=== PATIENT | female | born 1995 | race Caucasian/White ===

== ENCOUNTER 2016-08-05 13:20 | Inpatient (IN) | payer OTHER ==
[2016-08-05] MEDS ORDERED: SODIUM CHLORIDE 0.9% 1,000 ML IV STA ×2 (13:51)
[2016-08-05] MEDS ORDERED: METOCLOPRAMIDE 5 MG/ML 2 ML VIAL IVP STA (13:51)
--- NOTE | 2016-08-05 14:07 | ED ---
General Adult HPI - General Chief complaint: Nausea/Vomiting/Diarrhea Stated complaint: vomiting Time Seen by Provider: 08/05/16 13:31 Source: patient, family, RN notes reviewed, old records reviewed Mode of arrival: wheelchair Limitations: no limitations - History of Present Illness Initial comments: Chief complaint and history of present illness a 21-year-old female here with her significant other. The patient's 29 weeks . She had initially gone to a local clinic and was sent here to be evaluated by the WEB DESIGN SPECIALIST staff prior to being seen emergency room. WEB DESIGN SPECIALIST staff have cleared the patient to be seen in emergency room. The patient's recent history includes 4 days of nausea vomiting and diarrhea. Her OB instructed to use Imodium which stopped diarrhea. But she continues to have nausea and vomiting. Lab tests done at the clinic was negative for strep and ketone positive in her urine. Patient last vomited at 8:30 AM. Patient also presents with a very large abscess in the left buttock area. She reports she had an abscess there years ago which was MRSA positive. - Related Data Home Medications Medication Instructions Recorded Confirmed Acetaminophen Tab [Tylenol Tab] 1,000 mg PO Q6HR PRN 08/05/16 08/05/16 Loperamide [Imodium] 2 mg PO BID PRN 08/05/16 08/05/16 Allergies Allergy/AdvReac Type Severity Reaction Status Date / Time cat dander Allergy Swelling Verified 08/05/16 13:32 Latex, Natural Rubber Allergy Rash/Hives Verified 08/05/16 13:32 shellfish derived [Crab] Allergy Anaphylaxis Verified 08/05/16 13:32 clindamycin AdvReac Rapid Verified 08/05/16 13:32 Heart Rate diphenhydramine HCl AdvReac Rapid Verified 08/05/16 13:32 [From Benadryl] Heart Rate Sulfa (Sulfonamide AdvReac Rapid Verified 08/05/16 13:32 Antibiotics) Heart Rate Review of Systems ROS Statement: Those systems with pertinent positive or pertinent negative responses have been documented in the HPI. Review of systems no headache or visual acuity changes no chest pain or shortness of breath mild nausea vomiting up until 8:00 this morning. No back pain. She has significant discomfort with a large abscess in the left perineal area. Past history of MRSA infection in this area several years ago. No neuro deficits. Patient reports that she is feeling the baby move. Her WEB DESIGN SPECIALIST is at [facility] where she has had her previous children. Past medical problems significant for asthma, workup finds the patient be positive for MS. The patient's surgeries export for laparotomy. Nonsmoker nondrinker. Family history noncontributory. Patient has ALLERGIES to cat dander, latex, shellfish , clindamycin, diphenhydramine, sulfa drugs. ROS Other: All systems not noted in ROS Statement are negative. Past Medical History Past Medical History: Asthma Additional Past Medical History / Comment(s): "possible hole in heart"; Migraines, MS History of Any Multi-Drug Resistant Organisms: MRSA Date of last positivie culture/infection: 2011 MDRO Source:: vag Additional Past Surgical History / Comment(s): explory lap Past Anesthesia/Blood Transfusion Reactions: No Reported Reaction Past Psychological History: Depression, PTSD Smoking Status: Never smoker Past Alcohol Use History: None Reported Additional Past Alcohol Use History / Comment(s): Patient is a lifelong nonsmoker. She denies any medical marijuana, marijuana, street drug or alcohol use. Past Drug Use History: None Reported - Past Family History Father Additional Family Medical History / Comment(s): She does not know any history on her father. Mother Family Medical History: Asthma, Neurologic Disorder, Rheumatoid Arthritis (RA) Additional Family Medical History / Comment(s): Mother at age 31 from malpractice issue, mom also had over active histamine. Sister(s) Family Medical History: No Reported History Additional Family Medical History / Comment(s): Patient has 1 sister with no major medical problems. General Exam - General Exam Comments Initial Comments: General: The patient is awake and alert, here because of persistent nausea and vomiting. Patient's also complaining of a large tender abscess left buttock area. Vital signs temp 97.8 pulse 94 story rate 20 pulse ox 99% room air blood pressure 116/59 Eye: Pupils are equal, round and reactive to light, extra-ocular movements are intact ; there is normal conjunctiva bilaterally. No signs of icterus. Ears, nose, mouth and throat: There are moist mucous membranes and no oral lesions. Neck: The neck is supple, there is no tenderness , no anterior cervical lymphadenopathy. Cardiovascular: There is a regular rate and rhythm. No murmur, rub or gallop is appreciated. Respiratory: Lungs are clear to auscultation, respirations are non-labored, breath sounds are equal. No wheezes, stridor, rales, or rhonchi. Gastrointestinal: Soft, non-distended, non-tender abdomen without masses or organomegaly noted. There is no rebound or guarding present. No CVA tenderness. Bowel sounds are unremarkable. 0.9 weeks . Patient states she feels to be moving. Back: There is no tenderness to palpation in the midline. There is no obvious deformity. Musculoskeletal: Left buttock area large abscess. History of MRSA infection in the same area several years ago. Neurological: No neuro deficits complained of no neuro deficits noted. Skin: Large painful abscess right buttock area. Limitations: no limitations Course Vital Signs 08/05/16 13:22 Temperature 97.8 F Pulse Rate 94 Respiratory 20 Rate Blood Pressure 116/59 O2 Sat by Pulse 99 Oximetry Medical Decision Making - Medical Decision Making The patient does have a past history of MRSA in this same area. Is been decided that the patient be placed on daptomycin category B. She is ALLERGIC to clindamycin and sulfa drugs. And vancomycin is a category C medication. Case discussed with Dr. Limon on-call WEB DESIGN SPECIALIST. She is also discussed with on -call general surgeon Dr. Jasbir Schroeder who will take the patient to the operating room for incision and drainage of the large abscess. The patient has not had anything to eat or drink today. - Lab Data Result diagrams: 08/05/16 14:35 Lab Results 08/05/16 Range/Units 14:35 WBC 9.2 (3.8-10.6) k/uL RBC 4.13 (3.80-5.40) m/uL Hgb 11.0 L (11.4-16.0) gm/dL Hct 33.4 L (34.0-46.0) % MCV 80.9 (80.0-100.0) fL MCH 26.6 (25.0-35.0) pg MCHC 32.9 (31.0-37.0) g/dL RDW 14.1 (11.5-15.5) % Plt Count 274 (150-450) k/uL Neutrophils % 76 % Lymphocytes % 13 % Monocytes % 6 % Eosinophils % 3 % Basophils % 0 % Neutrophils # 7.0 (1.3-7.7) k/uL Lymphocytes # 1.2 (1.0-4.8) k/uL Monocytes # 0.5 (0-1.0) k/uL Eosinophils # 0.2 (0-0.7) k/uL Basophils # 0.0 (0-0.2) k/uL Disposition Clinical Impression: Abscess of buttock, left Disposition: ADMITTED IP TO THIS HOSP Condition: Fair Referrals: Ted Munoz MD [Primary Care Provider] - 1-2 days
[2016-08-05 14:52] LABS: Basophils % (A) 0 %; CH 27.7; CHCM 34.5; Eosinophils # (A) 0.2 k/uL (0-0.7); Eosinophils % (A) 3 %; HCT 33.4 % (34.0-46.0); HDW 3.23; Luc # (Auto) 0.15; Luc % (Auto) 2; Lymphocytes # (A) 1.2 k/uL (1.0-4.8); Lymphocytes % (A) 13 %; MCH 26.6 pg (25.0-35.0); MCHC 32.9 g/dL (31.0-37.0); MCV 80.9 fL (80.0-100.0); Mean Platelet Volume 7.1; Monocytes # (A) 0.5 k/uL (0-1.0); Monocytes % (A) 6 %; Neutrophils % (A) 76 %; RBC 4.13 m/uL (3.80-5.40); RDW 14.1 % (11.5-15.5); WBC 9.2 k/uL (3.8-10.6); WBC (Perox) 10.04
[2016-08-05 15:02] LABS: ALT 29 U/L (9-52); AST 15 U/L (14-36); Alkaline Phosphatase 64 U/L (38-126); Amylase 49 U/L (30-110); Anion Gap 10 mmol/L; Blood Urea Nitrogen 5 mg/dL (7-17); Calcium 8.6 mg/dL (8.4-10.2); Carbon Dioxide 22 mmol/L (22-30); Chloride 107 mmol/L (98-107); Glucose 79 mg/dL (74-99); Non-African American GFR(MDRD) >60 (>60 ml/min/1.73 sqM); Potassium 3.4 mmol/L (3.5-5.1); Sodium 139 mmol/L (137-145); Total Bilirubin 0.3 mg/dL (0.2-1.3); Total Protein 5.7 g/dL (6.3-8.2)
[2016-08-05] MEDS ORDERED: ACETAMINOPHEN TAB 325 MG TAB PO PRN (15:02)
[2016-08-05] MEDS ORDERED: NALOXONE 0.4 MG/ML 1 ML VIAL IV PRN ×2 (15:02→16:49)
[2016-08-05] MEDS ORDERED: SODIUM CHLORIDE 0.9% 1,000 ML IV SCH (15:15)
--- NOTE | 2016-08-05 15:36 | P.GSHP ---
History of Present Illness H&P Date: 08/05/16 Patient is a 21-year-old white female who is 29 weeks who presents with swelling and pain in her left buttock. This has been present for several days and has been increasingly worse. Patient states that she has had a low- grade fever does not know how high. The patient complains of nausea and vomiting for the past several days. She states she has not eaten for at least a day. The patient does have a history of MRSA. The patient was evaluated in labor and delivery and sent to the emergency room secondary to the large abscess. Her case has been discussed with Dr. Jam Limon who concurs that she needs to undergo incision and drainage of the area of abscess in the left buttock. Past surgical history: 1. Laparoscopic exam Past medical history: 1. Asthma 2. Multiple sclerosis Medications: Negative Social history: 4 pregnancies. Lipase and this is 29 weeks Smoking negative Alcohol negative Recreational drugs negative ALLERGIES: 1. Sulfa 2. Clindamycin 3. Benadryl DL 4. Latex - Constitutional Constitutional: Reports as per HPI, Reports fever - Cardiovascular Cardiovascular: Reports as per HPI - Respiratory Respiratory: Reports as per HPI - Gastrointestinal Gastrointestinal: Reports as per HPI - Genitourinary (Female) Genitourinary: Reports as per HPI - Psychiatric Comment: Posttraumatic stress disorder Psychiatric: Reports depression Past Medical History Past Medical History: Asthma Additional Past Medical History / Comment(s): "possible hole in heart"; Migraines, MS History of Any Multi-Drug Resistant Organisms: MRSA Date of last positivie culture/infection: 2011 MDRO Source:: vag Additional Past Surgical History / Comment(s): explory lap Past Anesthesia/Blood Transfusion Reactions: No Reported Reaction Past Psychological History: Depression, PTSD Smoking Status: Never smoker Past Alcohol Use History: None Reported Additional Past Alcohol Use History / Comment(s): Patient is a lifelong nonsmoker. She denies any medical marijuana, marijuana, street drug or alcohol use. Past Drug Use History: None Reported - Past Family History Father Additional Family Medical History / Comment(s): She does not know any history on her father. Mother Family Medical History: Asthma, Neurologic Disorder, Rheumatoid Arthritis (RA) Additional Family Medical History / Comment(s): Mother at age 31 from malpractice issue, mom also had over active histamine. Sister(s) Family Medical History: No Reported History Additional Family Medical History / Comment(s): Patient has 1 sister with no major medical problems. Medications and Allergies Home Medications Medication Instructions Recorded Confirmed Type Acetaminophen Tab [Tylenol Tab] 1,000 mg PO Q6HR PRN 08/05/16 08/05/16 History Loperamide [Imodium] 2 mg PO BID PRN 08/05/16 08/05/16 History Allergies Allergy/AdvReac Type Severity Reaction Status Date / Time cat dander Allergy Swelling Verified 08/05/16 13:32 Latex, Natural Rubber Allergy Rash/Hives Verified 08/05/16 13:32 shellfish derived [Crab] Allergy Anaphylaxis Verified 08/05/16 13:32 clindamycin AdvReac Rapid Verified 08/05/16 13:32 Heart Rate diphenhydramine HCl AdvReac Rapid Verified 08/05/16 13:32 [From Benadryl] Heart Rate Sulfa (Sulfonamide AdvReac Rapid Verified 08/05/16 13:32 Antibiotics) Heart Rate Surgical - Exam Vital Signs Temp Pulse Resp BP Pulse Ox 97.8 F 94 20 116/59 99 08/05/16 13:22 08/05/16 13:22 08/05/16 13:22 08/05/16 13:22 08/05/16 13:22 - General 29 weeks obese - Eyes normal ocular movement - ENT normal nares, normal mucosa, no hearing loss - Neck no masses, trachea midline, no lymphadectomy, no venous distension - Respiratory normal expansion, normal respiratory effort, clear to auscultation - Cardiovascular Rhythm: regular Heart Sounds: normal: S1, S2 - Abdomen Gravid uterus Abdomen: non tender, bowel sounds Hernia: none - Rectum Examination of the buttock reveals a approximately 10 x 6 cm abscess in the left buttock, this is erythematous with some fluctuance - Integumentary Left buttock abscess - Psychiatric oriented to time, oriented to person, oriented to place, speech is normal Results - Labs 08/05/16 14:35 08/05/16 14:35 Abnormal Lab Results - Last 24 Hours (Table) 08/05/16 08/05/16 Range/Units 14:35 14:35 Hgb 11.0 L (11.4-16.0) gm/dL Hct 33.4 L (34.0-46.0) % Potassium 3.4 L (3.5-5.1) mmol/L BUN 5 L (7-17) mg/dL Creatinine 0.40 L (0.52-1.04) mg/dL Total Protein 5.7 L (6.3-8.2) g/dL Albumin 2.9 L (3.5-5.0) g/dL Diabetes panel 08/05/16 Range/Units 14:35 Sodium 139 (137-145) mmol/L Potassium 3.4 L (3.5-5.1) mmol/L Chloride 107 (98-107) mmol/L Carbon Dioxide 22 (22-30) mmol/L BUN 5 L (7-17) mg/dL Creatinine 0.40 L (0.52-1.04) mg/dL Glucose 79 (74-99) mg/dL Calcium 8.6 (8.4-10.2) mg/dL AST 15 (14-36) U/L ALT 29 (9-52) U/L Alkaline Phosphatase 64 (38-126) U/L Total Protein 5.7 L (6.3-8.2) g/dL Albumin 2.9 L (3.5-5.0) g/dL Calcium panel 08/05/16 Range/Units 14:35 Calcium 8.6 (8.4-10.2) mg/dL Albumin 2.9 L (3.5-5.0) g/dL Pituitary panel 08/05/16 Range/Units 14:35 Sodium 139 (137-145) mmol/L Potassium 3.4 L (3.5-5.1) mmol/L Chloride 107 (98-107) mmol/L Carbon Dioxide 22 (22-30) mmol/L BUN 5 L (7-17) mg/dL Creatinine 0.40 L (0.52-1.04) mg/dL Glucose 79 (74-99) mg/dL Calcium 8.6 (8.4-10.2) mg/dL Adrenal panel 08/05/16 Range/Units 14:35 Sodium 139 (137-145) mmol/L Potassium 3.4 L (3.5-5.1) mmol/L Chloride 107 (98-107) mmol/L Carbon Dioxide 22 (22-30) mmol/L BUN 5 L (7-17) mg/dL Creatinine 0.40 L (0.52-1.04) mg/dL Glucose 79 (74-99) mg/dL Calcium 8.6 (8.4-10.2) mg/dL Total Bilirubin 0.3 (0.2-1.3) mg/dL AST 15 (14-36) U/L ALT 29 (9-52) U/L Alkaline Phosphatase 64 (38-126) U/L Total Protein 5.7 L (6.3-8.2) g/dL Albumin 2.9 L (3.5-5.0) g/dL Assessment and Plan Plan: Impression/plan: 1. 21-year-old 4. The 29 week white female presents with left buttock abscess 2. History of MRSA 3. Asthma 4. Multiple sclerosis 5. Depression/posterior matrix stress disorder Plan: 1. Surgical clearance has been obtained from Dr. Jam Limon the patient will have I&D of buttock abscess
[2016-08-05] MEDS ORDERED: HEPARIN SODIUM,PORCINE 5,000 UNIT/ML 1 ML VIAL SQ ONE ×2 (15:38)
[2016-08-05] MEDS ORDERED: LIDOCAINE 1% INJ 10MG/ML (20 ML MDV) ONE (16:13)
[2016-08-05] MEDS ORDERED: SUCCINYLCHOLINE CHLORIDE 100 MG/5 ML SYR IV ONE (16:13)
[2016-08-05] MEDS ORDERED: PROPOFOL 10 MG/ML 20 ML VIAL IV ONE (16:13)
[2016-08-05] MEDS ORDERED: IV FLUID CONTINUATION 1,000 ML IV ONE ×2 (16:13)
[2016-08-05] MEDS ORDERED: fentaNYL (PF) 50 MCG/ML 2 ML AMP ONE (16:13)
[2016-08-05] MEDS ORDERED: CALCIUM CARBONATE 500 MG CHEWABLE PO PRN (16:49)
[2016-08-05] MEDS ORDERED: HYDROcodone/APAP 5-325MG 1 EACH TAB PO PRN (16:49)
[2016-08-05] MEDS ORDERED: ONDANSETRON 4 MG/2 ML VIAL IVP PRN (16:49)
--- NOTE | 2016-08-05 16:49 | P.OP ---
Date of Procedure: 08/05/16 Preoperative Diagnosis: Abscess left buttock Postoperative Diagnosis: Same Procedure(s) Performed: Incision and drainage abscess left buttock, cultures obtained, irrigated and packed Anesthesia: DORA Surgeon: Meg Rose Estimated Blood Loss (ml): 2 Pathology: none sent Condition: stable Disposition: PACU Indications for Procedure: Enlarging left buttock abscess Operative Findings: Large left buttock abscess 10 cm x 13 cm Description of Procedure: Patient is a 21-year-old 29 week white female who has an enlarging left buttock abscess. She has a history of MRSA in the past in the same area. Patient was taken to the operating room and following induction of anesthesia the left buttock was prepped and draped in a sterile fashion. Initial incision was made over the area of the abscess. Purulent drainage was obtained. The wound was digitally explored and some adhesions were broken down. The extent of the wound was approximately 15 cm x 10 cm. The wound was well irrigated using 3 L of solution. The wound was then packed. The patient tolerated the procedure in stable condition. Upon initially opening the wound cultures were obtained aerobic and anaerobic. All instrument and sponge counts were correct at the end of the case.
[2016-08-05] MEDS ORDERED: HYDROmorphone 1 MG/ML 1 ML SYRINGE IVP ONE (17:21)
[2016-08-05 18:24] VITALS: BMI 44.2
[2016-08-05] MEDS: SODIUM CHLORIDE 0.9% 1,000 ML IV SCH (21:19)
[2016-08-05] MEDS: HYDROmorphone 1 MG/ML 1 ML SYRINGE IV PRN (21:19)
[2016-08-05] MEDS: HEPARIN SODIUM,PORCINE 5,000 UNIT/ML 1 ML VIAL SQ SCH (21:19)
[2016-08-05] MEDS: METOCLOPRAMIDE 5 MG/ML 2 ML VIAL IVP PRN (21:32)
[2016-08-06] MEDS: SODIUM CHLORIDE 0.9% 1,000 ML IV SCH ×2 (03:03→22:37)
[2016-08-06] MEDS: HYDROmorphone 1 MG/ML 1 ML SYRINGE IV PRN ×5 (07:16→22:24)
[2016-08-06] MEDS: METOCLOPRAMIDE 5 MG/ML 2 ML VIAL IVP PRN ×2 (07:23→18:39)
[2016-08-06 07:59] LABS: Basophils % (A) 0 %; CH 27.4; CHCM 32.7; Eosinophils # (A) 0.3 k/uL (0-0.7); Eosinophils % (A) 4 %; HCT 33.2 % (34.0-46.0); HDW 3.17; HGB 10.8 gm/dL (11.4-16.0); Luc # (Auto) 0.21; Luc % (Auto) 3; Lymphocytes # (A) 1.4 k/uL (1.0-4.8); Lymphocytes % (A) 17 %; MCH 27.3 pg (25.0-35.0); MCHC 32.4 g/dL (31.0-37.0); MCV 84.2 fL (80.0-100.0); Mean Platelet Volume 6.5; Monocytes # (A) 0.4 k/uL (0-1.0); Monocytes % (A) 5 %; Neutrophils % (A) 72 %; RBC 3.95 m/uL (3.80-5.40); WBC 8.3 k/uL (3.8-10.6); WBC (Perox) 8.74
--- NOTE | 2016-08-06 08:48 | P.HPOB ---
History of Present Illness H&P Date: 08/06/16 Chief Complaint: 29 weeks intrauterine , abscess of buttocks The patient is a 21-year-old 4 para 3003 admitted at approximately 29 weeks of having been found with a large abscess of the left buttocks. Her has been uncomplicated and she does have care with a reject opener [facility] fabiana practicing out [facility]. Her has been uncomplicated to this point. She does carry a history of a previous infection in the same area number of years ago which was ultimately found to be MRSA positive. She reports good activity and denies any other obstetrical concerns at this time. Obstetrical history 4 para 3003 with 3 term vaginal deliveries without complications. Her first was complicated only by preeclampsia. Current statistics are listed in history present illness. Laboratory workup as regards labs are immaterial to this admission. Gynecologic history is unremarkable with no history of any infections to include STDs. Review of Systems Review of systems is confined to history of present illness. Past Medical History Past Medical History: Asthma Additional Past Medical History / Comment(s): "possible hole in heart"; Migraines, MS History of Any Multi-Drug Resistant Organisms: MRSA Date of last positivie culture/infection: 2011 MDRO Source:: vag Additional Past Surgical History / Comment(s): explory lap, I&D left buttocks Past Anesthesia/Blood Transfusion Reactions: No Reported Reaction Past Psychological History: Depression, PTSD Smoking Status: Never smoker Past Alcohol Use History: None Reported Additional Past Alcohol Use History / Comment(s): Patient is a lifelong nonsmoker. She denies any medical marijuana, marijuana, street drug or alcohol use. Past Drug Use History: None Reported - Past Family History Father Additional Family Medical History / Comment(s): She does not know any history on her father. Mother Family Medical History: Asthma, Neurologic Disorder, Rheumatoid Arthritis (RA) Additional Family Medical History / Comment(s): Mother at age 31 from malpractice issue, mom also had over active histamine. Sister(s) Family Medical History: Asthma Additional Family Medical History / Comment(s): Patient has 1 sister with no major medical problems. Medications and Allergies Home Medications Medication Instructions Recorded Confirmed Type Acetaminophen Tab [Tylenol Tab] 1,000 mg PO Q6HR PRN 01/29/17 01/29/17 History Loperamide [Imodium] 2 mg PO BID PRN 08/05/16 08/05/16 History Allergies Allergy/AdvReac Type Severity Reaction Status Date / Time cat dander Allergy Swelling Verified 08/05/16 13:32 Latex, Natural Rubber Allergy Rash/Hives Verified 08/05/16 13:32 shellfish derived [Crab] Allergy Anaphylaxis Verified 08/05/16 13:32 clindamycin AdvReac Rapid Verified 08/05/16 13:32 Heart Rate diphenhydramine HCl AdvReac Rapid Verified 08/05/16 13:32 [From Benadryl] Heart Rate Sulfa (Sulfonamide AdvReac Rapid Verified 08/05/16 13:32 Antibiotics) Heart Rate Exam - Vital Signs Vital signs: Vital Signs Temp Pulse Pulse Pulse Resp BP BP 08/06/16 08:00 90 16 08/06/16 07:00 97.5 F L 90 16 08/06/16 03:38 98.0 F 83 15 08/05/16 20:00 97.1 F L 97 16 08/05/16 19:45 102 H 08/05/16 19:30 93 08/05/16 19:15 101 H 08/05/16 19:00 92 08/05/16 18:45 98 08/05/16 18:30 97 08/05/16 18:15 98 08/05/16 18:00 96.9 F L 97 16 08/05/16 17:15 103 H 18 141/70 08/05/16 17:00 113 H 18 146/72 08/05/16 16:54 98.4 F 116 H 16 156/69 08/05/16 15:36 97.6 F 98 18 113/58 BP Pulse Ox 08/06/16 08:00 08/06/16 07:00 111/61 96 08/06/16 03:38 88/43 95 08/05/16 20:00 128/59 95 08/05/16 19:45 125/66 95 08/05/16 19:30 118/68 91 L 08/05/16 19:15 130/65 97 08/05/16 19:00 124/64 89 L 08/05/16 18:45 129/71 96 08/05/16 18:30 116/61 100 08/05/16 18:15 105/60 98 08/05/16 18:00 115/63 97 08/05/16 17:15 97 08/05/16 17:00 96 08/05/16 16:54 93 L 08/05/16 15:36 100 Intake and Output 08/05/16 08/06/16 08/06/16 22:59 06:59 14:59 Intake Total 800 800 Output Total 25 Balance 775 800 Intake: IV 800 800 Sodium Chloride 0.9% 1, 300 800 000 ml @ 100 mls/hr IV . Q10H ELIZ Rx#:[id number] Output: Estimated Blood Loss 25 Other: Voiding Method Toilet Toilet # Voids 2 2 2 Weight 109.76 kg 109.76 kg Patient Weight 08/07/16 06:59 Weight 109.76 kg In general, this is a moderately obese white female in no acute distress. Her abdomen is nondistended, has normal active bowel sounds, soft, nontender, without any palpable masses aside from uterine fundus. Uterus is soft and nontender without apparent contractions. Digital cervical examination is deferred. Her extremities are without any cyanosis, clubbing, or significant edema and are nontender to palpation bilaterally. Results Result Diagrams: 08/06/16 07:30 08/05/16 14:35 Abnormal Lab Results - Last 24 Hours (Table) 08/06/16 Range/Units 07:30 Hgb 10.8 L (11.4-16.0) gm/dL Hct 33.2 L (34.0-46.0) % Assessment and Plan (1) 29 weeks gestation of Status: Acute (2) Abscess of buttock, left Status: Acute Plan: The patient will continue to be managed by general surgery. All of the current orders have been cleared obstetrically. She does continue to have a nonstress test each shift which thus far has been entirely reassuring. Patient has no obstetrical concerns at this time. I will continue to follow at a distance and to the patient's discharge at which time she should follow up with her primary reject opener in [facility]. Further management of the abscess will remain with general surgery.
[2016-08-06] MEDS ORDERED: DAPTOMYCIN IV SCH ×4 (09:00)
[2016-08-06] MEDS ORDERED: SODIUM CHLORIDE 0.9% IV SCH ×4 (09:00)
[2016-08-06] MEDS: HEPARIN SODIUM,PORCINE 5,000 UNIT/ML 1 ML VIAL SQ SCH ×2 (09:10→19:34)
--- NOTE | 2016-08-06 09:40 | P.PN ---
Subjective 21-year-old female being seen on rounds with the surgeon Dr. Shearer. Patient is postop incision and drainage of an abscess left buttocks cultures were obtained this was done on August 05. The dressing is removed from the left buttocks by the surgeon this morning there is a packing in place was a moderate amount of drainage on the dressings. Drainage was noticed The surgeon did review the plan of care with the patient this morning infectious diseases to participate in the plan of care with recommendations of the antibiotics. Dressing is to be changed daily. The packing can be removed in the shower repack daily Objective - Vital Signs Vital signs: Vital Signs Temp 97.5 F L 08/06/16 07:00 Pulse 90 08/06/16 08:00 Resp 16 08/06/16 08:00 BP 111/61 08/06/16 07:00 Pulse Ox 96 08/06/16 07:00 Intake & Output 08/05/16 08/06/16 08/06/16 18:59 06:59 18:59 Intake Total 500 1100 Output Total 25 Balance 475 1100 Weight 109.76 kg 109.76 kg Intake: IV 500 1100 Sodium Chloride 0.9% 1, 1100 000 ml @ 100 mls/hr IV . Q10H ELIZ Rx#:[id number] Output: Estimated Blood Loss 25 Other: Voiding Method Toilet Toilet # Voids 2 2 - Exam Physical exam 21-year-old female resting in bed appears in no acute distress Lungs essentially clear adequate air movement Heart S1-S2 audible and regular Left buttocks dressing removed packing in place moderate amount of drainage on the dressings less tenderness Abdomen obese soft nontender no reports the nausea vomiting Extremities no edema - Labs CBC & Chem 7: 08/06/16 07:30 08/05/16 14:35 Labs: Abnormal Lab Results - Last 24 Hours (Table) 08/06/16 Range/Units 07:30 Hgb 10.8 L (11.4-16.0) gm/dL Hct 33.2 L (34.0-46.0) % Assessment and Plan Plan: Impression Abscess left buttock status post incision and drainage of the abscess cultures obtained done on August 05 week intrauterine A prior history of MRSA the same area number a years ago Plan Packing to be removed daily repack dressing changes daily Await infectious diseases recommendations Continue recommendations from PROJECT STRUCTURAL ENGINEER Further recommendations pending will follow Follow-up on cultures pending The above dictated assessment and findings were discussed with dr barragan Impression and the plan of care have been dictated as directed. Cristina Robbins nurse practitioner acting as a scribe for dr barragan
--- NOTE | 2016-08-06 15:19 | P.CONS ---
History of Present Illness - Reason for Consult Consult date: 08/06/16 MRSA wound, - History of Present Illness This is a 21-year-old female who is currently 29 weeks . She had 4 days of nausea vomiting and diarrhea prior to her admission. She took Imodium which stopped the diarrhea but she continued to have nausea and vomiting. She has also had fever, chills and rigors. She was found to have a large abscess on the left buttocks. She does have a history of MRSA. She came into [facility] and she has been placed on daptomycin. She has been afebrile but tachycardic. White count is 9.2. GFR greater than 60 and albumin 2.9. She underwent incision and drainage of a 10 x 13 cm abscess done on August 05. Patient is not sure if it feels any better. Patient is also followed by Dr. Limon and she is undergoing nonstress test each shift. Review of Systems All systems: negative Constitutional: Reports chills, Reports fever, Reports sweats Eyes: denies blurred vision, denies pain Ears, nose, mouth and throat: Denies headache, Denies sore throat Cardiovascular: Denies chest pain, Denies shortness of breath Respiratory: Denies cough Gastrointestinal: Reports diarrhea, Reports nausea, Reports vomiting, Denies abdominal pain Genitourinary: Denies dysuria, Denies hematuria Musculoskeletal: Denies myalgias Integumentary: Reports wounds, Denies pruritus, Denies rash Neurological: Denies numbness, Denies weakness Psychiatric: Denies anxiety, Denies depression Endocrine: Denies fatigue, Denies weight change Past Medical History Past Medical History: Asthma Additional Past Medical History / Comment(s): "possible hole in heart"; Migraines, MS History of Any Multi-Drug Resistant Organisms: MRSA Year Discovered:: 2011 MDRO Source:: vag Additional Past Surgical History / Comment(s): explory lap, I&D left buttocks Past Anesthesia/Blood Transfusion Reactions: No Reported Reaction Past Psychological History: Depression, PTSD Smoking Status: Never smoker Past Alcohol Use History: None Reported Additional Past Alcohol Use History / Comment(s): Patient is a lifelong nonsmoker. She denies any medical marijuana, marijuana, street drug or alcohol use. She lives at home with her significant other. There is a cat in the home. No other children. She works at [employer]. Past Drug Use History: None Reported - Past Family History Father Additional Family Medical History / Comment(s): She does not know any history on her father. Mother Family Medical History: Asthma, Neurologic Disorder, Rheumatoid Arthritis (RA) Additional Family Medical History / Comment(s): Mother at age 31 from malpractice issue, mom also had over active histamine. Sister(s) Family Medical History: Asthma Additional Family Medical History / Comment(s): Patient has 1 sister with no major medical problems. Medications and Allergies Home Medications Medication Instructions Recorded Confirmed Type Acetaminophen Tab [Tylenol Tab] 1,000 mg PO Q6HR PRN 08/05/16 08/05/16 History Loperamide [Imodium] 2 mg PO BID PRN 08/05/16 08/05/16 History Allergies Allergy/AdvReac Type Severity Reaction Status Date / Time cat dander Allergy Swelling Verified 08/05/16 13:32 Latex, Natural Rubber Allergy Rash/Hives Verified 08/05/16 13:32 shellfish derived [Crab] Allergy Anaphylaxis Verified 08/05/16 13:32 clindamycin AdvReac Rapid Verified 08/05/16 13:32 Heart Rate diphenhydramine HCl AdvReac Rapid Verified 08/05/16 13:32 [From Benadryl] Heart Rate Sulfa (Sulfonamide AdvReac Rapid Verified 08/05/16 13:32 Antibiotics) Heart Rate Physical Exam Vitals: Vital Signs Temp Pulse Pulse Pulse Resp BP BP 08/06/16 08:00 90 16 08/06/16 07:00 97.5 F L 90 16 08/06/16 03:38 98.0 F 83 15 08/05/16 20:00 97.1 F L 97 16 08/05/16 19:45 102 H 08/05/16 19:30 93 08/05/16 19:15 101 H 08/05/16 19:00 92 08/05/16 18:45 98 08/05/16 18:30 97 08/05/16 18:15 98 08/05/16 18:00 96.9 F L 97 16 08/05/16 17:15 103 H 18 141/70 08/05/16 17:00 113 H 18 146/72 08/05/16 16:54 98.4 F 116 H 16 156/69 08/05/16 15:36 97.6 F 98 18 113/58 BP Pulse Ox 08/06/16 08:00 08/06/16 07:00 111/61 96 08/06/16 03:38 88/43 95 08/05/16 20:00 128/59 95 08/05/16 19:45 125/66 95 08/05/16 19:30 118/68 91 L 08/05/16 19:15 130/65 97 08/05/16 19:00 124/64 89 L 08/05/16 18:45 129/71 96 08/05/16 18:30 116/61 100 08/05/16 18:15 105/60 98 08/05/16 18:00 115/63 97 08/05/16 17:15 97 08/05/16 17:00 96 08/05/16 16:54 93 L 08/05/16 15:36 100 Intake and Output 08/05/16 08/06/16 08/06/16 22:59 06:59 14:59 Intake Total 800 800 Output Total 25 Balance 775 800 Intake: IV 800 800 Sodium Chloride 0.9% 1, 300 800 000 ml @ 100 mls/hr IV . Q10H [facility] Rx#:[id number] Output: Estimated Blood Loss 25 Other: Voiding Method Toilet Toilet # Voids 2 2 2 Weight 109.76 kg 109.76 kg Patient Weight 08/07/16 06:59 Weight 109.76 kg Gen: This is a obese 21-year-old female. She is resting comfortably and appears to be in no acute distress. HEENT: Head is atraumatic, normocephalic. Pupils equal, round. Sclerae is anicteric. Oral mucous membranes are slightly dry. NECK: Supple. No JVD. No lymphadenopathy. No thyromegaly. LUNGS: Clear to auscultation. No wheezes or rhonchi. No intercostal retractions. HEART: Regular rate and rhythm. No murmur. ABDOMEN: Soft. Bowel sounds are present. No masses. No tenderness. BUTTOCKS: Patient has very large wound to the lower left buttocks with packing in place. Surrounding erythema and edema. EXTREMITIES: No pedal edema. No calf tenderness. Dorsalis pedis +2 bilaterally NEUROLOGICAL: Patient is awake, alert and oriented x3. Cranial nerves 2 through 12 are grossly intact. Results Results: Laboratory Results WBC 8.3 k/uL (3.8-10.6) 08/06/16 07:30 RBC 3.95 m/uL (3.80-5.40) 08/06/16 07:30 Hgb 10.8 gm/dL (11.4-16.0) L 08/06/16 07:30 Hct 33.2 % (34.0-46.0) L 08/06/16 07:30 MCV 84.2 fL (80.0-100.0) 08/06/16 07:30 MCH 27.3 pg (25.0-35.0) 08/06/16 07: MCHC 32.4 g/dL (31.0-37.0) 08/06/16 07:30 RDW 14.0 % (11.5-15.5) 08/06/16 07:30 Plt Count 304 k/uL (150-450) 08/06/16 07:30 Neutrophils % 72 % 08/06/16 07:30 Lymphocytes % 17 % 08/06/16 07:30 Monocytes % 5 % 08/06/16 07:30 Eosinophils % 4 % 08/06/16 07: Basophils % 0 % 08/06/16 07:30 Neutrophils # 6.0 k/uL (1.3-7.7) 08/06/16 07:30 Lymphocytes # 1.4 k/uL (1.0-4.8) 08/06/16 07:30 Monocytes # 0.4 k/uL (0-1.0) 08/06/16 07:30 Eosinophils # 0.3 k/uL (0-0.7) 08/06/16 07:30 Basophils # 0.0 k/uL (0-0.2) 08/06/16 07:30 Sodium 139 mmol/L (137-145) 08/05/16 14:35 Potassium 3.4 mmol/L (3.5-5.1) L 08/05/16 14:35 Chloride 107 mmol/L (98-107) 08/05/16 14:35 Carbon Dioxide 22 mmol/L (22-30) 08/05/16 14:35 Anion Gap 10 mmol/L 08/05/16 14:35 BUN 5 mg/dL (7-17) L 08/05/16 14:35 Creatinine 0.40 mg/dL (0.52-1.04) L 08/05/16 14:35 Est GFR (MDRD) Af Amer >60 (>60 ml/min/1.73 sqM) 08/05/16 14:35 Est GFR (MDRD) Non-Af >60 (>60 ml/min/1.73 sqM) 08/05/16 14:35 Glucose 79 mg/dL (74-99) 08/05/16 14:35 Calcium 8.6 mg/dL (8.4-10.2) 08/05/16 14:35 Total Bilirubin 0.3 mg/dL (0.2-1.3) 08/05/16 14:35 AST 15 U/L (14-36) 08/05/16 14:35 ALT 29 U/L (9-52) 08/05/16 14:35 Alkaline Phosphatase 64 U/L (38-126) 08/05/16 14:35 Total Protein 5.7 g/dL (6.3-8.2) L 08/05/16 14:35 Albumin 2.9 g/dL (3.5-5.0) L 08/05/16 14:35 Amylase 49 U/L (30-110) 08/05/16 14:35 Lipase 26 U/L (23-300) 08/05/16 14:35 CBC & Chem 7: 08/06/16 07:30 08/05/16 14:35 Labs: Abnormal Lab Results - Last 24 Hours (Table) 08/06/16 Range/Units 07:30 Hgb 10.8 L (11.4-16.0) gm/dL Hct 33.2 L (34.0-46.0) % Assessment and Plan Plan: This is a 21-year-old female who presented to the hospital with signs of sepsis with fever, chills, rigors and large left buttocks abscess status post I&D. She is currently on daptomycin which will be continued. Antibiotics at the time of discharge will be addressed. Wound cultures are currently pending. Continue supportive care. Further recommendations as patient progresses. The above dictated assessment and findings were discussed with Dr. Serrano. The impression and plan of care have been directed as dictated. Rachel Gallagher nurse practitioner acting as scribe for Dr. Serrano. Time with Patient: Greater than 30
--- NOTE | 2016-08-06 19:36 | P.CON ---
Consult Note - . Consult date: 08/06/16 Assessment/Plan:: This is a 21-year-old female who is currently 29 weeks . She had 4 days of nausea vomiting and diarrhea prior to her admission. She took Imodium which stopped the diarrhea but she continued to have nausea and vomiting. She has also had fever, chills and rigors. She was found to have a large abscess on the left buttocks. She does have a history of MRSA. She came into [facility] and she has been placed on daptomycin. She has been afebrile but tachycardic. White count is 9.2. GFR greater than 60 and albumin 2.9. She underwent incision and drainage of a 10 x 13 cm abscess done on August 05. Other than some pain at site she is feeling better.. Patient is also followed by Dr. Limon and she is undergoing nonstress test each shift. She has been tolerating the current antibiotic therapy well. Please see the consult note is dictated by nurse practitioner Mrs. Rachel Gallagher. This pleasant woman is in no acute distress. Her significant other is present. We discuss cleansing and the cleaning of common contact services to help prevent further staphylococcal infection. Her current risk factors are her obesity and . The wound is cleansed and packed with Iodosorb as per the surgeon's request. She improved ischemic be altered over to opticell Ag which can also be utilized for home. Pain control appears to be adequate. Await final cultures as to options for antibiotic therapy for home. As noted she has ALLERGIES to both clindamycin and sulfa. Tetracycline will not be an option given the fact that she is . I agree with evaluation, assessment and plan as dictated by nurse practitioner Mrs. Rachel Gallagher.
[2016-08-07] MEDS: SODIUM CHLORIDE 0.9% 1,000 ML IV SCH ×3 (03:26→21:48)
[2016-08-07] MEDS: HYDROmorphone 1 MG/ML 1 ML SYRINGE IV PRN ×6 (05:24→21:49)
[2016-08-07] MEDS: HEPARIN SODIUM,PORCINE 5,000 UNIT/ML 1 ML VIAL SQ SCH ×2 (08:10→21:49)
--- NOTE | 2016-08-07 11:14 | P.PN ---
Progress Note - Text Subjective: The patient reports that she is generally feeling significantly better. She reports normal movement and denies any concerns at this time. Objective: Vital signs are stable and the patient is afebrile. In general, this is an obese white female in no acute distress. Her abdomen is obese, nondistended, soft, nontender, without any palpable masses aside from the uterine fundus. Her extremities are without any cyanosis, clubbing, or edema and are nontender to palpation bilaterally. Assessment and plan: #1. 29 weeks intrauterine , abscess of left buttocks: From a perspective, the patient remains entirely stable. I will continue to follow at a distance. Nonstress tests have been decreased to daily until discharge which will remain in the hands of general surgery for disposition.
--- NOTE | 2016-08-07 13:51 | P.PN ---
Subjective 21-year-old female being seen on rounds this morning. Did been no new events noted. This is a 21-year-old female who is 29 weeks intrauterine who developed an abscess on the left buttock. Patient is being followed by [facility]. Patients being followed by surgical service for the abscess of the left buttocks. The cultures are currently pending. Patient did undergo an incision and drainage of the abscess left buttocks done on August 05. Currently has packing in the incision. This morning there is significant improvement in the redness on the left buttock area . Is a moderate amount of drainage noted on the dressing this morning no odor . Patient states there is less tenderness to the left buttock area patient additionally is being followed by infectious disease Dr. Serrano. Currently on daptomycin IV antibiotics Per infectious diseases recommendations Objective - Vital Signs Vital signs: Vital Signs Temp 97.1 F L 08/07/16 07:00 Pulse 68 08/07/16 07:00 Resp 16 08/07/16 07:00 BP 110/68 08/07/16 07:00 Pulse Ox 98 08/07/16 07:00 Intake & Output 08/06/16 08/07/16 08/07/16 18:59 06:59 18:59 Intake Total 1960 1600 360 Balance 1960 1600 360 Weight 109.76 kg Intake: IV 1000 1300 Sodium Chloride 0.9% 1, 1000 1300 000 ml @ 100 mls/hr IV . Q10H [facility] Rx#:[id number] Oral 960 300 360 Other: Voiding Method Toilet # Voids 2 4 - Exam Physical exam 21-year-old female resting in bed appears in no acute distress Lungs essentially clear adequate air movement Heart S1-S2 audible and regular Left buttocks dressing removed packing in place moderate amount of drainage on the dressings less tenderness Abdomen obese soft nontender no reports the nausea vomiting Extremities no edema - Labs CBC & Chem 7: 08/06/16 07:30 08/05/16 14:35 Labs: Microbiology - Last 24 Hours (Table) 08/05/16 16:35 Gram Stain - Preliminary Buttock Wound Culture - Preliminary 08/05/16 16:35 Anaerobic Culture - Preliminary Buttock Assessment and Plan Plan: Impression Abscess left buttock status post incision and drainage of the abscess cultures obtained done on August 05 week intrauterine A prior history of MRSA the same area number a years ago Plan Packing to be removed daily repack dressing changes daily Continue recommendations from [facility] further recommendations from infectious disease pending the cultures The above dictated assessment and findings were discussed with dr barragan Impression and the plan of care have been dictated as directed. Cristina Robbins nurse practitioner acting as a scribe for dr barragan
[2016-08-07] MEDS: METOCLOPRAMIDE 5 MG/ML 2 ML VIAL IVP PRN (21:49)
--- NOTE | 2016-08-07 21:59 | P.PN ---
Progress Note - Text Wound cultures are pending at this point in time. Await culture to determine possible antibiotic therapy for home. Complications because of her and her ALLERGIES.
[2016-08-08] MEDS: HYDROmorphone 1 MG/ML 1 ML SYRINGE IV PRN ×2 (01:29→06:44)
[2016-08-08] MEDS: SODIUM CHLORIDE 0.9% 1,000 ML IV SCH ×2 (05:42→16:32)
[2016-08-08] MEDS ORDERED: HYDROmorphone 1 MG/ML 1 ML SYRINGE IVP PRN (08:49)
[2016-08-08] MEDS ORDERED: ACETAMINOPHEN TAB 325 MG TAB PO PRN (08:51)
[2016-08-08] MEDS: HEPARIN SODIUM,PORCINE 5,000 UNIT/ML 1 ML VIAL SQ SCH ×2 (09:55→20:13)
[2016-08-08] MEDS: HYDROcodone/APAP 7.5-325MG 1 EACH TAB PO PRN ×2 (13:54→20:13)
--- NOTE | 2016-08-08 14:48 | P.DS ---
Providers Date of admission: 08/05/16 15:03 Expected date of discharge: 08/08/16 Attending physician: Meg Rose Consults: 08/05/16 16:54 Consult Physician Routine Consulting Provider: Jam Serrano Consult Reason/Comments: buttock abscess in patient Do you want consulting provider notified?: Yes Primary care physician: Tobey Hospital Course: This is a 21-year-old female who is 29 weeks intrauterine who developed an abscess on the left buttock. Patient is being followed by [facility]. Patients being followed by surgical service for the abscess of the left buttocks. Patient did undergo an incision and drainage of the abscess left buttocks done on August 05. Wound cultures were obtained at that time. The wound culture came back showing moderate gram-positive cocci Currently has packing in the incision. IV antibiotics were started by infectious disease they were initiated on admission over the course of the hospitalization there was significant improvement in the redness on the left buttock area . Is a moderate amount of drainage noted on the dressing this morning no odor . Patient states there is less tenderness to the left buttock area Dr. Serrano infectious disease on admission recommended. Starting on daptomycin IV antibiotics Per infectious diseases recommendations at the time of discharge were Keflex 500 every 6 hours for 10 days. Patient was felt to be hemodynamically stable and appropriate to proceed with discharge to home Impression discharge diagnose Abscess left buttock status post incision and drainage of the abscess cultures obtained done on August 05 positive moderate gram-positive cocci 29 week intrauterine A prior history of MRSA the same area number a years ago The above dictated assessment and findings were discussed with dr Chantelle Martell Impression and the plan of care have been dictated as directed. Cristina Robbins nurse practitioner acting as a scribe for Janki Patient Condition at Discharge: Fair Plan - Discharge Summary New Discharge Prescriptions: Cephalexin [Keflex] 500 mg PO Q6H #40 capsule HYDROcodone/APAP 5-325MG [[place] 5-325] 1 tab PO Q4HR PRN #30 tab PRN Reason: Mild Breakthrough Pain Discharge Medication List Acetaminophen Tab [Tylenol] 1,000 mg PO Q6HR PRN 08/05/16 [History] Loperamide [Imodium] 2 mg PO BID PRN 08/05/16 [History] Acetaminophen Tab [Tylenol] 650 mg PO Q4H PRN #0 tab 08/08/16 [Rx] Calcium Carbonate [Tums] 1,000 mg PO Q4HR PRN #0 chew 08/08/16 [Rx] Cephalexin [Keflex] 500 mg PO Q6H #40 capsule 08/08/16 [Rx] HYDROcodone/APAP 5-325MG [[place] 5-325] 1 tab PO Q4HR PRN #30 tab 08/08/16 [Rx] HYDROcodone/APAP 7.5-325MG [[place] 7.5-325] 1 each PO Q6H PRN #0 tab 08/08/16 [Rx ] Follow up Appointment(s)/Referral(s): Ted Munoz MD [Primary Care Provider] - 1-2 days [facility], [NON-STAFF] - Meg Rose MD [STAFF PHYSICIAN] - 1 Week Activity/Diet/Wound Care/Special Instructions: Dressing change daily- pack wound daily with 1/2" iodoform gauze Discharge Disposition: HOME WITH HOME HEALTH SERVICES
[2016-08-08] MEDS ORDERED: CEPHALEXIN 500 MG CAP PO STA (18:05)
[2016-08-08 20:13] VITALS: BP 107/55; PULSE 78; RESP 18; TEMP 97.1
--- NOTE | 2016-08-08 23:01 | P.PN ---
Subjective Principal diagnosis: abscess of buttocks This is a 21-year-old female who is currently 29 weeks . She had 4 days of nausea vomiting and diarrhea prior to her admission. She took Imodium which stopped the diarrhea but she continued to have nausea and vomiting. She has also had fever, chills and rigors. She was found to have a large abscess on the left buttocks. She does have a history of MRSA. She came into [facility] and she has been placed on daptomycin. She has been afebrile but tachycardic. White count is 9.2. GFR greater than 60 and albumin 2.9. She underwent incision and drainage of a 10 x 13 cm abscess done on August 05. Patient is not sure if it feels any better. Patient is also followed by Dr. Limon and she is undergoing nonstress test each shift. Now improved pain improved drainage improved Objective - Vital Signs Vital signs: Vital Signs Temp 97.1 F L 08/08/16 20:12 Pulse 78 08/08/16 20:12 Resp 18 08/08/16 20:12 BP 107/55 08/08/16 20:12 Pulse Ox 96 08/08/16 15:05 Intake & Output 08/08/16 08/08/16 08/09/16 06:59 18:59 06:59 Intake Total 2280 2470 Balance 2280 2470 Weight 109.76 kg Intake: IV 1200 650 Sodium Chloride 0.9% 1, 1200 650 000 ml @ 100 mls/hr IV . Q10H [facility] Rx#:[id number] Oral 1080 1820 Other: Voiding Method Toilet Toilet # Voids 1 - Exam en: This is a obese 21-year-old female. She is resting comfortably and appears to be in no acute distress. HEENT: Head is atraumatic, normocephalic. Pupils equal, round. Sclerae is anicteric. Oral mucous membranes are slightly dry. NECK: Supple. No JVD. No lymphadenopathy. No thyromegaly. LUNGS: Clear to auscultation. No wheezes or rhonchi. No intercostal retractions. HEART: Regular rate and rhythm. No murmur. ABDOMEN: Soft. Bowel sounds are present. No masses. No tenderness. BUTTOCKS: Patient has large wound to the lower left buttocks packing removed and replaced with Aquacell silver and duoderm to secure EXTREMITIES: No pedal edema. No calf tenderness. Dorsalis pedis +2 bilaterally NEUROLOGICAL: Patient is awake, alert and oriented x3. Cranial nerves 2 through 12 are grossly intact. - Labs CBC & Chem 7: 08/06/16 07:30 08/05/16 14:35 Labs: Microbiology - Last 24 Hours (Table) 08/05/16 16:35 Gram Stain - Final Buttock Wound Culture - Final Laboratory Results WBC 8.3 k/uL (3.8-10.6) 08/06/16 07:30 RBC 3.95 m/uL (3.80-5.40) 08/06/16 07:30 Hgb 10.8 gm/dL (11.4-16.0) L 08/06/16 07:30 Hct 33.2 % (34.0-46.0) L 08/06/16 07:30 MCV 84.2 fL (80.0-100.0) 08/06/16 07:30 MCH 27.3 pg (25.0-35.0) 08/06/16 07:30 MCHC 32.4 g/dL (31.0-37.0) 08/06/16 07:30 RDW 14.0 % (11.5-15.5) 08/06/16 07:30 Plt Count 304 k/uL (150-450) 08/06/16 07:30 Neutrophils % 72 % 08/06/16 07:30 Lymphocytes % 17 % 08/06/16 07:30 Monocytes % 5 % 08/06/16 07:30 Eosinophils % 4 % 08/06/16 07:30 Basophils % 0 % 08/06/16 07:30 Neutrophils # 6.0 k/uL (1.3-7.7) 08/06/16 07:30 Lymphocytes # 1.4 k/uL (1.0-4.8) 08/06/16 07:30 Monocytes # 0.4 k/uL (0-1.0) 08/06/16 07:30 Eosinophils # 0.3 k/uL (0-0.7) 08/06/16 07:30 Basophils # 0.0 k/uL (0-0.2) 08/06/16 07:30 Sodium 139 mmol/L (137-145) 08/05/16 14:35 Potassium 3.4 mmol/L (3.5-5.1) L 08/05/16 14:35 Chloride 107 mmol/L (98-107) 08/05/16 14:35 Carbon Dioxide 22 mmol/L (22-30) 08/05/16 14:35 Anion Gap 10 mmol/L 08/05/16 14:35 BUN 5 mg/dL (7-17) L 08/05/16 14:35 Creatinine 0.40 mg/dL (0.52-1.04) L 08/05/16 14:35 Est GFR (MDRD) Af Amer >60 (>60 ml/min/1.73 sqM) 08/05/16 14:35 Est GFR (MDRD) Non-Af >60 (>60 ml/min/1.73 sqM) 08/05/16 14:35 Glucose 79 mg/dL (74-99) 08/05/16 14:35 Calcium 8.6 mg/dL (8.4-10.2) 08/05/16 14:35 Total Bilirubin 0.3 mg/dL (0.2-1.3) 08/05/16 14:35 AST 15 U/L (14-36) 08/05/16 14:35 ALT 29 U/L (9-52) 08/05/16 14:35 Alkaline Phosphatase 64 U/L (38-126) 08/05/16 14:35 Total Protein 5.7 g/dL (6.3-8.2) L 08/05/16 14:35 Albumin 2.9 g/dL (3.5-5.0) L 08/05/16 14:35 Amylase 49 U/L (30-110) 08/05/16 14:35 Lipase 26 U/L (23-300) 08/05/16 14:35 Microbiology 08/05/16 16:35 Buttock Gram Stain - Final 08/05/16 16:35 Buttock Wound Culture - Final 08/05/16 16:35 Buttock Anaerobic Culture - Preliminary Assessment and Plan (1) Abscess of buttock, left Narrative/Plan: 21-year-old woman who is 29 weeks presented to Hospital 7 abscess to her left buttocks. She status post incision and drainage. Now doing better. Culture has failed to reveal evidence of MRSA. Constantly she's ready for discharge to home. Oral cephalexin 500 mg every 6 hours as ordered for 10 days. Follow up with her surgeon. We have used in the office of Luanne. further needs. She will have home care. He can pack the site with the Aquacel silver and cover with DuoDERM to keep it in place. Status: Acute
--- NOTE | 2016-08-10 09:36 | CDI ---
In responding to this query, please exercise your independent professional judgment. The [facility] Coding Staff and Clinical Documentation Specialists appreciate your assistance in clarifying documentation, maintaining compliance with coding guidelines, accurately documenting patients condition and capturing severity of illness. The fact that a question is asked does not imply that any particular answer is desired or expected. Communication forms are a method of clarifying documentation and are not made part of the Legal Health Record. Thank you in advance for your clarification. Last Revision, May 2015 Rosibel Case [id number] [facility] [place] [address] Documentation Clarification Form Date: 08/10/2016 9:24:00 AM From: Jesica Lashae Phone: Admit Date: 08/05/2016 3:03:00 PM Patient Name: Marina Maradiaga Visit Number: [id number] Discharge Date: Dr. Meg Martell-Alexandre Abscess of left buttock is documented in the H&P, DS, progress notes and consult notes. Patient history/risk factors History of previous MRSA infection in the same area, obesity and . Vital Signs: T. 97.8, P. 97 R. 20, BP 116/59 Treatment: Incision and drainage of the abscess, IV Daptomycin In your professional opinion, can you please clarify the depth of the Incision & Drainage? - Skin - Subcutaneous tissue and fascia - Other - Unable to determine Please document in your progress notes and discharge summary in order to capture severity of illness and risk of mortality. Include clinical findings that support your diagnosis. FYI: Press F11 to launch patient chart. Place X here if this finding has no clinical significance, is not applicable or if you are not able to provide any additional documentation. COOKIE
--- NOTE | 2016-08-14 13:39 | CDI ---
In responding to this query, please exercise your independent professional judgment. The [facility] Coding Staff and Clinical Documentation Specialists appreciate your assistance in clarifying documentation, maintaining compliance with coding guidelines, accurately documenting patients condition and capturing severity of illness. The fact that a question is asked does not imply that any particular answer is desired or expected. Communication forms are a method of clarifying documentation and are not made part of the Legal Health Record. Thank you in advance for your clarification. Last Revision, May 2015 Rosibel Case [id number] [facility] [place] [address] Documentation Clarification Form Date: 08/10/2016 9:24:00 AM From: Jesica Lashae Phone: Admit Date: 08/05/2016 3:03:00 PM Patient Name: Marina Maradiaga Visit Number: [id number] Discharge Date: Dr. Meg Martell-Alexandre Abscess of left buttock is documented in the H&P, DS, progress notes and consult notes. Patient history/risk factors History of previous MRSA infection in the same area, obesity and . Vital Signs: T. 97.8, P. 97 R. 20, BP 116/59 Treatment: Incision and drainage of the abscess, IV Daptomycin In your professional opinion, can you please clarify the depth of the Incision & Drainage? - Skin - Subcutaneous tissue and fascia - Other - Unable to determine Please document in your progress notes and discharge summary in order to capture severity of illness and risk of mortality. Include clinical findings that support your diagnosis. FYI: Press F11 to launch patient chart. Place X here if this finding has no clinical significance, is not applicable or if you are not able to provide any additional documentation. COOKIE
--- NOTE | 2016-08-15 09:08 | P.PN ---
Progress Note - Text Please note I was asked to further document the depth of the patient's abscess. The abscess was very deep through the skin subcutaneous tissues down into the deep subcutaneous fat,
== END 2016-08-08 21:05 | disposition home health service (06) | DRG 775 ==
LOC: EC 13:20 → 3SUR 15:03 → EC 15:51
PROVIDERS: ADMIT Surgery; ATTEND Surgery
PROC: 0Y910ZZ Drainage of Left Buttock, Open Approach (ICD-10-PCS; principal; 2016-08-05 15:43)
DX: O99.713 Diseases of the skin and subcutaneous tissue complicating pregnancy, third trimester (principal); Z37.0 Single live birth; L02.31 Cutaneous abscess of buttock; O99.353 Diseases of the nervous system complicating pregnancy, third trimester; G35 Multiple sclerosis; O99.343 Other mental disorders complicating pregnancy, third trimester; F32.9 Major depressive disorder, single episode, unspecified; Z3A.29 29 weeks gestation of pregnancy; B96.89 Other specified bacterial agents as the cause of diseases classified elsewhere; O99.513 Diseases of the respiratory system complicating pregnancy, third trimester; O99.213 Obesity complicating pregnancy, third trimester; J45.909 Unspecified asthma, uncomplicated; F43.10 Post-traumatic stress disorder, unspecified; G43.909 Migraine, unspecified, not intractable, without status migrainosus; Z68.41 Body mass index [BMI] 40.0-44.9, adult; Z86.14 Personal history of Methicillin resistant Staphylococcus aureus infection; Z88.2 Allergy status to sulfonamides; Z88.8 Allergy status to other drugs, medicaments and biological substances; Z88.1 Allergy status to other antibiotic agents; Z91.040 Latex allergy status
CPT/HCPCS: 36415; 80053; 82150; 83690; 85025; 87070; 87075; 87205; 96361; 96365; 96375; 99213; 99285

== ENCOUNTER 2016-11-06 23:46 | Emergency (ER) | payer OTHER ==
[2016-11-06 23:58] VITALS: TEMP 98.4
[2016-11-07] MEDS ORDERED: SODIUM CHLORIDE 0.9% 1,000 ML IV STA (00:25)
--- NOTE | 2016-11-07 00:27 | ED ---
General Adult HPI - General Chief complaint: Urogenital Stated complaint: Female /N[place]/Fatigue Time Seen by Provider: 11/07/16 00:17 Source: patient, RN notes reviewed Mode of arrival: ambulatory Limitations: no limitations - History of Present Illness Initial comments: Patient 21-year-old female status post vaginal delivery 2 weeks, who presents emergency room today with chief complaint of vaginal discharge bleeding on and off over the past 2 weeks. Patient states had a foul smell at times. States she called on-call hotline and they were worried about possible retained products. Patient denies any other complaints or symptoms at this time. Patient denies any recent fever, chills, shortness of breath, chest pain, back pain, nausea or vomiting, numbness or tingling, dysuria or hematuria, constipation or diarrhea, headaches or visual changes, or any other complaints. - Related Data Home Medications Medication Instructions Recorded Confirmed Escitalopram Oxalate [Lexapro] 1 tab PO DAILY 11/06/16 11/06/16 Previous Rx's Medication Instructions Recorded Nitrofurantoin Monohyd/M-Cryst 100 mg PO Q12HR #14 cap 11/07/16 [Macrobid] Allergies Allergy/AdvReac Type Severity Reaction Status Date / Time cat dander Allergy Swelling Verified 11/06/16 23:58 Latex, Natural Rubber Allergy Rash/Hives Verified 11/06/16 23:58 shellfish derived [Crab] Allergy Anaphylaxis Verified 11/06/16 23:58 clindamycin AdvReac Rapid Verified 11/06/16 23:58 Heart Rate diphenhydramine HCl AdvReac Rapid Verified 11/06/16 23:58 [From Benadryl] Heart Rate Sulfa (Sulfonamide AdvReac Rapid Verified 11/06/16 23:58 Antibiotics) Heart Rate Review of Systems ROS Statement: Those systems with pertinent positive or pertinent negative responses have been documented in the HPI. ROS Other: All systems not noted in ROS Statement are negative. Past Medical History Past Medical History: Asthma Additional Past Medical History / Comment(s): "possible hole in heart"; Migraines, MS History of Any Multi-Drug Resistant Organisms: MRSA Date of last positivie culture/infection: 2011 MDRO Source:: vag Additional Past Surgical History / Comment(s): explory lap, I&D left buttocks Past Anesthesia/Blood Transfusion Reactions: No Reported Reaction Past Psychological History: Depression, PTSD Smoking Status: Never smoker Past Alcohol Use History: None Reported Additional Past Alcohol Use History / Comment(s): Patient is a lifelong nonsmoker. She denies any medical marijuana, marijuana, street drug or alcohol use. She lives at home with her significant other. There is a cat in the home. No other children. She works at [employer]. Past Drug Use History: None Reported - Past Family History Father Additional Family Medical History / Comment(s): She does not know any history on her father. Mother Family Medical History: Asthma, Neurologic Disorder, Rheumatoid Arthritis (RA) Additional Family Medical History / Comment(s): Mother at age 31 from malpractice issue, mom also had over active histamine. Sister(s) Family Medical History: Asthma Additional Family Medical History / Comment(s): Patient has 1 sister with no major medical problems. General Exam - General Exam Comments Initial Comments: General: The patient is awake and alert, in no distress, and does not appear acutely ill. Eye: Pupils are equal, round and reactive to light, extra-ocular movements are intact. No nystagmus. There is normal conjunctiva bilaterally. No signs of icterus. Ears, nose, mouth and throat: There are moist mucous membranes and no oral lesions. Neck: The neck is supple, there is no tenderness or JVD. Cardiovascular: There is a regular rate and rhythm. No murmur, rub or gallop is appreciated. Respiratory: Lungs are clear to auscultation, respirations are non-labored, breath sounds are equal. No wheezes, stridor, rales, or rhonchi. Gastrointestinal: Soft, non-distended, non-tender abdomen without masses or organomegaly noted. There is no rebound or guarding present. No CVA tenderness. Bowel sounds are unremarkable. Musculoskeletal: Normal ROM, no tenderness. Strength 5/5. Sensation intact. Pulses equal bilaterally 2+. Neurological: A&O x 3. CN II-XII intact, There are no obvious motor or sensory deficits. Coordination appears grossly intact. Speech is normal. Skin: Skin is warm and dry and no rashes or lesions are noted. Psychiatric: Cooperative, appropriate mood & affect, normal judgment. Limitations: no limitations Course Vital Signs 11/06/16 23:55 Temperature 98.4 F Pulse Rate 78 Respiratory 18 Rate Blood Pressure 126/62 O2 Sat by Pulse 98 Oximetry Medical Decision Making - Medical Decision Making Patient's labs been reviewed. Elevated white count. No fever here in emergency room. Her urinalysis does show evidence of urinary tract infection. Patient's ultrasound does show 1. uterus with endometrial measuring 19 mm. Area of increased vascularity noted adjacent to the endometrium, but not definite color Doppler flow within the endometrium. 2. Normal appearance of the ovaries. As read by radiologist Dr. Cast. Case discussed in detail with attending physician . Patient will be started on antibiotics to cover for urinary tract infection. Patient offered pelvic exam and has declined stating she'll follow up with her [facility]. She is advised to follow-up was follow-up the [employer] [facility] tomorrow morning when the office opens. Patient advised to return to emergency room if there is any fever or increase or worsening of symptoms. She states understanding and is in agreement. - Lab Data Result diagrams: 11/07/16 00:35 11/07/16 00:35 Lab Results 11/07/16 11/07/16 11/07/16 Range/Units 00:25 00:25 00:35 WBC 7.5 (3.8-10.6) k/uL RBC 4.87 (3.80-5.40) m/uL Hgb 12.5 (11.4-16.0) gm/dL Hct 39.3 (34.0-46.0) % MCV 80.6 (80.0-100.0) fL MCH 25.6 (25.0-35.0) pg MCHC 31.8 (31.0-37.0) g/dL RDW 14.6 (11.5-15.5) % Plt Count 310 (150-450) k/uL Neutrophils % 48 % Lymphocytes % 37 % Monocytes % 5 % Eosinophils % 8 % Basophils % 1 % Neutrophils # 3.6 (1.3-7.7) k/uL Lymphocytes # 2.8 (1.0-4.8) k/uL Monocytes # 0.3 (0-1.0) k/uL Eosinophils # 0.6 (0-0.7) k/uL Basophils # 0.1 (0-0.2) k/uL Hypochromasia Slight PT (9.0-12.0) sec INR (<1.1) APTT (22.0-30.0) sec Sodium (137-145) mmol/L Potassium (3.5-5.1) mmol/L Chloride (98-107) mmol/L Carbon Dioxide (22-30) mmol/L Anion Gap mmol/L BUN (7-17) mg/dL Creatinine (0.52-1.04) mg/dL Est GFR (MDRD) Af Amer (>60 ml/min/1.73 sqM) Est GFR (MDRD) Non-Af (>60 ml/min/1.73 sqM) Glucose (74-99) mg/dL Calcium (8.4-10.2) mg/dL Total Bilirubin (0.2-1.3) mg/dL AST (14-36) U/L ALT (9-52) U/L Alkaline Phosphatase (38-126) U/L Total Protein (6.3-8.2) g/dL Albumin (3.5-5.0) g/dL Urine Color Yellow Urine Appearance Clear (Clear) Urine pH 5.5 (5.0-8.0) Ur Specific [place] 1.026 (1.001-1.035) Urine Protein Negative (Negative) Urine Glucose (UA) Negative (Negative) Urine Ketones Negative (Negative) Urine Blood Negative (Negative) Urine Nitrite Negative (Negative) Urine Bilirubin Negative (Negative) Urine Urobilinogen <2.0 (<2.0) mg/dL Ur Leukocyte Esterase Small H (Negative) Urine RBC 1 (0-5) /hpf Urine WBC 9 H (0-5) /hpf Ur Squamous Epith Cells 3 (0-4) /hpf Urine Bacteria Rare H (None) /hpf Urine Mucus Few H (None) /hpf Urine HCG, Qual Not Detected (Not Detectd) 11/07/16 11/07/16 Range/Units 00:35 00:35 WBC (3.8-10.6) k/uL RBC (3.80-5.40) m/uL Hgb (11.4-16.0) gm/dL Hct (34.0-46.0) % MCV (80.0-100.0) fL MCH (25.0-35.0) pg MCHC (31.0-37.0) g/dL RDW (11.5-15.5) % Plt Count (150-450) k/uL Neutrophils % % Lymphocytes % % Monocytes % % Eosinophils % % Basophils % % Neutrophils # (1.3-7.7) k/uL Lymphocytes # (1.0-4.8) k/uL Monocytes # (0-1.0) k/uL Eosinophils # (0-0.7) k/uL Basophils # (0-0.2) k/uL Hypochromasia PT 10.5 (9.0-12.0) sec INR 1.0 (<1.1) APTT 22.0 (22.0-30.0) sec Sodium 141 (137-145) mmol/L Potassium 4.1 (3.5-5.1) mmol/L Chloride 109 H (98-107) mmol/L Carbon Dioxide 24 (22-30) mmol/L Anion Gap 8 mmol/L BUN 14 (7-17) mg/dL Creatinine 0.60 (0.52-1.04) mg/dL Est GFR (MDRD) Af Amer >60 (>60 ml/min/1.73 sqM) Est GFR (MDRD) Non-Af >60 (>60 ml/min/1.73 sqM) Glucose 108 H (74-99) mg/dL Calcium 9.2 (8.4-10.2) mg/dL Total Bilirubin 0.4 (0.2-1.3) mg/dL AST 20 (14-36) U/L ALT 34 (9-52) U/L Alkaline Phosphatase 63 (38-126) U/L Total Protein 6.6 (6.3-8.2) g/dL Albumin 3.8 (3.5-5.0) g/dL Urine Color Urine Appearance (Clear) Urine pH (5.0-8.0) Ur Specific [place] (1.001-1.035) Urine Protein (Negative) Urine Glucose (UA) (Negative) Urine Ketones (Negative) Urine Blood (Negative) Urine Nitrite (Negative) Urine Bilirubin (Negative) Urine Urobilinogen (<2.0) mg/dL Ur Leukocyte Esterase (Negative) Urine RBC (0-5) /hpf Urine WBC (0-5) /hpf Ur Squamous Epith Cells (0-4) /hpf Urine Bacteria (None) /hpf Urine Mucus (None) /hpf Urine HCG, Qual (Not Detectd) Disposition Clinical Impression: UTI (urinary tract infection), pain Disposition: HOME SELF-CARE Condition: Stable Instructions: Urinary Tract Infection in Women (ED) Additional Instructions: Please follow-up with [facility] [employer] [facility] tomorrow as discussed. Please return here to the emergency room if any symptoms increase or worsen or for any other concerns. Prescriptions: Nitrofurantoin Monohyd/M-Cryst [Macrobid] 100 mg PO Q12HR #14 cap Time of Disposition: 02:28
[2016-11-07 00:55] LABS: Basophils # (A) 0.1 k/uL (0-0.2); Basophils % (A) 1 %; CH 25.2; CHCM 31.3; Eosinophils # (A) 0.6 k/uL (0-0.7); Eosinophils % (A) 8 %; HCT 39.3 % (34.0-46.0); HDW 2.64; HGB 12.5 gm/dL (11.4-16.0); Hypochromasia Slight; Luc # (Auto) 0.18; Luc % (Auto) 2; Lymphocytes # (A) 2.8 k/uL (1.0-4.8); Lymphocytes % (A) 37 %; MCH 25.6 pg (25.0-35.0); MCHC 31.8 g/dL (31.0-37.0); MCV 80.6 fL (80.0-100.0); Mean Platelet Volume 7.1; Monocytes # (A) 0.3 k/uL (0-1.0); Monocytes % (A) 5 %; Neutrophils # (A) 3.6 k/uL (1.3-7.7); Neutrophils % (A) 48 %; RBC 4.87 m/uL (3.80-5.40); RDW 14.6 % (11.5-15.5); WBC 7.5 k/uL (3.8-10.6); WBC (Perox) 7.53
[2016-11-07 01:07] LABS: Appearance,Urine Clear (Clear); Bacteria,Urine Rare /hpf; Bilirubin,Urine Negative (Negative); Glucose,Urine (UA) Negative (Negative); Ketones,Urine Negative (Negative); Leukocyte Esterase,Urine Small (Negative); Mucus,Urine Few /hpf; Nitrite,Urine Negative (Negative); PH, Urine 5.5 (5.0-8.0); Particle Count 4548; Protein,Urine Negative (Negative); RBC,Urine 1 /hpf (0-5); Specific Gravity,Urine 1.026 (1.001-1.035); Squamous Epithelial Cell,Urine 3 /hpf (0-4); UA Billing (MACRO vs. MICRO) MICRO; Urobilinogen,Urine <2.0 mg/dL (<2.0); WBC,Urine 9 /hpf (0-5)
[2016-11-07 01:11] LABS: ALT 34 U/L (9-52); AST 20 U/L (14-36); Alkaline Phosphatase 63 U/L (38-126); Anion Gap 8 mmol/L; Blood Urea Nitrogen 14 mg/dL (7-17); Calcium 9.2 mg/dL (8.4-10.2); Carbon Dioxide 24 mmol/L (22-30); Chloride 109 mmol/L (98-107); Glucose 108 mg/dL (74-99); Non-African American GFR(MDRD) >60 (>60 ml/min/1.73 sqM); Potassium 4.1 mmol/L (3.5-5.1); Prothrombin Time 10.5 sec (9.0-12.0); Sodium 141 mmol/L (137-145); Total Bilirubin 0.4 mg/dL (0.2-1.3); Total Protein 6.6 g/dL (6.3-8.2)
--- NOTE | 2016-11-07 01:54 | US ---
EXAM: US Pelvis Complete, Transabdominal CLINICAL HISTORY: Reason: pain TECHNIQUE: Real-time transabdominal pelvic ultrasound (complete) with image documentation. COMPARISON: OB ultrasound on 04/09/2016 FINDINGS: Uterus: Anteverted uterus. Measures 9.2 x 6.3 x 7.4 cm. Normal appearance. Endometrium measures 19 mm. Area of increased vascularity is noted adjacent to the endometrium without definite color Doppler flow in the endometrium. Right ovary: Measures 3.2 x 1.7 x 1.9 cm. Normal appearance with normal color Doppler flow. Left ovary: Measures 2.5 x 1.7 x 1.6 cm. Normal appearance with normal color Doppler flow. Other: No free fluid. IMPRESSION: 1. uterus with endometrium measuring 19 mm. Area of increased vascularity noted adjacent to the endometrium, but no definite color Doppler flow within the endometrium. 2. Normal appearance of the ovaries.
[2016-11-07 02:37] VITALS: BP 118/63; PULSE 85; RESP 16
== END 2016-11-07 02:37 | disposition home or self-care (01) ==
LOC: EC 23:46
DX: O86.20 Urinary tract infection following delivery, unspecified (principal); O99.345 Other mental disorders complicating the puerperium; F32.9 Major depressive disorder, single episode, unspecified; Z86.14 Personal history of Methicillin resistant Staphylococcus aureus infection; Z79.899 Other long term (current) drug therapy; Z88.1 Allergy status to other antibiotic agents; Z88.2 Allergy status to sulfonamides; Z88.8 Allergy status to other drugs, medicaments and biological substances; Z91.013 Allergy to seafood; Z91.040 Latex allergy status; Z91.048 Other nonmedicinal substance allergy status
CPT/HCPCS: 36415; 76856; 80053; 81001; 81025; 85025; 85610; 85730; 87040; 87086; 93975; 96360; 96361; 99284

== ENCOUNTER 2016-11-27 13:11 | Emergency (ER) | payer OTHER ==
[2016-11-27 13:15] VITALS: RESP 18
[2016-11-27] MEDS ORDERED: SODIUM CHLORIDE 0.9% 1,000 ML IV STA (13:29)
--- NOTE | 2016-11-27 14:41 | ED ---
Skin/Abscess/FB HPI - General Chief complaint: Skin/Abscess/Foreign Body Stated complaint: left buttox abcess Time Seen by Provider: 11/27/16 13:20 Source: patient, RN notes reviewed Mode of arrival: ambulatory Limitations: no limitations - History of Present Illness Initial comments: 21-year-old female presents to the emergency department with a chief complaint of left gluteal abscess. Patient had one in the past that she had during her surgery. Patient states his been for the last 2 days. Patient denies any nausea vomiting and she is afebrile here. She states that she has felt hot at home. She denies any redness around the area just hurt to touch. Patient states that she was concerned due to her continued symptoms so she thought that she should be evaluated.Patient denies any recent fever, chills, shortness of breath, chest pain, back pain, abdominal pain, nausea vomiting, numbness or tingling, dysuria or hematuria, constipation or diarrhea, headaches or visual changes, or any other current symptoms. - Related Data Home Medications Medication Instructions Recorded Confirmed Escitalopram Oxalate [Lexapro] 10 mg PO DAILY 11/06/16 11/27/16 Previous Rx's Medication Instructions Recorded Levofloxacin [Levaquin] 500 mg PO DAILY #5 tab 11/27/16 Allergies Allergy/AdvReac Type Severity Reaction Status Date / Time cat dander Allergy Swelling Verified 11/27/16 14:21 Latex, Natural Rubber Allergy Rash/Hives Verified 11/27/16 14:21 shellfish derived [Crab] Allergy Anaphylaxis Verified 11/27/16 14:21 clindamycin AdvReac Rapid Verified 11/27/16 14:21 Heart Rate diphenhydramine HCl AdvReac Rapid Verified 11/27/16 14:21 [From Benadryl] Heart Rate Sulfa (Sulfonamide AdvReac Rapid Verified 11/27/16 14:21 Antibiotics) Heart Rate Review of Systems ROS Statement: Those systems with pertinent positive or pertinent negative responses have been documented in the HPI. ROS Other: All systems not noted in ROS Statement are negative. Past Medical History Past Medical History: Asthma Additional Past Medical History / Comment(s): "possible hole in heart"; Migraines, MS History of Any Multi-Drug Resistant Organisms: MRSA Date of last positivie culture/infection: 2011 MDRO Source:: vag Additional Past Surgical History / Comment(s): explory lap, I&D left buttocks Past Anesthesia/Blood Transfusion Reactions: No Reported Reaction Past Psychological History: Depression, PTSD Smoking Status: Never smoker Past Alcohol Use History: None Reported Additional Past Alcohol Use History / Comment(s): Patient is a lifelong nonsmoker. She denies any medical marijuana, marijuana, street drug or alcohol use. She lives at home with her significant other. There is a cat in the home. No other children. She works at [employer]. Past Drug Use History: None Reported - Past Family History Father Additional Family Medical History / Comment(s): She does not know any history on her father. Mother Family Medical History: Asthma, Neurologic Disorder, Rheumatoid Arthritis (RA) Additional Family Medical History / Comment(s): Mother at age 31 from malpractice issue, mom also had over active histamine. Sister(s) Family Medical History: Asthma Additional Family Medical History / Comment(s): Patient has 1 sister with no major medical problems. General Exam Limitations: no limitations General appearance: alert, in no apparent distress Head exam: Present: atraumatic, normocephalic, normal inspection Neck exam: Present: normal inspection. Absent: tenderness, meningismus, lymphadenopathy Respiratory exam: Present: normal lung sounds bilaterally. Absent: respiratory distress, wheezes, rales, rhonchi, stridor Cardiovascular Exam: Present: regular rate, normal rhythm, normal heart sounds. Absent: systolic murmur, diastolic murmur, rubs, gallop, clicks Neurological exam: Present: alert, oriented X3 Psychiatric exam: Present: normal affect, normal mood Skin exam: Present: warm, dry, normal color, other (Patient appears to have a left gluteal abscess. There is no associated induration or erythema.). Absent : rash Course Vital Signs 11/27/16 13:13 Temperature 98.5 F Pulse Rate 85 Respiratory 18 Rate Blood Pressure 131/85 O2 Sat by Pulse 99 Oximetry Procedures - Procedures Initial comment: Procedure: Incision and drainage The skin overlying the abscess was prepped with Betadine, and anesthetized with 1% lidocaine without epinephrine. A #11 scalpel was then used to incise the abscess. Some purulent material was then extracted from the lesion. Wound culture obtained. Gauze dressing placed on top, The patient tolerated the procedure well. Medical Decision Making - Medical Decision Making 21-year-old female presents emergency Department chief complaint of left gluteal abscess. This time patient went I&D. We did discuss doing blood work today that she has felt hot and cold at home however she is afebrile here. The patient had multiple sticks and then she states she is unable to actually does like to go home. At this time we will respect her wishes. We did start her on Bactrim for home. We discussed return parameters and follow-up. Patient states that she understood and is in agreement with plan. 7 answered. She will be discharged. Disposition Clinical Impression: Abscess, gluteal, left Disposition: TRANSFER TO PSYCH HOSP/UNIT Condition: Stable Instructions: Abscess (ED), Abscess Incision and Drainage (ED) Additional Instructions: Please use medication as discussed. Please follow up with family doctor if symptoms have not improved over the next two days. Please return to the emergency room if your symptoms increase or worsen or for any other concerns. Prescriptions: Levofloxacin [Levaquin] 500 mg PO DAILY #5 tab Referrals: Harman Levin MD [Primary Care Provider] - 1-2 days Time of Disposition: 14:40
[2016-11-27 15:18] VITALS: BP 128/78; PULSE 78; TEMP 98
== END 2016-11-27 15:18 | disposition home or self-care (01) ==
LOC: EC 13:11
DX: L02.31 Cutaneous abscess of buttock (principal); F32.9 Major depressive disorder, single episode, unspecified; Z53.20 Procedure and treatment not carried out because of patient's decision for unspecified reasons; Z79.899 Other long term (current) drug therapy; Z91.013 Allergy to seafood; Z88.1 Allergy status to other antibiotic agents; Z88.2 Allergy status to sulfonamides; Z91.048 Other nonmedicinal substance allergy status; Z91.040 Latex allergy status; Z88.8 Allergy status to other drugs, medicaments and biological substances
CPT/HCPCS: 10060; 99282

== ENCOUNTER 2017-01-23 18:26 | Emergency (ER) | payer OTHER ==
--- NOTE | 2017-01-23 19:52 | ED ---
Female Urogenital HPI - General Chief complaint: Urogenital Stated complaint: FB vaginal canal Time Seen by Provider: 01/23/17 19:03 Source: patient, RN notes reviewed, old records reviewed Mode of arrival: ambulatory Limitations: no limitations - History of Present Illness Initial comments: This is a 19-year-old female presenting to emergency Department chief complaint of being concerned that there is a half a tampon stuck in the vaginal canal. She reports that she thinks that this occurred on Saturday. She states that she has had her menstrual cycle since then and has had to use multiple tampons since that time. She denies any dysuria or hematuria or any other symptoms. She reports that she has no abdominal pain. She states that she feels somewhat nauseated but is consistent with normal menstrual cycle for her. Patient denies any recent fever, chills, shortness of breath, chest pain, back pain, abdominal pain, nausea vomiting, numbness or tingling, dysuria or hematuria, constipation or diarrhea, headaches or visual changes, or any other current symptoms Last Menstrual Period: 01/19/17 - Related Data Home Medications Medication Instructions Recorded Confirmed Acetaminophen/Pyrilam/Pamabrom 1 each PO 01/25/17 [Pamprin Multi-Symptom Tab] Allergies Allergy/AdvReac Type Severity Reaction Status Date / Time cat dander Allergy Swelling Verified 01/23/17 19:29 Latex, Natural Rubber Allergy Rash/Hives Verified 01/23/17 19:29 shellfish derived [Crab] Allergy Anaphylaxis Verified 01/23/17 19:29 clindamycin AdvReac Rapid Verified 01/23/17 19:29 Heart Rate diphenhydramine HCl AdvReac Rapid Verified 01/23/17 19:29 [From Benadryl] Heart Rate Sulfa (Sulfonamide AdvReac Rapid Verified 01/23/17 19:29 Antibiotics) Heart Rate Review of Systems ROS Statement: Those systems with pertinent positive or pertinent negative responses have been documented in the HPI. ROS Other: All systems not noted in ROS Statement are negative. Past Medical History Past Medical History: Asthma Additional Past Medical History / Comment(s): "possible hole in heart"; Migraines, MS History of Any Multi-Drug Resistant Organisms: MRSA Date of last positivie culture/infection: 2011 MDRO Source:: vag Additional Past Surgical History / Comment(s): explory lap, I&D left buttocks Past Anesthesia/Blood Transfusion Reactions: No Reported Reaction Past Psychological History: Depression, PTSD Smoking Status: Never smoker Past Alcohol Use History: None Reported Past Drug Use History: None Reported - Past Family History Father Additional Family Medical History / Comment(s): She does not know any history on her father. Mother Family Medical History: Asthma, Neurologic Disorder, Rheumatoid Arthritis (RA) Additional Family Medical History / Comment(s): Mother at age 31 from malpractice issue, mom also had over active histamine. Sister(s) Family Medical History: Asthma Additional Family Medical History / Comment(s): Patient has 1 sister with no major medical problems. General Exam - General Exam Comments Initial Comments: Well-appearing 21-year-old female. No acute distress. General: Well appearing, well nourished, in no distress. Oriented x 3, normal mood and affect . Ambulating without difficulty. Skin: Good turgor, no rash, unusual bruising or prominent lesions Hair: Normal texture and distribution. HEENT: Head: Normocephalic, atraumatic, no visible or palpable masses, depressions, or scaring. Eyes: Visual acuity intact, conjunctiva clear, sclera non-icteric, EOM intact, PERRL. Pharynx: Mucosa non-inflamed, no tonsillar hypertrophy or exudate Neck: Supple, without lesions, bruits, or adenopathy, thyroid non-enlarged and non-tender Heart: No cardiomegaly or thrills; regular rate and rhythm, no murmur or gallop Lungs: Clear to auscultation and percussion Abdomen: Bowel sounds normal, no tenderness, organomegaly, masses, or hernia Back: Spine normal without deformity or tenderness, no CVA tenderness Rectal: Normal sphincter tone, no hemorrhoids or masses palpable Extremities: No amputations or deformities, cyanosis, edema or varicosities, peripheral pulses intact Psychiatric: Oriented X3, intact recent and remote memory, judgment and insight , normal mood and affect. Pelvic: Vagina and cervix without lesions or discharge. Uterus and adnexa/ parametria nontender without masses. No evidence of retained foreign body within the vaginal canal. Patient is currently on her menstrual cycle. No significant clotting noted but there is blood within the vaginal canal. Limitations: no limitations Course Vital Signs 01/23/17 01/23/17 18:49 20:45 Temperature 98.8 F 97.7 F Pulse Rate 85 63 Respiratory 16 18 Rate Blood Pressure 126/74 102/72 O2 Sat by Pulse 96 98 Oximetry Medical Decision Making - Medical Decision Making 21-year-old [employer] chief complaint concern for half of a tampon so located within the vaginal canal. Pelvic exam was performed and no evidence of foreign body was noted. Patient was informed of this. Also urinalysis was obtained and negative for any sign of infection. Patient will be discharged at this time. Advised following up with her primary care provider. Return parameters were discussed. - Lab Data Lab Results 01/23/17 Range/Units 19:15 Urine Color Light Yellow Urine Appearance Cloudy H (Clear) Urine pH 6.0 (5.0-8.0) Ur Specific [place] 1.014 (1.001-1.035) Urine Protein Negative (Negative) Urine Glucose (UA) Negative (Negative) Urine Ketones Negative (Negative) Urine Blood Moderate H (Negative) Urine Nitrite Negative (Negative) Urine Bilirubin Negative (Negative) Urine Urobilinogen <2.0 (<2.0) mg/dL Ur Leukocyte Esterase Small H (Negative) Urine RBC 21 H (0-5) /hpf Urine WBC 7 H (0-5) /hpf Ur Squamous Epith Cells 2 (0-4) /hpf Amorphous Sediment Rare H (None) /hpf Urine Mucus Rare H (None) /hpf Disposition Clinical Impression: Suspected condition not found, Menstruation Disposition: HOME SELF-CARE Condition: Good Instructions: Dysmenorrhea (ED) Additional Instructions: Patient has a follow-up with your primary care provider. Take Motrin Tylenol for pain. Return to the emergency department if any alarming signs or symptoms occur. Referrals: Harman Levin MD [Primary Care Provider] - 1-2 days Time of Disposition: 19:50
[2017-01-23 20:16] LABS: Amorphous Sediment,Urine Rare /hpf; Appearance,Urine Cloudy (Clear); Bilirubin,Urine Negative (Negative); Glucose,Urine (UA) Negative (Negative); Ketones,Urine Negative (Negative); Leukocyte Esterase,Urine Small (Negative); Mucus,Urine Rare /hpf; Nitrite,Urine Negative (Negative); Particle Count 13579; Protein,Urine Negative (Negative); RBC,Urine 21 /hpf (0-5); Specific Gravity,Urine 1.014 (1.001-1.035); Squamous Epithelial Cell,Urine 2 /hpf (0-4); UA Billing (MACRO vs. MICRO) MICRO; Urobilinogen,Urine <2.0 mg/dL (<2.0); WBC,Urine 7 /hpf (0-5)
[2017-01-23 20:47] VITALS: BP 102/72; PULSE 63; RESP 18; TEMP 97.7
== END 2017-01-23 20:45 | disposition home or self-care (01) ==
LOC: EC 18:26
DX: Z03.89 Encounter for observation for other suspected diseases and conditions ruled out (principal); Z79.891 Long term (current) use of opiate analgesic; Z91.040 Latex allergy status; Z91.013 Allergy to seafood; Z88.1 Allergy status to other antibiotic agents; Z88.2 Allergy status to sulfonamides; Z91.048 Other nonmedicinal substance allergy status; Z88.8 Allergy status to other drugs, medicaments and biological substances
CPT/HCPCS: 81001; 99284

== ENCOUNTER 2017-01-25 06:05 | Emergency (ER) | payer OTHER ==
--- NOTE | 2017-01-25 06:12 | ED ---
General Adult HPI - General Source: RN notes reviewed <Oumar Anton - Last Filed: 01/25/17 06:54> <Oumar Santos - Last Filed: 01/25/17 08:06> - General Stated complaint: abd pain Time Seen by Provider: 01/25/17 06:05 - History of Present Illness Initial comments: This is a 21-year-old female who presents emergency Department complaining of upper abdominal pain. Patient states started about noon yesterday and since that time she's been nauseated but has not vomited. Patient denies any diarrhea. Patient denies any fever or chills. Patient states the pain seems to the middle of her abdomen but is now on the upper portion of her abdomen. Patient denies any injury or trauma. Patient denies any chest pain difficulty breathing. Patient states she has only had a exploratory laparotomy in the past there has been no other abdominal surgeries. (Oumar Anton) - Related Data Home Medications Medication Instructions Recorded Confirmed Acetaminophen/Pyrilam/Pamabrom 1 each PO 01/25/17 [Pamprin Multi-Symptom Tab] Allergies Allergy/AdvReac Type Severity Reaction Status Date / Time cat dander Allergy Swelling Verified 01/23/17 19:29 Latex, Natural Rubber Allergy Rash/Hives Verified 01/23/17 19:29 shellfish derived [Crab] Allergy Anaphylaxis Verified 01/23/17 19:29 clindamycin AdvReac Rapid Verified 01/23/17 19:29 Heart Rate diphenhydramine HCl AdvReac Rapid Verified 01/23/17 19:29 [From Benadryl] Heart Rate Sulfa (Sulfonamide AdvReac Rapid Verified 01/23/17 19:29 Antibiotics) Heart Rate Review of Systems ROS Other: All systems not noted in ROS Statement are negative. <Oumar Anton - Last Filed: 01/25/17 06:54> ROS Other: All systems not noted in ROS Statement are negative. <Oumar Santos - Last Filed: 01/25/17 08:06> ROS Statement: Those systems with pertinent positive or pertinent negative responses have been documented in the HPI. Past Medical History Past Medical History: Asthma Additional Past Medical History / Comment(s): "possible hole in heart"; Migraines, MS History of Any Multi-Drug Resistant Organisms: MRSA Date of last positivie culture/infection: 2011 MDRO Source:: vag Additional Past Surgical History / Comment(s): explory lap, I&D left buttocks Past Anesthesia/Blood Transfusion Reactions: No Reported Reaction Past Psychological History: Depression, PTSD Smoking Status: Never smoker Past Alcohol Use History: None Reported Past Drug Use History: None Reported - Past Family History Father Additional Family Medical History / Comment(s): She does not know any history on her father. Mother Family Medical History: Asthma, Neurologic Disorder, Rheumatoid Arthritis (RA) Additional Family Medical History / Comment(s): Mother at age 31 from malpractice issue, mom also had over active histamine. Sister(s) Family Medical History: Asthma Additional Family Medical History / Comment(s): Patient has 1 sister with no major medical problems. <Oumar Anton - Last Filed: 01/25/17 06:54> General Exam <Oumar Anton - Last Filed: 01/25/17 06:54> <Oumar Santos - Last Filed: 01/25/17 08:06> - General Exam Comments Initial Comments: GENERAL: Patient is well-developed and well-nourished. Patient is nontoxic and well- hydrated and is in mild distress. ENT: Neck is soft and supple. No significant lymphadenopathy is noted. Oropharynx is clear. Moist mucous membranes. Neck has full range of motion without eliciting any pain. EYES: The sclera were anicteric and conjunctiva were pink and moist. Extraocular movements were intact and pupils were equal round and reactive to light. Eyelids were unremarkable. PULMONARY: Unlabored respirations. Good breath sounds bilaterally. No audible rales rhonchi or wheezing was noted. CARDIOVASCULAR: There is a regular rate and rhythm without any murmurs gallops or rubs. ABDOMEN: Soft and nontender with normal bowel sounds. No palpable organomegaly was noted. There is no palpable pulsatile mass. SKIN: Skin is clear with no lesions or rashes and otherwise unremarkable. NEUROLOGIC: Patient is alert and oriented x3. Cranial nerves II through XII are grossly intact. Motor and sensory are also intact. Normal speech, volume and content. Symmetrical smile. MUSCULOSKELETAL: Normal extremities with adequate strength and full range of motion. LYMPHATICS: No significant lymphadenopathy is noted PSYCHIATRIC: Normal psychiatric evaluation. (Oumar Anton) Medical Decision Making - Lab Data Result diagrams: 01/25/17 06:26 <Oumar Anton - Last Filed: 01/25/17 06:54> - Lab Data Result diagrams: 01/25/17 06:26 01/25/17 06:26 <Oumar Santos - Last Filed: 01/25/17 08:06> - Medical Decision Making Dr. ivy isaacs taking over the care of this patient at 7 AM (Oumar Anton) - Lab Data Lab Results 01/25/17 01/25/17 01/25/17 Range/Units 06:26 06:26 06:52 WBC 11.1 H (3.8-10.6) k/uL RBC 4.72 (3.80-5.40) m/uL Hgb 12.7 (11.4-16.0) gm/dL Hct 38.5 (34.0-46.0) % MCV 81.5 (80.0-100.0) fL MCH 26.9 (25.0-35.0) pg MCHC 32.9 (31.0-37.0) g/dL RDW 16.5 H (11.5-15.5) % Plt Count 343 (150-450) k/uL Neutrophils % 59 % Lymphocytes % 27 % Monocytes % 4 % Eosinophils % 8 % Basophils % 1 % Neutrophils # 6.5 (1.3-7.7) k/uL Lymphocytes # 3.0 (1.0-4.8) k/uL Monocytes # 0.5 (0-1.0) k/uL Eosinophils # 0.9 H (0-0.7) k/uL Basophils # 0.1 (0-0.2) k/uL Anisocytosis Slight Sodium 140 (137-145) mmol/L Potassium 4.2 (3.5-5.1) mmol/L Chloride 108 H (98-107) mmol/L Carbon Dioxide 22 (22-30) mmol/L Anion Gap 10 mmol/L BUN 16 (7-17) mg/dL Creatinine 0.60 (0.52-1.04) mg/dL Est GFR (MDRD) Af Amer >60 (>60 ml/min/1.73 sqM) Est GFR (MDRD) Non-Af >60 (>60 ml/min/1.73 sqM) Glucose 104 H (74-99) mg/dL Calcium 9.0 (8.4-10.2) mg/dL Total Bilirubin 0.3 (0.2-1.3) mg/dL AST 15 (14-36) U/L ALT 30 (9-52) U/L Alkaline Phosphatase 71 (38-126) U/L Total Protein 6.5 (6.3-8.2) g/dL Albumin 3.7 (3.5-5.0) g/dL Amylase 62 (30-110) U/L Lipase 49 (23-300) U/L Urine Color Yellow Urine Appearance Clear (Clear) Urine pH 5.5 (5.0-8.0) Ur Specific [place] 1.031 (1.001-1.035) Urine Protein Trace H (Negative) Urine Glucose (UA) Negative (Negative) Urine Ketones Trace H (Negative) Urine Blood Negative (Negative) Urine Nitrite Negative (Negative) Urine Bilirubin Negative (Negative) Urine Urobilinogen 2.0 (<2.0) mg/dL Ur Leukocyte Esterase Negative (Negative) Disposition <Oumar Anton - Last Filed: 01/25/17 06:54> <Oumar Santos - Last Filed: 01/25/17 08:06> Clinical Impression: Abdominal pain Disposition: HOME SELF-CARE Condition: Good Instructions: Abdominal Pain (ED) Referrals: Harman Levin MD [Primary Care Provider] - 1-2 days
[2017-01-25 06:40] LABS: Anisocytosis Slight; Basophils # (A) 0.1 k/uL (0-0.2); Basophils % (A) 1 %; CH 27.2; CHCM 33.5; Eosinophils # (A) 0.9 k/uL (0-0.7); Eosinophils % (A) 8 %; HCT 38.5 % (34.0-46.0); HDW 2.69; HGB 12.7 gm/dL (11.4-16.0); Luc # (Auto) 0.16; Luc % (Auto) 1; Lymphocytes % (A) 27 %; MCH 26.9 pg (25.0-35.0); MCHC 32.9 g/dL (31.0-37.0); MCV 81.5 fL (80.0-100.0); Mean Platelet Volume 6.9; Monocytes # (A) 0.5 k/uL (0-1.0); Monocytes % (A) 4 %; Neutrophils # (A) 6.5 k/uL (1.3-7.7); Neutrophils % (A) 59 %; RBC 4.72 m/uL (3.80-5.40); RDW 16.5 % (11.5-15.5); WBC 11.1 k/uL (3.8-10.6); WBC (Perox) 10.94
[2017-01-25 06:48] LABS: ALT 30 U/L (9-52); AST 15 U/L (14-36); Alkaline Phosphatase 71 U/L (38-126); Amylase 62 U/L (30-110); Anion Gap 10 mmol/L; Blood Urea Nitrogen 16 mg/dL (7-17); Carbon Dioxide 22 mmol/L (22-30); Chloride 108 mmol/L (98-107); Glucose 104 mg/dL (74-99); Non-African American GFR(MDRD) >60 (>60 ml/min/1.73 sqM); Potassium 4.2 mmol/L (3.5-5.1); Sodium 140 mmol/L (137-145); Total Bilirubin 0.3 mg/dL (0.2-1.3); Total Protein 6.5 g/dL (6.3-8.2)
[2017-01-25 07:06] LABS: Appearance,Urine Clear (Clear); Bilirubin,Urine Negative (Negative); Glucose,Urine (UA) Negative (Negative); Ketones,Urine Trace (Negative); Leukocyte Esterase,Urine Negative (Negative); Nitrite,Urine Negative (Negative); PH, Urine 5.5 (5.0-8.0); Protein,Urine Trace (Negative); Specific Gravity,Urine 1.031 (1.001-1.035); UA Billing (MACRO vs. MICRO) CHEM
[2017-01-25 07:12] VITALS: RESP 18
--- NOTE | 2017-01-25 07:21 | XR ---
EXAMINATION TYPE: XR KUB DATE OF EXAM: 01/25/2017 COMPARISON: 04/17/2014 INDICATION: Abdomen pain TECHNIQUE: Single view abdomen FINDINGS: There is a normal bowel gas pattern. Psoas margins are normal. No organomegaly is present. IUD is in the pelvis. IMPRESSION: 1. Unremarkable Abdomen
[2017-01-25] MEDS ORDERED: KETOROLAC 30 MG/ML 1 ML VIAL IVP STA (07:37)
[2017-01-25 08:02] VITALS: BP 110/71; PULSE 80; TEMP 97.1
== END 2017-01-25 08:15 | disposition home or self-care (01) ==
LOC: EC 06:05
DX: R10.10 Upper abdominal pain, unspecified (principal); Z91.040 Latex allergy status; Z88.1 Allergy status to other antibiotic agents; Z88.2 Allergy status to sulfonamides; Z88.8 Allergy status to other drugs, medicaments and biological substances; Z91.048 Other nonmedicinal substance allergy status; Z91.09 Other allergy status, other than to drugs and biological substances; Z91.013 Allergy to seafood; Z79.899 Other long term (current) drug therapy
CPT/HCPCS: 36415; 80053; 82150; 83690; 85025; 81003; 74000; 99284; 96374; J1885

== ENCOUNTER 2017-04-22 17:27 | Emergency (ER) | payer OTHER ==
--- NOTE | 2017-04-22 18:21 | ED ---
General Adult HPI - General Chief complaint: GI Bleed Stated complaint: GI Bleed Time Seen by Provider: 04/22/17 17:52 Source: patient Mode of arrival: ambulatory Limitations: no limitations - History of Present Illness Initial comments: 21-year-old female patient presents to emergency department today with multiple complaints. Patient states that she has been constipated recently. She states yesterday she did have a hard bowel movement with streaking of bright red blood on the surface of the stool. She states that she did take a laxative this morning however it is not helping her. She states that she has had some nausea and vomiting however this is not unusual for her, as she often has these symptoms. She is complaining of lower abdominal discomfort, she describes this as cramping and tenderness. She is also complaining of some vulvar swelling. She states that she laid down to take a nap around 2 PM, states when she woke up she had swelling in her genital area. She states that she feels the swelling is so bad is causing her to be unable to urinate. She states that she has had this once in the past, was admitted for evaluation the swelling went down on its own. She states that they're unable to figure out the cause of the swelling. She denies any use of any new soaps, lotions, clothing, or detergents. She denies use of condoms or any foreign devices. Patient denies any recent rash, fever, shortness breath, chest pain, back pain, numbness, tingling, dizziness, weakness, hematuria, dysuria, urinary urgency, urinary frequency, headache, visual changes, or any other complaints. - Related Data Home Medications Medication Instructions Recorded Confirmed buPROPion XL [Wellbutrin Xl] 450 mg PO DAILY@1200 04/22/17 04/22/17 Allergies Allergy/AdvReac Type Severity Reaction Status Date / Time cat dander Allergy Swelling Verified 04/22/17 18:20 Latex, Natural Rubber Allergy Rash/Hives Verified 04/22/17 18:20 shellfish derived [Crab] Allergy Anaphylaxis Verified 04/22/17 18:20 clindamycin AdvReac Rapid Verified 04/22/17 18:20 Heart Rate diphenhydramine HCl AdvReac Rapid Verified 04/22/17 18:20 [From Benadryl] Heart Rate Sulfa (Sulfonamide AdvReac Rapid Verified 04/22/17 18:20 Antibiotics) Heart Rate Review of Systems ROS Statement: Those systems with pertinent positive or pertinent negative responses have been documented in the HPI. ROS Other: All systems not noted in ROS Statement are negative. Past Medical History Past Medical History: Asthma Additional Past Medical History / Comment(s): "possible hole in heart"; Migraines, MS/HS History of Any Multi-Drug Resistant Organisms: MRSA Date of last positivie culture/infection: 2011 MDRO Source:: vag Additional Past Surgical History / Comment(s): explory lap, I&D left buttocks Past Anesthesia/Blood Transfusion Reactions: No Reported Reaction Past Psychological History: Depression, PTSD Smoking Status: Never smoker Past Alcohol Use History: None Reported Past Drug Use History: None Reported - Past Family History Father Additional Family Medical History / Comment(s): She does not know any history on her father. Mother Family Medical History: Asthma, Neurologic Disorder, Rheumatoid Arthritis (RA) Additional Family Medical History / Comment(s): Mother at age 31 from malpractice issue, mom also had over active histamine. Sister(s) Family Medical History: Asthma Additional Family Medical History / Comment(s): Patient has 1 sister with no major medical problems. General Exam Limitations: no limitations General appearance: alert, in no apparent distress, other (Social well-developed , well-nourished adult female patient in no acute distress. Vital signs upon presentation are temperature 98.4F, pulse 114, respirations 16, blood pressure 121/80, pulse ox 95% on room air.) Respiratory exam: Present: normal lung sounds bilaterally. Absent: respiratory distress, wheezes, rales, rhonchi, stridor Cardiovascular Exam: Present: regular rate, normal rhythm, normal heart sounds. Absent: systolic murmur, diastolic murmur, rubs, gallop, clicks GI/Abdominal exam: Present: soft, tenderness (Mild lower abdominal tenderness), normal bowel sounds. Absent: distended, guarding, rebound, rigid Rectal exam: Present: normal inspection. Absent: hemorrhoids (No evidence of external hemorrhoids.) External exam: Present: erythema (Mild erythema to the left labia), swelling ( Left labia), other (No evidence of drainable abscess) Back exam: Present: normal inspection. Absent: CVA tenderness (R), CVA tenderness (L) Neurological exam: Present: alert, oriented X3, CN II-XII intact Psychiatric exam: Present: normal affect, normal mood Skin exam: Present: warm, dry, intact, normal color. Absent: rash Course Vital Signs 04/22/17 04/22/17 17:48 19:21 Temperature 98.4 F 97.9 F Pulse Rate 114 H 80 Respiratory 16 17 Rate Blood Pressure 121/80 144/86 O2 Sat by Pulse 95 99 Oximetry Medical Decision Making - Medical Decision Making 21-year-old female patient presented to emergency department today for evaluation of blood in her stool, constipation, and vulvar swelling. Physical exam is unremarkable, did have some mild diffuse abdominal tenderness. Rectal exam was negative for any external hemorrhoids. External vaginal exam did reveal some minor left labial swelling, there is no erythema or area of abscess appreciated. Patient was also concerned due to decreased urine output with the swelling however her bladder scan showed 47 mL in the bladder. X-ray of the abdomen did show excessive pancolonic stool. Patient reported that the blood in her stool was a minimal amount of streaking on the surface of the stool, she denied any blood in the toilet bowl. Did explain to her that this is consistent with and possibly related to an internal hemorrhoid. I did educate her regarding use of a high-fiber diet, as well as did give her mag citrate to take home and instructed her regarding its use. She is instructed to apply ice to her vulva. She is instructed to follow-up with her primary care physician as well as an [facility] as soon as possible. She is instructed to monitor her urine output. She is instructed to return here immediately for any new, worsening, or concerning symptoms. She was informed of all results and her questions were answered. She verbalizes understanding and agreement with this plan. - Radiology Data Radiology results: report reviewed, image reviewed 2 views of the abdomen were obtained and showed no pneumoperitoneum. No pneumatosis. The bowel gas pattern is within normal limits. However, there is excessive colonic stool. IUD is noted. Soft tissues and skeletal structures are otherwise unremarkable. Impression by Dr. Rain shows no acute radiographic process, although excessive pain colonic stool volume noted. Disposition Clinical Impression: Abdominal pain, Labial swelling Disposition: HOME SELF-CARE Condition: Good Instructions: Constipation (ED), High Fiber Diet (ED), Abdominal Pain (ED) Additional Instructions: Increase fluids. Drink Mag-Citrate as directed. Monitor urine output. Follow- up with an [facility] as soon as possible. Return here immediately for any new, worsening, or concerning symptoms. Referrals: Harman Levin MD [Primary Care Provider] - 1-2 days Time of Disposition: 19:04
--- NOTE | 2017-04-22 18:39 | XR ---
EXAMINATION TYPE: XR KUB DATE OF EXAM: 04/22/2017 COMPARISON: 01/25/2017 HISTORY: Generalized abdominal pain with constipation TECHNIQUE: 2 upright views FINDINGS: The visualized lung bases and pleural spaces are negative. No pneumoperitoneum. No pneumatosis. The bowel gas pattern is within normal limits. However, this exc essive colonic stool is noted. IUD noted. Soft tissues and skeletal structures are otherwise unremark able. IMPRESSION: NO ACUTE RADIOGRAPHIC PROCESS, ALTHOUGH EXCESSIVE PANCOLONIC STOOL VOLUME NOTED.
[2017-04-22] MEDS ORDERED: MAGNESIUM CITRATE 296 ML BOTTLE PO ONE (19:04)
[2017-04-22 19:22] VITALS: BP 144/86; PULSE 80; RESP 17; TEMP 97.9
== END 2017-04-22 19:22 | disposition home or self-care (01) ==
LOC: EC 17:27
DX: N90.89 Other specified noninflammatory disorders of vulva and perineum (principal); K59.00 Constipation, unspecified; K92.2 Gastrointestinal hemorrhage, unspecified; F32.9 Major depressive disorder, single episode, unspecified; Z86.14 Personal history of Methicillin resistant Staphylococcus aureus infection; Z79.899 Other long term (current) drug therapy; Z91.048 Other nonmedicinal substance allergy status; Z91.040 Latex allergy status; Z91.013 Allergy to seafood; Z88.1 Allergy status to other antibiotic agents; Z88.8 Allergy status to other drugs, medicaments and biological substances; Z88.2 Allergy status to sulfonamides
CPT/HCPCS: 51798; 74000; 99284

== ENCOUNTER 2017-11-24 23:31 | Emergency (ER) | payer SELFPAY ==
[2017-11-25] MEDS ORDERED: ONDANSETRON 4 MG/2 ML VIAL IVP STA (00:08)
[2017-11-25] MEDS ORDERED: SODIUM CHLORIDE 0.9% 1,000 ML IV STA (00:08)
[2017-11-25] MEDS ORDERED: RX INFO: IV CONTRAST WAS GIVEN 1 EACH MISC MISCELLANE PRN (00:23)
[2017-11-25] MEDS ORDERED: KETOROLAC 30 MG/ML 1 ML VIAL IVP STA (00:23)
[2017-11-25 01:08] LABS: Basophils # (A) 0.1 k/uL (0-0.2); Basophils % (A) 1 %; Eosinophils # (A) 0.6 k/uL (0-0.7); Eosinophils % (A) 6 %; HCT 37.6 % (34.0-46.0); HGB 12.3 gm/dL (11.4-16.0); Lymphocytes # (A) 2.8 k/uL (1.0-4.8); Lymphocytes % (A) 28 %; MCH 25.9 pg (25.0-35.0); MCHC 32.6 g/dL (31.0-37.0); MCV 79.3 fL (80.0-100.0); Monocytes # (A) 0.5 k/uL (0-1.0); Monocytes % (A) 5 %; Neutrophils # (A) 5.9 k/uL (1.3-7.7); Neutrophils % (A) 59 %; Platelet Count 380 k/uL (150-450); RBC 4.74 m/uL (3.80-5.40); RDW 14.3 % (11.5-15.5)
[2017-11-25 01:20] LABS: ALT 27 U/L (9-52); AST 15 U/L (14-36); Albumin 3.9 g/dL (3.5-5.0); Alkaline Phosphatase 58 U/L (38-126); Amylase 83 U/L (30-110); Anion Gap 13 mmol/L; Appearance,Urine Cloudy (Clear); Bacteria,Urine Rare /hpf; Bilirubin,Urine Negative (Negative); Blood Urea Nitrogen 15 mg/dL (7-17); Blood,Urine Negative (Negative); Calcium 9.8 mg/dL (8.4-10.2); Carbon Dioxide 22 mmol/L (22-30); Chloride 107 mmol/L (98-107); Color,Urine Yellow; Glucose 103 mg/dL (74-99); Glucose,Urine (UA) Negative (Negative); Ketones,Urine Negative (Negative); Leukocyte Esterase,Urine Moderate (Negative); Lipase 56 U/L (23-300); Mucus,Urine Occasional /hpf; Nitrite,Urine Negative (Negative); PH, Urine 5.5 (5.0-8.0); Potassium 4.2 mmol/L (3.5-5.1); Protein,Urine Negative (Negative); RBC,Urine 1 /hpf (0-5); Sodium 142 mmol/L (137-145); Specific Gravity,Urine 1.025 (1.001-1.035); Squamous Epithelial Cell,Urine 8 /hpf (0-4); Total Bilirubin 0.1 mg/dL (0.2-1.3); Total Protein 6.7 g/dL (6.3-8.2); Urobilinogen,Urine <2.0 mg/dL (<2.0); WBC,Urine 7 /hpf (0-5)
--- NOTE | 2017-11-25 02:01 | CT ---
EXAMINATION TYPE: CT abdomen pelvis w con DATE OF EXAM: 11/25/2017 COMPARISON: NONE HISTORY: RLQ abd pain, N/V/D CT DLP: 2456.10 mGycm Automated exposure control for dose reduction was used. TECHNIQUE: Helical acquisition of images was performed from the lung bases through the pelvis. CONTRAST: Performed without Oral Contrast and with IV Contrast, patient injected with 100 mL of Isovue 300. FINDINGS: Lung bases are clear. There is no pleural effusion. Heart size is normal. Liver spleen pancreas gallbladder appear normal. Gallbladder is contracted. There is no adrenal mass. Kidneys show satisfactory contrast opacification. There is no hydronephrosi s. Ureters are not dilated. Appendix appears normal. I see no intestinal wall thickening. There are n o dilated loops. There is IUD noted. Uterus is anteverted. The lumbar spine is intact. Bladder disten ds smoothly. There is no evidence of pelvic mass. There is ventral hernia and umbilical hernia that c ontains fat. IMPRESSION: NO SIGN OF ACUTE ABDOMEN AND PELVIS. NO EVIDENCE OF RENAL OBSTRUCTION. NORMAL APPENDIX. UMBILICAL AND VENTRAL HERNIA.
--- NOTE | 2017-11-25 02:10 | ED ---
Abdominal Pain HPI - General Chief Complaint: Abdominal Pain Stated Complaint: abd pain/thinks IUD moved Time Seen by Provider: 11/25/17 00:08 Source: patient, RN notes reviewed Mode of arrival: wheelchair Limitations: no limitations - History of Present Illness Initial Comments: 22-year-old female presented to the ER for abdominal pain nausea vomiting diarrhea. Patient states that symptoms started earlier and have progressed. She states concerned that her IUD may have moved. She denies any vaginal bleeding or vaginal discharge. Denies any fevers chills no flank pain no back pain. Patient's had prior ovarian cysts surgeries. She states pain is not constant is not very well localized. - Related Data Home Medications Medication Instructions Recorded Confirmed buPROPion XL [Wellbutrin Xl] 450 mg PO DAILY@1200 04/22/17 04/22/17 Previous Rx's Medication Instructions Recorded Ibuprofen [Motrin] 600 mg PO Q8HR PRN #30 tab 11/25/17 Ondansetron Odt [Zofran Odt] 4 mg PO Q8HR PRN #10 tab 11/25/17 Allergies Allergy/AdvReac Type Severity Reaction Status Date / Time cat dander Allergy Swelling Verified 11/25/17 00:05 Latex, Natural Rubber Allergy Rash/Hives Verified 11/25/17 00:05 shellfish derived [Crab] Allergy Anaphylaxis Verified 11/25/17 00:05 clindamycin AdvReac Rapid Verified 11/25/17 00:05 Heart Rate diphenhydramine HCl AdvReac Rapid Verified 11/25/17 00:05 [From Benadryl] Heart Rate Sulfa (Sulfonamide AdvReac Rapid Verified 11/25/17 00:05 Antibiotics) Heart Rate Review of Systems ROS Statement: Those systems with pertinent positive or pertinent negative responses have been documented in the HPI. ROS Other: All systems not noted in ROS Statement are negative. Past Medical History Past Medical History: Asthma Additional Past Medical History / Comment(s): "possible hole in heart"; Migraines, MS/HS History of Any Multi-Drug Resistant Organisms: MRSA Date of last positivie culture/infection: 2011 MDRO Source:: vag Additional Past Surgical History / Comment(s): explory lap, I&D left buttocks Past Anesthesia/Blood Transfusion Reactions: No Reported Reaction Past Psychological History: Depression, PTSD Smoking Status: Never smoker Past Alcohol Use History: None Reported Past Drug Use History: None Reported - Past Family History Father Additional Family Medical History / Comment(s): She does not know any history on her father. Mother Family Medical History: Asthma, Neurologic Disorder, Rheumatoid Arthritis (RA) Additional Family Medical History / Comment(s): Mother at age 31 from malpractice issue, mom also had over active histamine. Sister(s) Family Medical History: Asthma Additional Family Medical History / Comment(s): Patient has 1 sister with no major medical problems. General Exam Limitations: no limitations General appearance: alert, in no apparent distress Head exam: Present: atraumatic, normocephalic, normal inspection Eye exam: Present: normal appearance, PERRL, EOMI. Absent: scleral icterus, conjunctival injection, periorbital swelling Respiratory exam: Present: normal lung sounds bilaterally. Absent: respiratory distress, wheezes, rales, rhonchi, stridor Cardiovascular Exam: Present: regular rate, normal rhythm, normal heart sounds. Absent: systolic murmur, diastolic murmur, rubs, gallop, clicks GI/Abdominal exam: Present: soft, tenderness (Mild right lower quadrant tenderness), normal bowel sounds. Absent: distended, guarding, rebound, rigid Back exam: Absent: CVA tenderness (R), CVA tenderness (L) Course Vital Signs 11/25/17 00:03 Temperature 98.5 F Pulse Rate 68 Respiratory 18 Rate Blood Pressure 117/59 O2 Sat by Pulse 98 Oximetry Medical Decision Making - Medical Decision Making 22-year-old female presented for abdominal discomfort. Patient lab work CT having appears to be unremarkable at this time. She most likely the viral illness causing abdominal discomfort. She'll be discharged with ibuprofen and Zofran. Return parameters discussed. - Lab Data Result diagrams: 11/25/17 00:45 11/25/17 00:45 Lab Results 11/25/17 11/25/17 11/25/17 Range/Units 00:45 00:45 00:45 WBC 10.0 (3.8-10.6) k/uL RBC 4.74 (3.80-5.40) m/uL Hgb 12.3 (11.4-16.0) gm/dL Hct 37.6 (34.0-46.0) % MCV 79.3 L (80.0-100.0) fL MCH 25.9 (25.0-35.0) pg MCHC 32.6 (31.0-37.0) g/dL RDW 14.3 (11.5-15.5) % Plt Count 380 (150-450) k/uL Neutrophils % 59 % Lymphocytes % 28 % Monocytes % 5 % Eosinophils % 6 % Basophils % 1 % Neutrophils # 5.9 (1.3-7.7) k/uL Lymphocytes # 2.8 (1.0-4.8) k/uL Monocytes # 0.5 (0-1.0) k/uL Eosinophils # 0.6 (0-0.7) k/uL Basophils # 0.1 (0-0.2) k/uL Sodium 142 (137-145) mmol/L Potassium 4.2 (3.5-5.1) mmol/L Chloride 107 (98-107) mmol/L Carbon Dioxide 22 (22-30) mmol/L Anion Gap 13 mmol/L BUN 15 (7-17) mg/dL Creatinine 0.60 (0.52-1.04) mg/dL Est GFR (CKD-EPI)AfAm >90 (>60 ml/min/1.73 sqM) Est GFR (CKD-EPI)NonAf >90 (>60 ml/min/1.73 sqM) Glucose 103 H (74-99) mg/dL Calcium 9.8 (8.4-10.2) mg/dL Total Bilirubin 0.1 L (0.2-1.3) mg/dL AST 15 (14-36) U/L ALT 27 (9-52) U/L Alkaline Phosphatase 58 (38-126) U/L Total Protein 6.7 (6.3-8.2) g/dL Albumin 3.9 (3.5-5.0) g/dL Amylase 83 (30-110) U/L Lipase 56 (23-300) U/L Urine Color Urine Appearance (Clear) Urine pH (5.0-8.0) Ur Specific [place] (1.001-1.035) Urine Protein (Negative) Urine Glucose (UA) (Negative) Urine Ketones (Negative) Urine Blood (Negative) Urine Nitrite (Negative) Urine Bilirubin (Negative) Urine Urobilinogen (<2.0) mg/dL Ur Leukocyte Esterase (Negative) Urine RBC (0-5) /hpf Urine WBC (0-5) /hpf Ur Squamous Epith Cells (0-4) /hpf Urine Bacteria (None) /hpf Urine Mucus (None) /hpf Urine HCG, Qual Not Detected (Not Detectd) 11/25/17 Range/Units 00:45 WBC (3.8-10.6) k/uL RBC (3.80-5.40) m/uL Hgb (11.4-16.0) gm/dL Hct (34.0-46.0) % MCV (80.0-100.0) fL MCH (25.0-35.0) pg MCHC (31.0-37.0) g/dL RDW (11.5-15.5) % Plt Count (150-450) k/uL Neutrophils % % Lymphocytes % % Monocytes % % Eosinophils % % Basophils % % Neutrophils # (1.3-7.7) k/uL Lymphocytes # (1.0-4.8) k/uL Monocytes # (0-1.0) k/uL Eosinophils # (0-0.7) k/uL Basophils # (0-0.2) k/uL Sodium (137-145) mmol/L Potassium (3.5-5.1) mmol/L Chloride (98-107) mmol/L Carbon Dioxide (22-30) mmol/L Anion Gap mmol/L BUN (7-17) mg/dL Creatinine (0.52-1.04) mg/dL Est GFR (CKD-EPI)AfAm (>60 ml/min/1.73 sqM) Est GFR (CKD-EPI)NonAf (>60 ml/min/1.73 sqM) Glucose (74-99) mg/dL Calcium (8.4-10.2) mg/dL Total Bilirubin (0.2-1.3) mg/dL AST (14-36) U/L ALT (9-52) U/L Alkaline Phosphatase (38-126) U/L Total Protein (6.3-8.2) g/dL Albumin (3.5-5.0) g/dL Amylase (30-110) U/L Lipase (23-300) U/L Urine Color Yellow Urine Appearance Cloudy H (Clear) Urine pH 5.5 (5.0-8.0) Ur Specific [place] 1.025 (1.001-1.035) Urine Protein Negative (Negative) Urine Glucose (UA) Negative (Negative) Urine Ketones Negative (Negative) Urine Blood Negative (Negative) Urine Nitrite Negative (Negative) Urine Bilirubin Negative (Negative) Urine Urobilinogen <2.0 (<2.0) mg/dL Ur Leukocyte Esterase Moderate H (Negative) Urine RBC 1 (0-5) /hpf Urine WBC 7 H (0-5) /hpf Ur Squamous Epith Cells 8 H (0-4) /hpf Urine Bacteria Rare H (None) /hpf Urine Mucus Occasional H (None) /hpf Urine HCG, Qual (Not Detectd) Disposition Clinical Impression: Abdominal pain, Diarrhea, Nausea Disposition: HOME SELF-CARE Condition: Stable Instructions: Abdominal Pain (ED) Additional Instructions: Please return to the Emergency Department if symptoms worsen or any other concerns. Prescriptions: Ibuprofen [Motrin] 600 mg PO Q8HR PRN #30 tab PRN Reason: Pain Ondansetron Odt [Zofran Odt] 4 mg PO Q8HR PRN #10 tab PRN Reason: Nausea Is patient prescribed a controlled substance at d/c from ED?: No Referrals: Deni Duron MD [STAFF PHYSICIAN] - 1-2 days Time of Disposition: 02:10
[2017-11-25 02:38] VITALS: BP 112/62; PULSE 65; RESP 16; TEMP 97.9
== END 2017-11-25 02:39 | disposition home or self-care (01) ==
LOC: EC 23:31
DX: R10.31 Right lower quadrant pain (principal); R11.2 Nausea with vomiting, unspecified; R19.7 Diarrhea, unspecified; F32.9 Major depressive disorder, single episode, unspecified; F43.10 Post-traumatic stress disorder, unspecified; Z86.14 Personal history of Methicillin resistant Staphylococcus aureus infection; Z98.890 Other specified postprocedural states; Z79.899 Other long term (current) drug therapy; Z91.048 Other nonmedicinal substance allergy status; Z91.040 Latex allergy status; Z91.013 Allergy to seafood; Z88.1 Allergy status to other antibiotic agents; Z88.8 Allergy status to other drugs, medicaments and biological substances; Z88.2 Allergy status to sulfonamides
CPT/HCPCS: 36415; 80053; 82150; 83690; 85025; 81001; 81025; 74177; 99284; 96374; 96375; 96361; J2405; J1885; Q9967

== ENCOUNTER 2018-01-01 00:46 | Inpatient (IN) | payer OTHER ==
[2018-01-01 02:33] VITALS: BMI 47.9
[2018-01-01] MEDS ORDERED: ACETAMINOPHEN TAB 325 MG TAB PO PRN ×2 (02:54→11:30)
[2018-01-01] MEDS ORDERED: ACETAMINOPHEN TAB 325 MG TAB ONE (02:56)
[2018-01-01] MEDS ORDERED: HYDROcodone/APAP 5-325MG 1 EACH TAB ONE (02:57)
[2018-01-01] MEDS: HYDROcodone/APAP 5-325MG 1 EACH TAB PO PRN ×3 (02:58→19:58)
[2018-01-01 07:52] LABS: Basophils # (A) 0.1 k/uL (0-0.2); Basophils % (A) 1 %; Eosinophils # (A) 0.2 k/uL (0-0.7); Eosinophils % (A) 2 %; HCT 34.5 % (34.0-46.0); HGB 11.3 gm/dL (11.4-16.0); Lymphocytes # (A) 0.9 k/uL (1.0-4.8); Lymphocytes % (A) 9 %; MCH 26.3 pg (25.0-35.0); MCHC 32.6 g/dL (31.0-37.0); MCV 80.6 fL (80.0-100.0); Mean Platelet Volume 6.6; Monocytes # (A) 0.5 k/uL (0-1.0); Monocytes % (A) 5 %; Neutrophils # (A) 8.4 k/uL (1.3-7.7); Neutrophils % (A) 83 %; Platelet Count 308 k/uL (150-450); RBC 4.28 m/uL (3.80-5.40); RDW 14.1 % (11.5-15.5); WBC 10.1 k/uL (3.8-10.6)
[2018-01-01 08:23] LABS: Anion Gap 12 mmol/L; Blood Urea Nitrogen 6 mg/dL (7-17); Carbon Dioxide 22 mmol/L (22-30); Chloride 106 mmol/L (98-107); Glucose 98 mg/dL (74-99); Potassium 3.5 mmol/L (3.5-5.1); Sodium 140 mmol/L (137-145)
[2018-01-01] MEDS: ENOXAPARIN 40 MG/0.4 ML SYRINGE SQ SCH (10:43)
[2018-01-01] MEDS: OSELTAMIVIR 75 MG CAP PO SCH ×2 (10:43→19:58)
[2018-01-01] MEDS ORDERED: IBUPROFEN 400 MG TAB PO PRN ×2 (11:02→11:31)
--- NOTE | 2018-01-01 13:01 | NM ---
EXAMINATION TYPE: NM pul vent and perfuse DATE OF EXAM: 01/01/2018 COMPARISON: Chest x-ray May 02, 2016 HISTORY: Shortness of breath rule out pulmonary embolism TECHNIQUE: Utilizing inhalation of 36.4 mCi Tc 99m DTPA aerosol and intravenous injection of 5.39 mC i of Tc 99m MAA, ventilation and perfusion images are acquired post injection in multiple projections . FINDINGS: There are small to matter matching defects seen bilaterally for reference left upper lobe and multifo luisito areas of the right lower lobe. Central clumping of particles on ventilation images is consistent with underlying COPD. There is no evidence of mismatched defects. IMPRESSION: Low scintigraphic evidence for pulmonary embolism.
--- NOTE | 2018-01-01 13:14 | XR ---
EXAMINATION TYPE: XR chest 2V DATE OF EXAM: 01/01/2018 COMPARISON: Chest x-ray May 02, 2016 HISTORY: Influenza A. TECHNIQUE: Frontal and lateral views of the chest are obtained. FINDINGS: Poor inspiration is seen on current study. There is no focal air space opacity, pleural eff usion, or pneumothorax seen. Central parahilar provocative cuffing is present. The cardiac silhouett e size is within normal limits. The osseous structures are intact. IMPRESSION: No peripheral focal airspace opacity. Central parahilar peribronchial cuffing is consist ent with reactive airway disease possibly from a viral pneumonitis.
[2018-01-01] MEDS: IPRATROPIUM-ALBUTEROL 3 ML NEB INHALATION SCH ×2 (13:20→19:57)
--- NOTE | 2018-01-01 13:28 | P.CNPUL ---
History of Present Illness Consult date: 01/01/18 Requesting physician: Dylan Valera Reason for consult: pneumonia Chief complaint: shortness of breath History of present illness: This is a 22-year-old female patient who has been transferred to [facility] from [facility]. The patient was admitted with pneumonia and influenza a. The patient did have a CTA at [facility] which was negative for PE. Labs are pending. Patient did have a temperature of 104.5 this morning and did receive some Tylenol and it has come down to 101.6. Patient was sent for a VQ scan and nurse practitioner was called down to radiology due to the patient's lethargy and vomiting up green liquid emesis. Patient was transported back up to room. Upon examination she is quite lethargic , but patient has generalized malaise. Repeat vitals were obtained and she does have a temperature of 103. She already has been initiated on Tamiflu. Antibiotics will be started per infectious disease was put on consult. She states she has had asthma all her life however is currently not on any controller medication she denies any recent ill contacts. She also complains of a headache, nausea and vomiting. She states her illness started approximately 5 days ago with sinus pressure and pain followed by a sore throat and mucous production. She has been coughing up green thick sputum. Rapid strep at [facility] was negative, influenza a was positive. She was also noted to have a white count at [facility] of 13. 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 Review of Systems 14 point review of systems was completed and negative unless noted above in the HPI Past Medical History Past Medical History: Asthma Additional Past Medical History / Comment(s): "possible hole in heart"; Migraines, MS/HS History of Any Multi-Drug Resistant Organisms: MRSA Date of last positivie culture/infection: 2011 MDRO Source:: vag Additional Past Surgical History / Comment(s): explory lap, I&D left buttocks Past Anesthesia/Blood Transfusion Reactions: No Reported Reaction Past Psychological History: Depression, PTSD Smoking Status: Never smoker Past Alcohol Use History: None Reported Additional Past Alcohol Use History / Comment(s): Patient is a lifelong nonsmoker. She denies any medical marijuana, marijuana, street drug or alcohol use. She lives at home with her significant other. There is a cat in the home. No other children. She works at [employer]. Past Drug Use History: None Reported - Past Family History Father Additional Family Medical History / Comment(s): She does not know any history on her father. Mother Family Medical History: Asthma, Neurologic Disorder, Rheumatoid Arthritis (RA) Additional Family Medical History / Comment(s): Mother at age 31 from malpractice issue, mom also had over active histamine. Sister(s) Family Medical History: Asthma Additional Family Medical History / Comment(s): Patient has 1 sister with no major medical problems. Medications and Allergies Home Medications Medication Instructions Recorded Confirmed Type buPROPion XL [Wellbutrin Xl] 450 mg PO DAILY@1200 04/22/17 04/22/17 History Ibuprofen [Motrin] 600 mg PO Q8HR PRN #30 tab 11/25/17 Rx Ondansetron Odt [Zofran Odt] 4 mg PO Q8HR PRN #10 tab 11/25/17 Rx Allergies Allergy/AdvReac Type Severity Reaction Status Date / Time cat dander Allergy Swelling Verified 11/25/17 00:05 Latex, Natural Rubber Allergy Rash/Hives Verified 11/25/17 00:05 shellfish derived [Crab] Allergy Anaphylaxis Verified 11/25/17 00:05 clindamycin AdvReac Rapid Verified 11/25/17 00:05 Heart Rate diphenhydramine HCl AdvReac Rapid Verified 11/25/17 00:05 [From Benadryl] Heart Rate Sulfa (Sulfonamide AdvReac Rapid Verified 11/25/17 00:05 Antibiotics) Heart Rate Physical Exam Vitals: Vital Signs Temp Pulse Resp BP Pulse Ox 01/01/18 09:25 101.6 F H 01/01/18 08:00 104.2 F H 130 H 16 141/76 97 Intake and Output 12/31/17 01/01/18 01/01/18 22:59 06:59 14:59 Other: Weight 119 kg GENERAL EXAM: lethargic, obese, generalized malaise HEAD: Normocephalic. Tender sinuses EYES: Normal reaction of pupils, equal size. NOSE: Clear with pink turbinates. THROAT: No erythema or exudates. NECK: No masses, no JVD. CHEST: No chest wall deformity. LUNGS: Lungs noted to be diminished throughout with some scant expiratory wheezing CVS: S1 and S2 normal with no audible mumurs, regular rhythm. ABDOMEN: No hepatosplenomegaly, normal bowel sounds, no guarding or rigidity. EXTREMITIES: No edema noted, pedal pulses palpable. CENTRAL NERVOUS SYSTEM: No focal deficits, tone is normal in all 4 extremities. Results - Laboratory Findings CBC and BMP: 01/01/18 05:45 - Diagnostic Findings Comments: [facility] records reviewed Chest x-ray: report reviewed CT scan - chest: report reviewed Assessment and Plan Assessment: Assessment Sepsis with SIRS 2/4 Influenza A Pneumonia suspect mixed bacterial and viral Tracheobronchitis Acute sinusitis Acute exacerbation of Chronic asthma, baseline severity unknown Obesity Plan Lactic acid stat 1 L fluid bolus Continue to monitor and treat fevers VQ scan and chest x-ray reviewed CTA from [facility] reviewed in show right lower lobe areas of nodularity and in the left upper lobe concerning for pneumonia and infectious process, repeat CTA should be done in 4-6 weeks to follow this Medications have been reviewed and will be continued as ordered. Tamiflu IV steroids ABT per infectious disease Obtain sputum culture Initiate and encourage incentive spirometer Continue with pulmonary hygiene, coughing and deep breathing exercises, and supportive care. Supplemental oxygen to maintain oxygen saturations of 92% or better. Continue nebulizer treatments. DuoNeb and budesonide GI and DVT prophylaxis. We will continue to monitor labs/results and adjust treatment as necessary. Patient also would benefit from a full outpatient PFT as well as a sleep study Further recommendations pending. Thank you for this consultation we will continue to follow this patient with you I performed an examination of the patient and discussed their management with the nurse practitioner. I have reviewed the nurse practitioner's note and agree with the documented findings and plan of care.
[2018-01-01] MEDS ORDERED: SODIUM CHLORIDE 0.9% 1,000 ML IV ONE (13:34)
[2018-01-01] MEDS: methylPREDNISolone SOD SUCCI 125 MG/2 ML VIAL IV SCH ×3 (13:48→23:17)
[2018-01-01] MEDS: SODIUM CHLORIDE 0.9% 1,000 ML IV SCH ×3 (13:48→22:12)
[2018-01-01] MEDS: cefTRIAXone IN SWFI 1,000 MG/10 ML SYRINGE IVP SCH (15:44)
[2018-01-01 16:52] LABS: Glucose,Whole Blood 125 mg/dL (75-99)
[2018-01-01] MEDS: INSULIN ASPART 100 UNIT/ML 1 ML 10 ML VIAL SQ SCH ×2 (16:58→20:39)
[2018-01-01 17:03] LABS: Appearance,Urine Clear (Clear); Bacteria,Urine Occasional /hpf; Bilirubin,Urine Negative (Negative); Blood,Urine Large (Negative); Color,Urine Light Yellow; Glucose,Urine (UA) Negative (Negative); Ketones,Urine 2+ (Negative); Leukocyte Esterase,Urine Trace (Negative); Mucus,Urine Rare /hpf; Nitrite,Urine Negative (Negative); Protein,Urine Negative (Negative); RBC,Urine 96 /hpf (0-5); Specific Gravity,Urine 1.006 (1.001-1.035); Squamous Epithelial Cell,Urine 1 /hpf (0-4); Urobilinogen,Urine <2.0 mg/dL (<2.0); WBC,Urine 8 /hpf (0-5)
--- NOTE | 2018-01-01 19:43 | P.HPIM ---
History of Present Illness This is a pleasant 22 years old female with past medical history of asthma, migraine, multiple sclerosis, fibromyalgia MRSA infection, exploratory laparotomy, I&D of the left buttock 1 depression and PTSD patient has been transferred to this hospital from [facility]. Patient was admitted originally for fever and cough of 4-5 days a duration associated with the green phlegm and sore throat, no sneezing. Associated with left upper chest pain that is completely resolved now. Associated with nausea vomiting, dizziness and weakness, and headache. Patient also was complaining of from generalized muscle and joint aches. However she denies any diarrhea or change in urine or bowel habits. No lytic pain or swelling. No blurred vision, no weakness in limbs react no abnormal sensation. Patient's was found to have positive influenza A test. CTPA showed right lower lobe infiltrate possible atelectasis versus infiltrate. Pneumonia is favored. Scattered small areas of nodularity in the left upper lobe and the largest pulmonary nodules in the left upper lobe measures about 10 6 mm and no pulmonary embolus EKG shows sinus tachycardia at [address]-T changes. Blood test at [facility] showing leukocytosis of 13 K. Sodium of 139 glucose 104 potassium 3.7 creatinine 0.8 liver function tests were elevated liver enzymes and positive influenza HEENT Bryn d-dimer was elevated at 1.5 CTA was done which shows Review of Systems CONSTITUTIONAL: No fever, no malaise, no fatigue. HEENT: No recent visual problems or hearing problems. Denied any sore throat. CARDIOVASCULAR: No orthopnea, PND, no palpitations, no syncope. PULMONARY: No shortness of breath, no cough, no hemoptysis. GASTROINTESTINAL: No diarrhea, no nausea, no vomiting, no abdominal pain. Normoactive bowel sounds. NEUROLOGICAL: No headaches, no weakness, no numbness. HEMATOLOGICAL: Denies any bleeding or petechiae. GENITOURINARY: Denies any burning micturition, frequency, or urgency. MUSCULOSKELETAL/RHEUMATOLOGICAL: Denies any joint pain, swelling, or any muscle pain. ENDOCRINE: Denies any polyuria or polydipsia. Past Medical History Past Medical History: Asthma Additional Past Medical History / Comment(s): "possible hole in heart"; Migraines, MS/HS History of Any Multi-Drug Resistant Organisms: MRSA Date of last positivie culture/infection: 2011 MDRO Source:: vag Additional Past Surgical History / Comment(s): explory lap, I&D left buttocks Past Anesthesia/Blood Transfusion Reactions: No Reported Reaction Past Psychological History: Depression, PTSD Smoking Status: Never smoker Past Alcohol Use History: None Reported Additional Past Alcohol Use History / Comment(s): Patient is a lifelong nonsmoker. She denies any medical marijuana, marijuana, street drug or alcohol use. She lives at home with her significant other. There is a cat in the home. No other children. She works at [employer]. Past Drug Use History: None Reported - Past Family History Father Additional Family Medical History / Comment(s): She does not know any history on her father. Mother Family Medical History: Asthma, Neurologic Disorder, Rheumatoid Arthritis (RA) Additional Family Medical History / Comment(s): Mother at age 31 from malpractice issue, mom also had over active histamine. Sister(s) Family Medical History: Asthma Additional Family Medical History / Comment(s): Patient has 1 sister with no major medical problems. Medications and Allergies Home Medications Medication Instructions Recorded Confirmed Type Paragard 1 implant VAGINAL [id number] 01/01/18 01/01/18 History Allergies Allergy/AdvReac Type Severity Reaction Status Date / Time cat dander Allergy Swelling Verified 01/01/18 13:53 Latex, Natural Rubber Allergy Rash/Hives Verified 01/01/18 13:53 shellfish derived [Crab] Allergy Anaphylaxis Verified 01/01/18 13:53 clindamycin AdvReac Rapid Verified 01/01/18 13:53 Heart Rate diphenhydramine HCl AdvReac Rapid Verified 01/01/18 13:53 [From Benadryl] Heart Rate Sulfa (Sulfonamide AdvReac Rapid Verified 01/01/18 13:53 Antibiotics) Heart Rate Physical Exam Vitals: Vital Signs Temp Pulse Pulse Resp BP Pulse Ox 01/01/18 16:00 101.4 F H 114 H 14 113/55 94 L 01/01/18 13:34 104 H 01/01/18 13:31 103.9 F H 132 H 18 128/73 96 01/01/18 13:21 104 H 01/01/18 12:00 136 H 18 146/102 95 01/01/18 09:25 101.6 F H 01/01/18 08:00 104.2 F H 130 H 16 141/76 97 Intake and Output 01/01/18 01/01/18 01/01/18 06:59 14:59 22:59 Intake Total 120 120 Output Total 300 Balance -180 120 Intake: Oral 120 120 Output: Urine 300 Other: Weight 119 kg GENERAL: The patient is alert and oriented x3, not in any acute distress. Well developed, well nourished. HEENT: Pupils are round and equally reacting to light. EOMI. No scleral icterus. No conjunctival pallor. Normocephalic, atraumatic. No pharyngeal erythema. No thyromegaly. CARDIOVASCULAR: S1 and S2 present. No murmurs, rubs, or gallops. -PULMONARY: Chest is clear to auscultation, left upper crackles. Wheezing ABDOMEN: Soft, nontender, nondistended, normoactive bowel sounds. No palpable organomegaly. MUSCULOSKELETAL: No joint swelling or deformity. EXTREMITIES: No cyanosis, clubbing, or pedal edema. NEUROLOGICAL: Gross neurological examination did not reveal any focal deficits. SKIN: No rashes. Results CBC & Chem 7: 01/01/18 05:45 01/01/18 05:45 Labs: Abnormal Lab Results - Last 24 Hours (Table) 01/01/18 01/01/18 01/01/18 Range/Units 05:45 05:45 16:45 Hgb 11.3 L (11.4-16.0) gm/dL Neutrophils # 8.4 H (1.3-7.7) k/uL Lymphocytes # 0.9 L (1.0-4.8) k/uL BUN 6 L (7-17) mg/dL POC Glucose (mg/dL) (75-99) mg/dL Calcium 8.0 L (8.4-10.2) mg/dL Urine Ketones 2+ H (Negative) Urine Blood Large H (Negative) Ur Leukocyte Esterase Trace H (Negative) Urine RBC 96 H (0-5) /hpf Urine WBC 8 H (0-5) /hpf Urine Bacteria Occasional H (None) /hpf Urine Mucus Rare H (None) /hpf 01/01/18 Range/Units 16:50 Hgb (11.4-16.0) gm/dL Neutrophils # (1.3-7.7) k/uL Lymphocytes # (1.0-4.8) k/uL BUN (7-17) mg/dL POC Glucose (mg/dL) 125 H (75-99) mg/dL Calcium (8.4-10.2) mg/dL Urine Ketones (Negative) Urine Blood (Negative) Ur Leukocyte Esterase (Negative) Urine RBC (0-5) /hpf Urine WBC (0-5) /hpf Urine Bacteria (None) /hpf Urine Mucus (None) /hpf Microbiology - Last 24 Hours (Table) 01/01/18 16:00 Sputum Culture - Preliminary Sputum Thrombosis Risk Factor Assmnt - Choose All That Apply Any of the Below Risk Factors Present?: Yes Each Factor Represents 1 point: Obesity (BMI >25) Other Risk Factors: No Other congenital or acquired thrombophilia - If yes, enter type in comment: No Thrombosis Risk Factor Assessment Total Risk Factor Score: 1 Thrombosis Risk Factor Assessment Level: Low Risk Assessment and Plan Assessment: -Acute influenza infection -Possible community-acquired pneumonia, secondary to above with possible bacteria infection -Asthma, with possible acute exacerbation -History of migraine -Obesity -Dehydration Plan: Continue with the same and treatment. Continue with a symptomatic treatment. Patient is on Tamiflu and ceftriaxone to treat her influenza. Continue with a breathing treatment and steroids for possible asthma exacerbation. Continue with IV hydration. Pulmonary evaluation was appreciated and they recommended repeat CTA in 4-6 weeks. Check sputum culture. Continue with incentive spirometry. ID consult was already placed. Further recommendation depends on the clinical outcome and course. Her UA is abnormal on 01/01/2018 with some RBCs and WBC in the urine, however patient has clear urine analysis at [facility] and patient confirms to me she is on her menstrual period currently, patient states menstrual period stays for 3-4 days, we recommend to repeat UA after her menses stops DVT prophylaxis Lovenox GI prophylaxis Protonix
[2018-01-01] MEDS: BUDESONIDE 0.5 MG/2 ML NEBU INHALATION SCH (19:57)
[2018-01-01 20:31] LABS: Glucose,Whole Blood 209 mg/dL (75-99)
--- NOTE | 2018-01-02 00:06 | CONS ---
CONSULTATION DATE OF SERVICE: 01/01/2018 REASON FOR CONSULTATION: Acute influenza and possible pneumonia. HISTORY OF PRESENT ILLNESS: The patient is a 22-year-old female who presented to [facility] with chief complaints of increasing shortness of breath and a fever. The patient's symptoms started a day prior to presentation to hospital. The patient had been complaining of some URI symptoms with sore throat and some postnasal drip that started for the same duration. The patient was also complaining of some shortness of breath. She did have a cough but not bringing up any sputum. No chest pain. No nausea or vomiting. No abdominal pain. No diarrhea. No choking on food. The patient was evaluated at [facility], where the patient did have influenza testing positive for influenza A. The patient had a CT angiogram that was negative for PE. She was subsequently transferred to [facility] for further management. The patient was lethargic when seen and it was a little hard to get the history from this lady. REVIEW OF SYSTEMS: Positive for weakness along with a fever of 104 degrees Fahrenheit. EYES: No complaint. ENT: As per HPI. RESPIRATORY: As per HPI. CARDIOVASCULAR: No complaint. GENITOURINARY: No complaint. GASTROINTESTINAL: No complaint. MUSCULOSKELETAL: No complaint. INTEGUMENTARY: No complaint. PSYCHOLOGICAL: No complaint. NEUROLOGICAL: No complaint. PAST MEDICAL HISTORY: 1. Asthma. 2. Migraine headache. 3. Previous history of MRSA infection. PAST SURGICAL HISTORY: 1. Exploratory laparotomy. 2. I and D left buttock. 3. History of depression and PTSD. SOCIAL HISTORY: No history of smoking, drinking or drug use. FAMILY HISTORY: Mother with history of rheumatoid arthritis and asthma. ALLERGIES: 1. LATEX. 2. CLINDAMYCIN. 3. DIPHENHYDRAMINE. CURRENT MEDICATION: 1. Tylenol. 2. [place]. 3. DuoNeb. 4. Pulmicort. 5. Rocephin 1 gram q.24 hours. 6. Lovenox. 7. Motrin. 8. NovoLog. 9. Solu-Medrol. 10.Tamiflu 75 p.o. q.12. 11.Protonix. PHYSICAL EXAMINATION: Blood pressure 127/60 with a pulse of 101, temperature 98, T-max 101.4. She is 96% on room air. General description is a young female lying in bed in no distress. No tachypnea or accessory muscle of respiration use. HEENT examination shows no pallor or scleral icterus. Oral mucosa membrane is moist. Minimal pharyngeal erythema. No thrush. NECK: Trachea is central. No thyromegaly. LUNGS: Unlabored breathing. Coarse breath sounds bilaterally. No wheeze or crackle. HEART: S1, S2. Regular rate and rhythm. ABDOMEN: Soft. No tenderness. No guarding or rigidity. EXTREMITIES: No edema of feet. SKIN EXAMINATION: No rash or mass palpable. Neurologically patient is lethargic arousable. No neck rigidity. LABS: Hemoglobin 11.3, white count 10.1, BUN of 6, creatinine 0.61. UA shows trace leukocyte esterases with 8 WBCs. Cultures obtained, currently pending. DIAGNOSTIC IMPRESSION AND PLAN: Patient admitted to hospital with a fever in a patient who did have upper respiratory infection symptoms, also with a cough, bringing up some greenish sputum, and the patient has been diagnosed with acute influenza at the outside facility, likely the source of her fever. Underlying pneumonia not likely but cannot be entirely excluded. More likely community-acquired pathogen. PLAN: 1. We will try to obtain sputum for Gram stain and culture. 2. Patient will be treated with Tamiflu 75 mg p.o. twice a day to finish a 5-day course of therapy. 3. Rocephin 1 gram daily and add Zithromax 500 while waiting for her culture to finalize and condition to stabilize. 4. We will follow up on the clinical condition and culture to further adjust medication if needed. Thank you for this consultation. Will follow this patient along with you. MMODL / IJN: [id number] /
[2018-01-02] MEDS: HYDROcodone/APAP 5-325MG 1 EACH TAB PO PRN (04:08)
[2018-01-02 04:15] VITALS: RESP 18
[2018-01-02 06:07] LABS: Glucose,Whole Blood 140 mg/dL (75-99)
[2018-01-02] MEDS: methylPREDNISolone SOD SUCCI 125 MG/2 ML VIAL IV SCH (06:16)
[2018-01-02] MEDS: INSULIN ASPART 100 UNIT/ML 1 ML 10 ML VIAL SQ SCH (06:21)
[2018-01-02 06:23] LABS: Basophils % (A) 0 %; Eosinophils % (A) 0 %; HGB 11.9 gm/dL (11.4-16.0); Lymphocytes # (A) 0.9 k/uL (1.0-4.8); Lymphocytes % (A) 7 %; MCH 25.7 pg (25.0-35.0); MCHC 32.1 g/dL (31.0-37.0); MCV 80.2 fL (80.0-100.0); Mean Platelet Volume 6.9; Monocytes # (A) 0.5 k/uL (0-1.0); Monocytes % (A) 3 %; Neutrophils # (A) 12.9 k/uL (1.3-7.7); Neutrophils % (A) 90 %; Platelet Count 272 k/uL (150-450); RBC 4.62 m/uL (3.80-5.40); WBC 14.5 k/uL (3.8-10.6)
[2018-01-02 06:38] LABS: Anion Gap 14 mmol/L; Calcium 8.8 mg/dL (8.4-10.2); Carbon Dioxide 19 mmol/L (22-30); Chloride 108 mmol/L (98-107); Glucose 166 mg/dL (74-99); Sodium 141 mmol/L (137-145)
[2018-01-02 06:55] LABS: Blood Urea Nitrogen 9 mg/dL (7-17)
[2018-01-02] MEDS ORDERED: PANTOPRAZOLE 40 MG TABLET PO SCH (07:30)
[2018-01-02] MEDS: IPRATROPIUM-ALBUTEROL 3 ML NEB INHALATION SCH (07:44)
[2018-01-02] MEDS: BUDESONIDE 0.5 MG/2 ML NEBU INHALATION SCH (07:44)
[2018-01-02] MEDS: cefTRIAXone IN SWFI 1,000 MG/10 ML SYRINGE IVP SCH (08:01)
[2018-01-02] MEDS: OSELTAMIVIR 75 MG CAP PO SCH (08:02)
[2018-01-02] MEDS: SODIUM CHLORIDE 0.9% 1,000 ML IV SCH (08:02)
[2018-01-02] MEDS: ENOXAPARIN 40 MG/0.4 ML SYRINGE SQ SCH (08:02)
[2018-01-02 08:25] VITALS: BP 120/56; PULSE 98; TEMP 97.3
[2018-01-02] MEDS ORDERED: AZITHROMYCIN 500 MG TAB PO SCH (09:00)
--- NOTE | 2018-01-02 09:27 | P.PN ---
Subjective Progress Note Date: 01/02/18 History of present illness: This is a 22-year-old female patient who has been transferred to [facility] from [facility]. The patient was admitted with pneumonia and influenza a. The patient did have a CTA at [facility] which was negative for PE. Labs are pending. Patient did have a temperature of 104.5 this morning and did receive some Tylenol and it has come down to 101.6. Patient was sent for a VQ scan and nurse practitioner was called down to radiology due to the patient's lethargy and vomiting up green liquid emesis. Patient was transported back up to room. Upon examination she is quite lethargic , but patient has generalized malaise. Repeat vitals were obtained and she does have a temperature of 103. She already has been initiated on Tamiflu. Antibiotics will be started per infectious disease was put on consult. She states she has had asthma all her life however is currently not on any controller medication she denies any recent ill contacts. She also complains of a headache, nausea and vomiting. She states her illness started approximately 5 days ago with sinus pressure and pain followed by a sore throat and mucous production. She has been coughing up green thick sputum. Rapid strep at [facility] was negative, influenza a was positive. She was also noted to have a white count at [facility] of 13. 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 Interval History: 01/02/18- patient is being seen examined and evaluated today on rounds. She is resting up in bed on room air. States she's feeling much better today denies any nausea or vomiting today. She has been afebrile today. She is requesting to go home, as explained to her that she has a pretty significant pneumonia and would benefit from at least another 1-2 days of hospitalization. She continues to have shortness of breath cough and congestion. She does feel the breathing treatments are helping her. She is able to bring up green phlegm. Sputum was sent down to the lab and is currently pending. All labs and reports have been reviewed. Objective - Vital Signs Vital signs: Vital Signs Temp 97.3 F L 01/02/18 08:00 Pulse 98 01/02/18 08:00 Resp 18 01/02/18 08:00 BP 120/56 01/02/18 08:00 Pulse Ox 93 L 01/02/18 08:00 Intake & Output 01/01/18 01/02/18 01/02/18 18:59 06:59 18:59 Intake Total 240 800 180 Output Total 300 Balance -60 800 180 Weight 115.7 kg Intake: Intake, IV Titration 800 Amount Sodium Chloride 0.9% 1, 800 000 ml @ 100 mls/hr IV . Q10H [facility] Rx#:[id number] Oral 240 180 Output: Urine 300 Other: Voiding Method Toilet # Voids 2 - Exam GENERAL EXAM: Alert, obese, comfortable in no apparent distress. HEAD: Normocephalic. EYES: Normal reaction of pupils, equal size. NOSE: Clear with pink turbinates. THROAT: No erythema or exudates. NECK: No masses, no JVD. CHEST: No chest wall deformity. LUNGS: Lungs noted to be diminished throughout with some scant expiratory wheezing CVS: S1 and S2 normal with no audible mumurs, regular rhythm. ABDOMEN: No hepatosplenomegaly, normal bowel sounds, no guarding or rigidity. EXTREMITIES: No edema noted, pedal pulses palpable. CENTRAL NERVOUS SYSTEM: No focal deficits, tone is normal in all 4 extremities. - Labs CBC & Chem 7: 01/02/18 05:53 01/02/18 05:53 Labs: Abnormal Lab Results - Last 24 Hours (Table) 01/01/18 01/01/18 01/01/18 Range/Units 05:45 05:45 16:45 WBC (3.8-10.6) k/uL Hgb 11.3 L (11.4-16.0) gm/dL Neutrophils # 8.4 H (1.3-7.7) k/uL Lymphocytes # 0.9 L (1.0-4.8) k/uL Chloride (98-107) mmol/L Carbon Dioxide (22-30) mmol/L BUN 6 L (7-17) mg/dL Creatinine (0.52-1.04) mg/dL Glucose (74-99) mg/dL POC Glucose (mg/dL) (75-99) mg/dL Calcium 8.0 L (8.4-10.2) mg/dL Urine Ketones 2+ H (Negative) Urine Blood Large H (Negative) Ur Leukocyte Esterase Trace H (Negative) Urine RBC 96 H (0-5) /hpf Urine WBC 8 H (0-5) /hpf Urine Bacteria Occasional H (None) /hpf Urine Mucus Rare H (None) /hpf 01/01/18 01/01/18 01/02/18 Range/Units 16:50 20:26 05:53 WBC 14.5 H (3.8-10.6) k/uL Hgb (11.4-16.0) gm/dL Neutrophils # 12.9 H (1.3-7.7) k/uL Lymphocytes # 0.9 L (1.0-4.8) k/uL Chloride (98-107) mmol/L Carbon Dioxide (22-30) mmol/L BUN (7-17) mg/dL Creatinine (0.52-1.04) mg/dL Glucose (74-99) mg/dL POC Glucose (mg/dL) 125 H 209 H (75-99) mg/dL Calcium (8.4-10.2) mg/dL Urine Ketones (Negative) Urine Blood (Negative) Ur Leukocyte Esterase (Negative) Urine RBC (0-5) /hpf Urine WBC (0-5) /hpf Urine Bacteria (None) /hpf Urine Mucus (None) /hpf 01/02/18 01/02/18 Range/Units 05:53 06:04 WBC (3.8-10.6) k/uL Hgb (11.4-16.0) gm/dL Neutrophils # (1.3-7.7) k/uL Lymphocytes # (1.0-4.8) k/uL Chloride 108 H (98-107) mmol/L Carbon Dioxide 19 L (22-30) mmol/L BUN (7-17) mg/dL Creatinine 0.44 L (0.52-1.04) mg/dL Glucose 166 H (74-99) mg/dL POC Glucose (mg/dL) 140 H (75-99) mg/dL Calcium (8.4-10.2) mg/dL Urine Ketones (Negative) Urine Blood (Negative) Ur Leukocyte Esterase (Negative) Urine RBC (0-5) /hpf Urine WBC (0-5) /hpf Urine Bacteria (None) /hpf Urine Mucus (None) /hpf Microbiology - Last 24 Hours (Table) 01/01/18 16:00 Gram Stain - Preliminary Sputum Sputum Culture - Preliminary 01/01/18 16:45 Urine Culture - Preliminary Urine,Voided Assessment and Plan Assessment: Assessment Sepsis with SIRS 2/4 Influenza A Pneumonia suspect mixed bacterial and viral Tracheobronchitis Acute sinusitis Acute exacerbation of Chronic asthma, baseline severity unknown Obesity Plan Patient could benefit from at least one more day of hospitalization with IV steroids and IV antibiotics Continue to monitor and treat fevers VQ scan and chest x-ray reviewed CTA from [facility] reviewed in show right lower lobe areas of nodularity and in the left upper lobe concerning for pneumonia and infectious process, repeat CTA should be done in 4-6 weeks to follow this Medications have been reviewed and will be continued as ordered. Tamiflu IV steroids tapered ABT per infectious disease Sputum culture pending Initiate and encourage incentive spirometer Continue with pulmonary hygiene, coughing and deep breathing exercises, and supportive care. Supplemental oxygen to maintain oxygen saturations of 92% or better. Continue nebulizer treatments. DuoNeb and budesonide GI and DVT prophylaxis. We will continue to monitor labs/results and adjust treatment as necessary. Patient also would benefit from a full outpatient PFT as well as a sleep study Further recommendations pending. Thank you for this consultation we will continue to follow this patient with you I performed an examination of the patient and discussed their management with the nurse practitioner. I have reviewed the nurse practitioner's note and agree with the documented findings and plan of care.
[2018-01-02 15:25] LABS: Hemoglobin A1C 5.8 % (4.0-6.0)
[2018-01-02] MEDS ORDERED: methylPREDNISolone SOD SUCCI 40 MG/ML 1 ML VIAL IV SCH (16:00)
--- NOTE | 2018-01-02 16:32 | P.EN ---
I came to see the patient, patient was not in her room. Staff states patient's signed leaving AMA before I have a chance to see patient
--- NOTE | 2018-01-02 16:35 | P.DS ---
Providers Date of admission: 01/01/18 02:13 Attending physician: Dylan Valera Consults: 01/01/18 02:52 Consult Physician Routine Consulting Provider: Marina Perez Consult Reason/Comments: Pneumonia Do you want consulting provider notified?: Yes, Notify in am 01/01/18 13:17 Consult Physician Stat Consulting Provider: Reji Myers Consult Reason/Comments: influenza, fever Do you want consulting provider notified?: Already Contacted Primary care physician: Stated None Hospital Course: This is a pleasant 22 years old female with past medical history of asthma, migraine, multiple sclerosis, fibromyalgia MRSA infection, exploratory laparotomy, I&D of the left buttock 1 depression and PTSD patient has been transferred to this hospital from [facility]. Patient was admitted originally for fever and cough of 4-5 days a duration associated with the green phlegm and sore throat, no sneezing. Associated with left upper chest pain that is completely resolved now. Associated with nausea vomiting, dizziness and weakness, and headache. Patient also was complaining of from generalized muscle and joint aches. However she denies any diarrhea or change in urine or bowel habits. No lytic pain or swelling. No blurred vision, no weakness in limbs react no abnormal sensation. Patient's was found to have positive influenza A test. d-dimer was elevated at 1.5 . CTPA showed right lower lobe infiltrate possible atelectasis versus infiltrate. Pneumonia is favored. Scattered small areas of nodularity in the left upper lobe and the largest pulmonary nodules in the left upper lobe measures about 10 6 mm and no pulmonary embolus EKG shows sinus tachycardia at [address]-T changes. Blood test at [facility] showing leukocytosis of 13 K. Sodium of 139 glucose 104 potassium 3.7 creatinine 0.8 liver function tests were elevated liver enzymes and positive influenza A. Patient was admitted to the hospital and treated with antibiotic Patient signed leaving AMA with the staff on 01/02/2018 before have a chance to see her Plan - Discharge Summary Discharge Rx Participant: No New Discharge Prescriptions: No Action Paragard 1 implant VAGINAL [id number] Discharge Medication List Paragard 1 implant VAGINAL [id number] 01/01/18 [History] Follow up Appointment(s)/Referral(s): Marina Perez DO [Doctor of Osteopathic Medicine] - 3 Days Discharge Disposition: Left Against Medical Advice
== END 2018-01-02 11:30 | disposition left against medical advice (07) | DRG 871 ==
LOC: 6SEL 02:13
PROVIDERS: ADMIT Internal Medicine; ATTEND Internal Medicine
DX: A41.9 Sepsis, unspecified organism (principal); J10.00 Influenza due to other identified influenza virus with unspecified type of pneumonia; J45.901 Unspecified asthma with (acute) exacerbation; Z68.42 Body mass index [BMI] 45.0-49.9, adult; F32.9 Major depressive disorder, single episode, unspecified; F43.10 Post-traumatic stress disorder, unspecified; G35 Multiple sclerosis; M79.7 Fibromyalgia; G43.909 Migraine, unspecified, not intractable, without status migrainosus; E66.9 Obesity, unspecified; E86.0 Dehydration; J10.1 Influenza due to other identified influenza virus with other respiratory manifestations; R74.8 Abnormal levels of other serum enzymes; Z97.5 Presence of (intrauterine) contraceptive device; Z53.21 Procedure and treatment not carried out due to patient leaving prior to being seen by health care provider; Z82.61 Family history of arthritis; Z88.1 Allergy status to other antibiotic agents; Z91.040 Latex allergy status; Z86.14 Personal history of Methicillin resistant Staphylococcus aureus infection; Z82.5 Family history of asthma and other chronic lower respiratory diseases; Z91.013 Allergy to seafood; Z88.2 Allergy status to sulfonamides; Z88.8 Allergy status to other drugs, medicaments and biological substances; Z91.048 Other nonmedicinal substance allergy status
CPT/HCPCS: 71046; 78582; 80048; 81001; 83036; 83605; 85025; 87040; 87070; 87086; 87205; 94640

== ENCOUNTER 2018-10-06 22:17 | Outpatient (CLI) | payer OTHER ==
[2018-10-06 22:38] VITALS: BP 123/69; TEMP 99.2
[2018-10-06] MEDS ORDERED: METOCLOPRAMIDE 5 MG/ML 2 ML VIAL IVP STA (22:56)
[2018-10-06] MEDS ORDERED: DEXTROSE 5%-LACTATED RINGERS 1,000 ML IV SCH (23:00)
[2018-10-06 23:44] LABS: Glucose,Whole Blood 146 mg/dL (75-99)
[2018-10-07 01:43] VITALS: PULSE 95; RESP 16
--- NOTE | 2018-11-03 09:13 | P.MSEPDOC ---
Presenting Problems - Arrival Data Date of Arrival on Unit: 10/06/18 Time of Arrival on Unit: 22:17 Mode of Transport: Wheelchair - Complaint OB-Reason for Admission/Chief Complaint: Acute Nausea/Vomiting Medical History - Information : 5 Para: 4 Term: 4 : 0 Abortions: Spontaneous or Elective: 0 Number of Living Children: 4 - Gestational Age Gestational Age by VAISHALI (wks/days): 21 Weeks and 1 Days Review of Systems - Review of Systems Constitutional: Fatigue Breast: No problems ENT: No problems Cardiovascular: No problems Respiratory: No problems Gastrointestinal: Diarrhea Genitourinary: No problems Musculoskeletal: No problems Neurological: No problems Skin: No problems Vital Signs - Temperature Temperature: 99.2 F Temperature Source: Oral - Pulse Right Supine Brachial Pulse Rate: 95 Pulse Assessment Method: Pulse Oximetry - Respirations Respiratory Rate: 16 O2 Sat by Pulse Oximetry: 96 - Blood Pressure Right Arm Supine Blood Pressure: 123/69 Blood Pressure Mean: 87 Blood Pressure Source: Automatic Cuff Medical Screen Scoring (Pre) - Cervical Exam Dilation: Exam Deferred Effacement: Exam Deferred Membranes: Intact - Uterine Contractions Frequency: N/A Duration: N/A Intensity: N/A - Maternal Vital Signs Maternal Temperature: N/A Maternal Blood Pressure: N/A Signs of Preeclampsia: N/A Maternal Respirations: N/A - Pain Assessment Pain Location and Character: Head, Chest, Abdomen Pain Intensity: 2 Pain Description: Aching - Maternal Trauma Maternal Trauma: N/A - Total Score Total Score (Pre): 0 - Level of Risk Level of Risk: Low (0-5) Physician Notification (Pre) - Physician Notified Physician Notified Date: 10/06/18 Physician Notified Time: 22:55 Physician/Practitioner Notifed:: Dr Casper New Order Received: Yes - Notification Comment Comment: IV HYDRATION, 1 DOSE REGLAN IV, D/C AFTER FLUIDS GIVEN Medical Screen Scoring (Post) - Cervical Exam Dilation: Exam Deferred Effacement: Exam Deferred Membranes: Intact - Uterine Contractions Frequency: N/A Duration: N/A Intensity: N/A - Maternal Vital Signs Maternal Temperature: N/A Maternal Blood Pressure: N/A Signs of Preeclampsia: N/A - Total Score Total Score (Post): 0 - Post Treatment Level of Risk Post Treatment Level of Risk: Low (0-5) Disposition - Disposition OB Disposition: Discharge to home, Written follow up instructions reviewed Discharge Date: 10/07/18 Discharge Time: 01:10 I agree with the RN Medical Screening Exam: Yes Risk & Benefit of care provided described in d/c instruction: Yes Diagnosis: LATE VOMITING OF
== END 2018-10-07 01:10 | disposition home or self-care (01) ==
LOC: FBPOP 22:17
PROVIDERS: ATTEND Obstetrics & Gynecology
DX: O21.2 Late vomiting of pregnancy (principal); Z3A.21 21 weeks gestation of pregnancy
CPT/HCPCS: 96361; 96374; G0463; J2765; 99214

== ENCOUNTER → 2018-11-05 | Outpatient (CLI) | payer OTHER ==
[2018-11-05 14:11] LABS: Basophils % (A) 0 %; Eosinophils # (A) 0.3 k/uL (0-0.7); Eosinophils % (A) 3 %; HCT 34.8 % (34.0-46.0); HGB 11.2 gm/dL (11.4-16.0); Lymphocytes # (A) 1.7 k/uL (1.0-4.8); Lymphocytes % (A) 15 %; MCH 26.6 pg (25.0-35.0); MCHC 32.3 g/dL (31.0-37.0); MCV 82.4 fL (80.0-100.0); Mean Platelet Volume 6.5; Monocytes # (A) 0.4 k/uL (0-1.0); Monocytes % (A) 4 %; Neutrophils % (A) 78 %; Platelet Count 347 k/uL (150-450); RBC 4.23 m/uL (3.80-5.40); RDW 14.8 % (11.5-15.5); WBC 11.6 k/uL (3.8-10.6)
[2018-11-05 15:09] LABS: Appearance,Urine Cloudy (Clear); Bilirubin,Urine Negative (Negative); Blood,Urine Negative (Negative); Color,Urine Yellow; Glucose,Urine (UA) Negative (Negative); Ketones,Urine Trace (Negative); Leukocyte Esterase,Urine Moderate (Negative); Mucus,Urine Many /hpf; Nitrite,Urine Negative (Negative); Protein,Urine 1+ (Negative); RBC,Urine 9 /hpf (0-5); Specific Gravity,Urine 1.041 (1.001-1.035); Squamous Epithelial Cell,Urine 17 /hpf (0-4); WBC,Urine 27 /hpf (0-5)
[2018-11-05 20:31] LABS: HIV 1 AB Non-Reactive (Non-Reactive); HIV AB P24 Non-Reactive (Non-Reactive); HIV P24 AG Non-Reactive (Non-Reactive)
== END | disposition home or self-care (01) ==
LOC: EDSTATUS 13:00 → LABWHC1 13:12
PROVIDERS: ATTEND Obstetrics & Gynecology
DX: Z34.90 Encounter for supervision of normal pregnancy, unspecified, unspecified trimester (principal)
CPT/HCPCS: 36415; 81001; 85025; 86762; 86780; 86850; 86900; 86901; 87086; 87340; 87390

== ENCOUNTER 2019-05-16 19:46 | Emergency (ER) | payer OTHER ==
--- NOTE | 2019-05-16 20:53 | ED ---
General Adult HPI - General Chief complaint: Neuro Symptoms/Deficit Stated complaint: Facial Numbness Time Seen by Provider: 05/16/19 20:11 Source: patient Mode of arrival: ambulatory Limitations: no limitations - History of Present Illness Initial comments: Patient is a 23-year-old female presenting to the emergency department with chief complaint of a headache and left facial numbness. Patient reports a history of chronic, daily migraines. However, she states she developed a sudden onset of left facial numbness and tingling specifically to the left cheek region several hours prior to ED arrival. Patient reports the tingling has since resolved but she does have some numbness in the region. Patient reports about 3 years ago she was diagnosed with MS by one neurologist and then a second neurologist told her she did not have multiple sclerosis. Patient reports she had previous episodes of one-sided numbness, tingling and weakness on both of her lower extremities. Patient reports that each time she was admitted and given IV steroids. Currently patient does reports a headache on the left side specifically located behind the eye. Patient denies any sinus drainage or tearing. Patient does report photosensitivity but denies nausea or vomiting. Patient does report occasional blurry vision but states that her baseline with her migraines. - Related Data Allergies Allergy/AdvReac Type Severity Reaction Status Date / Time cat dander Allergy Swelling Verified 05/16/19 19:53 Latex, Natural Rubber Allergy Rash/Hives Verified 05/16/19 19:53 shellfish derived [Crab] Allergy Anaphylaxis Verified 05/16/19 19:53 clindamycin AdvReac Rapid Verified 05/16/19 19:53 Heart Rate diphenhydramine HCl AdvReac Rapid Verified 05/16/19 19:53 [From Benadryl] Heart Rate Sulfa (Sulfonamide AdvReac Rapid Verified 05/16/19 19:53 Antibiotics) Heart Rate Review of Systems ROS Statement: Those systems with pertinent positive or pertinent negative responses have been documented in the HPI. ROS Other: All systems not noted in ROS Statement are negative. Past Medical History Past Medical History: Asthma Additional Past Medical History / Comment(s): "possible hole in heart"; Migraines, MS/HS History of Any Multi-Drug Resistant Organisms: MRSA Date of last positivie culture/infection: 2017 MDRO Source:: legs bilateral Additional Past Surgical History / Comment(s): explory lap, I&D left buttocks Past Anesthesia/Blood Transfusion Reactions: No Reported Reaction Past Psychological History: Depression, PTSD Smoking Status: Never smoker Past Alcohol Use History: None Reported Past Drug Use History: None Reported - Past Family History Father Additional Family Medical History / Comment(s): She does not know any history on her father. Mother Family Medical History: Asthma, Neurologic Disorder, Rheumatoid Arthritis (RA) Additional Family Medical History / Comment(s): Mother at age 31 from malp ractice issue, mom also had over active histamine. Sister(s) Family Medical History: Asthma Additional Family Medical History / Comment(s): Patient has 1 sister with no major medical problems. General Exam Limitations: no limitations General appearance: alert, in no apparent distress, obese Head exam: Present: atraumatic, normocephalic, normal inspection Eye exam: Present: normal appearance, PERRL, EOMI. Absent: scleral icterus, conjunctival injection, nystagmus, periorbital swelling, periorbital tenderness Pupils: Present: normal accommodation ENT exam: Present: normal exam, normal oropharynx (Left-sided uveal deviation), mucous membranes moist, TM's normal bilaterally, normal external ear exam Neck exam: Present: normal inspection, full ROM Respiratory exam: Present: normal lung sounds bilaterally Cardiovascular Exam: Present: regular rate, normal rhythm, normal heart sounds Extremities exam: Present: normal inspection, full ROM Back exam: Present: normal inspection, full ROM Neurological exam: Present: alert, oriented X3, CN II-XII intact, normal gait, reflexes normal, other (Strength 5/5 bilateral upper and lower external days.) Psychiatric exam: Present: normal affect, normal mood Skin exam: Present: warm, dry, intact, normal color Course Vital Signs 05/16/19 05/16/19 19:50 21:14 Temperature 98.2 F 98.3 F Pulse Rate 73 81 Respiratory 18 18 Rate Blood Pressure 118/67 115/73 O2 Sat by Pulse 98 98 Oximetry Medical Decision Making - Medical Decision Making Patient is a 23-year-old female with history of chronic migraines is presenting to emergency Department with chief complaint of headache and left-sided numbness. Benign physical examination except for some numbness on the left cheek. Rest of neuro exam unremarkable. I have low suspicion for stroke. Patient appears to exhibit signs of MS. Patient is able to communicate and ambulate without any issues. CBC and CMP unremarkable. CT of the brain pending. I spoke with Dr. Oliva from [facility] who will accept the patient for further neurological evaluation. Patient will be transferred via EMS. IV established. Vitals stable. Case discussed with physician. - Lab Data Result diagrams: 05/16/19 20:50 05/16/19 20:50 Lab Results 05/16/19 05/16/19 Range/Units 20:50 20:50 WBC 8.8 (3.8-10.6) k/uL RBC 5.08 (3.80-5.40) m/uL Hgb 13.9 (11.4-16.0) gm/dL Hct 41.8 (34.0-46.0) % MCV 82.2 (80.0-100.0) fL MCH 27.3 (25.0-35.0) pg MCHC 33.2 (31.0-37.0) g/dL RDW 14.9 (11.5-15.5) % Plt Count 170 (150-450) k/uL Neutrophils % 62 % Lymphocytes % 26 % Monocytes % 5 % Eosinophils % 5 % Basophils % 1 % Neutrophils # 5.4 (1.3-7.7) k/uL Lymphocytes # 2.3 (1.0-4.8) k/uL Monocytes # 0.4 (0-1.0) k/uL Eosinophils # 0.4 (0-0.7) k/uL Basophils # 0.1 (0-0.2) k/uL Sodium 140 (137-145) mmol/L Potassium 3.9 (3.5-5.1) mmol/L Chloride 107 (98-107) mmol/L Carbon Dioxide 25 (22-30) mmol/L Anion Gap 8 mmol/L BUN 13 (7-17) mg/dL Creatinine 0.55 (0.52-1.04) mg/dL Est GFR (CKD-EPI)AfAm >90 (>60 ml/min/1.73 sqM) Est GFR (CKD-EPI)NonAf >90 (>60 ml/min/1.73 sqM) Glucose 94 (74-99) mg/dL Calcium 9.3 (8.4-10.2) mg/dL Total Bilirubin 0.3 (0.2-1.3) mg/dL AST 21 (14-36) U/L ALT 25 (9-52) U/L Alkaline Phosphatase 57 (38-126) U/L Total Protein 7.1 (6.3-8.2) g/dL Albumin 4.1 (3.5-5.0) g/dL Disposition Clinical Impression: Headache, Left facial numbness Disposition: OTHER INSTITUTION NOT DEFINED Condition: Stable Instructions (If sedation given, give patient instructions): Multiple Sclerosis (DC) Additional Instructions: Patient will be transferred Prescriptions: Docusate [Colace] 100 mg PO DAILY #30 capsule Is patient prescribed a controlled substance at d/c from ED?: No Referrals: None,Stated [Primary Care Provider] - 1-2 days Time of Disposition: 22:00 - Out of Hospital Transfer - Req. Specs Out of Hospital Transfer - Requested Specifics: Other Emergency Center ([facility])
[2019-05-16 21:05] LABS: ALT 25 U/L (9-52); AST 21 U/L (14-36); African American GFR (CKD) >90 (>60 ml/min/1.73 sqM); Albumin 4.1 g/dL (3.5-5.0); Alkaline Phosphatase 57 U/L (38-126); Anion Gap 8 mmol/L; Blood Urea Nitrogen 13 mg/dL (7-17); Calcium 9.3 mg/dL (8.4-10.2); Carbon Dioxide 25 mmol/L (22-30); Chloride 107 mmol/L (98-107); Glucose 94 mg/dL (74-99); Potassium 3.9 mmol/L (3.5-5.1); Sodium 140 mmol/L (137-145); Total Bilirubin 0.3 mg/dL (0.2-1.3); Total Protein 7.1 g/dL (6.3-8.2)
[2019-05-16 21:12] LABS: Basophils # (A) 0.1 k/uL (0-0.2); Basophils % (A) 1 %; Eosinophils # (A) 0.4 k/uL (0-0.7); Eosinophils % (A) 5 %; HCT 41.8 % (34.0-46.0); HGB 13.9 gm/dL (11.4-16.0); Lymphocytes # (A) 2.3 k/uL (1.0-4.8); Lymphocytes % (A) 26 %; MCH 27.3 pg (25.0-35.0); MCHC 33.2 g/dL (31.0-37.0); MCV 82.2 fL (80.0-100.0); Mean Platelet Volume 7.7; Monocytes # (A) 0.4 k/uL (0-1.0); Monocytes % (A) 5 %; Neutrophils # (A) 5.4 k/uL (1.3-7.7); Neutrophils % (A) 62 %; Platelet Count 170 k/uL (150-450); RBC 5.08 m/uL (3.80-5.40); RDW 14.9 % (11.5-15.5); WBC 8.8 k/uL (3.8-10.6)
--- NOTE | 2019-05-16 22:05 | CT ---
EXAMINATION TYPE: CT brain wo con DATE OF EXAM: 05/16/2019 COMPARISON: 02/24/2016 HISTORY: Left facial numbness CT DLP: 64398.4 mGycm. Automated Exposure Control for Dose Reduction was Utilized. TECHNIQUE: CT scan of the head is performed without contrast. FINDINGS: Ventricles of normal size. There is no mass effect nor midline shift. There is no sign of i ntracranial hemorrhage. Calvarium is intact. There is no evidence of cerebral edema. IMPRESSION: Negative head CT scan. No change.
[2019-05-16 22:23] VITALS: BP 117/70; TEMP 98.4
[2019-05-16 22:25] VITALS: PULSE 80; RESP 16
[2019-05-16 22:42] LABS: Appearance,Urine Cloudy (Clear); Bilirubin,Urine Negative (Negative); Blood,Urine Negative (Negative); Color,Urine Yellow; Glucose,Urine (UA) Negative (Negative); Ketones,Urine Negative (Negative); Leukocyte Esterase,Urine Large (Negative); Mucus,Urine Few /hpf; Nitrite,Urine Negative (Negative); Protein,Urine Trace (Negative); RBC,Urine 13 /hpf (0-5); Specific Gravity,Urine 1.029 (1.001-1.035); Squamous Epithelial Cell,Urine 14 /hpf (0-4); Urobilinogen,Urine <2.0 mg/dL (<2.0); WBC,Urine 119 /hpf (0-5)
== END 2019-05-16 22:40 | disposition other institution (70) ==
LOC: EC 19:46
DX: R20.0 Anesthesia of skin (principal); G43.709 Chronic migraine without aura, not intractable, without status migrainosus; R20.2 Paresthesia of skin; Z91.09 Other allergy status, other than to drugs and biological substances; Z91.040 Latex allergy status; Z91.048 Other nonmedicinal substance allergy status; Z91.013 Allergy to seafood; Z88.1 Allergy status to other antibiotic agents; Z88.2 Allergy status to sulfonamides; Z88.8 Allergy status to other drugs, medicaments and biological substances
CPT/HCPCS: 36415; 70450; 80053; 81001; 85025; 99284

== ENCOUNTER → 2019-05-21 | Outpatient (CLI) | payer OTHER ==
[2019-05-21 09:53] VITALS: BP 129/83; PULSE 80; TEMP 97.7; BMI 49.0
--- NOTE | 2019-05-21 10:38 | P.HPBAR ---
Bariatric H&P - History & Physicial H&P Date: 05/21/19 History & Physicial: Visit/CC: initial clinic visit Patient initial contact: Initial weight: Initial weight in pounds: Height: 5 ft 2 in Initial BMI: Last weight: Current weight: 121.563 kg Current weight in pounds: 268.00 Current BMI: 49.0 Elizabeth body weight (based on NIH guidelines): 49.895 kg Excess body weight loss: The patient is a 23 year-old F who presents for Bariatric Assessment. She is looking into the sleeve. She had reflux with her since now resolved. She has a tubal. 2nd month of supervised weight loss. NO family hx esophageal or stomach cancer. All family has troubles with weight. She still has gallbladder. She has fatty food intolerance. Recommend US of gallbladder. Blood pressure ok. She has sleep apnea. Gestational diabetes. Lower back pain, hip, knees and ankles. She has troubles with exercise. High weight 285 pounds. She has tried Atkins diet and ketodiet, most lost wast 10 pounds. Has migraines with mini stroke Past Medical History Past Medical History: Asthma, Neurologic Disorder Additional Past Medical History / Comment(s): "possible hole in heart"; Migraines, MS/HS patient at [facility] for workup to rule out tia 05-16-19 migraines History of Any Multi-Drug Resistant Organisms: MRSA Year Discovered:: 2018 MDRO Source:: legs bilateral Past Surgical History: Tubal Ligation Additional Past Surgical History / Comment(s): explory lap, I&D left buttocks Past Anesthesia/Blood Transfusion Reactions: No Reported Reaction Smoking Status: Never smoker - Past Family History Father Additional Family Medical History / Comment(s): She does not know any history on her father. Mother Family Medical History: Asthma, Neurologic Disorder, Rheumatoid Arthritis (RA) Additional Family Medical History / Comment(s): Mother at age 31 from malpractice issue, mom also had over active histamine. Sister(s) Family Medical History: Asthma Additional Family Medical History / Comment(s): Patient has 1 sister with no major medical problems. Surgical - Exam Vital Signs Temp Pulse BP 97.7 F 80 129/83 05/21/19 09:49 05/21/19 09:49 05/21/19 09:49 Bariatric Checklist Checklist: Plan: Checklist: EGD: 1. Hiatal hernia: 2. H. Pylori: HgbA1c: Vitamin D: Smoking: Never smoker Primary care physician referral: dr katiuska sultana Psychiatry clearance: Cardiology clearance: Sleep study: Diet journal: VTE risk score: VTE risk level: Rehab needs at discharge:
== END | disposition home or self-care (01) ==
LOC: BARWHC3 08:58
PROVIDERS: ATTEND Surgery Plastic and Reconstructive Surgery
DX: O24.419 Gestational diabetes mellitus in pregnancy, unspecified control (principal); G47.30 Sleep apnea, unspecified; I63.9 Cerebral infarction, unspecified; M54.5 Low back pain; Z3A.00 Weeks of gestation of pregnancy not specified
CPT/HCPCS: 99211

== ENCOUNTER 2019-06-15 10:48 | Day surgery (SDC) | payer OTHER ==
[2019-06-11 13:02] VITALS: BMI 45.4
--- NOTE | 2019-06-14 19:50 | P.GSHP ---
History of Present Illness H&P Date: 06/15/19 CHIEF COMPLAINT: GERD HISTORY OF PRESENT ILLNESS: The patient is a 23-year-old female who presents reports gastroesophageal reflux disease. Upper endoscopy was offered for further evaluation and management. PAST MEDICAL HISTORY: Please see list. PAST SURGICAL HISTORY: Please see list. MEDICATIONS: Please see list. ALLERGIES: Please see list. SOCIAL HISTORY: No illicit drug use FAMILY HISTORY: No reports of Crohn disease or ulcerative colitis. REVIEW OF ORGAN SYSTEMS: CONSTITUTIONAL: No reports of fevers or chills. GI: Denies any blood in stools or constipation. PHYSICAL EXAM: VITAL SIGNS: Stable GENERAL: Well-developed and pleasant in no acute distress. HEENT: No scleral icterus. Extraocular movements grossly intact. Moist buccal mucosa. NECK: Supple without lymphadenopathy. CHEST: Unlabored respirations. Equal bilateral excursions. CARDIOVASCULAR: Regular rate and rhythm. Distal 2+ pulses. ABDOMEN: Soft, nondistended. MUSCULOSKELETAL: No clubbing, cyanosis, or edema. ASSESSMENT: 1. Gastroesophageal reflux disease PLAN: 1. Recommend proceeding with an upper endoscopy Past Medical History Past Medical History: Asthma, Neurologic Disorder Additional Past Medical History / Comment(s): "possible hole in heart"; Migraines, POSSIBLE TIA 05-16-19 , migraines History of Any Multi-Drug Resistant Organisms: MRSA Date of last positivie culture/infection: 2012 MDRO Source:: RIGHT LEG Past Surgical History: Tubal Ligation Additional Past Surgical History / Comment(s): EXPLORATORY lap, I&D left buttocks Past Anesthesia/Blood Transfusion Reactions: Motion Sickness, Postoperative Nausea & Vomiting (PONV) Smoking Status: Never smoker - Past Family History Father Additional Family Medical History / Comment(s): She does not know any history on her father. Mother Family Medical History: Asthma, Neurologic Disorder, Rheumatoid Arthritis (RA) Additional Family Medical History / Comment(s): Mother at age 31 from malpractice issue, Sister(s) Family Medical History: Asthma Additional Family Medical History / Comment(s): Patient has 1 sister with no major medical problems. Medications and Allergies Home Medications Medication Instructions Recorded Confirmed Type Aspirin 325 mg PO DAILY 05/21/19 06/11/19 History Albuterol Inhaler [Ventolin Hfa 1 - 2 puff INHALATION RT-Q6H PRN 06/12/19 06/12/19 History Inhaler] Doxycycline [Vibramycin] 100 mg PO BID 06/12/19 06/12/19 History Allergies Allergy/AdvReac Type Severity Reaction Status Date / Time cat dander Allergy Swelling Verified 06/11/19 12:43 OF EYE , SOB Latex, Natural Rubber Allergy Rash/Hives Verified 06/11/19 12:43 shellfish derived [Crab] Allergy Anaphylaxis Verified 06/11/19 12:43 clindamycin AdvReac Anaphylaxis Verified 06/11/19 12:43 diphenhydramine HCl AdvReac Anaphylaxis Verified 06/11/19 12:43 [From Benadryl] Sulfa (Sulfonamide AdvReac Anaphylaxis Verified 06/11/19 12:43 Antibiotics)
[~2019-06-15 10:48] MED LIST: LACTATED RINGERS 1,000 ML IV SCH; LIDOCAINE 1% 20 ML VIAL (10MG/ML) FOR IV START INTRADERMA PRN
[2019-06-15 11:09] VITALS: TEMP 97.8
[2019-06-15] MEDS ORDERED: LACTATED RINGERS 1,000 ML IV ONE (11:30)
[2019-06-15] MEDS ORDERED: PROPOFOL 10 MG/ML 20 ML VIAL IV ONE (11:36)
[2019-06-15] MEDS ORDERED: LIDOCAINE 1% INJ 10MG/ML (20 ML MDV) ONE (11:36)
--- NOTE | 2019-06-15 11:49 | P.PCN ---
Date of Procedure: 06/15/19 Description of Procedure: PREOPERATIVE DIAGNOSIS: Gastroesophageal reflux disease. Morbid obesity. POSTOPERATIVE DIAGNOSIS: Gastroesophageal reflux disease. Morbid obesity. OPERATION: Esophagogastroduodenoscopy with biopsies along antrum. SURGEON: Milagro Allen MD ANESTHESIA: MAC. INDICATIONS: The patient is a 23-year-old female who presents with a history of reflux disease. Benefits and risks of the procedure were described. Informed consent was obtained. DESCRIPTION: The patient was brought into the endoscopy suite and laid in the left lateral decubitus position. An Olympus gastroscope was passed along the posterior oropharynx down to the distal esophagus where the squamocolumnar junction was encountered at 40 cm from the incisors. The stomach was entered and no bile reflux was found. Additional findings are listed below. Biopsies with cold forceps were obtained of the antrum. The first through third portion of the duodenum was examined and unremarkable. Retroflexion of the scope confirmed Hill grade 1 lower esophageal valve. The squamocolumnar junction demonstrated LA grade A erosive esophagitis. The stomach was desufflated. The patient tolerated the procedure well. FINDINGS: Squamocolumnar junction 40 cm from the incisors. Diaphragmatic hiatus at 40 cm. Hill grade 1 lower esophageal valve. LA grade A erosive esophagitis. No active duodenitis. Chronic gastritis RECOMMENDATIONS: Upper endoscopy as needed. Plan - Discharge Summary Discharge Rx Participant: No New Discharge Prescriptions: No Action Aspirin 325 mg PO DAILY Albuterol Inhaler [Ventolin Hfa Inhaler] 1 - 2 puff INHALATION RT-Q6H PRN PRN Reason: Shortness Of Breath Doxycycline [Vibramycin] 100 mg PO BID Discharge Medication List Aspirin 325 mg PO DAILY 05/21/19 [History] Albuterol Inhaler [Ventolin Hfa Inhaler] 1 - 2 puff INHALATION RT-Q6H PRN 06/12/19 [History] Doxycycline [Vibramycin] 100 mg PO BID 06/12/19 [History] [place] [facility] [facility] [place] [facility] Patient Instructions/Handouts: Gastroesophageal Reflux Disease (ED) Discharge Disposition: HOME SELF-CARE
[2019-06-15 11:55] VITALS: RESP 16
[2019-06-15 12:15] VITALS: BP 118/68; PULSE 78
== END 2019-06-15 12:39 | disposition home or self-care (01) ==
LOC: ORWHC2ENDO 10:48
PROVIDERS: ATTEND Surgery Plastic and Reconstructive Surgery
DX: K22.10 Ulcer of esophagus without bleeding (principal); K21.9 Gastro-esophageal reflux disease without esophagitis; K29.50 Unspecified chronic gastritis without bleeding; E66.01 Morbid (severe) obesity due to excess calories; Z68.42 Body mass index [BMI] 45.0-49.9, adult; J45.909 Unspecified asthma, uncomplicated; G43.909 Migraine, unspecified, not intractable, without status migrainosus; Z86.14 Personal history of Methicillin resistant Staphylococcus aureus infection; Z98.51 Tubal ligation status; Z86.73 Personal history of transient ischemic attack (TIA), and cerebral infarction without residual deficits; Z86.69 Personal history of other diseases of the nervous system and sense organs; Z82.5 Family history of asthma and other chronic lower respiratory diseases; Z79.82 Long term (current) use of aspirin; Z91.040 Latex allergy status; Z91.013 Allergy to seafood; Z88.8 Allergy status to other drugs, medicaments and biological substances; Z91.048 Other nonmedicinal substance allergy status
CPT/HCPCS: 81025; 88305; 43239; J2001; J2704

== ENCOUNTER 2019-07-12 13:13 | Emergency (ER) | payer OTHER ==
[2019-07-12] MEDS ORDERED: KETOROLAC 60 MG/2 ML VIAL IM STA (13:48)
[2019-07-12] MEDS ORDERED: ORPHENADRINE 30 MG/ML 2 ML VIAL IM STA (13:48)
[2019-07-12 13:51] VITALS: PULSE 76
--- NOTE | 2019-07-12 14:24 | XR ---
EXAMINATION TYPE: XR knee complete RT DATE OF EXAM: 07/12/2019 COMPARISON: None HISTORY: Pain TECHNIQUE: Three-view right knee FINDINGS: Joint spaces are preserved. No acute fractures or dislocations are evident. No joint effusi on is evident. Follow-up exams can be performed 7-10 days from acute trauma for continued pain. IMPRESSION: 1. Normal three-view right knee.
--- NOTE | 2019-07-12 14:32 | ED ---
Lower Extremity Injury HPI - General Chief Complaint: Extremity Injury, Lower Stated Complaint: Leg injury Time Seen by Provider: 07/12/19 13:26 Source: patient, family, RN notes reviewed, old records reviewed Mode of arrival: ambulatory Limitations: no limitations - History of Present Illness Initial Comments: His is a 24-year-old female presents for his Emergency department today at 2 days after doing series of leg workouts. She complains of cramping in bilateral calfs and worse in R calf. PAtient has not taken any motrin or tylenol.She has been using ice and heat on her legs. She states pain is worse with dorsiflexion of her foot. - Related Data Home Medications Medication Instructions Recorded Confirmed Aspirin 325 mg PO DAILY 05/21/19 06/11/19 Albuterol Inhaler [Ventolin Hfa 1 - 2 puff INHALATION RT-Q6H PRN 06/12/19 06/12/19 Inhaler] Doxycycline [Vibramycin] 100 mg PO BID 06/12/19 06/12/19 Previous Rx's Medication Instructions Recorded Ibuprofen [Motrin] 600 mg PO Q8HR PRN #30 tab 07/12/19 Allergies Allergy/AdvReac Type Severity Reaction Status Date / Time cat dander Allergy Swelling Verified 06/11/19 12:43 OF EYE , SOB Latex, Natural Rubber Allergy Rash/Hives Verified 06/11/19 12:43 shellfish derived [Crab] Allergy Anaphylaxis Verified 06/11/19 12:43 clindamycin AdvReac Anaphylaxis Verified 06/11/19 12:43 diphenhydramine HCl AdvReac Anaphylaxis Verified 06/11/19 12:43 [From Benadryl] Sulfa (Sulfonamide AdvReac Anaphylaxis Verified 06/11/19 12:43 Antibiotics) Review of Systems ROS Statement: Those systems with pertinent positive or pertinent negative responses have been documented in the HPI. ROS Other: All systems not noted in ROS Statement are negative. Past Medical History Past Medical History: Asthma, Neurologic Disorder Additional Past Medical History / Comment(s): "possible hole in heart"; Migraines, POSSIBLE TIA 05-16-19 , migraines History of Any Multi-Drug Resistant Organisms: MRSA Date of last positivie culture/infection: 2012 MDRO Source:: RIGHT LEG Past Surgical History: Tubal Ligation Additional Past Surgical History / Comment(s): EXPLORATORY lap, I&D left buttocks Past Anesthesia/Blood Transfusion Reactions: Motion Sickness, Postoperative Nausea & Vomiting (PONV) Past Psychological History: Depression, PTSD Smoking Status: Never smoker - Past Family History Father Additional Family Medical History / Comment(s): She does not know any history on her father. Mother Family Medical History: Asthma, Neurologic Disorder, Rheumatoid Arthritis (RA) Additional Family Medical History / Comment(s): Mother at age 31 from malpractice issue, Sister(s) Family Medical History: Asthma Additional Family Medical History / Comment(s): Patient has 1 sister with no major medical problems. General Exam - General Exam Comments Initial Comments: 24 year old female, no distress. Limitations: no limitations General appearance: alert, in no apparent distress Head exam: Present: atraumatic, normocephalic, normal inspection Eye exam: Present: normal appearance, PERRL, EOMI. Absent: scleral icterus, conjunctival injection, periorbital swelling ENT exam: Present: normal exam, mucous membranes moist Neck exam: Present: normal inspection. Absent: tenderness, meningismus, lymphadenopathy Respiratory exam: Present: normal lung sounds bilaterally. Absent: respiratory distress, wheezes, rales, rhonchi, stridor Cardiovascular Exam: Present: regular rate, normal rhythm, normal heart sounds. Absent: systolic murmur, diastolic murmur, rubs, gallop, clicks GI/Abdominal exam: Present: soft, normal bowel sounds. Absent: distended, tenderness, guarding, rebound, rigid Extremities exam: Present: normal inspection, full ROM, normal capillary refill, other (tenderness to palpation over biateral gastrocnemius. Patient has pain with dorsiflexion, cramps in gastrocnemius. ). Absent: tenderness, pedal edema, joint swelling, calf tenderness Back exam: Present: normal inspection Course Vital Signs 07/12/19 07/12/19 13:33 14:40 Temperature 98.0 F 98.1 F Pulse Rate 76 76 Respiratory 19 18 Rate Blood Pressure 128/77 124/78 O2 Sat by Pulse 100 100 Oximetry Medical Decision Making - Medical Decision Making Patient is a 24 year old female with bilateral calf pain after doing strenous workout. Right calf and posterior knee seems to be worse than left. Patient tib fib xray is normal. No swelling or erythema noted. She was given IM toradol and norflex. PAtient has tenderness over gastrocnemius.Discussed strain and cramping and importance of hydraiton and stretching. Discussed PCP and ortho follow up. Disposition Clinical Impression: Gastrocnemius strain Disposition: HOME SELF-CARE Condition: Good Instructions (If sedation given, give patient instructions): Muscle Strain (ED) Additional Instructions: Patient advised to rest, ice the knee and calf. Patient to do stretches. Patient should use a foam roller and rule out the muscles to release tension and massage. Follow-up with primary care doctor. Return to the emergency department if any alarming signs or symptoms occur. Prescriptions: Ibuprofen [Motrin] 600 mg PO Q8HR PRN #30 tab PRN Reason: Pain Is patient prescribed a controlled substance at d/c from ED?: No Referrals: Nonstaff,Physician [Primary Care Provider] - 1-2 days Christos Maguire MD [STAFF PHYSICIAN] - 1-2 days Time of Disposition: 14:34
[2019-07-12 14:43] VITALS: BP 124/78; RESP 18; TEMP 98.1
== END 2019-07-12 14:40 | disposition home or self-care (01) ==
LOC: EC 13:13
DX: S86.811A Strain of other muscle(s) and tendon(s) at lower leg level, right leg, initial encounter (principal); S86.812A Strain of other muscle(s) and tendon(s) at lower leg level, left leg, initial encounter; J45.909 Unspecified asthma, uncomplicated; Z88.1 Allergy status to other antibiotic agents; Z88.2 Allergy status to sulfonamides; Z88.8 Allergy status to other drugs, medicaments and biological substances; Z91.013 Allergy to seafood; Z91.040 Latex allergy status; Z91.048 Other nonmedicinal substance allergy status; Z79.82 Long term (current) use of aspirin; Z79.899 Other long term (current) drug therapy; Z86.14 Personal history of Methicillin resistant Staphylococcus aureus infection; X50.0XXA Overexertion from strenuous movement or load, initial encounter
CPT/HCPCS: 73562; 99284; 96372 ×2; J2360; J1885

== ENCOUNTER → 2019-07-22 | Outpatient (CLI) | payer OTHER ==
[2019-07-22 17:52] VITALS: BP 143/87; PULSE 109; RESP 16; TEMP 98; BMI 48.2
--- NOTE | 2019-07-22 18:31 | P.PN ---
Subjective Progress Note Date: 07/22/19 DATE OF SERVICE: 07/22/2019 CHIEF COMPLAINT: Morbid obesity HISTORY OF PRESENT ILLNESS: Marina Chávez is a 24-year-old female who comes with lifelong morbid obesity. She is looking into the sleeve. She has co-morbidities of sleep apnea, past gestational diabetes, lower back pain, hip, knees and ankles. She has completed an upper endoscopy. She is currently undergoing medical supervised weight loss. At height of 5 feet 2 inches, her ideal body weight is 135 pounds. Highest weight of 285 pounds, BMI 52.2. She comes in 263 pounds from 267 pounds, 2 months ago. She has lost 4 pounds in 2 months. She is 114 pounds overweight. PAST MEDICAL HISTORY: 1. Morbid obesity due to excess calories 2. Body mass index of 52.2, initial 3. Osteoarthritis of the knees. 4. Osteoarthritis of the lower back. 5. Migraines 6. Asthma 7. Multiple sclerosis 8. Sleep apnea 9. Gastroesophageal reflux disease 10. Gestational diabetes 11. 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 Tubal ligation 2. I&D buttocks 3. Exploratory laparoscopy HOME MEDICATIONS: Home Medications Medication Instructions Recorded Confirmed Aspirin 325 mg PO DAILY 05/21/19 07/23/19 Albuterol Inhaler [Ventolin Hfa 1 - 2 puff INHALATION RT-Q6H PRN 06/12/19 07/23/19 Inhaler] Doxycycline [Vibramycin] 100 mg PO BID 06/12/19 07/23/19 Previous Rx's Medication Instructions Recorded Ibuprofen [Motrin] 600 mg PO Q8HR PRN #30 tab 07/12/19 ALLERGIES: Allergies Allergy/AdvReac Type Severity Reaction Status Date / Time cat dander Allergy Swelling Verified 07/23/19 09:38 OF EYE , SOB Latex, Natural Rubber Allergy Rash/Hives Verified 07/23/19 09:38 shellfish derived [Crab] Allergy Anaphylaxis Verified 07/23/19 09:38 clindamycin AdvReac Anaphylaxis Verified 07/23/19 09:38 diphenhydramine HCl AdvReac Anaphylaxis Verified 07/23/19 09:38 [From Benadryl] Sulfa (Sulfonamide AdvReac Anaphylaxis Verified 07/23/19 09:38 Antibiotics) SOCIAL HISTORY: Past tobacco use. FAMILY HISTORY: No family history of ulcerative colitis disease or Crohn's disease. Family history of morbid obesity. No lupus in the family. No reports of stomach or esophageal cancer. REVIEW OF ORGAN SYSTEMS: CONSTITUTIONAL: At height of 5 feet 2 inches, her ideal body weight is 135 pounds. Highest weight of 285 pounds, BMI 52.2. She comes in 267 pounds, BMI 49.0. She is 118 pounds overweight. HEENT: Denies any active troubles with vision or hearing. No troubles with swallowing. ENDOCRINE: Past gestational diabetes. No hypothyroidism. CARDIOVASCULAR: No reports of palpitations or heart attacks or chest pain. RESPIRATORY: Has daytime somnolence. Has asthma. GASTROINTESTINAL: Denies any bright red blood per rectum. No diarrhea. No constipation. MUSCULOSKELETAL: Has lower back pain and joint pain. Has osteoarthritis of the knees. NEURO: Has headaches. No seizure disorders. PSYCH: No depression. No suicidal ideation. RHEUMATOLOGIC: No lupus. No rheumatoid arthritis. HEMATOLOGIC: Denies any abnormal bleeding or bruising. No personal history of DVTs. SKIN: No rash. No skin cancer. PHYSICAL EXAM: VITAL SIGNS: Height 5 foot 2 inches, weight 263 pounds. BMI 48.2 Vital Signs Temp 98 F 07/22/19 18:55 Pulse 109 H 07/22/19 18:55 Resp 16 07/22/19 18:55 BP 143/87 07/22/19 18:55 Pulse Ox GENERAL: Well-developed in no acute distress. HEENT: No scleral icterus. Extraocular movements grossly intact. Hears conversational speech. No nasal drainage. NECK: Supple without lymphadenopathy. CHEST: Nonlabored respirations with equal bilateral excursions. CARDIOVASCULAR: Tachycardic. Distal 2+ pulses. ABDOMEN: Obese, soft, nontender, nondistended. MUSCULOSKELETAL: No clubbing, cyanosis. Gross strength 5/5 distal lower extremities. NEURO: No focal or lateralizing signs. Cranial nerves 2 through 12 grossly within normal limits. PSYCH: Appropriate affect. Alert and oriented to person, place and time. SKIN: Good skin turgor. Well perfused. EGD FINDINGS: Squamocolumnar junction 40 cm from the incisors. Diaphragmatic hiatus at 40 cm. Hill grade 1 lower esophageal valve. LA grade A erosive esophagitis. No active duodenitis. Chronic gastritis Final Pathologic Diagnosis GASTRIC ANTRUM, BIOPSY: Benign gastric mucosa without histopathologic abnormality. Helicobacter pylori organisms are not identified on routine H+E sections. ASSESSMENT: 1. Morbid obesity due to excess calories 2. Body mass index of 52.2, initial 3. Osteoarthritis of the knees. 4. Osteoarthritis of the lower back. 5. Migraines 6. Asthma 7. Multiple sclerosis 8. Sleep apnea 9. Gastroesophageal reflux disease 10. Gestational diabetes 11. Osteoarthritis of the hips 12. Osteoarthritis of the ankles 13. 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 Family history morbid obesity PLAN: 1. Will need bariatric labs with correctional of all nutritional deficits prior to any surgical intervention. 2. She is looking into the sleeve gastrectomy 3. Will need ultrasound of gallbladder prior to bariatric procedure for gallstones/gallbladder dysfunction. 4. Recommend continue medical supervised weight loss in interim. 5. Will need dietary classes prior to any surgical intervention. Objective - Vital Signs Vital signs: Vital Signs Temp 98 F 07/22/19 17:49 Pulse 109 H 07/22/19 17:49 Resp 16 07/22/19 17:49 BP 143/87 07/22/19 17:49 Pulse Ox Intake & Output 07/21/19 07/22/19 07/22/19 18:59 06:59 18:59 Weight 119.522 kg
== END | disposition home or self-care (01) ==
LOC: BARWHC3 16:47
PROVIDERS: ATTEND Surgery Plastic and Reconstructive Surgery
DX: E66.01 Morbid (severe) obesity due to excess calories (principal); Z68.43 Body mass index [BMI] 50.0-59.9, adult; M17.0 Bilateral primary osteoarthritis of knee; M47.816 Spondylosis without myelopathy or radiculopathy, lumbar region; G43.909 Migraine, unspecified, not intractable, without status migrainosus; J45.909 Unspecified asthma, uncomplicated; G35 Multiple sclerosis; G47.30 Sleep apnea, unspecified; K21.9 Gastro-esophageal reflux disease without esophagitis; O24.419 Gestational diabetes mellitus in pregnancy, unspecified control; M16.0 Bilateral primary osteoarthritis of hip; M19.079 Primary osteoarthritis, unspecified ankle and foot; K82.9 Disease of gallbladder, unspecified; Z87.891 Personal history of nicotine dependence; Z98.51 Tubal ligation status; Z79.82 Long term (current) use of aspirin; Z79.2 Long term (current) use of antibiotics; Z91.040 Latex allergy status; Z88.2 Allergy status to sulfonamides; Z88.1 Allergy status to other antibiotic agents; Z91.013 Allergy to seafood; J30.81 Allergic rhinitis due to animal (cat) (dog) hair and dander; Z88.8 Allergy status to other drugs, medicaments and biological substances
CPT/HCPCS: 99211

== ENCOUNTER 2019-08-15 20:26 | Observation (INO) | payer OTHER ==
--- NOTE | 2019-08-15 21:37 | ED ---
General Adult HPI - General Chief complaint: Upper Respiratory Infection Stated complaint: Coughing up blood Time Seen by Provider: 08/15/19 20:58 Source: patient Mode of arrival: ambulatory Limitations: no limitations - History of Present Illness Initial comments: Dictation was produced using [employer] dictation software. please excuse any grammatical, word or spelling errors. Chief Complaint: 24-year-old female with recently diagnosed tuberculosis of the long presents with hemoptysis. History of Present Illness: 24-year-old female last month she was diagnosed with tuberculosis. Patient has history of hidradenitis or productive. She is working with her neurology tech to be part of a clinical trial testing a new medication for her rash. She was undergoing clearance for this medication. One of the test was to check for tuberculosis. She had blood tests confirming that patient was positive for TB. She was then referred to infectious disease and started on multiple medications to treat tuberculosis. Patient states she's b een having mild cough for the last several weeks. She came to the emergency department if she had episode of hemoptysis. Patient states that approximately 1-2 hours prior to arrival she had cough and coughed up a quarter size blood clot. Denies any fever, chills or night sweats. Patient has no chest pain. The ROS documented in this emergency department record has been reviewed and confirmed by me. Those systems with pertinent positive or negative responses have been documented in the HPI. All other systems are other negative and/or noncontributory. PHYSICAL EXAM: General Impression: Alert and oriented x3, not in acute distress HEENT: Normocephalic atraumatic, extra-ocular movements intact, pupils equal and reactive to light bilaterally, mucous membranes moist, mild erythema to the posterior oropharynx with ulcers to the tonsils bilaterally Cardiovascular: Heart regular rate and rhythm, S1&S2 audible, no murmurs, rubs or gallops Chest: Bilateral breath sounds Abdomen: Bowel sounds present, abdomen soft, non-tender, non-distended, no organomegaly Musculoskeletal: Pulses present and equal in all extremities, no peripheral edema Motor: no focal deficits noted Neurological: CN II-XII grossly intact, no focal motor or sensory deficits noted Skin: Intact with no visualized rashes Psych: Normal affect and mood ED course: 24-year-old female presents with chief complaint of hemoptysis. Vital signs upon arrival are within acceptable limits. Laboratory evaluation obtained. CBC, metabolic panel is unremarkable. Patient was in the emergency department for couple hours with no recurrent episodes of hemoptysis. Chest x-ray is unremarkable. Given the patient was recently diagnosed with TB and having episodes of hemoptysis we will have patient admitted to the hospital consultation to infectious disease and pulmonology. Patient is understandable and agreeable with plan. - Related Data Home Medications Medication Instructions Recorded Confirmed Aspirin 325 mg PO DAILY 05/21/19 07/23/19 Albuterol Inhaler [Ventolin Hfa 1 - 2 puff INHALATION RT-Q6H PRN 06/12/19 07/23/19 Inhaler] Doxycycline [Vibramycin] 100 mg PO BID 06/12/19 07/23/19 Previous Rx's Medication Instructions Recorded Ibuprofen [Motrin] 600 mg PO Q8HR PRN #30 tab 07/12/19 Allergies Allergy/AdvReac Type Severity Reaction Status Date / Time cat dander Allergy Swelling Verified 08/15/19 20:53 OF EYE , SOB Latex, Natural Rubber Allergy Rash/Hives Verified 08/15/19 20:53 shellfish derived [Crab] Allergy Anaphylaxis Verified 08/15/19 20:53 clindamycin AdvReac Anaphylaxis Verified 08/15/19 20:53 diphenhydramine HCl AdvReac Anaphylaxis Verified 08/15/19 20:53 [From Benadryl] Sulfa (Sulfonamide AdvReac Anaphylaxis Verified 08/15/19 20:53 Antibiotics) Review of Systems ROS Statement: Those systems with pertinent positive or pertinent negative responses have been documented in the HPI. ROS Other: All systems not noted in ROS Statement are negative. Past Medical History Past Medical History: Asthma, Neurologic Disorder Additional Past Medical History / Comment(s): "possible hole in heart"; Manuel sharron, POSSIBLE TIA 05-16-19 , migraines, tuberculosis Jul 2019 History of Any Multi-Drug Resistant Organisms: MRSA Date of last positivie culture/infection: 2012 MDRO Source:: RIGHT LEG Past Surgical History: Tubal Ligation Additional Past Surgical History / Comment(s): EXPLORATORY lap, I&D left buttocks Past Anesthesia/Blood Transfusion Reactions: Motion Sickness, Postoperative Nausea & Vomiting (PONV) Past Psychological History: Depression, PTSD Smoking Status: Never smoker Past Alcohol Use History: None Reported Past Drug Use History: None Reported - Past Family History Father Additional Family Medical History / Comment(s): She does not know any history on her father. Mother Family Medical History: Asthma, Neurologic Disorder, Rheumatoid Arthritis (RA) Additional Family Medical History / Comment(s): Mother at age 31 from malpractice issue, mom also had over active histamine. Sister(s) Family Medical History: Asthma Additional Family Medical History / Comment(s): Patient has 1 sister with no major medical problems. General Exam Limitations: no limitations Course Vital Signs 08/15/19 20:50 Pulse Rate 82 Respiratory 18 Rate Blood Pressure 117/81 O2 Sat by Pulse 97 Oximetry Medical Decision Making - Lab Data Result diagrams: 08/15/19 21:15 08/15/19 21:15 Lab Results 08/15/19 08/15/19 Range/Units 21:15 21:15 WBC 6.6 (3.8-10.6) k/uL RBC 4.82 (3.80-5.40) m/uL Hgb 13.1 (11.4-16.0) gm/dL Hct 39.4 (34.0-46.0) % MCV 81.7 (80.0-100.0) fL MCH 27.1 (25.0-35.0) pg MCHC 33.2 (31.0-37.0) g/dL RDW 13.0 (11.5-15.5) % Plt Count 312 (150-450) k/uL Neutrophils % 56 % Lymphocytes % 25 % Monocytes % 9 % Eosinophils % 5 % Basophils % 2 % Neutrophils # 3.7 (1.3-7.7) k/uL Lymphocytes # 1.7 (1.0-4.8) k/uL Monocytes # 0.6 (0-1.0) k/uL Eosinophils # 0.4 (0-0.7) k/uL Basophils # 0.1 (0-0.2) k/uL Sodium 135 L (137-145) mmol/L Potassium 4.7 (3.5-5.1) mmol/L Chloride 104 (98-107) mmol/L Carbon Dioxide 23 (22-30) mmol/L Anion Gap 8 mmol/L BUN 13 (7-17) mg/dL Creatinine 0.54 (0.52-1.04) mg/dL Est GFR (CKD-EPI)AfAm >90 (>60 ml/min/1.73 sqM) Est GFR (CKD-EPI)NonAf >90 (>60 ml/min/1.73 sqM) Glucose 119 H (74-99) mg/dL Calcium 9.0 (8.4-10.2) mg/dL Disposition Clinical Impression: Hemoptysis Disposition: ADMITTED IP TO THIS HOSP Condition: Fair Referrals: Chidi Malhotra DO [Primary Care Provider] - 1-2 days Decision Time: 22:52
--- NOTE | 2019-08-15 21:54 | XR ---
EXAMINATION TYPE: XR chest 1V portable DATE OF EXAM: 08/15/2019 COMPARISON: 01/01/2018 HISTORY: Weakness TECHNIQUE: FINDINGS: Heart and mediastinum are normal. Lungs are clear. Diaphragm is normal. Bony thorax appears normal. IMPRESSION: Normal chest. No change.
[2019-08-15 22:06] LABS: African American GFR (CKD) >90 (>60 ml/min/1.73 sqM); Anion Gap 8 mmol/L; Blood Urea Nitrogen 13 mg/dL (7-17); Carbon Dioxide 23 mmol/L (22-30); Chloride 104 mmol/L (98-107); Glucose 119 mg/dL (74-99); Non-African American GFR(CKD) >90 (>60 ml/min/1.73 sqM); Sodium 135 mmol/L (137-145)
[2019-08-15 22:17] LABS: Potassium 4.7 mmol/L (3.5-5.1)
[2019-08-15 22:21] LABS: Basophils # (A) 0.1 k/uL (0-0.2); Basophils % (A) 2 %; Eosinophils # (A) 0.4 k/uL (0-0.7); Eosinophils % (A) 5 %; HCT 39.4 % (34.0-46.0); HGB 13.1 gm/dL (11.4-16.0); Lymphocytes # (A) 1.7 k/uL (1.0-4.8); Lymphocytes % (A) 25 %; MCH 27.1 pg (25.0-35.0); MCHC 33.2 g/dL (31.0-37.0); MCV 81.7 fL (80.0-100.0); Mean Platelet Volume 8.1; Monocytes # (A) 0.6 k/uL (0-1.0); Monocytes % (A) 9 %; Neutrophils # (A) 3.7 k/uL (1.3-7.7); Neutrophils % (A) 56 %; Platelet Count 312 k/uL (150-450); RBC 4.82 m/uL (3.80-5.40); WBC 6.6 k/uL (3.8-10.6)
[2019-08-15] MEDS ORDERED: ONDANSETRON 4 MG/2 ML VIAL IVP PRN (22:53)
[2019-08-15] MEDS ORDERED: NALOXONE 0.4 MG/ML 1 ML VIAL IV PRN (22:53)
[2019-08-15 23:31] LABS: INR 0.9 (<1.2); Partial Thromboplastin Time 22.2 sec (22.0-30.0); Prothrombin Time 9.8 sec (9.0-12.0)
[2019-08-16] MEDS: SODIUM CHLORIDE 0.9% 1,000 ML IV SCH ×2 (00:48→19:36)
[2019-08-16 02:17] VITALS: RESP 16
--- NOTE | 2019-08-16 11:28 | P.CNPUL ---
History of Present Illness Consult date: 08/16/19 Requesting physician: Beverley Andres Reason for consult: other (Hemoptysis, tuberculosis) Chief complaint: Hemoptysis History of present illness: This is a very pleasant 24-year-old female patient who follows with Dr. Malhotra as her primary care provider. She has a history of mild intermittent chronic bronchial asthma, obesity, gastroesophageal reflux disease, previous influenza A a with sepsis in December 2017. CT angiogram at [facility] at that time showed right lower lobe areas of nodularity and in the left upper lobe concerning for pneumonia and infectious process. Was to have follow-up CT angiograms in 4-6 weeks. She had seen Dr. Reynolds in the remote past for asthma. She is on albuterol rescue inhaler only. Her asthma has been stable and well controlled. She had recently undergone testing required prior to a new clinical trial medication for hydradenitis skin disorder. During that testing a skin PPD test positive and she had undergone blood tests and was confirmed to have tuberculosis and had been following with the health department and was initiated on treatment on 08/07/2019. She is currently on isoniazidrifapentine regimen weekly. She states her daughter was recently hospitalized with RSV. She states she has been back to work. Yesterday however she developed cough and congestion and coughed up a teaspoon size amount of red blood/clot and presented here to the emergency room for the same. She was admitted here for the hemoptysis. She is seen today in consultation on the regular medical floor. She is in TB isolation precautions. She is awake and alert in no acute distress. She is maintaining O2 saturations in the 90s on room air. She's not had any further hemoptysis. She's been afebrile. Hemodynamically stable. White count 6.6. Hemoglobin 13.1. Sodium 135. Potassium 4.7. Creatinine 0.54. Urine hCG negative. Chest x-ray shows no acute pulmonary process. Review of Systems REVIEW OF SYSTEMS: CONSTITUTIONAL: Denies any recent significant weight loss or weight gain. EYES: Denies change in vision. EARS, NOSE, MOUTH, THROAT: Denies headaches, denies sore throat. CARDIOVASCULAR: Denies chest pain, palpitations or syncopal episodes. RESPIRATORY: Positive for hemoptysis. GASTROINTESTINAL: Denies change in appetite, denies abdominal pain GENITOURINARY: Denies hematuria, denies infections. MUSKULOSKELETAL: Denies pain, denies swelling. INTEGUMENTARY: Denies rash, denies eczema. NEUROLOGICAL: Denies recent memory loss, no recent seizure activity. PSYCHIATRIC: Denies anxiety, denies depression. HEMATOLOGIC/LYMPHATIC: Denies anemia, denies enlarged lymph nodes. Past Medical History Past Medical History: Asthma, Neurologic Disorder Additional Past Medical History / Comment(s): "possible hole in heart"; Migraines, POSSIBLE TIA 05-16-19 , migraines, tuberculosis Jul 2019 History of Any Multi-Drug Resistant Organisms: MRSA Date of last positivie culture/infection: 2012 MDRO Source:: RIGHT LEG Past Surgical History: Tubal Ligation Additional Past Surgical History / Comment(s): EXPLORATORY lap, I&D left buttocks Past Anesthesia/Blood Transfusion Reactions: Motion Sickness, Postoperative Nausea & Vomiting (PONV) Past Psychological History: Depression, PTSD Smoking Status: Never smoker Past Alcohol Use History: None Reported Additional Past Alcohol Use History / Comment(s): Patient is a lifelong nonsmoker. She denies any medical marijuana, marijuana, street drug or alcohol use. She lives at home with her significant other. There is a cat in the home. No other children. She works at [employer]. Past Drug Use History: None Reported - Past Family History Father Additional Family Medical History / Comment(s): She does not know any history on her father. Mother Family Medical History: Asthma, Neurologic Disorder, Rheumatoid Arthritis (RA) Additional Family Medical History / Comment(s): Mother at age 31 from malpractice issue, mom also had over active histamine. Sister(s) Family Medical History: Asthma Additional Family Medical History / Comment(s): Patient has 1 sister with no major medical problems. Medications and Allergies Home Medications Medication Instructions Recorded Confirmed Type Albuterol Inhaler [Ventolin Hfa 2 puff INHALATION RT-Q4H PRN 06/12/19 08/15/19 History Inhaler] Allergies Allergy/AdvReac Type Severity Reaction Status Date / Time cat dander Allergy Swelling Verified 08/15/19 23:02 OF EYE , SOB Latex, Natural Rubber Allergy Rash/Hives Verified 08/15/19 23:02 shellfish derived [Crab] Allergy Anaphylaxis Verified 08/15/19 23:02 clindamycin AdvReac Anaphylaxis Verified 08/15/19 23:02 diphenhydramine HCl AdvReac Anaphylaxis Verified 08/15/19 23:02 [From Benadryl] Sulfa (Sulfonamide AdvReac Anaphylaxis Verified 08/15/19 23:02 Antibiotics) Physical Exam Vitals: Vital Signs Temp Pulse Pulse Resp BP BP Pulse Ox 08/16/19 08:00 16 08/16/19 07:35 98.4 F 74 16 100/68 98 08/16/19 04:00 16 08/16/19 02:16 97.7 F 73 16 105/68 99 08/16/19 00:50 98.2 F 83 15 122/83 97 08/16/19 00:00 16 08/15/19 22:45 97.7 F 89 16 134/94 97 08/15/19 20:50 82 18 117/81 97 Intake and Output 08/15/19 08/16/19 08/16/19 22:59 06:59 14:59 Intake Total 300 Balance 300 Intake: Intake, IV Titration 60 Amount Sodium Chloride 0.9% 1, 60 000 ml @ 20 mls/hr IV . Q24H [facility] Rx#:[id number] Oral 240 Other: Voiding Method Toilet Toilet # Voids 1 Weight 113.398 kg 113.398 kg GENERAL EXAM: Alert, active, 24-year-old female patient, on room air, comfortable in no apparent distress. HEAD: Normocephalic. EYES: Normal reaction of pupils, equal size. NOSE: Clear with pink turbinates. THROAT: No erythema or exudates. NECK: No masses, no JVD. CHEST: No chest wall deformity. LUNGS: Equal air entry with no crackles, wheeze, rhonchi or dullness. CVS: S1 and S2 normal with no audible murmur, regular rhythm. ABDOMEN: No hepatosplenomegaly, normal bowel sounds, no guarding or rigidity. SPINE: No scoliosis or deformity SKIN: No rashes CENTRAL NERVOUS SYSTEM: No focal deficits, tone is normal in all 4 extremities. EXTREMITIES: There is no peripheral edema. No clubbing, no cyanosis. Peripheral pulses are intact. Results - Laboratory Findings CBC and BMP: 08/15/19 21:15 08/15/19 21:15 PT/INR, D-dimer PT 9.8 sec (9.0-12.0) 08/15/19 22:45 INR 0.9 (<1.2) 08/15/19 22:45 Abnormal lab findings: Abnormal Labs 08/15/19 21:15 Sodium 135 L Glucose 119 H - Diagnostic Findings Chest x-ray: image reviewed (No acute pulmonary process) Assessment and Plan Assessment: 1 Hemoptysis in a patient recently diagnosed with tuberculosis July 2019 2 History of right lower lobe and left upper lobe nodularity on computed tomography scan from [place] in 2017 3 Mild intermittent chronic bronchial asthma, currently inactive and stable 4 Gastroesophageal reflux disease, EGD in June 2019 5 0besity 6 Lifelong nonsmoker 7 Hydradenitis Plan: The patient was seen and evaluated by Dr. Akbar. Chest x-ray and labs reviewed. The patient was admitted for hemoptysis times one. May require bronchoscopy for further investigation. Recently diagnosed with tuberculosis and currently on treatment with isoniazid and rifampin and being followed through the health department. She is quite anxious to go home. We'll continue to follow and make further recommendations based on her clinical status. I, the cosigning physician, performed a history & physical examination of the patient. Lungs sounds are clear. Maintaining good O2 saturations in the 90s on room air. I discussed the assessment and plan of care with my nurse practitioner, Michelle Solorio. I attest to the above consultation as dictated by her. Time with Patient: Greater than 30
[2019-08-16] MEDS ORDERED: ALBUTEROL INHALER 60 PUFF/8 GM INHALER INHALATION PRN (13:56)
[2019-08-16] MEDS ORDERED: ALPRAZolam 0.25 MG TAB PO PRN (13:57)
[2019-08-16] MEDS ORDERED: TEMAZEPAM 15 MG CAP PO PRN (13:57)
--- NOTE | 2019-08-16 19:07 | HP ---
HISTORY AND PHYSICAL CHIEF COMPLAINT: Hemoptysis. HISTORY OF PRESENT ILLNESS: This 24-year-old woman with a past medical history of multiple medical problems including history of recently diagnosed history of asthma, history of possible bilateral lung nodule lesions in the in the CT scan, PTSD, depression, being followed by primary physician, Dr. Chidi Olsen in the [facility] was undergone a recent test for tuberculosis as a part of starting the clinic trials for Dermatology conditions rash. Apparently the PPD was positive and subsequently the test was also positive for tuberculosis and the patient is currently on directly observed treatment. D0TS from [facility]. Patient is on a combination of INH weekly. The patient had had a cough and sputum for the last 2 days. The patient reports her tears and urine are orange in color, but the sputum was reddish in color and was mild to mild to moderate hemoptysis. The patient was sent to [facility] and admitted to the hospital for further evaluation and treatment. Initial chest x-ray did not show any acute abnormality. The evaluation by Dr. Akbar is in progress at this time. There is no history of fever, rigors or chills. No history of headache, loss of consciousness, seizures. PAST MEDICAL HISTORY: History of asthma, history of migraine, history of transient ischemic attack, history of recent tuberculosis in July 2019, history of exploratory laparotomy, history of motion sickness, depression, PTSD, history of sepsis, history of lung lesions, lung nodules. MEDICATIONS: Home medications are: 1. Albuterol p.r.n. 2. DOTS treatment for TB. ALLERGIES: CAT DANDER, LATEX, SHELLFISH, CLINDAMYCIN, BENADRYL SULFA. FAMILY HISTORY: History of asthma. Neurologic disorder history. Rheumatoid arthritis. SOCIAL HISTORY: No history of smoking. No history of alcohol intake. REVIEW OF SYSTEMS: ENT: No diminished vision, otherwise as mentioned earlier. CARDIOVASCULAR: No angina or palpitations. RESPIRATORY: As mentioned earlier. GI: No nausea or vomiting. : No dysuria. CENTRAL NERVOUS SYSTEM: No numbness or weakness. ALLERGY/IMMUNOLOGY: No asthma or hayfever. MUSCULOSKELETAL as mentioned earlier. HEMATOLOGY/ONCOLOGY: No history of anemia. ENDOCRINE no history of diabetes or hypothyroidism. CONSTITUTIONAL: As mentioned earlier. DERMATOLOGY: Negative. RHEUMATOLOGY negative. PSYCHIATRY as mentioned earlier. PHYSICAL EXAM: Patient is alert, oriented x3. Pulse 74. Blood pressure 100/60, respirations 16, temperature 98.4, pulse ox 98% on room air. HEENT: Conjunctivae normal. NECK: No JVD. CARDIOVASCULAR: S1, S2 muffled. RESPIRATORY SYSTEM: Breath sounds diminished at the bases. A few scattered rhonchi and crackles. ABDOMEN: Soft, obese, nontender. No mass palpable. LEGS no edema. No swelling. Nervous system: Higher functions as mentioned earlier. Moves all 4 limbs. No focal motor or sensory deficits. Lymphatics: No lymph nodes palpable in the neck, axillae or groin. SKIN: No ulcer, rash or bleeding. JOINTS: No active deforming arthropathy. LABS: CBC within normal limits. Hemoglobin 13.1. INR 0.9. Sodium 130. Potassium 4.7. Glucose 119. ASSESSMENT: 1. Hemoptysis for evaluation. 2. Recently diagnosed tuberculosis on DOTS treatment with INH and as well as rifampin weekly. 3. History of bronchial asthma. 4. History of nodule lesions in the right lower lobe, left upper lobe previously. 5. Hyponatremia. 6. Increased random blood sugar. 7. Obesity with body mass index of 45.7. 8. History of asthma. 9. History of migraine. 10.History of possible transient ischemic attack. 11.History of exploratory laparotomy. 12.History of incision and drainage of the left buttock abscess. 13.History of sepsis. 14.History of depression/PTSD. 15.FULL CODE. RECOMMENDATIONS AND DISCUSSION: In this 24-year-old woman who presented with multiple complex medical issues, we will monitor the patient closely, continue the current medications, management and symptomatic treatment. Otherwise, at this time, I recommend resume the home medications. DVT prophylaxis. Proton pump inhibitors. Pulmonary consultation, possible bronchoscopy and testing. Otherwise also recommend to continue with DOTS treatment in the outpatient setting. The chest x-ray did not show any acute abnormality. If the patient continues to be symptomatic, a CT scan may be in order. We will follow the patient closely with Pulmonary. See orders for details. Further recommendations to follow. A copy of this dictation being forwarded to Dr. Olsen who is the primary physician. MMODL / IJN: [id number] / MTDD
--- NOTE | 2019-08-16 22:28 | P.CONS ---
History of Present Illness - Reason for Consult Consult date: 08/16/19 positive PPD and hemoptysis Requesting physician: Beverley Andres - Chief Complaint Cough hemoptysis 1 day - History of Present Illness Patient is 24-year-old female in this patient who did have history of hydradenitis suppurata , patient did have workup done before starting her on immunomodulating agents she was noted to have positive PPD blood tests confirmed it and the patient was started on INH and rifampin weekly combination on 08/07/2019 and the patient has 2 doses so far, the patient was recently admitted to hospital and treated for RSV, patient was doing well yesterday patient started having some cough and congestion and the patient did cough up small amount of blood the patient had denies having any pleuritic chest pain denies high-grade fever or chills and no significant URI symptoms with the symptom has the patient presented to hospital on arrival the patient was noticed to be afebrile her white count was normal patient chest x-ray reported negative for any acute infiltrate however in view of her history of positive PPD with hemoptysis the patient has been admitted to the hospital for negative pressure room infection he was consulted for further management. Patient overall feeling better no further hemoptysis denies having any night s weats or any weight loss no chest pain shortness of breath or any worsening cough no nausea no vomiting and no diarrhea Review of Systems Positive point has been mentioned in the HPI rest of the systems are negative Past Medical History Past Medical History: Asthma, Neurologic Disorder Additional Past Medical History / Comment(s): "possible hole in heart"; Migraines, POSSIBLE TIA 05-16-19 , migraines, tuberculosis Jul 2019 History of Any Multi-Drug Resistant Organisms: MRSA Year Discovered:: 2012 MDRO Source:: RIGHT LEG Past Surgical History: Tubal Ligation Additional Past Surgical History / Comment(s): EXPLORATORY lap, I&D left buttocks Past Anesthesia/Blood Transfusion Reactions: Motion Sickness, Postoperative Nausea & Vomiting (PONV) Past Psychological History: Depression, PTSD Smoking Status: Never smoker Past Alcohol Use History: None Reported Additional Past Alcohol Use History / Comment(s): Patient is a lifelong nonsmoker. She denies any medical marijuana, marijuana, street drug or alcohol use. She lives at home with her significant other. There is a cat in the home. No other children. She works at [employer]. Past Drug Use History: None Reported - Past Family History Father Additional Family Medical History / Comment(s): She does not know any history on her father. Mother Family Medical History: Asthma, Neurologic Disorder, Rheumatoid Arthritis (RA) Additional Family Medical History / Comment(s): Mother at age 31 from malpractice issue, mom also had over active histamine. Sister(s) Family Medical History: Asthma Additional Family Medical History / Comment(s): Patient has 1 sister with no major medical problems. Medications and Allergies Home Medications Medication Instructions Recorded Confirmed Type Albuterol Inhaler [Ventolin Hfa 2 puff INHALATION RT-Q4H PRN 06/12/19 08/15/19 History Inhaler] Allergies Allergy/AdvReac Type Severity Reaction Status Date / Time cat dander Allergy Swelling Verified 08/15/19 23:02 OF EYE , SOB Latex, Natural Rubber Allergy Rash/Hives Verified 08/15/19 23:02 shellfish derived [Crab] Allergy Anaphylaxis Verified 08/15/19 23:02 clindamycin AdvReac Anaphylaxis Verified 08/15/19 23:02 diphenhydramine HCl AdvReac Anaphylaxis Verified 08/15/19 23:02 [From Benadryl] Sulfa (Sulfonamide AdvReac Anaphylaxis Verified 08/15/19 23:02 Antibiotics) Physical Exam Vitals: Vital Signs Temp Pulse Pulse Resp BP BP Pulse Ox 08/16/19 14:12 98.5 F 80 16 109/75 98 08/16/19 08:00 16 08/16/19 07:35 98.4 F 74 16 100/68 98 08/16/19 04:00 16 08/16/19 02:16 97.7 F 73 16 105/68 99 08/16/19 00:50 98.2 F 83 15 122/83 97 08/16/19 00:00 16 08/15/19 22:45 97.7 F 89 16 134/94 97 08/15/19 20:50 82 18 117/81 97 Intake and Output 08/16/19 08/16/19 08/16/19 06:59 14:59 22:59 Intake Total 300 Balance 300 Intake: Intake, IV Titration 60 Amount Sodium Chloride 0.9% 1, 60 000 ml @ 20 mls/hr IV . Q24H [facility] Rx#:[id number] Oral 240 Other: Voiding Method Toilet Toilet Toilet # Voids 4 Weight 113.398 kg GENERAL DESCRIPTION: Middle-aged female lying in bed, no distress. No tachypnea or accessory muscle of respiration use. HEENT: Shows Pallor , no scleral icterus. Oral mucous membrane is dry. No pharyngeal erythema or thrush NECK: Trachea central, no thyromegaly. LUNGS: Unlabored breathing. Clear to auscultation anteriorly. No wheeze or crackle. HEART: S1, S2, regular rate and rhythm. No loud murmur ABDOMEN: Soft, no tenderness , guarding or rigidity, no organomegaly EXTREMITIES: No edema of feet. SKIN: No rash, no masses palpable. NEUROLOGICAL: The patient is awake, alert, oriented x3, mood and affect normal. Results CBC & Chem 7: 08/15/19 21:15 08/15/19 21:15 Labs: Abnormal Lab Results - Last 24 Hours (Table) 08/15/19 Range/Units 21:15 Sodium 135 L (137-145) mmol/L Glucose 119 H (74-99) mg/dL Assessment and Plan Assessment: 1- patient presented to the hospital with cough and hemoptysis mild in this patient currently with no fever or elevated white count and chest x-ray has been negative possible residual bronchitis clinically not behaving as pneumonia or pulmonary tuberculosis (1) Positive PPD Current Visit: Yes Status: Acute Code(s): R76.11 - NONSPECIFIC REACTION TO SKIN TEST W/O ACTIVE TUBERCULOSIS SNOMED Code(s): 932216128 (2) Hemoptysis Current Visit: Yes Status: Acute Code(s): R04.2 - HEMOPTYSIS SNOMED Code(s): 31231347 Plan: 1-we will check CRP and sed rate and pro-calcitonin 2-patient scheduled for bronchoscopy tomorrow per pulmonary and which time deep cultures should be obtained including AFB stains and culture 3- hold on adding any antibiotics or any TB medication at this point We will follow on clinical condition and cultures to further adjust medication if needed Thank you for this consultation will follow this patient with you Time with Patient: Greater than 30
[2019-08-17] MEDS ORDERED: PANTOPRAZOLE 40 MG TABLET PO SCH (07:30)
[2019-08-17 08:16] VITALS: BP 122/78; PULSE 70; TEMP 98
[2019-08-17 08:16] LABS: Basophils # (A) 0.1 k/uL (0-0.2); Basophils % (A) 1 %; Eosinophils # (A) 0.5 k/uL (0-0.7); Eosinophils % (A) 9 %; HCT 39.2 % (34.0-46.0); HGB 12.7 gm/dL (11.4-16.0); Lymphocytes # (A) 1.8 k/uL (1.0-4.8); Lymphocytes % (A) 29 %; MCH 26.6 pg (25.0-35.0); MCHC 32.3 g/dL (31.0-37.0); MCV 82.2 fL (80.0-100.0); Mean Platelet Volume 7.3; Monocytes # (A) 0.3 k/uL (0-1.0); Monocytes % (A) 6 %; Neutrophils # (A) 3.3 k/uL (1.3-7.7); Neutrophils % (A) 54 %; Platelet Count 272 k/uL (150-450); RBC 4.77 m/uL (3.80-5.40); RDW 13.3 % (11.5-15.5); WBC 6.1 k/uL (3.8-10.6)
[2019-08-17 08:44] LABS: African American GFR (CKD) >90 (>60 ml/min/1.73 sqM); Anion Gap 10 mmol/L; Blood Urea Nitrogen 12 mg/dL (7-17); Calcium 8.7 mg/dL (8.4-10.2); Carbon Dioxide 21 mmol/L (22-30); Chloride 106 mmol/L (98-107); Glucose 88 mg/dL (74-99); Non-African American GFR(CKD) >90 (>60 ml/min/1.73 sqM); Potassium 4.2 mmol/L (3.5-5.1); Sodium 137 mmol/L (137-145)
--- NOTE | 2019-08-17 15:41 | P.PN ---
Progress Note - Text Progress Note Date: 08/17/19 REASON FOR FOLLOWUP: Positive PPD and hemoptysis INTERVAL HISTORY: The patient remains to be afebrile. The patient overall is feeling better. The patient is Breathing comfortably. The patient Denies having any chest pain The patient did have mild cough with some whitish sputum no further hemoptysis PHYSICAL EXAMINATION: Blood pressure is 122/78 with a pulse of 70, temperature 98.4. She is 97% on room air. General description is a middle-aged female, lying in bed in no distress. RESPIRATORY SYSTEM: Unlabored breathing, clear to auscultation anteriorly. HEART: S1, S2. Regular rate and rhythm. ABDOMEN: Soft, no tenderness. LABS: Sedimentation rate is 19, pro-calcitonin level is 0.02 DIAGNOSTIC IMPRESSION AND PLAN: Patient have with her recent diagnosis of latent TB In this patient who did have positive PPD and QUANTIFERON TB Gold test, and was started on INH and rifampin weekly on August 07, 2019, admitted hospital with an episode of hemoptysis, In this patient with no fever, no white count, normal sedimentation rate and pro-calcitonin level Chest x-ray was negative for acute infiltrate, making active TB to be less likely Admitting bronchoscopy if no lesions may discharge home to continue with her latent TB treatment However if any abnormality is seen on bronchoscopy we'll have to wait for AFB stain before discharge This was discussed with the patient, pulmonary team and the patient RN
--- NOTE | 2019-08-17 15:45 | PN ---
PROGRESS NOTE PULMONARY/CRITICAL CARE PROGRESS NOTE: DATE OF SERVICE: August 17, 2019 This is a 24-year-old female seen by my nurse practitioner. She was seen in consultation on the . She has a history of mild intermittent asthma, obesity, gastroesophageal reflux disease, previous influenza infection, and sepsis. She apparently presented to the [facility] with complaints of pneumonia. She apparently has an area of nodularity in the right lower lobe and also in the left upper lobe concerning for an infectious process. She had seen my partner, Dr. Reynolds, in the past for asthma. More recently, she apparently tested positive for PPD skin test and had undergone a blood test, which confirmed possible diagnosis of tuberculosis. She was apparently started on isoniazid/rifapentine regimen weekly. The patient was to have a bronchoscopy today. Unfortunately, there was no reasonable OR time. We kept on getting pushed back and we decided to cancel the bronchoscopy until tomorrow. The patient was also complaining of hemoptysis. The hemoptysis may relate to the prior diagnosis or may relate to just a simple case of bronchitis. She is in isolation. Currently, the patient is stable. PHYSICAL EXAMINATION: VITAL SIGNS: Current vital signs are reviewed. Temperature 98, heart rate 70, respiratory rate 16, blood pressure 122/78, mean 92, room air saturation 99%. GENERAL: Appears in no acute distress. HEENT: Examination is grossly unremarkable. Mucous membranes are moist. No oral lesions. NECK: Supple. CARDIOVASCULAR: Examination reveals regular rhythm and rate. S1, S2 normal. No S3, S4, or murmur. LUNGS: Reveal a few scattered rhonchi. No wheezes. No crackles. ABDOMEN: Soft. Bowel sounds are heard. EXTREMITIES: Intact. No cyanosis, clubbing, or edema. SKIN: Without rash. NEUROLOGIC: Examination is nonfocal. LAB DATA: Lab data is reviewed. White count, hemoglobin, hematocrit, and platelet count all normal. Sodium, potassium, and chloride normal. CO2 21, anion gap 10. BUN and creatinine normal at 12 and 0.57. Urine hCG was negative. C-reactive protein was 18.5. PT, INR, and PTT all normal. Chest x-ray was normal. MEDICATIONS: Medications are reviewed. She is currently on albuterol inhaler, Xanax, Narcan, Zofran, Protonix, Restoril, and IV fluids. ASSESSMENT: 1. Hemoptysis, which may relate to underlying active tuberculosis versus acute bronchitis. 2. History of right lower lobe and left upper lobe nodularity on CT scan from [place]2017. 3. Mild intermittent chronic bronchial asthma, currently inactive. 4. Gastroesophageal reflux disease. 5. Obesity. 6. Lifelong nonsmoker. 7. Hydradenitis suppurativa. PLAN: The patient will have her bronchoscopy canceled for today and rescheduled for tomorrow. We cannot get into the bronch suite until 4 o'clock today. We will allow the patient to eat. She has been seen by Infectious Diseases. Additional recommendations and suggestions are forthcoming. MMODL / IJN: [id number] /
--- NOTE | 2019-08-17 20:52 | PN ---
PROGRESS NOTE DATE OF SERVICE: 08/17/2019 This 24-year-old woman was admitted with hemoptysis. Patient was evaluated for acute active TB. Bronchoscopy is planned by today by Dr. Lowe. No chest pain. No palpitations. No fever. PHYSICAL EXAMINATION: Alert and oriented x3. Pulse is 70, blood pressure 120/78, respirations 16, temperature 98 degrees, pulse ox 98% on room air. HEENT: Conjunctivae normal. NECK: No jugular venous distention. CARDIOVASCULAR SYSTEM: S1, S2 muffled. RESPIRATORY SYSTEM: Breath sounds diminished at the bases. A few scattered rhonchi. ABDOMEN: Soft. NERVOUS SYSTEM: No focal deficit. LABS: CBC, BMP noted. C-reactive protein is 18.5. ASSESSMENT: 1. Hemoptysis for evaluation. 2. Recently diagnosed tuberculosis, on DOTS treatment with INH as well as rifampin weekly. 3. History of bronchial asthma. 4. History of nodular lesions in the right lower lobe and left upper lobe previously. 5. Hyponatremia. 6. Increased random blood sugar. 7. Obesity with body mass index of 45.7. 8. History of asthma. 9. History of migraine. 10.History of possible transient ischemic attack. 11.History of exploratory laparotomy. 12.History of incision and drainage of left buttock abscess previously. 13.History of sepsis. 14.History of depression, post-traumatic stress disorder. 15.FULL CODE. RECOMMENDATIONS AND DISCUSSION: I recommend to continue current medications, continue with symptomatic treatment. Continue with antibiotics. Continue to monitor closely. Otherwise, pulmonary evaluation, possible bronchoscopy. Further recommendations to follow. MMODL / IJN: [id number] /
--- NOTE | 2019-08-18 07:43 | DS ---
DISCHARGE SUMMARY FINAL DIAGNOSES: 1. Hemoptysis for evaluation. 2. History of recently diagnosed tuberculosis on DOTS treatment with INH and rifampin weekly. 3. History of bronchial asthma. 4. History of nodular lesion in the right lower lobe and left upper lobe previously. 5. Hyponatremia. 6. Increased random blood sugar. 7. Obesity with body mass index of 45.7. 8. History of asthma. 9. History of migraine. 10.History of possible transient ischemic attack. 11.History of exploratory laparotomy. 12.History of incision and drainage of the left buttock abscess. 13.History of sepsis. 14.History of depression, posttraumatic stress disorder. 15.FULL CODE. DISCHARGE DISPOSITION: The patient left the hospital AGAINST MEDICAL ADVICE. HISTORY OF PRESENT ILLNESS: This 24-year-old woman with a past medical history of multiple medical problems was admitted with hemoptysis. The patient recently initiated on DOTS treatment for tuberculosis. Pulmonary recommended bronchoscopy, but however the patient left the hospital against medical advice. I recommended the staff to inform infection control and as well as relevant staff about the AMA. Please review the staff notes for further information. MMODL / IJN: [id number] /
== END 2019-08-17 14:33 | disposition left against medical advice (07) ==
LOC: EC 20:26 → 4SSUR 22:54 → OBSVTOIN 08-17 09:33 → INTOOBSV 08-17 09:33 → UNDODISIN 08-17 14:33
PROVIDERS: ADMIT Hospitalist; ATTEND Hospitalist
DX: A15.0 Tuberculosis of lung (principal); J06.9 Acute upper respiratory infection, unspecified; J45.20 Mild intermittent asthma, uncomplicated; J35.8 Other chronic diseases of tonsils and adenoids; G43.909 Migraine, unspecified, not intractable, without status migrainosus; F32.9 Major depressive disorder, single episode, unspecified; F43.10 Post-traumatic stress disorder, unspecified; K21.9 Gastro-esophageal reflux disease without esophagitis; E66.9 Obesity, unspecified; Z68.42 Body mass index [BMI] 45.0-49.9, adult; L73.2 Hidradenitis suppurativa; Z86.14 Personal history of Methicillin resistant Staphylococcus aureus infection; Z86.19 Personal history of other infectious and parasitic diseases; E87.1 Hypo-osmolality and hyponatremia; R91.8 Other nonspecific abnormal finding of lung field; Z98.51 Tubal ligation status; Z98.890 Other specified postprocedural states; Z82.5 Family history of asthma and other chronic lower respiratory diseases; Z82.61 Family history of arthritis; Z79.2 Long term (current) use of antibiotics; Z79.82 Long term (current) use of aspirin; Z79.899 Other long term (current) drug therapy; Z88.1 Allergy status to other antibiotic agents; Z91.040 Latex allergy status; Z91.013 Allergy to seafood; Z88.2 Allergy status to sulfonamides; Z88.8 Allergy status to other drugs, medicaments and biological substances; Z91.048 Other nonmedicinal substance allergy status
CPT/HCPCS: 99284; 36415; 93005; 86900; 86901; 80048 ×2; 85652; 85025 ×2; 85610; 85730; 86850; 86140; 81025; 84145; 71045; G0378 ×3

== ENCOUNTER → 2019-12-14 | Outpatient (CLI) | payer OTHER ==
[2019-12-14 09:36] VITALS: BMI 46.7
== END | disposition home or self-care (01) ==
LOC: BARWHC3 08:04
PROVIDERS: ATTEND Surgery Plastic and Reconstructive Surgery
DX: E66.01 Morbid (severe) obesity due to excess calories (principal); Z68.42 Body mass index [BMI] 45.0-49.9, adult
CPT/HCPCS: 97804

== ENCOUNTER → 2020-01-06 | Outpatient (CLI) | payer OTHER ==
[2020-01-06 12:47] LABS: Basophils % (A) 0 %; Eosinophils # (A) 0.2 k/uL (0-0.7); Eosinophils % (A) 1 %; HCT 39.3 % (34.0-46.0); HGB 12.7 gm/dL (11.4-16.0); Hypochromasia Slight; Lymphocytes % (A) 23 %; MCH 27.8 pg (25.0-35.0); MCHC 32.3 g/dL (31.0-37.0); MCV 86.1 fL (80.0-100.0); Mean Platelet Volume 7.1; Monocytes # (A) 0.6 k/uL (0-1.0); Monocytes % (A) 4 %; Neutrophils # (A) 8.9 k/uL (1.3-7.7); Neutrophils % (A) 69 %; Platelet Count 342 k/uL (150-450); RBC 4.56 m/uL (3.80-5.40); RDW 14.1 % (11.5-15.5); WBC 12.9 k/uL (3.8-10.6)
[2020-01-06 13:00] LABS: ALT 14 U/L (4-34); AST 16 U/L (14-36); African American GFR (CKD) >90 (>60 ml/min/1.73 sqM); Albumin 4.3 g/dL (3.5-5.0); Alkaline Phosphatase 60 U/L (38-126); Anion Gap 8 mmol/L; Blood Urea Nitrogen 12 mg/dL (7-17); Calcium 9.2 mg/dL (8.4-10.2); Carbon Dioxide 27 mmol/L (22-30); Chloride 105 mmol/L (98-107); Glucose 97 mg/dL (74-99); Non-African American GFR(CKD) >90 (>60 ml/min/1.73 sqM); Potassium 4.1 mmol/L (3.5-5.1); Sodium 140 mmol/L (137-145); Total Bilirubin 0.2 mg/dL (0.2-1.3); Total Protein 7.5 g/dL (6.3-8.2)
== END | disposition home or self-care (01) ==
LOC: LABPAT 10:34
PROVIDERS: ATTEND Surgery Plastic and Reconstructive Surgery
DX: Z01.818 Encounter for other preprocedural examination (principal)
CPT/HCPCS: 36415; 80053; 85025

== ENCOUNTER 2020-01-11 06:25 | Day surgery (SDC) | payer OTHER ==
[2020-01-06 15:08] VITALS: BMI 45.7
--- NOTE | 2020-01-10 21:05 | P.GSHP ---
History of Present Illness H&P Date: 01/10/20 CHIEF COMPLAINT: Cholecystitis HISTORY OF PRESENT ILLNESS: The patient is a 24-year-old female who presents with history of epigastric including right upper quadrant abdominal pain. She underwent diagnostic studies for her gallbladder. Separately her clinical picture was consistent with cholecystitis. Now she presents for surgical intervention. PAST MEDICAL HISTORY: Please see list PAST SURGICAL HISTORY: Please see list MEDICATIONS: Please see list ALLERGIES: Please see list SOCIAL HISTORY: Please see list FAMILY HISTORY: Please see list REVIEW OF ORGAN SYSTEMS: CONSTITUTIONAL: No reports of fevers or chills. HEENT: Denies any troubles with the vision or hearing. SKIN: No skin cancer. PHYSICAL EXAM: VITAL SIGNS: Afebrile vital signs stable GENERAL: Well-developed pleasant in no acute distress. HEENT: No scleral icterus. Extraocular movements grossly intact. Moist buccal mucosa. NECK: Supple without lymphadenopathy. CHEST: Unlabored respirations. Equal bilateral excursions. CARDIOVASCULAR: Regular rate regular rhythm rhythm. Distal 2+ pulses. ABDOMEN: Soft, nondistended. Tender along the epigastrium and right upper quadrant. MUSCULOSKELETAL: No clubbing, cyanosis, or edema. NEURO: Cranial nerves II to XII within normal limits. No focal or lateralizing signs. PSYCH: Alert and oriented to person, place and time. SKIN: Well-perfused good skin turgor. ASSESSMENT: 1. Epigastric and right upper quadrant abdominal pain 2. Chronic cholecystitis 3. Symptomatic gallstones. PLAN: 1. Will need a robotic cholecystectomy possible open. Benefits and risks were described. 2. Heparin for DVT prophylaxis 5000 units. 3. Antibiotic prophylaxis. Past Medical History Past Medical History: Asthma, Fibromyalgia, Neurologic Disorder Additional Past Medical History / Comment(s): "possible hole in heart" as a baby.; Migraines, POSSIBLE TIA 05-16-19 , migraines, tuberculosis Jul 2019. Treated here for TB. History of Any Multi-Drug Resistant Organisms: MRSA Date of last positivie culture/infection: 2012 MDRO Source:: RIGHT LEG Past Surgical History: Tubal Ligation Additional Past Surgical History / Comment(s): EXPLORATORY lap, I&D left buttocks Past Anesthesia/Blood Transfusion Reactions: Motion Sickness, Postoperative Nausea & Vomiting (PONV) Smoking Status: Never smoker - Past Family History Father Additional Family Medical History / Comment(s): She does not know any history on her father. Mother Family Medical History: Asthma, Neurologic Disorder, Rheumatoid Arthritis (RA) Additional Family Medical History / Comment(s): Mother at age 31 from malpractice issue, mom also had over active histamine. Sister(s) Family Medical History: Asthma Additional Family Medical History / Comment(s): Patient has 1 sister with no major medical problems. Medications and Allergies Home Medications Medication Instructions Recorded Confirmed Type No Known Home Medications 01/06/20 01/06/20 History Allergies Allergy/AdvReac Type Severity Reaction Status Date / Time cat dander Allergy Swelling Verified 01/06/20 14:58 OF EYE , SOB Latex, Natural Rubber Allergy Rash/Hives Verified 01/06/20 14:58 shellfish derived [Crab] Allergy Anaphylaxis Verified 01/06/20 14:58 clindamycin AdvReac Anaphylaxis Verified 01/06/20 14:58 diphenhydramine HCl AdvReac Anaphylaxis Verified 01/06/20 14:58 [From Benadryl] Sulfa (Sulfonamide AdvReac Anaphylaxis Verified 01/06/20 14:58 Antibiotics)
[~2020-01-11 06:25] MED LIST changes: +ACETAMINOPHEN TAB 500 MG TAB PO STA; +DEXAMETHASONE SOD PHOSPHATE 10 MG/ML 1 ML VIAL IV ONE; +GABAPENTIN 300 MG CAP PO STA; +KETOROLAC 30 MG/ML 1 ML VIAL IVP PRN; -LIDOCAINE 1% 20 ML VIAL (10MG/ML) FOR IV START INTRADERMA PRN; +ONDANSETRON 4 MG/2 ML VIAL IVP ONE; +TAMSULOSIN 0.4 MG CAP.ER.24H PO STA
[2020-01-11] MEDS ORDERED: ACETAMINOPHEN TAB 500 MG TAB ONE (06:58)
[2020-01-11] MEDS ORDERED: ONDANSETRON 4 MG/2 ML VIAL ONE ×3 (07:24→17:48)
[2020-01-11 07:29] LABS: Basophils # (A) 0.1 k/uL (0-0.2); Basophils % (A) 1 %; Eosinophils # (A) 0.7 k/uL (0-0.7); Eosinophils % (A) 9 %; HCT 39.8 % (34.0-46.0); HGB 12.6 gm/dL (11.4-16.0); Lymphocytes % (A) 37 %; MCH 26.6 pg (25.0-35.0); MCHC 31.6 g/dL (31.0-37.0); MCV 84.1 fL (80.0-100.0); Monocytes # (A) 0.4 k/uL (0-1.0); Monocytes % (A) 4 %; Neutrophils # (A) 3.8 k/uL (1.3-7.7); Neutrophils % (A) 47 %; Platelet Count 330 k/uL (150-450); RBC 4.73 m/uL (3.80-5.40); RDW 13.8 % (11.5-15.5); WBC 8.1 k/uL (3.8-10.6)
[2020-01-11] MEDS: SCOPOLAMINE 1.5MG/72HR PATCH TRANSDERM STA ×2 (08:00→09:00)
--- NOTE | 2020-01-11 08:17 | P.HPADDEND ---
H&P Addendum H&P Addendum Date: 01/11/20 Notified by preop nurse that patient has positive TB history including recent antibiotic treatment. Patient does not have any documentation stating that treatment is completed. I notified Dr. Serrano regarding patient history of recent TB infection from August 2019 with recommendations bronchoscopy with deep cultures none of which was obtained in the past 4 months secondary to COVID-19 pandemic. Patient also had elevated white blood cell count 1 week ago that is now normal on repeat. Patient is in the negative pressure room 18 with her preop to minimize exposure. Patient does report right upper quadrant abdominal pain and soreness. Patient offered admission secondary to abdominal pain including positive TB history for additional workup with filter press tender head including infectious disease. Patient refuses admission. In the interim, infectious disease team notified to coordinate with health Department [facility] for tracking history. Patient's surgery as a result is canceled. Will need full documentation that all treatment is completed including TB exposure is minimal. Patient understands that any future elective surgeries would need documentation regardless of facility. Patient demonstrated understanding.
--- NOTE | 2020-01-11 08:59 | P.HPADDEND ---
H&P Addendum H&P Addendum Date: 01/11/20 Infectious disease nurse, Alanis present. Patient completed treatment for TB latent infection. Recommends COVID test and chest xray. Per infectious disease, patient may continue with surgery pending results of Chest xray as patient is symptomatic.
--- NOTE | 2020-01-11 09:42 | XR ---
EXAMINATION TYPE: XR chest 1V DATE OF EXAM: 01/11/2020 COMPARISON: August 15, 2019 HISTORY: Chest pain TECHNIQUE: Single frontal view of the chest is obtained. FINDINGS: There is no focal air space opacity, pleural effusion, or pneumothorax seen. The cardiac silhouette size is within normal limits. The osseous structures are intact. IMPRESSION: 1. No acute process.
[2020-01-11] MEDS ORDERED: HYDROmorphone (PF) 1 MG/ML ONE (14:01)
[2020-01-11] MEDS ORDERED: PROPOFOL 10 MG/ML 20 ML VIAL IV ONE (14:01)
[2020-01-11] MEDS ORDERED: SUCCINYLCHOLINE CHLORIDE 100 MG/5 ML SYR IV ONE (14:01)
[2020-01-11] MEDS ORDERED: LIDOCAINE 1% INJ 10MG/ML (20 ML MDV) ONE (14:01)
[2020-01-11] MEDS ORDERED: fentaNYL (PF) 50 MCG/ML 2 ML AMP ONE (14:01)
[2020-01-11] MEDS ORDERED: NEOSTIGMINE 1 MG/ML 10 ML VIAL ONE (14:01)
[2020-01-11] MEDS ORDERED: INDOCYANINE GREEN 25 MG VIAL IV ONE ×2 (14:01→14:18)
[2020-01-11] MEDS ORDERED: GLYCOPYRROLATE 0.2 MG/ML 2 ML VIAL ONE (14:01)
[2020-01-11] MEDS ORDERED: MIDAZOLAM 2 MG/2 ML VIAL ONE (14:01)
[2020-01-11] MEDS ORDERED: ROCURONIUM BROMIDE 10 MG/ML 5 ML VIAL IV ONE (14:01)
[2020-01-11] MEDS ORDERED: BUPIVACAINE (PF) 0.25% 30 ML VIAL SQ ONE (14:33)
--- NOTE | 2020-01-11 15:27 | P.OP ---
Date of Procedure: 01/11/20 Description of Procedure: SURGEON: NAZ MARQUEZ MD PREOPERATIVE DIAGNOSES: 1. Epigastric and right upper quadrant abdominal pain 2. Gallbladder disorder 3. Hypertensive heart disease 4. Depressive disorder 5. Morbid obesity due to excess calories 6. Body mass index of 52.2, initial 7. Osteoarthritis of the knees. 8. Osteoarthritis of the lower back. 9. Migraines 10. Asthma 11. Multiple sclerosis 12. Sleep apnea 13. Gastroesophageal reflux disease 14. Gestational diabetes 15. Osteoarthritis of the hips 16. Osteoarthritis of the ankles 17. Family history morbid obesity POSTOPERATIVE DIAGNOSES: 1. Epigastric and right upper quadrant abdominal pain 2. Gallbladder disorder 3. Hypertensive heart disease 4. Depressive disorder 5. Morbid obesity due to excess calories 6. Body mass index of 52.2, initial 7. Osteoarthritis of the knees. 8. Osteoarthritis of the lower back. 9. Migraines 10. Asthma 11. Multiple sclerosis 12. Sleep apnea 13. Gastroesophageal reflux disease 14. Gestational diabetes 15. Osteoarthritis of the hips 16. Osteoarthritis of the ankles 17. Family history morbid obesity OPERATION: Robotic-assisted da Beka Xi laparoscopic cholecystectomy, multiport with FIREFLY ESTIMATED BLOOD LOSS: 5 mL. SPECIMENS REMOVED: Gallbladder. COMPLICATIONS: None. OPERATIVE FINDINGS: 1. Chronic cholecystitis INDICATIONS: The patient is a 24-year-old female who presents with epigastric right upper quadrant dull pain with gallbladder disorder. Surgical intervention with a laparoscopic cholecystectomy was described. Robotic assisted laparoscopic approach was described. Benefits and risks of the procedure including but not limited to bleeding, infection, injury to the biliary tree was described. Informed consent was obtained. DESCRIPTION OF PROCEDURE: Patient was brought to the operating room, placed in supine position. After general induction, the abdomen had been prepped and draped in standard sterile fashion. The robotic da Beka XI system was primed. After a timeout protocol was performed, the patient had been prepped and draped in standard sterile fashion. The patient was injected with indocyanine green. A 5 mm 0 degrees laparoscopic trocar entry was performed along the left upper quadrant. The abdomen insufflated to 15 mmHg pressure which was tolerated well. Diagnostic laparoscopy demonstrated no injury to bowel viscera or mesentery. The liver surface was unremarkable. Next, two 8 mm robotic ports were placed along the right upper abdomen. The camera 8-mm port was maintained along the epigastrium. Another 8 mm port was placed along the left upper abdominal wall after exchanging the 5 mm port. Please note that the ports were placed at least 10 to 15 cm away from the target anatomy of the gallbladder. The robot was docked along the left lateral abdomen. The patient was repositioned in reverse Trendelenburg position. Using a grasper for arm 3, a grasper for arm 4, including hook cautery for arm 1, the robotic system was docked and primed as described. Instruments were interchanged by the anesthesiologist assistant certified including hook cautery, Bovie cautery and clip appliers. I had sat at the console. The gallbladder fundus was retracted over the dome of the liver. Initial attention was brought to the infundibulum including cystic lymph node. Initial dissection was performed over the cystic lymph node at the infundibulum using hook cautery. The infundibulum was retracted laterally to expose the cystic duct away from the common bile duct. The cystic duct including the cystic artery were dissected free from its surrounding tissue. FIREFLY was used to identify the cystic artery and cystic structures. A critical view of safety was obtained. Large PLASTIC clips were used throughout the entire case. Using a clip staffing associate, 2 clips were placed at the junction of the infundibulum and cystic duct. The cystic duct was divided between clips. Next, the cystic artery was similarly clipped and cauterized. Electro-Bovie cautery was used to remove the gallbladder from the hepatic fossa. Hemostasis was checked and found to be adequate. The robot was undocked. I re-scrubbed into the case. Using a 10 mm Endo Catch bag via the left upper quadrant incision, the specimen was removed from the abdominal cavity. All pneumoperitoneum instruments were evacuated from the abdominal cavity. The incisions were reapproximated using 4-0 Monocryl in an interrupted subcuticular fashion. Fascial defects were less than 8 mm in size. Please note along the trocar sites, local anesthetic was placed as a field block prior to insertion of all instruments. Liquid glue was applied to the skin. At the end of the procedure needle, sponge, and instrument count had been verified correct by the cardiovascular surgical tech. The patient was transferred to postanesthesia care unit in stable condition. Intraoperative films were shared with the patient's family who were pleased with the level of care. Plan - Discharge Summary Discharge Rx Participant: Yes New Discharge Prescriptions: New Ibuprofen [Motrin] 600 mg PO Q8HR PRN #30 tab PRN Reason: Pain Acetaminophen Tab [Tylenol Tab] 1,000 mg PO Q6HR PRN #30 tablet PRN Reason: Pain Discharge Medication List Acetaminophen Tab [Tylenol Tab] 1,000 mg PO Q6HR PRN #30 tablet 01/11/20 [Rx] Ibuprofen [Motrin] 600 mg PO Q8HR PRN #30 tab 01/11/20 [Rx] Patient Instructions/Handouts: *Surgery [facility] - Scopalamine Patch Instructions, Laparoscopic Cholecystectomy (DC) Activity/Diet/Wound Care/Special Instructions: No lifting over 10 pounds in 2 weeks until January 24November shower. No bath tub soaks for two weeks until January 24 Diet as tolerated. No driving while on narcotics. Use Tylenol and ibuprofen or Aleve scheduled for the next 24-48 hours for best pain relief. Use ice along incisions for the today to prevent swelling. Discharge Disposition: HOME SELF-CARE
--- NOTE | 2020-01-11 15:29 | P.PN ---
Progress Note - Text Progress Note Date: 01/11/20 To Whom It May Concern: Marina Chávez is under my general surgical care. She had surgery today 01/11/2020. Time of recovery at least 2 weeks until 01/25/2020 described. Regards, Milagro Allen MD
[2020-01-11] MEDS: HYDROmorphone 0.5 MG/0.5 ML SYRINGE IVP PRN ×4 (15:45→16:20)
[2020-01-11 15:47] VITALS: RESP 16; TEMP 96.8
[2020-01-11] MEDS ORDERED: LACTATED RINGERS 1,000 ML IV ONE ×2 (16:15)
[2020-01-11] MEDS ORDERED: KETOROLAC 30 MG/ML 1 ML VIAL ONE (17:06)
[2020-01-11 17:35] VITALS: BP 106/56
[2020-01-11] MEDS ORDERED: ONDANSETRON 4 MG/2 ML VIAL IVP ONE (17:50)
[2020-01-11 17:53] VITALS: PULSE 86
== END 2020-01-11 18:05 | disposition home or self-care (01) ==
LOC: OR 06:25
PROVIDERS: ATTEND Surgery Plastic and Reconstructive Surgery
DX: K81.1 Chronic cholecystitis (principal); E66.01 Morbid (severe) obesity due to excess calories; I11.9 Hypertensive heart disease without heart failure; Z68.43 Body mass index [BMI] 50.0-59.9, adult; M17.0 Bilateral primary osteoarthritis of knee; G43.909 Migraine, unspecified, not intractable, without status migrainosus; J45.909 Unspecified asthma, uncomplicated; G35 Multiple sclerosis; G47.30 Sleep apnea, unspecified; K21.9 Gastro-esophageal reflux disease without esophagitis; F32.9 Major depressive disorder, single episode, unspecified; M16.0 Bilateral primary osteoarthritis of hip; M19.072 Primary osteoarthritis, left ankle and foot; M19.071 Primary osteoarthritis, right ankle and foot; M79.7 Fibromyalgia; M06.9 Rheumatoid arthritis, unspecified; I48.91 Unspecified atrial fibrillation; Z83.49 Family history of other endocrine, nutritional and metabolic diseases; Z86.11 Personal history of tuberculosis; Z86.14 Personal history of Methicillin resistant Staphylococcus aureus infection; Z98.51 Tubal ligation status; Z91.048 Other nonmedicinal substance allergy status; Z91.040 Latex allergy status; Z91.013 Allergy to seafood; Z88.1 Allergy status to other antibiotic agents; Z88.8 Allergy status to other drugs, medicaments and biological substances; Z88.2 Allergy status to sulfonamides
CPT/HCPCS: 47563; 81025; 88304; 85025; 87635; 71045; J2250; J1100; J2710; J0690; J2405; J2001; J3010; J1885; J1170 ×2; J0330; J2704

== ENCOUNTER → 2020-01-27 | Outpatient (CLI) | payer OTHER ==
[2020-01-27 13:25] VITALS: BP 148/82; PULSE 81; RESP 16; TEMP 98.7; BMI 47.3
--- NOTE | 2020-01-27 13:27 | P.PN ---
Subjective Progress Note Date: 01/27/20 DATE OF SERVICE: 01/27/2020 CHIEF COMPLAINT: Morbid obesity HISTORY OF PRESENT ILLNESS: Marina Chávez is a 24-year-old female who comes with lifelong morbid obesity. She is status post cholecystectomy, 01/11/2020. She is 2 weeks out. She is off the abdominal binder. She is not taking pain meds. No reports of nausea or vomiting. She is not taking pain meds. Her right side pain is resolved. She is looking into the sleeve. At height of 5 feet 2 inches, her ideal body weight is 135 pounds. Highest mehnaz ght of 285 pounds, BMI 52.2. She comes in 258 pounds from 263 pounds, 2 weeks ago. She has lost 5 pounds in 2 weeks. She is 123 pounds overweight. PHYSICAL EXAM: VITAL SIGNS: Height 5 foot 2 inches, weight 258 pounds. BMI 47.4 Vital Signs Temp 98.7 F 01/27/20 13:22 Pulse 81 01/27/20 13:22 Resp 16 01/27/20 13:22 BP 148/82 01/27/20 13:22 Pulse Ox GENERAL: Well-developed in no acute distress. HEENT: No scleral icterus. Extraocular movements grossly intact. Hears conversational speech. No nasal drainage. NECK: Supple without lymphadenopathy. CHEST: Nonlabored respirations with equal bilateral excursions. CARDIOVASCULAR: Regular rhythm. Regular rate. Distal 2+ pulses. ABDOMEN: Obese, soft, nontender, nondistended. Incisions granulated MUSCULOSKELETAL: No clubbing, cyanosis. NEURO: No focal or lateralizing signs. Cranial nerves 2 through 12 grossly within normal limits. PSYCH: Appropriate affect. Alert and oriented to person, place and time. SKIN: Good skin turgor. Well perfused. ASSESSMENT: 1. Morbid obesity due to excess calories 2. Body mass index of 52.2, initial to 47.4 3. Osteoarthritis of the knees. 4. Osteoarthritis of the lower back. 5. Migraines 6. Asthma 7. Multiple sclerosis 8. Sleep apnea 9. Gastroesophageal reflux disease 10. Gestational diabetes 11. Osteoarthritis of the hips 12. Osteoarthritis of the ankles 13. Family history gallbladder disease 14. Family history morbid obesity 15. Chronic cholecystitis PLAN: 1. Recommend food diary journal and weight loss visit.
== END | disposition home or self-care (01) ==
LOC: BARWHC3 12:55
PROVIDERS: ATTEND Surgery Plastic and Reconstructive Surgery
DX: E66.01 Morbid (severe) obesity due to excess calories (principal); Z98.84 Bariatric surgery status; Z68.42 Body mass index [BMI] 45.0-49.9, adult
CPT/HCPCS: 99211

== ENCOUNTER 2020-06-30 10:11 | Emergency (ER) | payer OTHER ==
[2020-06-30 10:23] VITALS: BP 151/102; PULSE 84; RESP 18; TEMP 97.9
--- NOTE | 2020-06-30 10:54 | ED ---
Female Urogenital HPI - General Chief complaint: Urogenital Stated complaint: Female Time Seen by Provider: 06/30/20 10:27 Source: patient, RN notes reviewed, old records reviewed Mode of arrival: ambulatory Limitations: no limitations - History of Present Illness Initial comments: 24-year-old female presents emergency department today with complaints of vaginal irritation and swelling after intercourse on the weekend. Patient reports that she used a new "toy" with her partner and has been having pain with intercourse and swelling and pain with urination since that time. Patient states that she's not had a bowel movement in the past few days as well. She is still passing gas. She denies any anal intercourse. Patient reports that she's had her tubal ligation. Denies any vomiting but has been of nausea. - Related Data Previous Rx's Medication Instructions Recorded Acetaminophen Tab [Tylenol Tab] 1,000 mg PO Q6HR PRN #30 tablet 01/11/20 Ibuprofen [Motrin] 600 mg PO Q8HR PRN #30 tab 01/11/20 Famotidine [Pepcid] 20 mg PO DAILY #3 tablet 03/06/20 predniSONE 50 mg PO DAILY #3 tab 03/06/20 Nitrofurantoin Monohyd/M-Cryst 100 mg PO Q12HR #14 cap 06/30/20 [Macrobid] Polyethylene Glycol 3350 [Miralax] 17 gm PO DAILY #527 gm 06/30/20 Allergies Allergy/AdvReac Type Severity Reaction Status Date / Time cat dander Allergy Swelling Verified 06/30/20 10:23 OF EYE , SOB Latex, Natural Rubber Allergy Rash/Hives Verified 06/30/20 10:23 shellfish derived [Crab] Allergy Anaphylaxis Verified 06/30/20 10:23 clindamycin AdvReac Anaphylaxis Verified 06/30/20 10:23 diphenhydramine HCl AdvReac Anaphylaxis Verified 06/30/20 10:23 [From Benadryl] Sulfa (Sulfonamide AdvReac Anaphylaxis Verified 06/30/20 10:23 Antibiotics) Review of Systems ROS Statement: Those systems with pertinent positive or pertinent negative responses have been documented in the HPI. ROS Other: All systems not noted in ROS Statement are negative. Past Medical History Past Medical History: Asthma, Fibromyalgia, Neurologic Disorder Additional Past Medical History / Comment(s): "possible hole in heart" as a baby.; Migraines, POSSIBLE TIA 11-9-19 , migraines, tuberculosis Jul 2019. 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 History of Any Multi-Drug Resistant Organisms: MRSA Date of last positivie culture/infection: 2012 MDRO Source:: RIGHT LEG Past Surgical History: Cholecystectomy, Tubal Ligation Additional Past Surgical History / Comment(s): EXPLORATORY lap, I&D left buttocks lap choly 01-11-20 Past Anesthesia/Blood Transfusion Reactions: Motion Sickness, Postoperative Nausea & Vomiting (PONV) Past Psychological History: Depression, PTSD Smoking Status: Vaper Past Alcohol Use History: None Reported Past Drug Use History: None Reported - Past Family History Father Additional Family Medical History / Comment(s): She does not know any history on her father. Mother Family Medical History: Asthma, Neurologic Disorder, Rheumatoid Arthritis (RA) Additional Family Medical History / Comment(s): Mother at age 31 from malpractice issue, mom also had over active histamine. Sister(s) Family Medical History: Asthma Additional Family Medical History / Comment(s): Patient has 1 sister with no major medical problems. General Exam - General Exam Comments Initial Comments: 24-year-old female. Alert and oriented. Limitations: no limitations General appearance: alert, in no apparent distress Head exam: Present: atraumatic, normocephalic, normal inspection Eye exam: Present: normal appearance, PERRL, EOMI. Absent: scleral icterus, conjunctival injection, periorbital swelling ENT exam: Present: normal exam, mucous membranes moist Neck exam: Present: normal inspection. Absent: tenderness, meningismus, lymphadenopathy Respiratory exam: Present: normal lung sounds bilaterally. Absent: respiratory distress, wheezes, rales, rhonchi, stridor Cardiovascular Exam: Present: regular rate, normal rhythm, normal heart sounds. Absent: systolic murmur, diastolic murmur, rubs, gallop, clicks GI/Abdominal exam: Present: soft, normal bowel sounds. Absent: distended, tenderness, guarding, rebound, rigid External exam: Present: swelling (over labia minora). Absent: normal external exam, lesions, lacerations, ecchymosis Speculum exam: Present: normal speculum exam, vaginal discharge (faint ). Absent: erythema By manual exam: Present: normal by manual exam. Absent: cervical motion tenderness, adnexal tenderness, adnexal mass, uterine enlargement Extremities exam: Present: normal inspection, full ROM, normal capillary refill. Absent: tenderness, pedal edema, joint swelling, calf tenderness Back exam: Present: normal inspection, full ROM. Absent: CVA tenderness (L) Neurological exam: Present: alert, oriented X3, CN II-XII intact Psychiatric exam: Present: normal affect, normal mood Skin exam: Present: warm, dry, intact, normal color. Absent: rash Course Vital Signs 06/30/20 10:18 Temperature 97.9 F Pulse Rate 84 Respiratory 18 Rate Blood Pressure 151/102 O2 Sat by Pulse 98 Oximetry Medical Decision Making - Medical Decision Making [id number] feel presents with vaginal irritation after intercourse. She has swelling to labia minora due to trauma. No evidence of lacerations. Patient had a gonorrhea testing completed as well as Trichomonas. Patient at this time tube ligation. She'll advance Patient x-ray does show some signs of constipation. Advised Patient to use MiraLAX. We'll put the Patient on antibiotic for concern for urinary tract infection. All questions answered return parameters were discussed. - Lab Data Lab Results 06/30/20 Range/Units 11:05 Urine Color Yellow Urine Appearance Cloudy H (Clear) Urine pH 5.5 (5.0-8.0) Ur Specific [place] 1.036 H (1.001-1.035) Urine Protein Trace H (Negative) Urine Glucose (UA) Negative (Negative) Urine Ketones Negative (Negative) Urine Blood Negative (Negative) Urine Nitrite Negative (Negative) Urine Bilirubin Negative (Negative) Urine Urobilinogen <2.0 (<2.0) mg/dL Ur Leukocyte Esterase Large H (Negative) Urine RBC 2 (0-5) /hpf Urine WBC 46 H (0-5) /hpf Ur Squamous Epith Cells 30 H (0-4) /hpf Amorphous Sediment Rare H (None) /hpf Urine Bacteria Rare H (None) /hpf Urine Mucus Many H (None) /hpf - Radiology Data Radiology results: report reviewed No free air. General has increased fecal burning with focal gaseous distention of the bowel loop in the left upper abdomen. No radiographic evidence for bowel obstruction. CT may further indicated. Disposition Clinical Impression: Swelling of labia, UTI (urinary tract infection), Constipation Disposition: HOME SELF-CARE Condition: Good Instructions (If sedation given, give patient instructions): Urinary Tract Infection in Women (ED) Additional Instructions: Take the medication as prescribed. Patient can continue Motrin for swelling and apply ice to the area to help with swelling and pain. Patient should take MiraLAX daily to help promote bowel movements. Prescriptions: Nitrofurantoin Monohyd/M-Cryst [Macrobid] 100 mg PO Q12HR #14 cap Polyethylene Glycol 3350 [Miralax] 17 gm PO DAILY #527 gm Is patient prescribed a controlled substance at d/c from ED?: No Referrals: Nonstaff,Physician [Primary Care Provider] - 1-2 days Time of Disposition: 12:17
--- NOTE | 2020-06-30 11:30 | XR ---
EXAM: XR Abdomen CLINICAL HISTORY: pain TECHNIQUE: Frontal upright view of the abdomen/pelvis. COMPARISON: April 22, 2017 radiograph and November 25, 2017 CT exam FINDINGS: No free air. Generalized increased fecal burden. Gaseous distention of bowel loop in the left upper abdomen. No suspicious calcifications. Osseous structures are unremarkable. IMPRESSION: No free air. Generalized increased fecal burden with focal gaseous distention of bowel loop in the left upper abdomen. No radiographic evidence of small bowel obstruction. CT may further evaluate if indicated.
[2020-06-30 12:15] LABS: Amorphous Sediment,Urine Rare /hpf; Appearance,Urine Cloudy (Clear); Bacteria,Urine Rare /hpf; Bilirubin,Urine Negative (Negative); Blood,Urine Negative (Negative); Color,Urine Yellow; Glucose,Urine (UA) Negative (Negative); Ketones,Urine Negative (Negative); Leukocyte Esterase,Urine Large (Negative); Mucus,Urine Many /hpf; Nitrite,Urine Negative (Negative); PH, Urine 5.5 (5.0-8.0); Protein,Urine Trace (Negative); RBC,Urine 2 /hpf (0-5); Specific Gravity,Urine 1.036 (1.001-1.035); Squamous Epithelial Cell,Urine 30 /hpf (0-4); Urobilinogen,Urine <2.0 mg/dL (<2.0); WBC,Urine 46 /hpf (0-5)
[2020-06-30] MEDS ORDERED: MAGNESIUM CITRATE 296 ML BOTTLE PO ONE (12:18)
[2020-06-30] MEDS ORDERED: NITROFURANTOIN MONOHYD/M-CRYST 100 MG CAP PO STA (12:18)
== END 2020-06-30 12:34 | disposition home or self-care (01) ==
LOC: EC 10:11
DX: N89.8 Other specified noninflammatory disorders of vagina (principal); K59.00 Constipation, unspecified; N39.0 Urinary tract infection, site not specified; F17.290 Nicotine dependence, other tobacco product, uncomplicated; Z91.048 Other nonmedicinal substance allergy status; Z91.040 Latex allergy status; Z91.013 Allergy to seafood; Z88.1 Allergy status to other antibiotic agents; Z88.2 Allergy status to sulfonamides; Z88.8 Allergy status to other drugs, medicaments and biological substances; Z98.51 Tubal ligation status
CPT/HCPCS: 74018; 81001; 81025; 87070; 87491; 87591; 87808; 99284

== ENCOUNTER 2020-07-29 20:30 | Emergency (ER) | payer OTHER ==
[2020-07-29] MEDS ORDERED: methylPREDNISolone SOD SUCCI 125 MG/2 ML VIAL IV STA (21:02)
[2020-07-29] MEDS ORDERED: FAMOTIDINE 20 MG/2 ML VIAL IV STA (21:02)
[2020-07-29 21:28] LABS: Basophils # (A) 0.1 k/uL (0-0.2); Basophils % (A) 1 %; Eosinophils # (A) 0.4 k/uL (0-0.7); Eosinophils % (A) 3 %; HGB 16.2 gm/dL (11.4-16.0); Lymphocytes # (A) 2.8 k/uL (1.0-4.8); Lymphocytes % (A) 19 %; MCH 27.5 pg (25.0-35.0); MCHC 33.8 g/dL (31.0-37.0); MCV 81.3 fL (80.0-100.0); Mean Platelet Volume 7.5; Monocytes # (A) 0.6 k/uL (0-1.0); Monocytes % (A) 4 %; Neutrophils # (A) 10.5 k/uL (1.3-7.7); Neutrophils % (A) 72 %; Platelet Count 367 k/uL (150-450); WBC 14.7 k/uL (3.8-10.6)
[2020-07-29 21:36] LABS: ALT 13 U/L (4-34); AST 21 U/L (14-36); African American GFR (CKD) >90 (>60 ml/min/1.73 sqM); Albumin 3.8 g/dL (3.5-5.0); Alkaline Phosphatase 56 U/L (38-126); Anion Gap 8 mmol/L; Blood Urea Nitrogen 14 mg/dL (7-17); Calcium 9.3 mg/dL (8.4-10.2); Carbon Dioxide 22 mmol/L (22-30); Chloride 105 mmol/L (98-107); Glucose 126 mg/dL (74-99); Lipase 36 U/L (23-300); Non-African American GFR(CKD) >90 (>60 ml/min/1.73 sqM); Potassium 3.8 mmol/L (3.5-5.1); Sodium 135 mmol/L (137-145); Total Bilirubin 0.5 mg/dL (0.2-1.3); Total Protein 6.8 g/dL (6.3-8.2)
--- NOTE | 2020-07-29 21:49 | ED ---
SOB HPI - General Chief Complaint: Shortness of Breath Stated Complaint: Shortness of breath Time Seen by Provider: 07/29/20 20:35 Source: EMS Mode of arrival: EMS Limitations: no limitations - History of Present Illness Initial Comments: The patient is a 25-year-old female who presents to the emergency department with reported swelling. Patient reports that she has had generalized swelling in her legs, chest, abdomen and groin. 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 She is to follow with Dr. Reynolds in regards to it. Denies ever seeing an book repairer. Reports that she began having increasing swelling today. Reports that it makes it hard for her to breathe. She cannot take Benadryl as this does "worsen her symptoms" she denies fevers or chills. Denies chest pain. Does admit to abdominal pain with nausea. No concern for . Denies changes in her bowel or bladder habits. 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 - Related Data Home Medications Medication Instructions Recorded Confirmed Cetirizine HCl [Zyrtec] 10 mg PO DAILY 07/29/20 07/29/20 Drospirenone-Ethi 3-0.02mg 1 tab PO DAILY 07/29/20 07/29/20 Polyethylene Glycol 3350 [Miralax] 17 gm PO DAILY PRN 07/29/20 07/29/20 hydrOXYzine pamoate [Vistaril] 25 mg PO TID PRN 07/29/20 07/29/20 traZODone HCL 100 - 200 mg PO HS PRN 07/29/20 07/29/20 Previous Rx's Medication Instructions Recorded Acetaminophen Tab [Tylenol Tab] 1,000 mg PO Q6HR PRN #30 tablet 01/11/20 Amoxicillin/Potassium Clav 1 tab PO Q12HR 1 Days #20 tab 07/30/20 [Augmentin 875-125 Tablet] Famotidine [Pepcid] 20 mg PO BID #10 tablet 07/30/20 predniSONE [Deltasone] 20 mg PO BID #10 tab 07/30/20 Allergies Allergy/AdvReac Type Severity Reaction Status Date / Time cat dander Allergy Swelling Verified 07/29/20 22:40 OF EYE , SOB Latex, Natural Rubber Allergy Rash/Hives Verified 07/29/20 22:40 shellfish derived [Crab] Allergy Anaphylaxis Verified 07/29/20 22:40 clindamycin AdvReac Anaphylaxis Verified 07/29/20 22:40 diphenhydramine HCl AdvReac Anaphylaxis Verified 07/29/20 22:40 [From Benadryl] Sulfa (Sulfonamide AdvReac Anaphylaxis Verified 07/29/20 22:40 Antibiotics) Review of Systems ROS Statement: Those systems with pertinent positive or pertinent negative responses have been documented in the HPI. ROS Other: All systems not noted in ROS Statement are negative. Past Medical History Past Medical History: Asthma, Fibromyalgia, Neurologic Disorder Additional Past Medical History / Comment(s): "possible hole in heart" as a baby.; Migraines, POSSIBLE TIA 05-16-19 , migraines, tuberculosis Jul 2019. 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 History of Any Multi-Drug Resistant Organisms: MRSA Date of last positivie culture/infection: 2012 MDRO Source:: RIGHT LEG Past Surgical History: Cholecystectomy, Tubal Ligation Additional Past Surgical History / Comment(s): EXPLORATORY lap, I&D left buttocks lap choly 01-11-20 Past Anesthesia/Blood Transfusion Reactions: Motion Sickness, Postoperative Nausea & Vomiting (PONV) Past Psychological History: Depression, PTSD Smoking Status: Vaper Past Alcohol Use History: Rare Past Drug Use History: None Reported - Past Family History Father Additional Family Medical History / Comment(s): She does not know any history on her father. Mother Family Medical History: Asthma, Neurologic Disorder, Rheumatoid Arthritis (RA) Additional Family Medical History / Comment(s): Mother at age 31 from malpractice issue, mom also had over active histamine. Sister(s) Family Medical History: Asthma Additional Family Medical History / Comment(s): Patient has 1 sister with no major medical problems. General Exam Limitations: no limitations Course Vital Signs 07/29/20 07/29/20 20:33 22:54 Temperature 98.3 F 98.4 F Pulse Rate 109 H 103 H Respiratory 18 18 Rate Blood Pressure 117/82 114/70 O2 Sat by Pulse 96 96 Oximetry Medical Decision Making - Medical Decision Making Total patient is placed into room 7. A thorough history and physical exam was performed. Patient does have some swelling to her left foot. Recommended laboratory studies, ultrasound of the left leg, chest x-ray and a CT of her abdomen and pelvis. Lab studies demonstrated a white count of 14.7. Urinalysis does demonstrate large leukocyte esterase with 55 white blood cells and rare bacteria. Chest x-ray demonstrates no fluid. Ultrasound is negative for DVT. - Lab Data Result diagrams: 07/29/20 21:20 07/29/20 21:21 Lab Results 07/29/20 07/29/20 07/29/20 Range/Units 21:20 21:21 22:38 WBC 14.7 H (3.8-10.6) k/uL RBC 5.90 H (3.80-5.40) m/uL Hgb 16.2 H (11.4-16.0) gm/dL Hct 48.0 H (34.0-46.0) % MCV 81.3 (80.0-100.0) fL MCH 27.5 (25.0-35.0) pg MCHC 33.8 (31.0-37.0) g/dL RDW 13.0 (11.5-15.5) % Plt Count 367 (150-450) k/uL MPV 7.5 Neutrophils % 72 % Lymphocytes % 19 % Monocytes % 4 % Eosinophils % 3 % Basophils % 1 % Neutrophils # 10.5 H (1.3-7.7) k/uL Lymphocytes # 2.8 (1.0-4.8) k/uL Monocytes # 0.6 (0-1.0) k/uL Eosinophils # 0.4 (0-0.7) k/uL Basophils # 0.1 (0-0.2) k/uL Sodium 135 L (137-145) mmol/L Potassium 3.8 (3.5-5.1) mmol/L Chloride 105 (98-107) mmol/L Carbon Dioxide 22 (22-30) mmol/L Anion Gap 8 mmol/L BUN 14 (7-17) mg/dL Creatinine 0.73 (0.52-1.04) mg/dL Est GFR (CKD-EPI)AfAm >90 (>60 ml/min/1.73 sqM) Est GFR (CKD-EPI)NonAf >90 (>60 ml/min/1.73 sqM) Glucose 126 H (74-99) mg/dL Calcium 9.3 (8.4-10.2) mg/dL Total Bilirubin 0.5 (0.2-1.3) mg/dL AST 21 (14-36) U/L ALT 13 (4-34) U/L Alkaline Phosphatase 56 (38-126) U/L Total Protein 6.8 (6.3-8.2) g/dL Albumin 3.8 (3.5-5.0) g/dL Lipase 36 (23-300) U/L Urine Color Light Yellow Urine Appearance Clear (Clear) Urine pH 5.5 (5.0-8.0) Ur Specific [place] >1.050 H (1.001-1.035) Urine Protein Negative (Negative) Urine Glucose (UA) Negative (Negative) Urine Ketones Negative (Negative) Urine Blood Negative (Negative) Urine Nitrite Negative (Negative) Urine Bilirubin Negative (Negative) Urine Urobilinogen <2.0 (<2.0) mg/dL Ur Leukocyte Esterase Large H (Negative) Urine RBC 4 (0-5) /hpf Urine WBC 55 H (0-5) /hpf Ur Squamous Epith Cells 4 (0-4) /hpf Urine Bacteria Rare H (None) /hpf - EKG Data EKG Comments: EKG demonstrates normal sinus rhythm with ventricular rate of 99. OR interval 128. QRS 98. QTC of 456. No acute ST segment elevations or depressions Disposition Clinical Impression: Abdominal pain, Colitis, Swelling Disposition: HOME SELF-CARE Condition: Stable Instructions (If sedation given, give patient instructions): Colitis (ED) Additional Instructions: Please follow up with the book repairer in regards to your symptoms. Return to the ED for any new or worsening symptoms. Prescriptions: Amoxicillin/Potassium Clav [Augmentin 875-125 Tablet] 1 tab PO Q12HR 1 Days #20 tab predniSONE [Deltasone] 20 mg PO BID #10 tab Famotidine [Pepcid] 20 mg PO BID #10 tablet Is patient prescribed a controlled substance at d/c from ED?: No Referrals: Nonstaff,Physician [Primary Care Provider] - 1-2 days Maye Head MD [STAFF PHYSICIAN] - 1-2 days Time of Disposition: 00:22
--- NOTE | 2020-07-29 22:12 | US ---
EXAMINATION TYPE: US venous doppler duplex LE LT DATE OF EXAM: 07/29/2020 9:47 PM COMPARISON: NONE CLINICAL HISTORY: swelling. Patient states having left leg swelling and pain. No redness. SIDE PERFORMED: Left TECHNIQUE: The lower extremity deep venous system is examined utilizing real time linear array sonog collin with graded compression, doppler sonography and color-flow sonography. VESSELS IMAGED: Common Femoral Vein Deep Femoral Vein Greater Saphenous Vein * Femoral Vein Popliteal Vein Small Saphenous Vein * Proximal Calf Veins (* superficial vessels) Left Leg: Negative for DVT IMPRESSION: No evidence of deep vein thrombosis in the left leg.
--- NOTE | 2020-07-29 22:26 | XR ---
EXAMINATION TYPE: XR chest 2V DATE OF EXAM: 07/29/2020 COMPARISON: 01/11/2020 HISTORY: Asthma. Cough. TECHNIQUE: FINDINGS: Heart and mediastinum are normal. Lungs are clear. Diaphragm is normal. Bony thorax appears normal. IMPRESSION: Normal chest. No change.
[2020-07-29] MEDS ORDERED: KETOROLAC 15 MG/ML 1 ML VIAL IVP STA (22:39)
[2020-07-29 22:51] LABS: Appearance,Urine Clear (Clear); Bacteria,Urine Rare /hpf; Bilirubin,Urine Negative (Negative); Blood,Urine Negative (Negative); Color,Urine Light Yellow; Glucose,Urine (UA) Negative (Negative); Ketones,Urine Negative (Negative); Leukocyte Esterase,Urine Large (Negative); Nitrite,Urine Negative (Negative); PH, Urine 5.5 (5.0-8.0); Protein,Urine Negative (Negative); RBC,Urine 4 /hpf (0-5); Squamous Epithelial Cell,Urine 4 /hpf (0-4); Urobilinogen,Urine <2.0 mg/dL (<2.0); WBC,Urine 55 /hpf (0-5)
[2020-07-29 22:53] LABS: Specific Gravity,Urine >1.050 (1.001-1.035)
[2020-07-29 22:56] VITALS: TEMP 98.4
--- NOTE | 2020-07-29 23:58 | CT ---
EXAMINATION TYPE: CT abdomen pelvis w con DATE OF EXAM: 07/29/2020 COMPARISON: 11/25/2017 HISTORY: Shortness of breath, mid abdominal pain and swelling. CT DLP: 1643.9 mGycm Automated exposure control for dose reduction was used. CONTRAST: Performed with IV Contrast, patient injected with 100ml mL of Isovue 300. Images obtained from the diaphragm to the floor the pelvis with IV contrast. FINDINGS: Lung bases are clear. There is no pleural effusion. Heart size is normal. There is no pericardial eff usion. Liver spleen pancreas stomach appear intact. The bile ducts are not dilated. Gallbladder appears abse nt. There is no adrenal mass. Kidneys show satisfactory contrast opacification. There is no hydronephrosi s. Ureters are not dilated. Delayed images show normal renal excretion. There is fat stranding and fluid accumulation in the right lateral abdomen. There is also small amoun t of fluid in the lower abdomen adjacent to the sacrum. There is air in the appendix which is normal in size. The bladder distends smoothly. Uterus is anteverted. There is some mild free fluid in the pelvis. The re is mild fat stranding in the right adnexal region. There is some narrowing of the lumen of the upp er ascending colon which is probably due to peristalsis. Lumbar vertebra have normal alignment. Disc spaces are fairly bony pelvis is intact. Hip joints are i ntact. IMPRESSION: Inflammatory changes in the abdomen and pelvis on the right side extending from the right adnexal reg ion up to the hepatic flexure of the colon. There appears to be a normal air-filled appendix. This ab normality could relate to PID. There is probably a 2 cm cyst on the right ovary. Focal colitis is not entirely excluded of the ascending colon near the hepatic flexure. Inflammatory changes are new comp ared to old exam.
[2020-07-30] MEDS ORDERED: ACET/COD 300 MG/30 MG STARTER PACK 6 TAB BTL PO STA (00:10)
[2020-07-30] MEDS ORDERED: AMOXIC-POT CLAV 875-125MG 1 EACH TAB PO STA (00:11)
[2020-07-30 00:41] VITALS: BP 137/84; PULSE 84; RESP 16
== END 2020-07-30 00:41 | disposition home or self-care (01) ==
LOC: EC 20:30
DX: K52.9 Noninfective gastroenteritis and colitis, unspecified (principal); M79.89 Other specified soft tissue disorders; M79.7 Fibromyalgia; F32.9 Major depressive disorder, single episode, unspecified; F17.290 Nicotine dependence, other tobacco product, uncomplicated; Z79.899 Other long term (current) drug therapy; Z79.3 Long term (current) use of hormonal contraceptives; Z91.048 Other nonmedicinal substance allergy status; Z91.040 Latex allergy status; Z91.013 Allergy to seafood; Z88.1 Allergy status to other antibiotic agents; Z88.8 Allergy status to other drugs, medicaments and biological substances; Z88.2 Allergy status to sulfonamides; Z98.51 Tubal ligation status; Z90.49 Acquired absence of other specified parts of digestive tract
CPT/HCPCS: 36415; 93005; 80053; 83690; 85025; 81001; 87086; 71046; 93971; 74177; 99285; 96374; 96375 ×2; J2930; J1885; Q9967

== ENCOUNTER 2020-10-17 15:21 | Emergency (ER) | payer OTHER ==
[2020-10-17 16:44] VITALS: BP 121/83; PULSE 79; RESP 18; TEMP 97.7
[2020-10-17 18:44] LABS: Appearance,Urine Cloudy (Clear); Bilirubin,Urine Negative (Negative); Blood,Urine Negative (Negative); Color,Urine Yellow; Glucose,Urine (UA) Negative (Negative); Ketones,Urine 1+ (Negative); Leukocyte Esterase,Urine Small (Negative); Mucus,Urine Many /hpf; Nitrite,Urine Negative (Negative); Protein,Urine Trace (Negative); RBC,Urine 1 /hpf (0-5); Specific Gravity,Urine 1.043 (1.001-1.035); Squamous Epithelial Cell,Urine 7 /hpf (0-4); WBC,Urine 10 /hpf (0-5)
[2020-10-17 18:45] LABS: Basophils # (A) 0.1 k/uL (0-0.2); Basophils % (A) 1 %; Eosinophils # (A) 0.6 k/uL (0-0.7); Eosinophils % (A) 6 %; HCT 39.4 % (34.0-46.0); HGB 13.4 gm/dL (11.4-16.0); Lymphocytes # (A) 2.6 k/uL (1.0-4.8); Lymphocytes % (A) 25 %; MCH 28.1 pg (25.0-35.0); MCHC 34.1 g/dL (31.0-37.0); MCV 82.4 fL (80.0-100.0); Mean Platelet Volume 7.6; Monocytes # (A) 0.4 k/uL (0-1.0); Monocytes % (A) 4 %; Neutrophils # (A) 6.7 k/uL (1.3-7.7); Neutrophils % (A) 63 %; Platelet Count 316 k/uL (150-450); RBC 4.78 m/uL (3.80-5.40); RDW 13.4 % (11.5-15.5); WBC 10.6 k/uL (3.8-10.6)
[2020-10-17 18:54] LABS: ALT 14 U/L (4-34); AST 20 U/L (14-36); African American GFR (CKD) >90 (>60 ml/min/1.73 sqM); Albumin 4.6 g/dL (3.5-5.0); Alkaline Phosphatase 59 U/L (38-126); Amylase 71 U/L (30-110); Anion Gap 9 mmol/L; Blood Urea Nitrogen 12 mg/dL (7-17); Calcium 9.7 mg/dL (8.4-10.2); Carbon Dioxide 26 mmol/L (22-30); Chloride 103 mmol/L (98-107); Glucose 90 mg/dL (74-99); Lipase 43 U/L (23-300); Non-African American GFR(CKD) >90 (>60 ml/min/1.73 sqM); Potassium 3.5 mmol/L (3.5-5.1); Sodium 138 mmol/L (137-145); Total Bilirubin 0.5 mg/dL (0.2-1.3); Total Protein 7.6 g/dL (6.3-8.2)
--- NOTE | 2020-10-17 19:34 | ED ---
Abdominal Pain HPI - General Chief Complaint: Abdominal Pain Stated Complaint: tubal preg Source: patient Mode of arrival: ambulatory Limitations: no limitations - History of Present Illness Initial Comments: Patient is a 25-year-old female presenting to the emergency Department with complaints of some left lower quadrant tenderness as well as some nausea. Patient states that she had a tubal ligation done in 2019 and over the past few days has been having some morning sickness as well as some clear from her breast. Patient states she took a test and it was positive at home so she called her SHEAR SETTER who recommended coming into the ER. She states she was also taking control pills for menstruation regularity but stopped 1 month ago. She states her period is also 4 days late. She does have history of laparoscopic surgeries for ovarian cysts, cholecystectomy. No other abdominal surgeries. She denies any fevers or chills, no vomiting or diarrhea. She denies any chest pain or short of breath. She has no further complaints at this time. Upon arrival to the ER, her vital signs are stable. - Related Data Home Medications Medication Instructions Recorded Confirmed Cetirizine HCl [Zyrtec] 10 mg PO DAILY 07/29/20 07/29/20 Drospirenone-Ethi 3-0.02mg 1 tab PO DAILY 07/29/20 07/29/20 Polyethylene Glycol 3350 [Miralax] 17 gm PO DAILY PRN 07/29/20 07/29/20 hydrOXYzine pamoate [Vistaril] 25 mg PO TID PRN 07/29/20 07/29/20 traZODone HCL 100 - 200 mg PO HS PRN 07/29/20 07/29/20 Previous Rx's Medication Instructions Recorded Acetaminophen Tab [Tylenol Tab] 1,000 mg PO Q6HR PRN #30 tablet 01/11/20 Amoxicillin/Potassium Clav 1 tab PO Q12HR 1 Days #20 tab 07/30/20 [Augmentin 875-125 Tablet] Famotidine [Pepcid] 20 mg PO BID #10 tablet 07/30/20 predniSONE [Deltasone] 20 mg PO BID #10 tab 07/30/20 Allergies Allergy/AdvReac Type Severity Reaction Status Date / Time cat dander Allergy Swelling Verified 10/17/20 16:44 OF EYE , SOB Latex, Natural Rubber Allergy Rash/Hives Verified 04/12/21 16:44 shellfish derived [Crab] Allergy Anaphylaxis Verified 10/17/20 16:44 clindamycin AdvReac Anaphylaxis Verified 10/17/20 16:44 diphenhydramine HCl AdvReac Anaphylaxis Verified 10/17/20 16:44 [From Benadryl] Sulfa (Sulfonamide AdvReac Anaphylaxis Verified 10/17/20 16:44 Antibiotics) Review of Systems ROS Statement: Those systems with pertinent positive or pertinent negative responses have been documented in the HPI. ROS Other: All systems not noted in ROS Statement are negative. Past Medical History Past Medical History: Asthma, Fibromyalgia, Neurologic Disorder Additional Past Medical History / Comment(s): "possible hole in heart" as a baby.; Migraines, POSSIBLE TIA 05-16-19 , migraines, tuberculosis Jul 2019. 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 History of Any Multi-Drug Resistant Organisms: MRSA Date of last positivie culture/infection: 2012 MDRO Source:: RIGHT LEG Past Surgical History: Cholecystectomy, Tubal Ligation Additional Past Surgical History / Comment(s): EXPLORATORY lap, I&D left buttocks lap choly 01-11-20 Past Anesthesia/Blood Transfusion Reactions: Motion Sickness, Postoperative Nausea & Vomiting (PONV) Past Psychological History: Depression, PTSD Smoking Status: Vaper Past Alcohol Use History: Rare Past Drug Use History: None Reported - Past Family History Father Additional Family Medical History / Comment(s): She does not know any history on her father. Mother Family Medical History: Asthma, Neurologic Disorder, Rheumatoid Arthritis (RA) Additional Family Medical History / Comment(s): Mother at age 31 from m alpractice issue, mom also had over active histamine. Sister(s) Family Medical History: Asthma Additional Family Medical History / Comment(s): Patient has 1 sister with no major medical problems. General Exam - General Exam Comments Initial Comments: GENERAL: Patient is well-developed and well-nourished. Patient is nontoxic and in no a cute distress. HEAD: Atraumatic, normocephalic. EYES: Pupils equal round and reactive to light, extraocular movements intact, sclera anicteric, conjunctiva are normal. Eyelids were unremarkable. ENT: TMs normal, nares patent, oropharynx clear without exudates. Moist mucous m embranes. NECK: Normal range of motion, supple without lymphadenopathy or JVD. LUNGS: Unlabored respirations. Breath sounds clear to auscultation bilaterally and equal. No wheezes rales or rhonchi. HEART: Regular rate and rhythm without murmurs, rubs or gallops. ABDOMEN: Soft, mild left lower quadrant tenderness, suprapubic, normoactive bowel sounds. No guarding, no rebound. No masses appreciated. : Deferred MUSCULOSKELETAL: Normal extremities with adequate strength and normal range of motion, no pitting or edema. No clubbing or cyanosis. NEUROLOGICAL: Patient is alert and oriented x 3. Motor and sensory are also intact. Cranial nerves II through XII grossly intact. Symmetrical smile. Normal speech, normal gait. PSYCH: Normal mood, normal affect. SKIN: Warm, Dry, normal turgor, no rashes or lesions noted. Limitations: no limitations Course Vital Signs 10/17/20 16:40 Temperature 97.7 F Pulse Rate 79 Respiratory 18 Rate Blood Pressure 121/83 O2 Sat by Pulse 98 Oximetry Medical Decision Making - Medical Decision Making Patient is a 25-year-old female here with left lower quadrant pain, some nausea and menstrual cycle being 4 days late. Her vital signs are stable. She has history of tubal ligation in 2019, stopped taking her control pills one month ago. Lab work is unremarkable, lipase is normal. Urine shows 1+ ketones, no signs of infection, hCG is not detected. Pelvic ultrasound shows a small amount of free fluid in cul-de-sac, cervical cyst, no evidence of ovarian torsion. I discussed these findings with the patient. Patient is currently asymptomatic on reexamination. She is stable for discharge. She can follow-up with her SHEAR SETTER. Return parameters were discussed with the patient she verbalized understanding. Case discussed with Dr. Allan. - Lab Data Result diagrams: 10/17/20 18:18 10/17/20 18:18 Lab Results 10/17/20 10/17/20 10/17/20 Range/Units 18:18 18:18 18:18 WBC 10.6 (3.8-10.6) k/uL RBC 4.78 (3.80-5.40) m/uL Hgb 13.4 (11.4-16.0) gm/dL Hct 39.4 (34.0-46.0) % MCV 82.4 (80.0-100.0) fL MCH 28.1 (25.0-35.0) pg MCHC 34.1 (31.0-37.0) g/dL RDW 13.4 (11.5-15.5) % Plt Count 316 (150-450) k/uL MPV 7.6 Neutrophils % 63 % Lymphocytes % 25 % Monocytes % 4 % Eosinophils % 6 % Basophils % 1 % Neutrophils # 6.7 (1.3-7.7) k/uL Lymphocytes # 2.6 (1.0-4.8) k/uL Monocytes # 0.4 (0-1.0) k/uL Eosinophils # 0.6 (0-0.7) k/uL Basophils # 0.1 (0-0.2) k/uL Sodium (137-145) mmol/L Potassium (3.5-5.1) mmol/L Chloride (98-107) mmol/L Carbon Dioxide (22-30) mmol/L Anion Gap mmol/L BUN (7-17) mg/dL Creatinine (0.52-1.04) mg/dL Est GFR (CKD-EPI)AfAm (>60 ml/min/1.73 sqM) Est GFR (CKD-EPI)NonAf (>60 ml/min/1.73 sqM) Glucose (74-99) mg/dL Calcium (8.4-10.2) mg/dL Total Bilirubin (0.2-1.3) mg/dL AST (14-36) U/L ALT (4-34) U/L Alkaline Phosphatase (38-126) U/L Total Protein (6.3-8.2) g/dL Albumin (3.5-5.0) g/dL Amylase (30-110) U/L Lipase (23-300) U/L Urine Color Yellow Urine Appearance Cloudy H (Clear) Urine pH 6.0 (5.0-8.0) Ur Specific [place] 1.043 H (1.001-1.035) Urine Protein Trace H (Negative) Urine Glucose (UA) Negative (Negative) Urine Ketones 1+ H (Negative) Urine Blood Negative (Negative) Urine Nitrite Negative (Negative) Urine Bilirubin Negative (Negative) Urine Urobilinogen 2.0 (<2.0) mg/dL Ur Leukocyte Esterase Small H (Negative) Urine RBC 1 (0-5) /hpf Urine WBC 10 H (0-5) /hpf Ur Squamous Epith Cells 7 H (0-4) /hpf Urine Mucus Many H (None) /hpf Urine HCG, Qual Not Detected (Not Detectd) 10/17/20 Range/Units 18:18 WBC (3.8-10.6) k/uL RBC (3.80-5.40) m/uL Hgb (11.4-16.0) gm/dL Hct (34.0-46.0) % MCV (80.0-100.0) fL MCH (25.0-35.0) pg MCHC (31.0-37.0) g/dL RDW (11.5-15.5) % Plt Count (150-450) k/uL MPV Neutrophils % % Lymphocytes % % Monocytes % % Eosinophils % % Basophils % % Neutrophils # (1.3-7.7) k/uL Lymphocytes # (1.0-4.8) k/uL Monocytes # (0-1.0) k/uL Eosinophils # (0-0.7) k/uL Basophils # (0-0.2) k/uL Sodium 138 (137-145) mmol/L Potassium 3.5 (3.5-5.1) mmol/L Chloride 103 (98-107) mmol/L Carbon Dioxide 26 (22-30) mmol/L Anion Gap 9 mmol/L BUN 12 (7-17) mg/dL Creatinine 0.62 (0.52-1.04) mg/dL Est GFR (CKD-EPI)AfAm >90 (>60 ml/min/1.73 sqM) Est GFR (CKD-EPI)NonAf >90 (>60 ml/min/1.73 sqM) Glucose 90 (74-99) mg/dL Calcium 9.7 (8.4-10.2) mg/dL Total Bilirubin 0.5 (0.2-1.3) mg/dL AST 20 (14-36) U/L ALT 14 (4-34) U/L Alkaline Phosphatase 59 (38-126) U/L Total Protein 7.6 (6.3-8.2) g/dL Albumin 4.6 (3.5-5.0) g/dL Amylase 71 (30-110) U/L Lipase 43 (23-300) U/L Urine Color Urine Appearance (Clear) Urine pH (5.0-8.0) Ur Specific [place] (1.001-1.035) Urine Protein (Negative) Urine Glucose (UA) (Negative) Urine Ketones (Negative) Urine Blood (Negative) Urine Nitrite (Negative) Urine Bilirubin (Negative) Urine Urobilinogen (<2.0) mg/dL Ur Leukocyte Esterase (Negative) Urine RBC (0-5) /hpf Urine WBC (0-5) /hpf Ur Squamous Epith Cells (0-4) /hpf Urine Mucus (None) /hpf Urine HCG, Qual (Not Detectd) Disposition Clinical Impression: Left lower quadrant abdominal pain Disposition: HOME SELF-CARE Condition: Stable Instructions (If sedation given, give patient instructions): Abdominal Pain (ED) Additional Instructions: Please return to the Emergency Department if symptoms worsen or any other concerns. Follow-up with your SHEAR SETTER if symptoms persist. Is patient prescribed a controlled substance at d/c from ED?: No Referrals: Nonstaff,Physician [Primary Care Provider] - 1-2 days Time of Disposition: 20:28
--- NOTE | 2020-10-17 20:13 | US ---
EXAMINATION TYPE: US transvaginal DATE OF EXAM: 10/17/2020 COMPARISON: CT, US CLINICAL HISTORY: LLQ pain, nausea. LLQ pain, nausea. Hx PCOS, tubal ligation 2019. . TECHNIQUE: Transvaginal (TV). Date of LMP: Unknown. EXAM MEASUREMENTS: Uterus: 9.3 x 5.9 x 5.1 cm Endometrial Stripe: 1.19 cm. Fluid seen within. Right Ovary: Not seen. Left Ovary: 3.2 x 2.4 x 2.2 cm 1. Uterus: Anteverted. Appears heterogeneous. Hyperechoic area seen adjacent to the endometrium: 0 .3 x 0.2 x 0.2 cm. Multiple anechoic areas seen in cervix. Large anechoic cluster in cervix measures: 2.3 x 0.7 x 0.4 cm. 2. Endometrium: Measures 1.19 cm. Anechoic area seen within measurin.9 x 1.5 x 0.2 cm. 3. Right Ovary: Not seen. 4. Left Ovary: Hypoechoic area seen: 1.5 x 1.3 x 0.9 cm. Spectral, color and waveform doppler imaging shows arterial and venous flow within the left ovary. Right ovary not seen. 5. Bilateral Adnexa: Appear wnl. 6. Posterior cul-de-sac: Minimal fluid seen: 0.6 x 1.9 x 0.3 cm. IMPRESSION: Small amount of free fluid in the cul-de-sac. Cervical cysts and enlarged cervical canal with fluid. Tiny amount of endometrial fluid. No adnexal mass. No evidence of ovarian torsion.
== END 2020-10-17 18:46 | disposition home or self-care (01) ==
LOC: EC 15:21
DX: R10.32 Left lower quadrant pain (principal); F32.9 Major depressive disorder, single episode, unspecified; F17.290 Nicotine dependence, other tobacco product, uncomplicated; J45.909 Unspecified asthma, uncomplicated
CPT/HCPCS: 36415; 76830; 80053; 81001; 81025; 82150; 83690; 85025; 93976; 99284

== ENCOUNTER 2020-11-05 23:51 | Emergency (ER) | payer OTHER ==
[2020-11-06 00:19] VITALS: BP 141/83; PULSE 99; RESP 18; TEMP 98
[2020-11-06] MEDS ORDERED: DOXYCYCLINE 100 MG CAP PO STA (00:37)
[2020-11-06] MEDS: LIDOCAINE 1% INJ 10MG/ML (20 ML MDV) SQ ONE ×2 (00:43→01:24)
--- NOTE | 2020-11-06 01:00 | ED ---
Skin/Abscess/FB HPI - General Chief complaint: Skin/Abscess/Foreign Body Stated complaint: Urogenital female Time Seen by Provider: 11/06/20 00:29 Source: patient Mode of arrival: ambulatory Limitations: no limitations - History of Present Illness Initial comments: 25 year-old female patient presents to the emergency department for evaluation of left labial abscess. States that she noticed the swollen area today. She has history of hydradenitis suppurativa and gets abscesses frequently. She denies any drainage from the area today. Denies any fever or chills. Denies nausea or vomiting. Denies any other medical problems. Does have an appointment with her physician on Saturday. - Related Data Home Medications Medication Instructions Recorded Confirmed Cetirizine HCl [Zyrtec] 10 mg PO DAILY 07/29/20 07/29/20 Drospirenone-Ethi 3-0.02mg 1 tab PO DAILY 07/29/20 07/29/20 Polyethylene Glycol 3350 [Miralax] 17 gm PO DAILY PRN 07/29/20 07/29/20 hydrOXYzine pamoate [Vistaril] 25 mg PO TID PRN 07/29/20 07/29/20 traZODone HCL 100 - 200 mg PO HS PRN 07/29/20 07/29/20 Previous Rx's Medication Instructions Recorded Acetaminophen Tab [Tylenol Tab] 1,000 mg PO Q6HR PRN #30 tablet 01/11/20 Amoxicillin/Potassium Clav 1 tab PO Q12HR 1 Days #20 tab 07/30/20 [Augmentin 875-125 Tablet] Famotidine [Pepcid] 20 mg PO BID #10 tablet 07/30/20 predniSONE [Deltasone] 20 mg PO BID #10 tab 07/30/20 Doxycycline [Vibramycin] 100 mg PO BID #14 capsule 11/06/20 Allergies Allergy/AdvReac Type Severity Reaction Status Date / Time cat dander Allergy Swelling Verified 11/06/20 00:16 OF EYE , SOB Latex, Natural Rubber Allergy Rash/Hives Verified 11/06/20 00:16 shellfish derived [Crab] Allergy Anaphylaxis Verified 11/06/20 00:16 clindamycin AdvReac Anaphylaxis Verified 11/06/20 00:16 diphenhydramine HCl AdvReac Anaphylaxis Verified 11/06/20 00:16 [From Benadryl] Sulfa (Sulfonamide AdvReac Anaphylaxis Verified 11/06/20 00:16 Antibiotics) Review of Systems ROS Statement: Those systems with pertinent positive or pertinent negative responses have been documented in the HPI. ROS Other: All systems not noted in ROS Statement are negative. Past Medical History Past Medical History: Asthma, Fibromyalgia, Neurologic Disorder Additional Past Medical History / Comment(s): "possible hole in heart" as a baby.; Migraines, POSSIBLE TIA 05-16-19 , migraines, tuberculosis Jul 2019. 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 History of Any Multi-Drug Resistant Organisms: MRSA Date of last positivie culture/infection: 2012 MDRO Source:: RIGHT LEG Past Surgical History: Cholecystectomy, Tubal Ligation Additional Past Surgical History / Comment(s): EXPLORATORY lap, I&D left buttocks lap choly 01-11-20 Past Anesthesia/Blood Transfusion Reactions: Motion Sickness, Postoperative Nausea & Vomiting (PONV) Past Psychological History: Depression, PTSD Smoking Status: Vaper Past Alcohol Use History: Rare Past Drug Use History: None Reported - Past Family History Father Additional Family Medical History / Comment(s): She does not know any history on her father. Mother Family Medical History: Asthma, Neurologic Disorder, Rheumatoid Arthritis (RA) Additional Family Medical History / Comment(s): Mother at age 31 from malpractice issue, mom also had over active histamine. Sister(s) Family Medical History: Asthma Additional Family Medical History / Comment(s): Patient has 1 sister with no major medical problems. General Exam Limitations: no limitations General appearance: alert, in no apparent distress, other (Well developed, well nourished adult female in no acute distress. ) Respiratory exam: Present: normal lung sounds bilaterally. Absent: respiratory distress, wheezes, rales, rhonchi, stridor Cardiovascular Exam: Present: regular rate, normal rhythm, normal heart sounds. Absent: systolic murmur, diastolic murmur, rubs, gallop, clicks GI/Abdominal exam: Present: soft, normal bowel sounds. Absent: distended, tenderness, guarding, rebound, rigid External exam: Present: other (2cm abscess to the left upper labia. White head noted. No drainage. Minimal surrounding erythema. Tender to touch.) Neurological exam: Present: alert, oriented X3, CN II-XII intact Psychiatric exam: Present: normal affect, normal mood Skin exam: Present: warm, dry, intact, normal color. Absent: rash Course Vital Signs 11/06/20 00:16 Temperature 98.0 F Pulse Rate 99 Respiratory 18 Rate Blood Pressure 141/83 O2 Sat by Pulse 98 Oximetry Procedures - Incision & Drainage Consent Obtained: verbal consent Indication: abscess Site: other (Left labia) Size (cm): 2 I&D Cleaning Method: Betadine Scalpel Used: #11 I&D Drainage Obtained: Blood Culture Obtained?: Yes Patient Tolerated Procedure: well, no complications Medical Decision Making - Medical Decision Making 25 year-old female patient presents to the emergency department for evaluation of abscess to the left labia. Has history of hydradenitis suppurativa and gets abscesses frequently. Physical examination revealed to send her abscess to the left labia. Did perform incision and drainage as document. Patient declined local anesthetic. Did obtain culture. She was started on doxycycline due to multiple ALLERGIES. She is instructed to follow up with her primary care physician for recheck on Saturday. She is instructed to apply warm compresses several times daily or take warm baths. Return parameters were discussed in detail. She verbalizes understanding and agrees with this plan. My attending is Dr. De La Fuente. Disposition Clinical Impression: Left genital labial abscess Disposition: HOME SELF-CARE Condition: Good Instructions (If sedation given, give patient instructions): Abscess Incision and Drainage (ED), Abscess (ED) Additional Instructions: Apply warm compresses to the area. Complete antibiotic prescription in full. Follow up with your primary care physician for recheck in 1-2 days. Return for any new, worsening, or concerning symptoms. Prescriptions: Doxycycline [Vibramycin] 100 mg PO BID #14 capsule Is patient prescribed a controlled substance at d/c from ED?: No Referrals: None,Stated [Primary Care Provider] - 1-2 days Time of Disposition: 01:10
== END 2020-11-06 01:25 | disposition home or self-care (01) ==
LOC: EC 23:51
DX: N76.4 Abscess of vulva (principal); J45.909 Unspecified asthma, uncomplicated; M79.7 Fibromyalgia; Z90.49 Acquired absence of other specified parts of digestive tract; Z98.51 Tubal ligation status; F32.9 Major depressive disorder, single episode, unspecified
CPT/HCPCS: 56405; 87070; 87205; 99283

== ENCOUNTER → 2020-12-14 | Outpatient (CLI) | payer OTHER ==
--- NOTE | 2020-12-14 10:58 | XR ---
EXAMINATION TYPE: XR chest 2V DATE OF EXAM: 12/14/2020 COMPARISON: Chest x-ray July 29, 2020 HISTORY: History of TB. TECHNIQUE: Frontal and lateral views of the chest are obtained. FINDINGS: There is no new suspicious focal air space opacity, pleural effusion, or pneumothorax seen . The cardiac silhouette size remains within normal limits. The osseous structures are intact. IMPRESSION: No acute cardiopulmonary process. No significant change from prior.
== END | disposition home or self-care (01) ==
LOC: RADXRMAIN 10:33
PROVIDERS: ATTEND Family Medicine
DX: Z86.11 Personal history of tuberculosis (principal)
CPT/HCPCS: 71046

== ENCOUNTER 2021-01-07 23:02 | Emergency (ER) | payer OTHER ==
[2021-01-07 23:09] VITALS: BP 124/80; PULSE 91; RESP 16; TEMP 98.4
--- NOTE | 2021-01-07 23:27 | ED ---
Extremity Problem HPI - General Chief complaint: Extremity Problem,Nontraumatic Stated complaint: Shoulder pain Time Seen by Provider: 01/07/21 23:13 Source: patient Mode of arrival: ambulatory Limitations: no limitations - History of Present Illness Initial comments: This patient is a 25-year-old woman who presents with complaint of left shoulder pain. It started this evening after she bent and was reaching into her refrigerator with both arms. She thought she might have felt a popping and now she has pain at the lateral and anterior aspect of the left shoulder. She states that her neck and back have also "locked up." She states that with previous pain like this she had a shoulder dislocation. That was a couple of years ago and did not require any surgical intervention. Patient denies weakness or numbness to the left hand. MD Complaint: extremity pain -: hour(s) Location: left History of Same: Yes Radiation: none Quality: aching Consistency: constant Improves with: nothing Worsens with: palpation, other Associated Symptoms: denies other symptoms - Related Data Home Medications Medication Instructions Recorded Confirmed Cetirizine HCl [Zyrtec] 10 mg PO DAILY 07/29/20 07/29/20 Drospirenone-Ethi 3-0.02mg 1 tab PO DAILY 07/29/20 07/29/20 Polyethylene Glycol 3350 [Miralax] 17 gm PO DAILY PRN 07/29/20 07/29/20 hydrOXYzine pamoate [Vistaril] 25 mg PO TID PRN 07/29/20 07/29/20 traZODone HCL 100 - 200 mg PO HS PRN 07/29/20 07/29/20 Previous Rx's Medication Instructions Recorded Acetaminophen Tab [Tylenol Tab] 1,000 mg PO Q6HR PRN #30 tablet 01/11/20 Amoxicillin/Potassium Clav 1 tab PO Q12HR 1 Days #20 tab 07/30/20 [Augmentin 875-125 Tablet] Famotidine [Pepcid] 20 mg PO BID #10 tablet 07/30/20 predniSONE [Deltasone] 20 mg PO BID #10 tab 07/30/20 Doxycycline [Vibramycin] 100 mg PO BID #14 capsule 11/06/20 Ibuprofen [Motrin] 600 mg PO Q8HR PRN #20 tab 01/07/21 Methocarbamol [Robaxin-750] 750 mg PO TID PRN #21 tablet 01/07/21 Allergies Allergy/AdvReac Type Severity Reaction Status Date / Time cat dander Allergy Swelling Verified 01/07/21 23:06 OF EYE , SOB Latex, Natural Rubber Allergy Rash/Hives Verified 01/07/21 23:06 shellfish derived [Crab] Allergy Anaphylaxis Verified 01/07/21 23:06 clindamycin AdvReac Anaphylaxis Verified 01/07/21 23:06 diphenhydramine HCl AdvReac Anaphylaxis Verified 01/07/21 23:06 [From Benadryl] Sulfa (Sulfonamide AdvReac Anaphylaxis Verified 01/07/21 23:06 Antibiotics) Review of Systems ROS Statement: Those systems with pertinent positive or pertinent negative responses have been documented in the HPI. ROS Other: All systems not noted in ROS Statement are negative. Constitutional: Denies: fever, chills Respiratory: Denies: cough, dyspnea Cardiovascular: Denies: chest pain Gastrointestinal: Denies: abdominal pain Musculoskeletal: Reports: as per HPI, arthralgia Skin: Denies: rash Neurological: Denies: headache, weakness, numbness Past Medical History Past Medical History: Asthma, Fibromyalgia, Neurologic Disorder Additional Past Medical History / Comment(s): "possible hole in heart" as a baby.; Migraines, POSSIBLE TIA 05-16-19 , migraines, tuberculosis Jul 2019. 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 History of Any Multi-Drug Resistant Organisms: MRSA Date of last positivie culture/infection: 2012 MDRO Source:: RIGHT LEG Past Surgical History: Cholecystectomy, Tubal Ligation Additional Past Surgical History / Comment(s): EXPLORATORY lap, I&D left buttocks lap choly 01-11-20 Past Anesthesia/Blood Transfusion Reactions: Motion Sickness, Postoperative Nausea & Vomiting (PONV) Past Psychological History: Depression, PTSD Smoking Status: Vaper Past Alcohol Use History: Rare Past Drug Use History: None Reported - Past Family History Father Additional Family Medical History / Comment(s): She does not know any history on her father. Mother Family Medical History: Asthma, Neurologic Disorder, Rheumatoid Arthritis (RA) Additional Family Medical History / Comment(s): Mother at age 31 from malpractice issue, mom also had over active histamine. Sister(s) Family Medical History: Asthma Additional Family Medical History / Comment(s): Patient has 1 sister with no major medical problems. General Exam Limitations: no limitations General appearance: alert, in no apparent distress Head exam: Present: atraumatic, normocephalic Eye exam: Present: normal appearance. Absent: scleral icterus, conjunctival injection Neck exam: Present: normal inspection, full ROM. Absent: tenderness, meningismus Respiratory exam: Present: normal lung sounds bilaterally. Absent: respiratory distress, wheezes, rales, rhonchi, stridor Cardiovascular Exam: Present: regular rate, normal rhythm, normal heart sounds. Absent: systolic murmur, diastolic murmur, rubs, gallop Extremities exam: Present: tenderness (Anterolateral aspect left shoulder.), normal capillary refill. Absent: full ROM (Resists range of motion) Left Shoulder Exam: Present: normal inspection, tenderness, tenderness over AC joint. Absent: full ROM, swelling, abrasion, laceration, ecchymosis, deformity, crepitus, dislocation, erythema Upper Arm exam: Present: normal inspection, full ROM. Absent: tenderness, swelling Elbow exam: Present: normal inspection, full ROM. Absent: tenderness, swelling Forearm Wrist exam: Present: normal inspection, full ROM. Absent: tenderness, swelling Hand Wrist exam: Present: normal inspection, full ROM. Absent: tenderness, swelling Neuro motor exam: Present: wrist extension intact, thumb opposition intact, thumb IP flexion intact, thumb adduction intact, fingers 2-5 abduction intact Neurosensory exam: Present: 2-point discrimination Vascular: Present: normal capillary refill. Absent: vascular compromise Back exam: Present: normal inspection, muscle spasm, paraspinal tenderness. Absent: vertebral tenderness Neurological exam: Present: alert. Absent: motor sensory deficit Skin exam: Present: warm, dry, intact, normal color. Absent: rash Course Vital Signs 01/07/21 23:06 Temperature 98.4 F Pulse Rate 91 Respiratory 16 Rate Blood Pressure 124/80 O2 Sat by Pulse 98 Oximetry Disposition Clinical Impression: Muscle strain Disposition: HOME SELF-CARE Condition: Good Instructions (If sedation given, give patient instructions): Muscle Strain (ED) Prescriptions: Ibuprofen [Motrin] 600 mg PO Q8HR PRN #20 tab PRN Reason: Pain Methocarbamol [Robaxin-750] 750 mg PO TID PRN #21 tablet PRN Reason: pain Is patient prescribed a controlled substance at d/c from ED?: No Referrals: Nonstaff,Physician [Primary Care Provider] - 1-2 days
--- NOTE | 2021-01-07 23:38 | XR ---
EXAMINATION TYPE: XR shoulder complete LT DATE OF EXAM: 01/07/2021 COMPARISON: NONE HISTORY: Shoulder pain TECHNIQUE: 3 views FINDINGS: I see no fracture nor dislocation. Glenohumeral joint is intact. There are no pathologic ca lcifications. IMPRESSION: Negative left shoulder exam. No fracture.
== END 2021-01-08 00:24 | disposition home or self-care (01) ==
LOC: EC 23:02
DX: S46.912A Strain of unspecified muscle, fascia and tendon at shoulder and upper arm level, left arm, initial encounter (principal); J45.909 Unspecified asthma, uncomplicated; F17.290 Nicotine dependence, other tobacco product, uncomplicated; Z88.1 Allergy status to other antibiotic agents; Z88.2 Allergy status to sulfonamides; Z88.8 Allergy status to other drugs, medicaments and biological substances; Z91.040 Latex allergy status; Z91.013 Allergy to seafood; Z91.09 Other allergy status, other than to drugs and biological substances; X50.9XXA Other and unspecified overexertion or strenuous movements or postures, initial encounter
CPT/HCPCS: 99283

== ENCOUNTER 2021-03-31 09:40 | Emergency (ER) | payer OTHER ==
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
[2021-03-31 10:04] VITALS: RESP 20; TEMP 97.8
[2021-03-31 10:18] LABS: Basophils % (A) 1 %; Eosinophils # (A) 0.4 k/uL (0-0.7); Eosinophils % (A) 6 %; HCT 39.5 % (34.0-46.0); HGB 13.1 gm/dL (11.4-16.0); Lymphocytes # (A) 1.5 k/uL (1.0-4.8); Lymphocytes % (A) 21 %; MCH 29.1 pg (25.0-35.0); Monocytes # (A) 0.3 k/uL (0-1.0); Monocytes % (A) 5 %; Neutrophils # (A) 4.7 k/uL (1.3-7.7); Neutrophils % (A) 66 %; Platelet Count 286 k/uL (150-450); RBC 4.49 m/uL (3.80-5.40); RDW 13.3 % (11.5-15.5); WBC 7.1 k/uL (3.8-10.6)
[2021-03-31] MEDS ORDERED: HYDROcodone/APAP 5-325MG 1 EACH TAB PO STA (10:34)
[2021-03-31 10:40] LABS: ALT 12 U/L (4-34); AST 18 U/L (14-36); African American GFR (CKD) >90 (>60 ml/min/1.73 sqM); Albumin 4.1 g/dL (3.5-5.0); Alkaline Phosphatase 46 U/L (38-126); Anion Gap 8 mmol/L; Blood Urea Nitrogen 10 mg/dL (7-17); Calcium 9.6 mg/dL (8.4-10.2); Carbon Dioxide 25 mmol/L (22-30); Chloride 109 mmol/L (98-107); Glucose 117 mg/dL (74-99); Lipase 73 U/L (23-300); Non-African American GFR(CKD) >90 (>60 ml/min/1.73 sqM); Potassium 3.9 mmol/L (3.5-5.1); Sodium 142 mmol/L (137-145); Total Bilirubin 0.3 mg/dL (0.2-1.3)
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
[2021-03-31 11:29] VITALS: BP 124/78; PULSE 77
== END 2021-03-31 11:29 | disposition home or self-care (01) ==
LOC: EC 09:40
DX: M25.512 Pain in left shoulder (principal); M54.6 Pain in thoracic spine; F17.290 Nicotine dependence, other tobacco product, uncomplicated; J45.909 Unspecified asthma, uncomplicated; Z91.040 Latex allergy status; Z88.8 Allergy status to other drugs, medicaments and biological substances; Z88.1 Allergy status to other antibiotic agents; Z88.2 Allergy status to sulfonamides; Z91.013 Allergy to seafood; Z91.09 Other allergy status, other than to drugs and biological substances; V40.5XXA Car driver injured in collision with pedestrian or animal in traffic accident, initial encounter
CPT/HCPCS: 36415; 72125; 72128; 72131; 80053; 81025; 83690; 85025; 99284

== ENCOUNTER 2021-04-21 11:21 | Emergency (ER) | payer OTHER ==
[2021-04-21 11:25] VITALS: BP 160/84; RESP 18; TEMP 98.2
[2021-04-21] MEDS ORDERED: METOCLOPRAMIDE 5 MG/ML 2 ML VIAL IVP STA (11:36)
[2021-04-21] MEDS ORDERED: SODIUM CHLORIDE 0.9% 1,000 ML IV STA (11:36)
[2021-04-21] MEDS ORDERED: FAMOTIDINE 20 MG/2 ML VIAL IV STA (11:36)
[2021-04-21] MEDS ORDERED: methylPREDNISolone SOD SUCCI 125 MG/2 ML VIAL IV STA (11:36)
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
[2021-04-21 11:54] VITALS: PULSE 67
== END 2021-04-21 12:45 | disposition home or self-care (01) ==
LOC: EC 11:21
DX: T78.1XXA Other adverse food reactions, not elsewhere classified, initial encounter (principal); J45.909 Unspecified asthma, uncomplicated; F32.9 Major depressive disorder, single episode, unspecified; F43.12 Post-traumatic stress disorder, chronic; F17.290 Nicotine dependence, other tobacco product, uncomplicated; M79.7 Fibromyalgia; Z91.040 Latex allergy status; Z91.018 Allergy to other foods; Z91.013 Allergy to seafood; Z90.49 Acquired absence of other specified parts of digestive tract; Z98.51 Tubal ligation status; Z88.2 Allergy status to sulfonamides; Z88.1 Allergy status to other antibiotic agents
CPT/HCPCS: 99283; 96374; 96375 ×2; 96361; J2765; J2930

== ENCOUNTER 2021-05-21 19:21 | Inpatient (IN) | payer OTHER ==
--- NOTE | 2021-05-21 20:25 | ED ---
General Adult HPI - General Chief complaint: Upper Respiratory Infection Stated complaint: Coughing up blood Time Seen by Provider: 05/21/21 19:48 Source: patient Mode of arrival: ambulatory Limitations: no limitations - History of Present Illness Initial comments: Dictation was produced using [employer] dictation software. please excuse any grammatical, word or spelling errors. Chief Complaint: 25-year-old female presents to the emergency department for hemoptysis shortness of breath and constitutional symptoms History of Present Illness: Of a 5-year-old female she has past medical history of tuberculosis. 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 She contracted TB in 2019. Patient states that over the last 2-3 days she's been having upper respiratory infectious symptoms including constitutional symptoms. Patient today reports that she was having some episodes of hemoptysis. She denies any chest pain. The ROS documented in this emergency department record has been reviewed and confirmed by me. Those systems with pertinent positive or negative responses have been documented in the HPI. All other systems are other negative and/or noncontributory. PHYSICAL EXAM: General Impression: Alert and oriented x3, not in acute distress HEENT: Normocephalic atraumatic, extra-ocular movements intact, pupils equal and reactive to light bilaterally, mucous membranes moist. Cardiovascular: Heart regular rate and rhythm Chest: Able to complete full sentences, no retractions, no tachypnea Abdomen: abdomen soft, non-tender, non-distended, no organomegaly Musculoskeletal: Pulses present and equal in all extremities, no peripheral edema Motor: no focal deficits noted Neurological: CN II-XII grossly intact, no focal motor or sensory deficits noted Skin: Intact with no visualized rashes Psych: Normal affect and mood ED course: 25-year-old female presents emergency department for constitutional symptoms, hemoptysis upon arrival are within acceptable limits. There is concern for reactivation of TB. She states she was in this hospital when the diagnosis of TB was made. Chart review shows that patient was seen here in emergency department on August of last year. She allegedly had active TB at the time. She left AMA at that time. Laboratory evaluation obtained. CBC metabolic panel is negative. Coronavirus is negative. Chest x-ray is unremarkable. she is afebrile she is not hypoxic coughing excessively. However concerning her symptoms are worse suspicion that patient is having remaining stages of reactivation TB. Patient is agreeable with admission with consultation to pulmonology. - Related Data Home Medications Medication Instructions Recorded Confirmed Cetirizine HCl [Zyrtec] 10 mg PO DAILY 07/29/20 07/29/20 Drospirenone-Ethi 3-0.02mg 1 tab PO DAILY 07/29/20 07/29/20 Polyethylene Glycol 3350 [Miralax] 17 gm PO DAILY PRN 07/29/20 07/29/20 hydrOXYzine pamoate [Vistaril] 25 mg PO TID PRN 07/29/20 07/29/20 traZODone HCL 100 - 200 mg PO HS PRN 07/29/20 07/29/20 Previous Rx's Medication Instructions Recorded Acetaminophen Tab [Tylenol Tab] 1,000 mg PO Q6HR PRN #30 tablet 01/11/20 Amoxicillin/Potassium Clav 1 tab PO Q12HR 1 Days #20 tab 07/30/20 [Augmentin 875-125 Tablet] Famotidine [Pepcid] 20 mg PO BID #10 tablet 07/30/20 predniSONE [Deltasone] 20 mg PO BID #10 tab 07/30/20 Doxycycline [Vibramycin] 100 mg PO BID #14 capsule 11/06/20 Ibuprofen [Motrin] 600 mg PO Q8HR PRN #20 tab 01/07/21 Methocarbamol [Robaxin-750] 750 mg PO TID PRN #21 tablet 01/07/21 Allergies Allergy/AdvReac Type Severity Reaction Status Date / Time cat dander Allergy Swelling Verified 04/21/21 11:25 OF EYE , SOB Latex, Natural Rubber Allergy Rash/Hives Verified 04/21/21 11:25 shellfish derived [Crab] Allergy Anaphylaxis Verified 04/21/21 11:25 clindamycin AdvReac Anaphylaxis Verified 04/21/21 11:25 diphenhydramine HCl AdvReac Anaphylaxis Verified 04/21/21 11:25 [From Benadryl] Sulfa (Sulfonamide AdvReac Anaphylaxis Verified 04/21/21 11:25 Antibiotics) Review of Systems ROS Statement: Those systems with pertinent positive or pertinent negative responses have been documented in the HPI. ROS Other: All systems not noted in ROS Statement are negative. Past Medical History Past Medical History: Asthma, Fibromyalgia, Neurologic Disorder Additional Past Medical History / Comment(s): "possible hole in heart" as a baby.; Migraines, POSSIBLE TIA 05-16-19 , migraines, tuberculosis Jul 2019. 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 History of Any Multi-Drug Resistant Organisms: MRSA Date of last positivie culture/infection: 2012 MDRO Source:: RIGHT LEG Past Surgical History: Cholecystectomy, Tubal Ligation Additional Past Surgical History / Comment(s): EXPLORATORY lap, I&D left buttocks lap choly 01-11-20 Past Anesthesia/Blood Transfusion Reactions: Motion Sickness, Postoperative Nausea & Vomiting (PONV) Past Psychological History: Depression, PTSD Smoking Status: Vaper Past Alcohol Use History: Rare Past Drug Use History: None Reported - Past Family History Father Additional Family Medical History / Comment(s): She does not know any history on her father. Mother Family Medical History: Asthma, Neurologic Disorder, Rheumatoid Arthritis (RA) Additional Family Medical History / Comment(s): Mother at age 31 from malpractice issue, mom also had over active histamine. Sister(s) Family Medical History: Asthma Additional Family Medical History / Comment(s): Patient has 1 sister with no major medical problems. General Exam Limitations: no limitations Course Vital Signs 05/21/21 20:13 Temperature 98.3 F Pulse Rate 91 Respiratory 20 Rate Blood Pressure 113/64 O2 Sat by Pulse 99 Oximetry Medical Decision Making - Lab Data Result diagrams: 05/21/21 20:48 05/21/21 20:48 Lab Results 05/21/21 05/21/21 05/21/21 Range/Units 20:48 20:48 20:48 WBC 6.7 (3.8-10.6) k/uL RBC 4.54 (3.80-5.40) m/uL Hgb 13.0 (11.4-16.0) gm/dL Hct 39.5 (34.0-46.0) % MCV 87.1 (80.0-100.0) fL MCH 28.7 (25.0-35.0) pg MCHC 32.9 (31.0-37.0) g/dL RDW 12.9 (11.5-15.5) % Plt Count 227 (150-450) k/uL MPV 8.3 Neutrophils % 46 % Lymphocytes % 31 % Monocytes % 7 % Eosinophils % 13 % Basophils % 1 % Neutrophils # 3.1 (1.3-7.7) k/uL Lymphocytes # 2.1 (1.0-4.8) k/uL Monocytes # 0.4 (0-1.0) k/uL Eosinophils # 0.9 H (0-0.7) k/uL Basophils # 0.1 (0-0.2) k/uL Sodium 140 (137-145) mmol/L Potassium 4.6 (3.5-5.1) mmol/L Chloride 106 (98-107) mmol/L Carbon Dioxide 25 (22-30) mmol/L Anion Gap 9 mmol/L BUN 11 (7-17) mg/dL Creatinine 0.69 (0.52-1.04) mg/dL Est GFR (CKD-EPI)AfAm >90 (>60 ml/min/1.73 sqM) Est GFR (CKD-EPI)NonAf >90 (>60 ml/min/1.73 sqM) Glucose 81 (74-99) mg/dL Calcium 9.6 (8.4-10.2) mg/dL Coronavirus (PCR) (Not Detectd) Blood Type A Positive Blood Type Recheck A Pos Bld Type Recheck Status No Antibody Screen NEGATIVE Spec Expiration Date 05/24/2021 - 234705/21/21 Range/Units 20:48 WBC (3.8-10.6) k/uL RBC (3.80-5.40) m/uL Hgb (11.4-16.0) gm/dL Hct (34.0-46.0) % MCV (80.0-100.0) fL MCH (25.0-35.0) pg MCHC (31.0-37.0) g/dL RDW (11.5-15.5) % Plt Count (150-450) k/uL MPV Neutrophils % % Lymphocytes % % Monocytes % % Eosinophils % % Basophils % % Neutrophils # (1.3-7.7) k/uL Lymphocytes # (1.0-4.8) k/uL Monocytes # (0-1.0) k/uL Eosinophils # (0-0.7) k/uL Basophils # (0-0.2) k/uL Sodium (137-145) mmol/L Potassium (3.5-5.1) mmol/L Chloride (98-107) mmol/L Carbon Dioxide (22-30) mmol/L Anion Gap mmol/L BUN (7-17) mg/dL Creatinine (0.52-1.04) mg/dL Est GFR (CKD-EPI)AfAm (>60 ml/min/1.73 sqM) Est GFR (CKD-EPI)NonAf (>60 ml/min/1.73 sqM) Glucose (74-99) mg/dL Calcium (8.4-10.2) mg/dL Coronavirus (PCR) Not Detected (Not Detectd) Blood Type Blood Type Recheck Bld Type Recheck Status Antibody Screen Spec Expiration Date Disposition Clinical Impression: Reactivation TB Disposition: ADMITTED IP TO THIS HOSP Condition: Fair Referrals: Lina Galicia NPC [Primary Care Provider] - 1-2 days
--- NOTE | 2021-05-21 21:04 | XR ---
EXAMINATION TYPE: XR chest 1V portable DATE OF EXAM: 05/21/2021 COMPARISON: 12/14/2020 HISTORY: Hemoptysis TECHNIQUE: Single view FINDINGS: Heart and mediastinum are normal. Lungs are clear. Diaphragm is normal. Bony thorax is inta ct. IMPRESSION: Normal chest. No change.
[2021-05-21 21:25] LABS: Basophils # (A) 0.1 k/uL (0-0.2); Basophils % (A) 1 %; Eosinophils # (A) 0.9 k/uL (0-0.7); Eosinophils % (A) 13 %; HCT 39.5 % (34.0-46.0); Lymphocytes # (A) 2.1 k/uL (1.0-4.8); Lymphocytes % (A) 31 %; MCH 28.7 pg (25.0-35.0); MCHC 32.9 g/dL (31.0-37.0); MCV 87.1 fL (80.0-100.0); Mean Platelet Volume 8.3; Monocytes # (A) 0.4 k/uL (0-1.0); Monocytes % (A) 7 %; Neutrophils # (A) 3.1 k/uL (1.3-7.7); Neutrophils % (A) 46 %; Platelet Count 227 k/uL (150-450); RBC 4.54 m/uL (3.80-5.40); RDW 12.9 % (11.5-15.5); WBC 6.7 k/uL (3.8-10.6)
[2021-05-21 21:34] LABS: African American GFR (CKD) >90 (>60 ml/min/1.73 sqM); Anion Gap 9 mmol/L; Blood Urea Nitrogen 11 mg/dL (7-17); Calcium 9.6 mg/dL (8.4-10.2); Carbon Dioxide 25 mmol/L (22-30); Chloride 106 mmol/L (98-107); Glucose 81 mg/dL (74-99); Non-African American GFR(CKD) >90 (>60 ml/min/1.73 sqM); Sodium 140 mmol/L (137-145)
[2021-05-21 21:40] LABS: Potassium 4.6 mmol/L (3.5-5.1)
[2021-05-21] MEDS ORDERED: NALOXONE 0.4 MG/ML 1 ML VIAL IV PRN (22:12)
[2021-05-21 22:31] LABS: INR 0.9 (<1.2); Prothrombin Time 9.9 sec (9.0-12.0)
[2021-05-21] MEDS: SODIUM CHLORIDE 0.9% 1,000 ML IV SCH (22:41)
[2021-05-22] MEDS ORDERED: IPRATROPIUM-ALBUTEROL 3 ML NEB INHALATION PRN (02:22)
--- NOTE | 2021-05-22 02:22 | P.HPIM ---
History of Present Illness H&P Date: 05/21/21 The patient was seen and examined on 05/21 at 11:30 PM. Delayed charting due to downtime. 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 The patient reports that over the past few days, she has noticed gradually worsening constitutional symptoms with body aches along with shortness of breath and episodes of hemoptysis. The patient reports having occasional low-grade fevers over the past week. She reports that earlier today she was at work when she had a fit of coughing and noticed small amount of bloody tinged sputum. 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 The patient reports that she had initially contracted tuberculosis from an undocumented immigrant who was later found to have TB. The patient reports however that she continue to follow up with her [facility] care physician and compl eted a six-month course of anti-TB medications and received a certificate. She reported never having seen a auto club travel counselor for TB as an outpatient. Chest x-ray in the emergency room was unremarkable. Laboratory evaluation was unremarkable. Review of systems: Pertinent positives and negatives as discussed in HPI, a complete review of systems was performed and all other systems are negative. Physical examination: General: non toxic, no distress, appears at stated age, overweight Derm: no unusual rashes/lesions no unusual ecchymoses, warm, dry Head: atraumatic, normocephalic, symmetric Eyes: EOMI, no lid lag, anicteric sclera, pupils equal round reactive to light ENT: Nose and ears atraumatic, no thrush, no pharyngeal erythema Neck: No thyromegaly, no cervical lymphadenopathy, trachea midline, supple Mouth: no lip lesion, mucus membranes moist Cardiovascular: S1S2 reg, no murmur, positive posterior tibial pulse bilateral, no edema, capillary refill less than 2 seconds Lungs: CTA bilateral, no rhonchi, no rales , no accessory muscle use Abdominal: soft, nontender to palpation, no guarding, no appreciable organomegaly, normal bowel sounds Ext: no gross muscle atrophy, muscle strength 5 out of 5 in all 4 extremities grossly, no contractures, Neuro: CN II-XI grossly intact, light touch intact all 4 extremities, finger to nose within normal limits, Psych: Alert, oriented, appropriate affect Assessment/plan Hemoptysis and constitutional symptoms, suspicious for reactivated TB -Pulmonary consulted -Airborne precautions Chronic conditions: Asthma -DuoNeb when necessary DVT prophylaxis -Heparin The patient is admitted with an anticipated less than 2 midnight stay for e valuation of TB CODE STATUS: Full Code Discussed with: patient Anticipated discharge date: in am Anticipated discharge place: Home Past Medical History Past Medical History: Asthma, Fibromyalgia, Neurologic Disorder Additional Past Medical History / Comment(s): "possible hole in heart" as a baby.; Migraines, POSSIBLE TIA 05-16-19 , migraines, tuberculosis Jul 2019. 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 History of Any Multi-Drug Resistant Organisms: MRSA Date of last positivie culture/infection: 2012 MDRO Source:: RIGHT LEG Past Surgical History: Cholecystectomy, Tubal Ligation Additional Past Surgical History / Comment(s): EXPLORATORY lap, I&D left buttocks lap choly 01-11-20 Past Anesthesia/Blood Transfusion Reactions: Motion Sickness, Postoperative Nausea & Vomiting (PONV) Past Psychological History: Depression, PTSD Smoking Status: Vaper Past Alcohol Use History: Rare Past Drug Use History: None Reported - Past Family History Father Additional Family Medical History / Comment(s): She does not know any history on her father. Mother Family Medical History: Asthma, Neurologic Disorder, Rheumatoid Arthritis (RA) Additional Family Medical History / Comment(s): Mother at age 31 from malpractice issue, mom also had over active histamine. Sister(s) Family Medical History: Asthma Additional Family Medical History / Comment(s): Patient has 1 sister with no major medical problems. Medications and Allergies Home Medications Medication Instructions Recorded Confirmed Type Acetaminophen Tab [Tylenol Tab] 1,000 mg PO Q6HR PRN #30 tablet 01/11/20 07/29/20 Rx Cetirizine HCl [Zyrtec] 10 mg PO DAILY 07/29/20 07/29/20 History Drospirenone-Ethi 3-0.02mg 1 tab PO DAILY 07/29/20 07/29/20 History Polyethylene Glycol 3350 [Miralax] 17 gm PO DAILY PRN 07/29/20 07/29/20 History hydrOXYzine pamoate [Vistaril] 25 mg PO TID PRN 07/29/20 07/29/20 History traZODone HCL 100 - 200 mg PO HS PRN 07/29/20 07/29/20 History Amoxicillin/Potassium Clav 1 tab PO Q12HR 1 Days #20 tab 07/30/20 Rx [Augmentin 875-125 Tablet] Famotidine [Pepcid] 20 mg PO BID #10 tablet 07/30/20 Rx predniSONE [Deltasone] 20 mg PO BID #10 tab 07/30/20 Rx Doxycycline [Vibramycin] 100 mg PO BID #14 capsule 11/06/20 Rx Ibuprofen [Motrin] 600 mg PO Q8HR PRN #20 tab 01/07/21 Rx Methocarbamol [Robaxin-750] 750 mg PO TID PRN #21 tablet 01/07/21 Rx Allergies Allergy/AdvReac Type Severity Reaction Status Date / Time cat dander Allergy Swelling Verified 04/21/21 11:25 OF EYE , SOB Latex, Natural Rubber Allergy Rash/Hives Verified 04/21/21 11:25 shellfish derived [Crab] Allergy Anaphylaxis Verified 04/21/21 11:25 clindamycin AdvReac Anaphylaxis Verified 04/21/21 11:25 diphenhydramine HCl AdvReac Anaphylaxis Verified 04/21/21 11:25 [From Benadryl] Sulfa (Sulfonamide AdvReac Anaphylaxis Verified 04/21/21 11:25 Antibiotics) Physical Exam Vitals: Vital Signs Temp Pulse Resp BP Pulse Ox 05/21/21 20:13 98.3 F 91 20 113/64 99 Intake and Output 05/21/21 05/21/21 05/22/21 14:59 22:59 06:59 Other: Weight 68.039 kg Results CBC & Chem 7: 05/21/21 20:48 05/21/21 20:48 Labs: Abnormal Lab Results - Last 24 Hours (Table) 05/21/21 05/21/21 Range/Units 20:48 22:00 Eosinophils # 0.9 H (0-0.7) k/uL APTT 21.0 L (22.0-30.0) sec
[2021-05-22] MEDS ORDERED: RX INFO: IV CONTRAST WAS GIVEN 1 EACH MISC MISCELLANE PRN (07:40)
[2021-05-22] MEDS: HEPARIN SODIUM,PORCINE/PF 5,000 UNIT/0.5 ML SYRINGE SQ SCH ×2 (09:10→22:30)
[2021-05-22] MEDS: DOXYCYCLINE 100 MG CAP PO SCH ×2 (09:10→22:29)
--- NOTE | 2021-05-22 10:22 | CT ---
EXAMINATION TYPE: CT chest w con DATE OF EXAM: 05/22/2021 COMPARISON: 04/04/2013 HISTORY: Shortness of breath with fever, history of TB CT DLP: 299.8 mGycm, Automated exposure control for dose reduction was used. CONTRAST: Performed injected with 100 mL of Isovue 300. TECHNIQUE: Axial images were obtained at 5 mm thick sections. Reconstructed images are reviewed on [employer] computer in the coronal plane. FINDINGS: Portion of the thyroid visualized is normal. Thymus appears normal. No suspicious lung nodules or focal infiltrates are present. No enlarged mediastinal or hilar adenopathy is evident. The ascending aorta diameter at the level o f the main pulmonary artery is 2.8 cm. The main pulmonary artery diameter at the bifurcation is 2.[address] sections are obtained through the upper abdomen. Abdomen is essentially unremarkable. IMPRESSIONS: 1. Normal Chest CT.
--- NOTE | 2021-05-22 12:45 | P.CNPUL ---
History of Present Illness Consult date: 05/22/21 Requesting physician: Serene Vega Reason for consult: cough Chief complaint: Hemoptysis, cough History of present illness: 25-year-old female patient with history of vaping, mild intermittent bronchial asthma, depression, PTSD, previous history of MRSA infection, and migraine headaches who we had previously seen in consultation in August 2019 when the patient came in with hemoptysis. She was diagnosed with tuberculosis based on positive PPD test in July 2019. She was treated initially with isoniazid- rifampine, however most recently she had been treated with different medication which she states she had completed. This was apparently coordinated with the healthcare department, and her attending physician. She was supposed to follow- up with Dr. Fernando in the office however she was lost to follow-up. On 05/21/2021 patient came into the emergency department for evaluation of co ughing, shortness of breath, and 2 episodes of hemoptysis, the size of a teaspoonful. No chest pain. 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 Chest x- ray showed normal chest, no change from previous chest x-ray. Lab work showed a white blood cell, 6.7, hemoglobin 13, coagulation profile was within normal limits, electrolytes and renal profile were within normal limits, urine hCG was negative, COVID-19 was negative. Patient is afebrile, room air pulse ox is 98%, she is breathing comfortably, she was started on nebulized bronchodilators, she was given IV fluids, this consult was initiated. Review of Systems All systems: negative Constitutional: Reports fatigue, Denies chills, Denies fever Eyes: denies blurred vision, denies pain Ears, nose, mouth and throat: Denies headache, Denies sore throat Cardiovascular: Denies chest pain, Denies shortness of breath Respiratory: Reports dyspnea, Reports hemoptysis, Denies cough Gastrointestinal: Denies abdominal pain, Denies diarrhea, Denies nausea, Denies vomiting Genitourinary: Denies dysuria, Denies hematuria Musculoskeletal: Denies myalgias Integumentary: Denies pruritus, Denies rash Neurological: Denies numbness, Denies weakness Psychiatric: Denies anxiety, Denies depression Endocrine: Denies fatigue, Denies weight change Past Medical History Past Medical History: Asthma, Fibromyalgia, Neurologic Disorder Additional Past Medical History / Comment(s): "possible hole in heart" as a baby.; Migraines, POSSIBLE TIA 05-16-19 , migraines, tuberculosis Jul 2019. 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 History of Any Multi-Drug Resistant Organisms: MRSA Date of last positivie culture/infection: 2012 MDRO Source:: RIGHT LEG Past Surgical History: Cholecystectomy, Tubal Ligation Additional Past Surgical History / Comment(s): EXPLORATORY lap, I&D left buttocks lap choly 01-11-20 Past Anesthesia/Blood Transfusion Reactions: Motion Sickness, Postoperative Nausea & Vomiting (PONV) Past Psychological History: Depression, PTSD Smoking Status: Vaper Past Alcohol Use History: Rare Past Drug Use History: None Reported - Past Family History Father Additional Family Medical History / Comment(s): She does not know any history on her father. Mother Family Medical History: Asthma, Neurologic Disorder, Rheumatoid Arthritis (RA) Additional Family Medical History / Comment(s): Mother at age 31 from malpractice issue, mom also had over active histamine. Sister(s) Family Medical History: Asthma Additional Family Medical History / Comment(s): Patient has 1 sister with no major medical problems. Medications and Allergies Home Medications Medication Instructions Recorded Confirmed Type Acetaminophen/Pamabrom [Midol 1 tab PO Q6H PRN 05/22/21 05/22/21 History Caplet] Phenylephrine HCl/Acetaminophn 1 cap PO BID PRN 05/22/21 05/22/21 History [Vicks Sinex Daytime Liquicap] Allergies Allergy/AdvReac Type Severity Reaction Status Date / Time cat dander Allergy Swelling Verified 05/22/21 07:11 OF EYE , SOB clindamycin Allergy Anaphylaxis Verified 05/22/21 07:11 diphenhydramine HCl Allergy Anaphylaxis Verified 05/22/21 07:11 [From Benadryl] Latex, Natural Rubber Allergy Rash/Hives Verified 05/22/21 07:11 shellfish derived [Crab] Allergy Anaphylaxis Verified 05/22/21 07:11 Sulfa (Sulfonamide Allergy Anaphylaxis Verified 05/22/21 07:11 Antibiotics) Physical Exam Vitals: Vital Signs Temp Pulse Resp BP Pulse Ox 05/22/21 09:19 97.8 F 87 18 109/86 98 05/22/21 07:00 98.2 F 76 18 105/60 98 05/22/21 05:00 18 05/22/21 04:00 18 05/22/21 03:00 97.8 F 86 18 108/62 98 05/22/21 01:00 82 18 110/64 99 05/22/21 00:00 18 05/21/21 20:13 98.3 F 91 20 113/64 99 Intake and Output 05/21/21 05/22/21 05/22/21 22:59 06:59 14:59 Other: Weight 68.039 kg GENERAL EXAM: Alert, pleasant, 25-year-old white female, on room air with a pulse ox of 98% comfortable in no apparent distress. HEAD: Normocephalic/atraumatic. EYES: Normal reaction of pupils, equal size. Conjunctiva pink, sclera white. NOSE: Clear with pink turbinates. THROAT: No erythema or exudates. NECK: No masses, no JVD, no thyroid enlargement, no adenopathy. CHEST: No chest wall deformity. Symmetrical expansion. LUNGS: Equal air entry with clear breath sounds CVS: Regular rate and rhythm, normal S1 and S2, no gallops, no murmurs, no rubs ABDOMEN: Soft, nontender. No hepatosplenomegaly, normal bowel sounds, no guarding or rigidity. EXTREMITIES: No clubbing, no edema, no cyanosis, 2+ pulses and upper and lower extremities. MUSCULOSKELETAL: Muscle strength and tone normal. SPINE: No scoliosis or deformity SKIN: No rashes CENTRAL NERVOUS SYSTEM: Alert and oriented -3. No focal deficits, tone is normal in all 4 extremities. PSYCHIATRIC: Alert and oriented -3. Appropriate affect. Intact judgment and insight. Results - Laboratory Findings CBC and BMP: 05/21/21 20:48 05/21/21 20:48 PT/INR, D-dimer PT 9.9 sec (9.0-12.0) 05/21/21 22:00 INR 0.9 (<1.2) 05/21/21 22:00 Abnormal lab findings: Abnormal Labs 05/21/21 05/21/21 20:48 22:00 Eosinophils # 0.9 H APTT 21.0 L - Diagnostic Findings Chest x-ray: report reviewed, image reviewed CT scan - chest: report reviewed, image reviewed Assessment and Plan Plan: Assessment: #1. Hemoptysis, 2 episodes of teaspoonful tinged phlegm on admission, doubt possibility of reactivated TB, chest x-ray showed no acute process, we'll send 3 AFB cultures For the next 3 consecutive days. This likely related to acute bronchitis. COVID 19 PCR was negative #2. History of tuberculosis, treated, and patient has completed her medications #3. History of mild intermittent bronchial asthma #4. History of vaping #5. Migraine headaches #6. History of MRSA infection #7. History of depression and PTSD Plan: Send AFB cultures for the next 3 consecutive days We will add doxycycline Continue nebulized bronchodilators Consult ID service CT chest has been reviewed going normal CT chest, no mediastinal or hilar adenopathy, no suspicious lung nodules with local infiltrates We'll continue to follow I performed a history & physical examination of the patient and discussed their management with my nurse practitioner, Trini Alonzo. I reviewed the nurse practitioner's note and agree with the documented findings and plan of care. Lung sounds are positive for clear throughout the lung foss. The findings and the impression was discussed with the patient. I attest to the documentation by the nurse practitioner. Time with Patient: Greater than 30
[2021-05-22] MEDS: IPRATROPIUM-ALBUTEROL 3 ML NEB INHALATION SCH ×2 (15:46→21:29)
--- NOTE | 2021-05-22 16:44 | P.PN ---
Subjective Patient was seen and evaluated by me this morning. She denies any shortness of breath this morning. No acute events overnight. Objective - Vital Signs Vital signs: Vital Signs Temp 97.8 F 05/22/21 09:19 Pulse 87 05/22/21 09:19 Resp 18 05/22/21 09:19 BP 109/86 05/22/21 09:19 Pulse Ox 98 05/22/21 09:19 Intake & Output 05/21/21 05/22/21 05/22/21 18:59 06:59 18:59 Weight 68.039 kg - Exam General: The patient is awake and alert, in no distress Eye: there is normal conjunctiva bilaterally. Neck: The neck is supple, there is no JVD. Cardiovascular: Normal S1-S2, no S3-S4, no murmurs. Respiratory: Lungs clear to auscultation bilaterally Gastrointestinal: Abdomen is soft, nontender Musculoskeletal: There is no pedal edema. Neurological:. Speech is normal. 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 The patient was admitted to the hospital in August 2019 for suspected reac tivated TB and was scheduled to undergo a bronchoscopy for confirmation but left AGAINST MEDICAL ADVICE. The patient reports that she had initially contracted tuberculosis from an undocumented immigrant who was later found to have TB. The patient reports however that she completed a six-month course of anti-TB medications (not sure what) and received a certificate. Chest x-ray in the emergency room was unremarkable. Patient is currently admitted to the hospital for further management of her medical problems noted below Assessment/plan Hemoptysis and constitutional symptoms: -Computed tomography scan of the chest with no acute finding -Pulmonary and infectious disease consulted for further evaluation -[place] [employer] culture ordered -Airborne precautions Chronic conditions: Asthma -DuoNeb when necessary DVT prophylaxis -Heparin CODE STATUS: Full Code Discussed with: patient Anticipated discharge date: Pending clinical course Anticipated discharge place: Home
[2021-05-22] MEDS ORDERED: ACETAMINOPHEN TAB 325 MG TAB PO PRN (23:25)
[2021-05-22] MEDS: SODIUM CHLORIDE 0.9% 1,000 ML IV SCH (23:48)
--- NOTE | 2021-05-23 08:31 | P.CONS ---
History of Present Illness - Reason for Consult Consult date: 05/22/21 reactiviation of pulmonary TB Requesting physician: Monica Vera - Chief Complaint Hemoptysis x 1 day - History of Present Illness History of present illness : Patient is 25-year female with a past medical history significant for latent TB diagnosed last year for the patient completed a 6-month course of therapy patient did not have any evidence of pneumonia patient is now presenting to the ER last evening concerning for hemoptysis patient also complaining of shortness of breath and cough symptom has been going on for about a day before presentation to the hospital patient denies have any high-grade fever or chills denies having any night sweats no weight loss on arrival to the ER the patient was afebrile patient did have an no hypoxemia patient did have a normal white count kidney function was normal poole PCR was negative patient did have a chest x-ray normal chest no change subsequently patient did have a CT of the chest that did not show any acute abnormality patient has been admitted to hospital with concern for possible TB reactivation infectious was consulted for the same reason Review of system: CONSTITUTIONAL: Positive for weakness denies night sweats or fever. EYES: No complaint. ENT: No complaint. RESPIRATORY as per history of present illness. CARDIOVASCULAR: No complaint. GENITOURINARY: No complaint. GASTROINTESTINAL: No complaint. MUSCULOSKELETAL: No complaint. INTEGUMENTARY: No complaint. PSYCHOLOGIC: No complaint. ENDOCRINE: No complaint. NEUROLOGIC: No complaint. Past medical history : Reviewed, documented below Past surgical history : Reviewed, documented below Social history: Reviewed, documented below Medications: Reviewed, as documented below EXAMINATION: Vital sigans= Reviewed and documented below GENERAL DESCRIPTION: Middle-aged female lying in bed, no distress. No tachypnea or accessory muscle of respiration use. HEENT: Shows Pallor , no scleral icterus. Oral mucous membrane is dry. NECK: Trachea central, no thyromegaly. LUNGS: Unlabored breathing. Clear to auscultation anteriorly. No wheeze or crackle. HEART: S1, S2, regular rate and rhythm. ABDOMEN: Soft, no tenderness , guarding or rigidity EXTREMITIES: No edema of feet. SKIN: No rash, no masses palpable. NEUROLOGICAL: The patient is awake, alert, oriented x3, mood and affect normal. LABS AND RADIOLOGY: Reviewed results see below Assessment : Patient is a 25-year-old female with a past medical history significant for latent TB for the patient received 6 months treatment last year patient presented to hospital with shortness of breath and hemoptysis in this patient with no fever no elevated white count or the chest x-ray and CT of the chest are negative there will make it to be unlikely reactivation of the pulmonary tuberculosis possible tracheobronchitis Plan: 1-sputum AFB has been ordered by pulmonary and those will be followed 2-no need for any specific anti-TB treatment at this point as the clinic suspicious is low for reactivation of pulmonary TB 3-with a CT of the chest x-ray negative clinically no need for AFB isolation We will follow on clinical condition and cultures to further adjust medication if needed Thank you for this consultation we will follow the patient along with you Past Medical History Past Medical History: Asthma, Fibromyalgia, Neurologic Disorder Additional Past Medical History / Comment(s): "possible hole in heart" as a baby.; Migraines, POSSIBLE TIA 05-16-19 , migraines, tuberculosis Jul 2019. Charanjit ated here for TB.latent TB refer to documentation from 01-11-2020 History of Any Multi-Drug Resistant Organisms: MRSA Year Discovered:: 2012 MDRO Source:: RIGHT LEG Past Surgical History: Cholecystectomy, Tubal Ligation Additional Past Surgical History / Comment(s): EXPLORATORY lap, I&D left buttocks lap choly 01-11-20 Past Anesthesia/Blood Transfusion Reactions: Motion Sickness, Postoperative Nausea & Vomiting (PONV) Past Psychological History: Depression, PTSD Smoking Status: Vaper Past Alcohol Use History: Rare Past Drug Use History: None Reported - Past Family History Father Additional Family Medical History / Comment(s): She does not know any history on her father. Mother Family Medical History: Asthma, Neurologic Disorder, Rheumatoid Arthritis (RA) Additional Family Medical History / Comment(s): Mother at age 31 from malpractice issue, mom also had over active histamine. Sister(s) Family Medical History: Asthma Additional Family Medical History / Comment(s): Patient has 1 sister with no major medical problems. Medications and Allergies Home Medications Medication Instructions Recorded Confirmed Type Acetaminophen/Pamabrom [Midol 1 tab PO Q6H PRN 05/22/21 05/22/21 History Caplet] Phenylephrine HCl/Acetaminophn 1 cap PO BID PRN 05/22/21 05/22/21 History [Vicks Sinex Daytime Liquicap] Allergies Allergy/AdvReac Type Severity Reaction Status Date / Time cat dander Allergy Swelling Verified 05/22/21 07:11 OF EYE , SOB clindamycin Allergy Anaphylaxis Verified 05/22/21 07:11 diphenhydramine HCl Allergy Anaphylaxis Verified 05/22/21 07:11 [From Benadryl] Latex, Natural Rubber Allergy Rash/Hives Verified 05/22/21 07:11 shellfish derived [Crab] Allergy Anaphylaxis Verified 05/22/21 07:11 Sulfa (Sulfonamide Allergy Anaphylaxis Verified 05/22/21 07:11 Antibiotics) Physical Exam Vitals: Vital Signs Temp Pulse Resp BP Pulse Ox 05/22/21 09:19 97.8 F 87 18 109/86 98 05/22/21 07:00 98.2 F 76 18 105/60 98 05/22/21 05:00 18 05/22/21 04:00 18 05/22/21 03:00 97.8 F 86 18 108/62 98 05/22/21 01:00 82 18 110/64 99 05/22/21 00:00 18 05/21/21 20:13 98.3 F 91 20 113/64 99 Intake and Output 05/21/21 05/22/21 05/22/21 22:59 06:59 14:59 Other: Weight 68.039 kg Results CBC & Chem 7: 05/21/21 20:48 05/21/21 20:48 Labs: Abnormal Lab Results - Last 24 Hours (Table) 05/21/21 05/21/21 Range/Units 20:48 22:00 Eosinophils # 0.9 H (0-0.7) k/uL APTT 21.0 L (22.0-30.0) sec
[2021-05-23] MEDS: IPRATROPIUM-ALBUTEROL 3 ML NEB INHALATION SCH ×5 (08:44→21:37)
[2021-05-23] MEDS: DOXYCYCLINE 100 MG CAP PO SCH ×2 (09:15→21:23)
[2021-05-23] MEDS: HEPARIN SODIUM,PORCINE/PF 5,000 UNIT/0.5 ML SYRINGE SQ SCH ×3 (09:15→21:23)
--- NOTE | 2021-05-23 11:59 | P.PN ---
Subjective Progress Note Date: 05/23/21 Principal diagnosis: Hemoptysis 25-year-old female patient with history of vaping, mild intermittent bronchial asthma, depression, PTSD, previous history of MRSA infection, and migraine headaches who we had previously seen in consultation in August 2019 when the patient came in with hemoptysis. She was diagnosed with tuberculosis based on positive PPD test in July 2019. She was treated initially with isoniazid- rifampine, however most recently she had been treated with different medication which she states she had completed. This was apparently coordinated with the healthcare department, and her attending physician. She was supposed to follow- up with Dr. Fernando in the office however she was lost to follow-up. On 05/21/2021 patient came into the emergency department for evaluation of coughing, shortness of breath, and 2 episodes of hemoptysis, the size of a teaspoonful. No chest pain. 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 Chest x- ray showed normal chest, no change from previous chest x-ray. Lab work showed a white blood cell, 6.7, hemoglobin 13, coagulation profile was within normal limits, electrolytes and renal profile were within normal limits, urine hCG was negative, COVID-19 was negative. Patient is afebrile, room air pulse ox is 98%, she is breathing comfortably, she was started on nebulized bronchodilators, she was given IV fluids, this consult was initiated. On 05/23/2021 patient seen in follow-up on medical surgical floor. She is resting comfortably in bed, lung sounds are essentially clear to auscultation, and she states she has had no recurrence of hemoptysis, at times she is bringing up some greenish to yellowish colored phlegm, however no sputum was sent for culture, no AFB was sent yet. Patient remains on doxycycline possibility of tracheobronchitis, she remains on nebulized bronchodilators in the form of DuoNeb. She is on 0.9 normal saline with 20 ML per hour, no fever or chills overnight, no chest discomfort. Room air pulse ox is 98%. Objective - Vital Signs Vital signs: Vital Signs Temp 97.6 F 05/23/21 07:59 Pulse 71 05/23/21 07:59 Resp 18 05/23/21 07:59 BP 101/63 05/23/21 07:59 Pulse Ox 98 05/23/21 07:59 Intake & Output 05/22/21 05/23/21 05/23/21 18:59 06:59 18:59 Other: # Voids 2 - Exam GENERAL EXAM: Alert, pleasant, 25-year-old white female, on room air with a pulse ox of 98% comfortable in no apparent distress. HEAD: Normocephalic/atraumatic. EYES: Normal reaction of pupils, equal size. Conjunctiva pink, sclera white. NOSE: Clear with pink turbinates. THROAT: No erythema or exudates. NECK: No masses, no JVD, no thyroid enlargement, no adenopathy. CHEST: No chest wall deformity. Symmetrical expansion. LUNGS: Equal air entry with clear breath sounds CVS: Regular rate and rhythm, normal S1 and S2, no gallops, no murmurs, no rubs ABDOMEN: Soft, nontender. No hepatosplenomegaly, normal bowel sounds, no guarding or rigidity. EXTREMITIES: No clubbing, no edema, no cyanosis, 2+ pulses and upper and lower extremities. MUSCULOSKELETAL: Muscle strength and tone normal. SPINE: No scoliosis or deformity SKIN: No rashes CENTRAL NERVOUS SYSTEM: Alert and oriented -3. No focal deficits, tone is normal in all 4 extremities. PSYCHIATRIC: Alert and oriented -3. Appropriate affect. Intact judgment and insight. - Labs CBC & Chem 7: 05/21/21 20:48 05/21/21 20:48 Assessment and Plan Plan: Assessment: #1. Hemoptysis, 2 episodes of teaspoonful tinged phlegm on admission, doubt possibility of reactivated TB, chest x-ray showed no acute process, we'll send 3 AFB cultures For the next 3 consecutive days. This likely related to acute bronchitis. COVID 19 PCR was negative #2. History of tuberculosis, treated, and patient has completed her medications #3. History of mild intermittent bronchial asthma #4. History of vaping #5. Migraine headaches #6. History of MRSA infection #7. History of depression and PTSD Plan: Spoke to the nursing staff Sputum culture has not been sent yet Will need AFB cultures times 3 Continue doxycycline Continue nebulized bronchodilators Chest x-ray and CT chest showed no acute process Unlikely possibility of reactivated TB There has been no recurrence of hemoptysis We'll continue to follow I performed a history & physical examination of the patient and discussed their management with my nurse practitioner, Trini Alnozo. I reviewed the nurse practitioner's note and agree with the documented findings and plan of care. Lung sounds are positive for clear throughout the lung foss. The findings and the impression was discussed with the patient. I attest to the documentation by the nurse practitioner. Time with Patient: Less than 30
[2021-05-23] MEDS: HYPERTONIC SALINE 3% NEBULIZ 4 ML NEBU INHALATION SCH (13:47)
--- NOTE | 2021-05-23 17:43 | P.PN ---
Subjective Patient is doing well today. She is not coughing up anything. No acute events overnight. No acute events overnight Objective - Vital Signs Vital signs: Vital Signs Temp 97.8 F 05/23/21 14:00 Pulse 80 05/23/21 15:52 Resp 18 05/23/21 15:52 BP 107/61 05/23/21 14:00 Pulse Ox 98 05/23/21 14:00 Intake & Output 05/22/21 05/23/21 05/23/21 18:59 06:59 18:59 Other: # Voids 2 - Exam General: The patient is awake and alert, in no distress Eye: there is normal conjunctiva bilaterally. Neck: The neck is supple, there is no JVD. Cardiovascular: Normal S1-S2, no S3-S4, no murmurs. Respiratory: Lungs clear to auscultation bilaterally Gastrointestinal: Abdomen is soft, nontender Musculoskeletal: There is no pedal edema. Neurological:. Speech is normal. Skin: Skin is warm and dry - Labs CBC & Chem 7: 05/21/21 20:48 05/21/21 20:48 Assessment and Plan Assessment: The patient is a 25-year-old female with a PMH of mild intermittent asthma and positive PPD status post 6 month of therapy who presents to the emergency room with complaint of hemoptysis, low-grade fever, and shortness of breath. The patient was admitted to the hospital in August 2019 for suspected reactivated TB and was scheduled to undergo a bronchoscopy for confirmation but left AGAINST MEDICAL ADVICE. The patient reports that she had initially contracted tuberculosis from an undocumented immigrant who was later found to have TB. The patient reports however that she completed a six-month course of anti-TB medications (not sure what) and received a certificate. Chest x-ray in the emergency room was unremarkable. Patient is currently admitted to the hospital for further management of her medical problems noted below Assessment/plan Hemoptysis and constitutional symptoms, now resolved -Computed tomography scan of the chest with no acute finding -Pulmonary and infectious disease consulted for further evaluation -AFB culture ordered -Airborne precautions Chronic conditions: Asthma -DuoNeb when necessary DVT prophylaxis -Heparin Today, I discussed with nursing staff using hypertonic saline to induce sputum.
--- NOTE | 2021-05-23 22:09 | PN ---
PROGRESS NOTE DATE OF SERVICE: 05/23/2021 REASON FOR FOLLOWUP: Hemoptysis and question of TB. INTERVAL HISTORY: The patient is currently afebrile. The patient is breathing comfortably on room air. Denies having any chest pain or shortness of breath. Still having a cough and is complaining of some hemoptysis. No nausea, no vomiting. No abdominal pain or diarrhea. PHYSICAL EXAMINATION: Blood pressure 107/61 with a pulse of 75, temperature 97.8. She is 98% on room air. General description is a young female lying in bed in no distress. Respiratory system: Unlabored breathing, decreased intensity of breath sounds. No wheeze. Heart S1, S2. Regular rate and rhythm. Abdomen soft, no tenderness. Extremities no edema of the feet. LABS: Sputum is currently pending. DIAGNOSTIC IMPRESSION AND PLAN: Patient admitted to hospital with hemoptysis in this patient with previous history of that has been treated with 6 months of treatment. Clinically not behaving as pulmonary tuberculosis in this patient with no fever, no white count. CT and chest x- ray negative. Continue with current supportive treatment. MMODL / IJN: [id number] /
[2021-05-24] MEDS: SODIUM CHLORIDE 0.9% 1,000 ML IV SCH (00:36)
[2021-05-24] MEDS: DOXYCYCLINE 100 MG CAP PO SCH (07:51)
[2021-05-24] MEDS: HEPARIN SODIUM,PORCINE/PF 5,000 UNIT/0.5 ML SYRINGE SQ SCH (07:51)
[2021-05-24 08:00] VITALS: BP 113/69; RESP 18; TEMP 97.8
[2021-05-24] MEDS: IPRATROPIUM-ALBUTEROL 3 ML NEB INHALATION SCH (08:07)
[2021-05-24] MEDS: HYPERTONIC SALINE 3% NEBULIZ 4 ML NEBU INHALATION SCH (08:07)
[2021-05-24 11:45] VITALS: PULSE 88
--- NOTE | 2021-05-24 12:42 | P.PN ---
Subjective Progress Note Date: 05/24/21 Principal diagnosis: Hemoptysis 25-year-old female patient with history of vaping, mild intermittent bronchial asthma, depression, PTSD, previous history of MRSA infection, and migraine headaches who we had previously seen in consultation in August 2019 when the patient came in with hemoptysis. She was diagnosed with tuberculosis based on positive PPD test in July 2019. She was treated initially with isoniazid- rifampine, however most recently she had been treated with different medication which she states she had completed. This was apparently coordinated with the healthcare department, and her attending physician. She was supposed to follow- up with Dr. Fernando in the office however she was lost to follow-up. On 05/21/2021 patient came into the emergency department for evaluation of coughing, shortness of breath, and 2 episodes of hemoptysis, the size of a teaspoonful. No chest pain. 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 Chest x- ray showed normal chest, no change from previous chest x-ray. Lab work showed a white blood cell, 6.7, hemoglobin 13, coagulation profile was within normal limits, electrolytes and renal profile were within normal limits, urine hCG was negative, COVID-19 was negative. Patient is afebrile, room air pulse ox is 98%, she is breathing comfortably, she was started on nebulized bronchodilators, she was given IV fluids, this consult was initiated. On 05/23/2021 patient seen in follow-up on medical surgical floor. She is resting comfortably in bed, lung sounds are essentially clear to auscultation, and she states she has had no recurrence of hemoptysis, at times she is bringing up some greenish to yellowish colored phlegm, however no sputum was sent for culture, no AFB was sent yet. Patient remains on doxycycline possibility of tracheobronchitis, she remains on nebulized bronchodilators in the form of DuoNeb. She is on 0.9 normal saline with 20 ML per hour, no fever or chills overnight, no chest discomfort. Room air pulse ox is 98%. On 05/24/2021 patient seen in follow-up on medical surgical floor. She is resting comfortably in bed, in no acute distress, lung sounds are clear, occasional cough, still bringing up some phlegm occasionally, no hemoptysis, continues on doxycycline, breathing treatments. She has had no acute events overnight, sputum for AFB was sent, and cultures are pending. Otherwise patient has been stable, no fever or chills, vital signs have been stable, room air pulse ox 97%. Objective - Vital Signs Vital signs: Vital Signs Temp 97.8 F 05/24/21 07:58 Pulse 88 05/24/21 11:44 Resp 18 05/24/21 07:58 BP 113/69 05/24/21 07:58 Pulse Ox 97 05/24/21 07:58 Intake & Output 05/23/21 05/24/21 05/24/21 18:59 06:59 18:59 Intake Total 240 480 Balance 240 480 Intake: Intake, IV Titration 240 Amount Sodium Chloride 0.9% 1, 240 000 ml @ 20 mls/hr IV . Q24H ELIZ Rx#:[id number] Oral 480 Other: # Voids 2 - Exam GENERAL EXAM: Alert, pleasant, 25-year-old white female, on room air with a pulse ox of 98% comfortable in no apparent distress. HEAD: Normocephalic/atraumatic. EYES: Normal reaction of pupils, equal size. Conjunctiva pink, sclera white. NOSE: Clear with pink turbinates. THROAT: No erythema or exudates. NECK: No masses, no JVD, no thyroid enlargement, no adenopathy. CHEST: No chest wall deformity. Symmetrical expansion. LUNGS: Equal air entry with clear breath sounds CVS: Regular rate and rhythm, normal S1 and S2, no gallops, no murmurs, no rubs ABDOMEN: Soft, nontender. No hepatosplenomegaly, normal bowel sounds, no guarding or rigidity. EXTREMITIES: No clubbing, no edema, no cyanosis, 2+ pulses and upper and lower extremities. MUSCULOSKELETAL: Muscle strength and tone normal. SPINE: No scoliosis or deformity SKIN: No rashes CENTRAL NERVOUS SYSTEM: Alert and oriented -3. No focal deficits, tone is normal in all 4 extremities. PSYCHIATRIC: Alert and oriented -3. Appropriate affect. Intact judgment and insight. - Labs CBC & Chem 7: 05/21/21 20:48 05/21/21 20:48 Labs: Microbiology - Last 24 Hours (Table) 05/23/21 13:49 Acid Fast Bacilli Culture - Preliminary Sputum Assessment and Plan Plan: Assessment: #1. Hemoptysis, 2 episodes of teaspoonful tinged phlegm on admission, doubt possibility of reactivated TB, chest x-ray showed no acute process, we'll send 3 AFB cultures For the next 3 consecutive days. This likely related to acute bronchitis. COVID 19 PCR was negative #2. History of tuberculosis, treated, and patient has completed her medications #3. History of mild intermittent bronchial asthma #4. History of vaping #5. Migraine headaches #6. History of MRSA infection #7. History of depression and PTSD Plan: Clinically patient has been stable No recurrence of hemoptysis No fever or chills Stable for discharge home from pulmonary perspective the patient can complete a course of doxycycline She will be given a rescue inhaler [employer] has been sent, pending She will need outpatient follow-up with Dr. Fernando in the office in 7-10 days Was advised to quit vaping I performed a history & physical examination of the patient and discussed their management with my nurse practitioner, Trini Alonzo. I reviewed the nurse practitioner's note and agree with the documented findings and plan of care. Lung sounds are positive for clear throughout the lung foss. The findings and the impression was discussed with the patient. I attest to the documentation by the nurse practitioner. Time with Patient: Less than 30
--- NOTE | 2021-05-24 13:48 | P.DS ---
Providers Date of admission: 05/23/21 09:18 Attending physician: Serene Vega MD Consults: 05/21/21 22:12 Consult Physician Routine Consulting Provider: Edie Reynolds Consult Reason/Comments: suspect reactivation TB Do you want consulting provider notified?: Yes 05/22/21 07:34 Consult Physician Routine Consulting Provider: Reji Myers Consult Reason/Comments: possible tb Do you want consulting provider notified?: Yes Primary care physician: MARAL Bailey Hospital Course: Constitutional: No acute distress, conversant, pleasant Eyes: Anicteric sclerae, moist conjunctiva, no lid-lag PERRLA ENMT: NC/AT Oropharynx clear, no erythema, exudates Neck: Supple, FROM, no masses, or JVD No carotid bruits No thyromegaly Lungs: Clear to auscultation Clear to percussion Normal respiratory effort, no accessory muscle use Cardiovascular: Heart regular in rate and rhythm, No murmurs, gallops, or rubs No peripheral edema Abdominal: Soft Nontender, no guarding, rebound or rigidity Abdomen moving with respiration Normoactive bowel sounds No hepatomegaly, No splenomegaly No palpable mass No abdominal wall hernia noted Skin: Normal temperature, tone, texture, turgor No induration No subcutaneous nodules No rash, lesions No ulcers Extremities: No digital cyanosis No clubbing Pedal pulses intact and symmetrical Radial pulses intact and symmetrical Normal gait and station No calf tenderness Psychiatric:Alert and oriented to person, place and time Appropriate affect Intact judgement Neuro: Muscles Strength 5/5 in all 4 extremities Sensation to light touch grossly present throughout Cranial nerves II-XII grossly intact No focal sensory deficits Admitted to the hospital with hemoptysis has been evaluated by pulmonology started on IV antibiotics condition of the patient significantly improved the patient still have cough today but no hemoptysis Patient was released from pulmonology to be discharged home hospital stay the patient remained stable Discharge plan hemoptysis resolved likely bronchitis versus pneumonia tB ruled out Patient to follow-up with pulmonology and primary care physician Patient has been discharged on doxycycline Patient Condition at Discharge: Fair Plan - Discharge Summary Discharge Rx Participant: No New Discharge Prescriptions: New Doxycycline [Vibramycin] 100 mg PO BID 8 Days #16 capsule Cefdinir [Omnicef] 300 mg PO Q12HR #10 capsule Doxycycline [Vibramycin] 100 mg PO BID #0 cap Albuterol Inhaler [Ventolin Hfa Inhaler] 2 puff INHALATION RT-QID PRN 30 Days #1 unit PRN Reason: Shortness Of Breath Discontinued Phenylephrine HCl/Acetaminophn [Vicks Sinex Daytime Liquicap] 1 cap PO BID PRN PRN Reason: Congestion Acetaminophen/Pamabrom [Midol Caplet] 1 tab PO Q6H PRN PRN Reason: menstrual discomfort Discharge Medication List Albuterol Inhaler [Ventolin Hfa Inhaler] 2 puff INHALATION RT-QID PRN 30 Days #1 unit 05/24/21 [Rx] Cefdinir [Omnicef] 300 mg PO Q12HR #10 capsule 05/24/21 [Rx] Doxycycline [Vibramycin] 100 mg PO BID #0 cap 05/24/21 [Rx] Doxycycline [Vibramycin] 100 mg PO BID 8 Days #16 capsule 05/24/21 [Rx] Follow up Appointment(s)/Referral(s): Raymundo Akbar MD [STAFF PHYSICIAN] - 06/09/21 1:00 pm Lina Galicia NPC [Primary Care Provider] - 05/29/21 2:40 pm Patient Instructions/Handouts: Asthma (GEN), Acute Bronchitis (GEN) Discharge Disposition: HOME SELF-CARE
--- NOTE | 2021-05-24 15:45 | PN ---
PROGRESS NOTE DATE OF SERVICE: 05/24/2021 REASON FOR FOLLOWUP: Hemoptysis and a question of . INTERVAL HISTORY: The patient is afebrile. The patient is breathing comfortably. No further hemoptysis. She does have a cough, bringing up some yellow sputum. No nausea, no vomiting. No abdominal pain or diarrhea. PHYSICAL EXAMINATION: Blood pressure 113/69, pulse 85, temperature 97.8. She is 97% on room air. General description is a middle-aged female up in the bed in no distress. Respiratory system: Unlabored breathing, decreased intensity of breath sounds. No wheeze. Heart S1, S2. Regular rate and rhythm. Abdomen soft, no tenderness. LABS: Hemoglobin , white count 6.7, creatinine 0.69. Sputum AFB currently pending x2. DIAGNOSTIC IMPRESSION AND PLAN: Patient presented to hospital with hemoptysis, possible tracheobronchitis, clinically not behaving as pulmonary with negative CT and chest x-ray. Patient with no fever or elevated white count. Await sputum AFB. Continue supportive care. MMODL / IJN: [id number] /
== END 2021-05-24 13:25 | disposition home or self-care (01) | DRG 204 ==
LOC: EC 19:21 → 4SSUR 22:12 → OBSVTOIN 05-23 09:18
PROVIDERS: ADMIT Internal Medicine; ATTEND Internal Medicine
DX: R04.2 Hemoptysis (principal); J20.9 Acute bronchitis, unspecified; J30.81 Allergic rhinitis due to animal (cat) (dog) hair and dander; J45.20 Mild intermittent asthma, uncomplicated; G43.909 Migraine, unspecified, not intractable, without status migrainosus; Z20.822 Contact with and (suspected) exposure to COVID-19; F32.A Depression, unspecified; F43.10 Post-traumatic stress disorder, unspecified; M79.7 Fibromyalgia; Z86.11 Personal history of tuberculosis; Z86.14 Personal history of Methicillin resistant Staphylococcus aureus infection; Z86.15 Personal history of latent tuberculosis infection; Z98.51 Tubal ligation status; Z90.49 Acquired absence of other specified parts of digestive tract; Z88.2 Allergy status to sulfonamides; Z88.1 Allergy status to other antibiotic agents; Z91.040 Latex allergy status; Z91.013 Allergy to seafood
CPT/HCPCS: 36415; 71045; 71260; 80048; 81025; 85025; 85610; 85730; 86850; 86900; 86901; 87116; 87206; 87635; 94640; 99285

== ENCOUNTER 2021-08-09 20:06 | Emergency (ER) | payer OTHER ==
[2021-08-09 20:38] VITALS: BP 117/81; PULSE 86; RESP 18; TEMP 97.7
[2021-08-09] MEDS ORDERED: SODIUM CHLORIDE 0.9% 1,000 ML IV ONE (20:57)
[2021-08-09] MEDS ORDERED: ACETAMINOPHEN TAB 500 MG TAB PO STA (20:57)
[2021-08-09 21:21] LABS: Basophils # (A) 0.1 k/uL (0-0.2); Basophils % (A) 1 %; Eosinophils # (A) 0.7 k/uL (0-0.7); Eosinophils % (A) 7 %; HCT 37.4 % (34.0-46.0); HGB 12.8 gm/dL (11.4-16.0); Lymphocytes % (A) 28 %; MCH 29.9 pg (25.0-35.0); MCHC 34.2 g/dL (31.0-37.0); MCV 87.4 fL (80.0-100.0); Mean Platelet Volume 7.5; Monocytes # (A) 0.5 k/uL (0-1.0); Monocytes % (A) 4 %; Neutrophils # (A) 6.5 k/uL (1.3-7.7); Neutrophils % (A) 59 %; Platelet Count 303 k/uL (150-450); RBC 4.28 m/uL (3.80-5.40); RDW 13.8 % (11.5-15.5)
[2021-08-09 21:25] LABS: Appearance,Urine Clear (Clear); Bilirubin,Urine Negative (Negative); Blood,Urine Large (Negative); Color,Urine Yellow; Glucose,Urine (UA) Negative (Negative); Ketones,Urine Negative (Negative); Leukocyte Esterase,Urine Negative (Negative); Mucus,Urine Occasional /hpf; Nitrite,Urine Negative (Negative); PH, Urine 6.5 (5.0-8.0); Protein,Urine Trace (Negative); RBC,Urine >182 /hpf (0-5); Specific Gravity,Urine 1.025 (1.001-1.035); Squamous Epithelial Cell,Urine 1 /hpf (0-4); Urobilinogen,Urine <2.0 mg/dL (<2.0); WBC,Urine 5 /hpf (0-5)
--- NOTE | 2021-08-09 21:28 | ED ---
General Adult HPI - General Chief complaint: Vaginal Bleeding Stated complaint: Vaginal Bleeding Time Seen by Provider: 08/09/21 20:40 Source: patient Mode of arrival: wheelchair Limitations: no limitations - History of Present Illness Initial comments: This 26-year-old female with a past medical history of PCOS presents to the emergency department with vaginal bleeding times one day. Patient states she has been on her period for the last 2 days, however, today when she got out of the shower she noticed 1 golf ball size blood clot was passed. Patient states before today she has been having her regular menses, however they have been lasting a little longer than usual. Patient states I'm here to "make sure not bleeding out." Patient states she has also been having "right ovary pain." Patient denies any chest pain, shortness of breath, lightheadedness, nausea, vomiting, headache, dizziness, change in bowel or bladder. - Related Data Home Medications Medication Instructions Recorded Confirmed No Known Home Medications 08/09/21 08/09/21 Allergies Allergy/AdvReac Type Severity Reaction Status Date / Time cat dander Allergy Swelling Verified 08/09/21 21:09 OF EYE , SOB clindamycin Allergy Anaphylaxis Verified 08/09/21 21:09 diphenhydramine HCl Allergy Anaphylaxis Verified 08/09/21 21:09 [From Benadryl] Latex, Natural Rubber Allergy Rash/Hives Verified 08/09/21 21:09 shellfish derived [Crab] Allergy Anaphylaxis Verified 08/09/21 21:09 Sulfa (Sulfonamide Allergy Anaphylaxis Verified 08/09/21 21:09 Antibiotics) Review of Systems ROS Statement: Those systems with pertinent positive or pertinent negative responses have been documented in the HPI. ROS Other: All systems not noted in ROS Statement are negative. Past Medical History Past Medical History: Asthma, Fibromyalgia, Neurologic Disorder Additional Past Medical History / Comment(s): "possible hole in heart" as a baby.; Migraines, POSSIBLE TIA 05-16-19 , migraines, tuberculosis Jul 2019. 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 History of Any Multi-Drug Resistant Organisms: MRSA Date of last positivie culture/infection: 2012 MDRO Source:: RIGHT LEG Past Surgical History: Cholecystectomy, Tubal Ligation Additional Past Surgical History / Comment(s): EXPLORATORY lap, I&D left buttocks lap choly 7-6-20 Past Anesthesia/Blood Transfusion Reactions: Motion Sickness, Postoperative Nausea & Vomiting (PONV) Past Psychological History: Depression, PTSD Smoking Status: Vaper Past Alcohol Use History: Rare Past Drug Use History: None Reported - Past Family History Father Additional Family Medical History / Comment(s): She does not know any history on her father. Mother Family Medical History: Asthma, Neurologic Disorder, Rheumatoid Arthritis (RA) Additional Family Medical History / Comment(s): Mother at age 31 from malpractice issue, mom also had over active histamine. Sister(s) Family Medical History: Asthma Additional Family Medical History / Comment(s): Patient has 1 sister with no major medical problems. General Exam Limitations: no limitations General appearance: alert, in no apparent distress Head exam: Present: atraumatic, normocephalic, normal inspection Eye exam: Present: normal appearance, PERRL, EOMI Pupils: Present: normal accommodation ENT exam: Present: normal exam, mucous membranes moist Neck exam: Present: full ROM Respiratory exam: Present: normal lung sounds bilaterally. Absent: respiratory distress, wheezes, rales, rhonchi, stridor Cardiovascular Exam: Present: regular rate, normal rhythm, normal heart sounds. Absent: systolic murmur, diastolic murmur, rubs, gallop, clicks GI/Abdominal exam: Present: soft, tenderness (Right lower quadrant with mild tenderness to palpation), normal bowel sounds. Absent: distended, guarding, rebound, rigid Extremities exam: Present: normal inspection, other (Patient with pain in right knee, states she tore some ligaments and tendons earlier in the week at work) Back exam: Present: normal inspection. Absent: tenderness, CVA tenderness (R), CVA tenderness (L) Neurological exam: Present: alert, oriented X3, CN II-XII intact Psychiatric exam: Present: normal affect, normal mood Skin exam: Present: warm, dry, intact, normal color. Absent: rash Course Vital Signs 08/09/21 20:36 Temperature 97.7 F Pulse Rate 86 Respiratory 18 Rate Blood Pressure 117/81 O2 Sat by Pulse 99 Oximetry Medical Decision Making - Medical Decision Making This 26-year-old female presents to the emergency department with menorrhagia. Labs unremarkable, coagulations unremarkable, urine unremarkable urine hCG not detected. Transvaginal ultrasound impression: No evidence of endometrial mass. No evidence of ovarian torsion. Cervical cyst noted. Patient refused pelvic exam. Patient to follow-up with [facility] in the next 24-48 hours. Strict return precautions were discussed. Patient verbally agreed to plan. Patient's home in stable condition. Case was discussed by attending, . - Lab Data Result diagrams: 08/09/21 21:15 08/09/21 21:15 Lab Results 08/09/21 08/09/21 08/09/21 Range/Units 21:15 21:15 21:15 WBC 11.0 H (3.8-10.6) k/uL RBC 4.28 (3.80-5.40) m/uL Hgb 12.8 (11.4-16.0) gm/dL Hct 37.4 (34.0-46.0) % MCV 87.4 (80.0-100.0) fL MCH 29.9 (25.0-35.0) pg MCHC 34.2 (31.0-37.0) g/dL RDW 13.8 (11.5-15.5) % Plt Count 303 (150-450) k/uL MPV 7.5 Neutrophils % 59 % Lymphocytes % 28 % Monocytes % 4 % Eosinophils % 7 % Basophils % 1 % Neutrophils # 6.5 (1.3-7.7) k/uL Lymphocytes # 3.0 (1.0-4.8) k/uL Monocytes # 0.5 (0-1.0) k/uL Eosinophils # 0.7 (0-0.7) k/uL Basophils # 0.1 (0-0.2) k/uL PT 10.2 (9.0-12.0) sec INR 0.9 (<1.2) APTT 22.2 (22.0-30.0) sec Sodium (137-145) mmol/L Potassium (3.5-5.1) mmol/L Chloride (98-107) mmol/L Carbon Dioxide (22-30) mmol/L Anion Gap mmol/L BUN (7-17) mg/dL Creatinine (0.52-1.04) mg/dL Est GFR (CKD-EPI)AfAm (>60 ml/min/1.73 sqM) Est GFR (CKD-EPI)NonAf (>60 ml/min/1.73 sqM) Glucose (74-99) mg/dL Calcium (8.4-10.2) mg/dL Total Bilirubin (0.2-1.3) mg/dL AST (14-36) U/L ALT (4-34) U/L Alkaline Phosphatase (38-126) U/L Total Protein (6.3-8.2) g/dL Albumin (3.5-5.0) g/dL Urine Color Yellow Urine Appearance Clear (Clear) Urine pH 6.5 (5.0-8.0) Ur Specific [place] 1.025 (1.001-1.035) Urine Protein Trace H (Negative) Urine Glucose (UA) Negative (Negative) Urine Ketones Negative (Negative) Urine Blood Large H (Negative) Urine Nitrite Negative (Negative) Urine Bilirubin Negative (Negative) Urine Urobilinogen <2.0 (<2.0) mg/dL Ur Leukocyte Esterase Negative (Negative) Urine RBC >182 H (0-5) /hpf Urine WBC 5 (0-5) /hpf Ur Squamous Epith Cells 1 (0-4) /hpf Urine Mucus Occasional H (None) /hpf Urine HCG, Qual (Not Detectd) Blood Type Blood Type Recheck Bld Type Recheck Status Antibody Screen Spec Expiration Date 08/09/21 08/09/21 08/09/21 Range/Units 21:15 21:15 21:15 WBC (3.8-10.6) k/uL RBC (3.80-5.40) m/uL Hgb (11.4-16.0) gm/dL Hct (34.0-46.0) % MCV (80.0-100.0) fL MCH (25.0-35.0) pg MCHC (31.0-37.0) g/dL RDW (11.5-15.5) % Plt Count (150-450) k/uL MPV Neutrophils % % Lymphocytes % % Monocytes % % Eosinophils % % Basophils % % Neutrophils # (1.3-7.7) k/uL Lymphocytes # (1.0-4.8) k/uL Monocytes # (0-1.0) k/uL Eosinophils # (0-0.7) k/uL Basophils # (0-0.2) k/uL PT (9.0-12.0) sec INR (<1.2) APTT (22.0-30.0) sec Sodium 137 (137-145) mmol/L Potassium 4.2 (3.5-5.1) mmol/L Chloride 106 (98-107) mmol/L Carbon Dioxide 24 (22-30) mmol/L Anion Gap 7 mmol/L BUN 16 (7-17) mg/dL Creatinine 0.60 (0.52-1.04) mg/dL Est GFR (CKD-EPI)AfAm >90 (>60 ml/min/1.73 sqM) Est GFR (CKD-EPI)NonAf >90 (>60 ml/min/1.73 sqM) Glucose 100 H (74-99) mg/dL Calcium 9.2 (8.4-10.2) mg/dL Total Bilirubin 0.5 (0.2-1.3) mg/dL AST 25 (14-36) U/L ALT 12 (4-34) U/L Alkaline Phosphatase 29 L (38-126) U/L Total Protein 7.3 (6.3-8.2) g/dL Albumin 4.2 (3.5-5.0) g/dL Urine Color Urine Appearance (Clear) Urine pH (5.0-8.0) Ur Specific [place] (1.001-1.035) Urine Protein (Negative) Urine Glucose (UA) (Negative) Urine Ketones (Negative) Urine Blood (Negative) Urine Nitrite (Negative) Urine Bilirubin (Negative) Urine Urobilinogen (<2.0) mg/dL Ur Leukocyte Esterase (Negative) Urine RBC (0-5) /hpf Urine WBC (0-5) /hpf Ur Squamous Epith Cells (0-4) /hpf Urine Mucus (None) /hpf Urine HCG, Qual Not Detected (Not Detectd) Blood Type A Positive Blood Type Recheck A Pos Bld Type Recheck Status No Antibody Screen NEGATIVE Spec Expiration Date 08/12/20212314 Disposition Clinical Impression: Dysfunctional uterine bleeding, Menorrhagia, Cervical cyst Disposition: HOME SELF-CARE Condition: Stable Instructions (If sedation given, give patient instructions): Dysfunctional Uterine Bleeding (ED), Menorrhagia (ED) Additional Instructions: Please return to the emergency department with any concerning, new, worsening symptoms. Please follow up with [facility] and primary care provider next 24-48 hours. Is patient prescribed a controlled substance at d/c from ED?: No Referrals: None,Stated [Primary Care Provider] - 1-2 days Time of Disposition: 22:21
[2021-08-09 21:30] LABS: ALT 12 U/L (4-34); AST 25 U/L (14-36); African American GFR (CKD) >90 (>60 ml/min/1.73 sqM); Albumin 4.2 g/dL (3.5-5.0); Alkaline Phosphatase 29 U/L (38-126); Anion Gap 7 mmol/L; Blood Urea Nitrogen 16 mg/dL (7-17); Calcium 9.2 mg/dL (8.4-10.2); Carbon Dioxide 24 mmol/L (22-30); Chloride 106 mmol/L (98-107); Glucose 100 mg/dL (74-99); Non-African American GFR(CKD) >90 (>60 ml/min/1.73 sqM); Potassium 4.2 mmol/L (3.5-5.1); Sodium 137 mmol/L (137-145); Total Bilirubin 0.5 mg/dL (0.2-1.3); Total Protein 7.3 g/dL (6.3-8.2)
[2021-08-09 21:43] LABS: INR 0.9 (<1.2); Partial Thromboplastin Time 22.2 sec (22.0-30.0); Prothrombin Time 10.2 sec (9.0-12.0)
--- NOTE | 2021-08-09 22:07 | US ---
EXAMINATION TYPE: US transvaginal DATE OF EXAM: 08/09/2021 COMPARISON: CT, US CLINICAL HISTORY: right ovary pain, PCOS. Right sided pelvic pain, bleeding. Hx PCOS, tubal ligation, lap, . TECHNIQUE: Transvaginal (TV). Date of LMP: 08/06/2021 EXAM MEASUREMENTS: Uterus: 9.5 x 6.7 x 5.1 cm Endometrial Stripe: Unable to distinguish. Right Ovary: 3.6 x 1.4 x 1.8 cm Left Ovary: 2.9 x 2.0 x 1.9 cm 1. Uterus: Anteverted Heterogeneous. Complex area in cervix: 1.4 x 0.7 x 0.6 cm. Hyperechoic focus seen mid: 0.2 x 0.2 x 0.2 cm. 2. Endometrium: Unable to distinguish. 3. Right Ovary: Slightly limited due to depth. 4. Left Ovary: Subcentimeter anechoic areas seen. Spectral, color and waveform doppler imaging shows arterial and venous flow within the ovaries. 5. Bilateral Adnexa: Appear wnl. 6. Posterior cul-de-sac: Appears wnl. IMPRESSION: No evidence of endometrial mass. No evidence of ovarian torsion. Cervical cysts noted.
== END 2021-08-09 22:39 | disposition home or self-care (01) ==
LOC: EC 20:06
DX: N93.8 Other specified abnormal uterine and vaginal bleeding (principal); N92.0 Excessive and frequent menstruation with regular cycle; N88.8 Other specified noninflammatory disorders of cervix uteri; F17.290 Nicotine dependence, other tobacco product, uncomplicated
CPT/HCPCS: 36415; 76830; 80053; 81001; 81025; 85025; 85610; 85730; 86850; 86900; 86901; 93975; 96360; 99284

== ENCOUNTER → 2021-09-13 | Outpatient (CLI) | payer OTHER ==
--- NOTE | 2021-09-13 23:23 | MR ---
EXAMINATION TYPE: MR knee RT wo con DATE OF EXAM: 09/13/2021 COMPARISON: None HISTORY: Right knee instability, swelling, locking post Fall in Feb. Multiplanar multiecho imaging of the right knee without contrast. The anterior and posterior cruciate ligaments are intact. There is a mild knee joint effusion. There is minimal increased signal in a linear fashion along the inferior surface of the posterior hor n medial meniscus related to a tear. The lateral meniscus appears intact. Anterior horn medial menisc us appears intact. The collateral ligaments are intact. There is no evidence of a fracture. I see no bony destructive pr ocess. Patella is intact. IMPRESSION: No evidence of ligamentous tear. Small oblique tear posterior horn medial meniscus extending to the i nferior surface. Knee joint effusion. No fracture.
== END | disposition home or self-care (01) ==
LOC: RADMRIMAIN 06:57
PROVIDERS: ATTEND Orthopaedic Surgery
DX: S83.241A Other tear of medial meniscus, current injury, right knee, initial encounter (principal); M25.461 Effusion, right knee; W19.XXXA Unspecified fall, initial encounter

== ENCOUNTER → 2022-04-19 | Outpatient (CLI) | payer OTHER | END | disposition home or self-care (01) | LOC: RADMRIMAIN 12:10 | DX: Z53.9 Procedure and treatment not carried out, unspecified reason (principal) ==

== ENCOUNTER 2022-05-12 14:21 | Emergency (ER) | payer OTHER ==
[2022-05-12 14:43] VITALS: BP 110/69; TEMP 96.8
[2022-05-12] MEDS ORDERED: KETOROLAC 15 MG/ML 1 ML VIAL IM STA (15:28)
--- NOTE | 2022-05-12 16:09 | ED ---
Lower Extremity Injury HPI - General Chief Complaint: Extremity Injury, Lower Stated Complaint: Knee pain, hurt at work 1 yr ago. Time Seen by Provider: 05/12/22 15:20 Source: patient Mode of arrival: wheelchair Limitations: no limitations - History of Present Illness Initial Comments: Patient is a 26-year-old female presenting with chief complaint of right knee pain. Patient has a known torn meniscus, currently following with orthopedics. States that she has an upcoming MRI scheduled. Patient states that today she was moving from sitting to standing position out of her recliner, when she felt and heard a loud pop and was experiencing sharp pain to the knee. She did not take any pain medication at home. No redness or swelling. She admits to pain with weightbearing and range of motion. No numbness or tingling. No fever or chills. - Related Data Home Medications Medication Instructions Recorded Confirmed No Known Home Medications 08/09/21 08/09/21 Allergies Allergy/AdvReac Type Severity Reaction Status Date / Time cat dander Allergy Swelling Verified 05/12/22 14:43 OF EYE , SOB clindamycin Allergy Anaphylaxis Verified 05/12/22 14:43 diphenhydramine HCl Allergy Anaphylaxis Verified 05/12/22 14:43 [From Benadryl] Latex, Natural Rubber Allergy Rash/Hives Verified 05/12/22 14:43 shellfish derived [Crab] Allergy Anaphylaxis Verified 05/12/22 14:43 Sulfa (Sulfonamide Allergy Anaphylaxis Verified 05/12/22 14:43 Antibiotics) Review of Systems ROS Statement: Those systems with pertinent positive or pertinent negative responses have been documented in the HPI. ROS Other: All systems not noted in ROS Statement are negative. Past Medical History Past Medical History: Asthma, Fibromyalgia, Neurologic Disorder Additional Past Medical History / Comment(s): "possible hole in heart" as a baby.; Migraines, POSSIBLE TIA 05-16-19 , migraines, tuberculosis Jul 2019. 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 History of Any Multi-Drug Resistant Organisms: MRSA Date of last positivie culture/infection: 2012 MDRO Source:: RIGHT LEG Past Surgical History: Cholecystectomy, Tubal Ligation Additional Past Surgical History / Comment(s): EXPLORATORY lap, I&D left buttocks lap choly 01-11-20 Past Anesthesia/Blood Transfusion Reactions: Motion Sickness, Postoperative Nausea & Vomiting (PONV) Past Psychological History: Depression, PTSD Smoking Status: Vaper Past Alcohol Use History: Rare Past Drug Use History: None Reported - Past Family History Father Additional Family Medical History / Comment(s): She does not know any history on her father. Mother Family Medical History: Asthma, Neurologic Disorder, Rheumatoid Arthritis (RA) Additional Family Medical History / Comment(s): Mother at age 31 from malpractice issue, mom also had over active histamine. Sister(s) Family Medical History: Asthma Additional Family Medical History / Comment(s): Patient has 1 sister with no major medical problems. General Exam Limitations: no limitations General appearance: alert, in no apparent distress Head exam: Present: atraumatic, normocephalic, normal inspection Eye exam: Present: normal appearance Neck exam: Present: normal inspection Respiratory exam: Present: normal lung sounds bilaterally. Absent: respiratory distress, wheezes, rales, rhonchi, stridor Cardiovascular Exam: Present: regular rate, normal rhythm, normal heart sounds. Absent: systolic murmur, diastolic murmur, rubs, gallop, clicks Right Knee exam: Present: normal inspection, tenderness. Absent: full ROM Neurovascular tendon exam: Present: no vascular compromise. Absent: sensory deficit Neurological exam: Present: alert, oriented X3, CN II-XII intact Psychiatric exam: Present: normal affect, normal mood Skin exam: Present: warm, dry, intact, normal color. Absent: rash Course Vital Signs 05/12/22 05/12/22 14:39 16:32 Temperature 96.8 F L Pulse Rate 84 87 Respiratory 18 16 Rate Blood Pressure 110/69 O2 Sat by Pulse 99 99 Oximetry Medical Decision Making - Medical Decision Making Patient is a 26-year-old female with known previous meniscus injury presenting with chief complaint of right knee pain. Patient heard and felt a loud pop today when transferring from sitting to standing position. No other injury or trauma. Patient does follow with an orthopedist and has an upcoming MRI scheduled. On physical examination patient has limited range of motion secondary to pain. Patient is offered an x-ray and analgesia. Patient is declining x-ray at this time, she states that she knows that this is related to her torn meniscus and xray will not show us this. She is of sound mind and body and able to make her own decisions. Patient is provided with a knee immobilizer, crutches, and treated with Toradol here in the ER. Instructed to follow-up with her orthopedist. Educated on supportive treatment with rest, ice, compression, elevation, take Motrin and Tylenol as needed for pain control. Follow-up with PCP. Report back to ER with any new or worsening symptoms. Discussed return parameters and answered all questions. Patient conveyed verbal understanding and agreed to the plan. I discussed this case in detail with my attending Dr. De La Fuente Disposition Clinical Impression: Knee sprain Disposition: HOME SELF-CARE Condition: Good Instructions (If sedation given, give patient instructions): Knee Sprain (ED) Additional Instructions: Follow-up with PCP and orthopedist. Report back to ER with any new or worsening symptoms. Take Motrin and Tylenol as needed for pain control. Rest, ice, compress, and elevate the knee. Is patient prescribed a controlled substance at d/c from ED?: No Referrals: Nonstaff,Physician [Primary Care Provider] - 1-2 days Time of Disposition: 16:08
[2022-05-12 16:33] VITALS: PULSE 87; RESP 16
== END 2022-05-12 16:33 | disposition home or self-care (01) ==
LOC: EC 14:21
DX: J45.909 Unspecified asthma, uncomplicated (principal); F32.A Depression, unspecified; F43.10 Post-traumatic stress disorder, unspecified; F17.290 Nicotine dependence, other tobacco product, uncomplicated; S83.91XA Sprain of unspecified site of right knee, initial encounter; Z88.1 Allergy status to other antibiotic agents; Z88.0 Allergy status to penicillin; Z88.8 Allergy status to other drugs, medicaments and biological substances; Z79.899 Other long term (current) drug therapy; Z88.2 Allergy status to sulfonamides; X58.XXXA Exposure to other specified factors, initial encounter
CPT/HCPCS: 99283; 96372; L1830; J1885; 96374

== ENCOUNTER → 2022-05-17 | Outpatient (CLI) | payer OTHER ==
--- NOTE | 2022-05-18 06:33 | MR ---
EXAMINATION TYPE: MR lumbar spine wo con DATE OF EXAM: 05/17/2022 COMPARISON: CT lumbar spine March 31, 2021 HISTORY: Low back pain that radiates down right leg due to fall down stairs TECHNIQUE: Multiplanar, multisequence imaging of the lumbar spine is performed without IV contrast. FINDINGS: Sagittal images of the lumbar spine show vertebral body heights to remain satisfactory. Sli ght grade 1 retrolisthesis L3 on L4 and L4 on L5 is redemonstrated. Disc desiccation L3-L4 through th e L5-S1 levels. Mild disc space narrowing L3-L4 and L5-S1 levels. The conus medullaris is normal in position and signal ending at T12-L1 disc space. The bone marrow signal intensity is within normal l imits. Axial images show T12-L1 through the L2-L3 level to appear within normal limits. Axial images at the L3-L4 level showed tiny right paracentral disc protrusion minimally effacing ante rior thecal sac. Patent bilateral neural foramina. Axial images at L4-L5 level show central disc protrusion with annular tear minimally effacing the ant erior thecal sac and mild facet arthropathy bilaterally. Bilateral neural foramina are patent. Axial images at L5-S1 level show mild facet arthropathy bilaterally. There is spondylolisthesis with tiny central disc protrusion minimally effacing anterior thecal sac. Patent bilateral neural foramina . The paraspinal muscle bulk is maintained. IMPRESSION: Mild multilevel degenerative changes and spondylolisthesis in the mid to lower lumbar spi ne as detailed above.
== END | disposition home or self-care (01) ==
LOC: RADMRIMAIN 10:25
PROVIDERS: ATTEND Physical Medicine & Rehabilitation Pain Medicine
DX: M54.50 Low back pain, unspecified (principal)
CPT/HCPCS: 72148

== ENCOUNTER → 2022-07-30 | Outpatient (CLI) | payer OTHER ==
--- NOTE | 2022-07-30 13:46 | XR ---
EXAMINATION TYPE: XR chest 2V DATE OF EXAM: 07/30/2022 COMPARISON: Chest CT May 22, 2021 HISTORY: Positive PPD skin test. TECHNIQUE: Frontal and lateral views of the chest are obtained. FINDINGS: There is no focal air space opacity, pleural effusion, or pneumothorax seen. The cardiac silhouette size is within normal limits. The osseous structures are intact. Overlying bilateral met allic nipple ornaments are incidentally noted. IMPRESSION: No acute cardiopulmonary process.
== END | disposition home or self-care (01) ==
LOC: RADXRMAIN 13:23
PROVIDERS: ATTEND Registered Nurse
DX: Z11.1 Encounter for screening for respiratory tuberculosis (principal); R76.11 Nonspecific reaction to tuberculin skin test without active tuberculosis; Z86.11 Personal history of tuberculosis
CPT/HCPCS: 71046

== ENCOUNTER 2023-02-12 15:05 | Emergency (ER) | payer OTHER ==
[2023-02-12 15:24] VITALS: RESP 18
--- NOTE | 2023-02-12 17:37 | US ---
EXAMINATION TYPE: US venous doppler duplex LE RT DATE OF EXAM: 02/12/2023 4:13 PM COMPARISON: BLEV 2012 CLINICAL INDICATION: Female, 27 years old with history of r/o DVT pain swelling; Pain and swelling. H x of PE. Patient does not take blood thinners. SIDE PERFORMED: Right TECHNIQUE: The lower extremity deep venous system is examined utilizing real time linear array sonog collin with graded compression, doppler sonography and color-flow sonography. VESSELS IMAGED: Common Femoral Vein Deep Femoral Vein Greater Saphenous Vein * Femoral Vein Popliteal Vein Small Saphenous Vein * Proximal Calf Veins (* superficial vessels) Right Leg: No evidence of DVT. IMPRESSION: No evidence for deep vein thrombosis of the right lower extremity.
--- NOTE | 2023-02-12 17:44 | ED ---
Extremity Problem HPI - General Chief complaint: Extremity Problem,Nontraumatic Stated complaint: Poss blood Clot in R foot,sent by pcp Time Seen by Provider: 02/12/23 16:03 Source: patient Mode of arrival: ambulatory Limitations: no limitations - History of Present Illness Initial comments: Patient is a 27-year-old female who presents to the emergency department for rule out DVT. Patient had a right lower extremity injury in July from fall. She had right knee surgery in October secondary to the injury. Patient has had continued pain since the injury including her right knee, lower leg, foot. She follows with an orthopedic technician. States she is no longer getting Worker's Compensation therefore she got a equipment maintenance superintendent and has a lawsuit. States her equipment maintenance superintendent and primary care provider sent her in for rule out DVT. She denies calf pain and swelling. She denies chest pain and shortness of breath. She does have history of PE. She is not on blood thinners .Denies hormone replacement, long car rides, airplane travel, surgical interventions, known cancers, family history of clotting, tobacco use. - Related Data Home Medications Medication Instructions Recorded Confirmed No Known Home Medications 08/09/21 08/09/21 Allergies Allergy/AdvReac Type Severity Reaction Status Date / Time cat dander Allergy Swelling Verified 02/12/23 15:24 OF EYE , SOB clindamycin Allergy Anaphylaxis Verified 02/12/23 15:24 diphenhydramine HCl Allergy Anaphylaxis Verified 02/12/23 15:24 [From Benadryl] Latex, Natural Rubber Allergy Rash/Hives Verified 02/12/23 15:24 shellfish derived [Crab] Allergy Anaphylaxis Verified 02/12/23 15:24 Sulfa (Sulfonamide Allergy Anaphylaxis Verified 02/12/23 15:24 Antibiotics) Review of Systems ROS Statement: Those systems with pertinent positive or pertinent negative responses have been documented in the HPI. ROS Other: All systems not noted in ROS Statement are negative. Past Medical History Past Medical History: Asthma, Fibromyalgia, Neurologic Disorder Additional Past Medical History / Comment(s): "possible hole in heart" as a baby.; Migraines, POSSIBLE TIA 05-16-19 , migraines, tuberculosis Jul 2019. 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 History of Any Multi-Drug Resistant Organisms: MRSA Date of last positivie culture/infection: 2012 MDRO Source:: RIGHT LEG Past Surgical History: Cholecystectomy, Tubal Ligation Additional Past Surgical History / Comment(s): EXPLORATORY lap, I&D left buttocks lap choly 01-11-20 Past Anesthesia/Blood Transfusion Reactions: Motion Sickness, Postoperative Nausea & Vomiting (PONV) Past Psychological History: Depression, PTSD Smoking Status: Vaper Past Alcohol Use History: Rare Past Drug Use History: None Reported - Past Family History Father Additional Family Medical History / Comment(s): She does not know any history on her father. Mother Family Medical History: Asthma, Neurologic Disorder, Rheumatoid Arthritis (RA) Additional Family Medical History / Comment(s): Mother at age 31 from malpractice issue, mom also had over active histamine. Sister(s) Family Medical History: Asthma Additional Family Medical History / Comment(s): Patient has 1 sister with no major medical problems. General Exam Limitations: no limitations General appearance: alert Eye exam: Present: normal appearance, PERRL, EOMI. Absent: scleral icterus, conjunctival injection, periorbital swelling Respiratory exam: Present: normal lung sounds bilaterally. Absent: respiratory distress, wheezes, rales, rhonchi, stridor Cardiovascular Exam: Present: regular rate, normal rhythm, normal heart sounds. Absent: systolic murmur, diastolic murmur, rubs, gallop, clicks Right Knee exam: Present: normal inspection, full ROM, tenderness. Absent: swelling, ecchymosis, deformity, dislocation, erythema, pain/laxity with valgus, pain/laxity with varus Lower Leg exam: Present: normal inspection, full ROM. Absent: tenderness, Homans' sign Ankle exam: Present: normal inspection. Absent: full ROM, tenderness Foot/Toe exam: Present: normal inspection, full ROM. Absent: swelling Neurovascular tendon exam: Present: no vascular compromise Neurological exam: Present: alert Psychiatric exam: Present: normal affect, normal mood Skin exam: Present: warm, dry, intact, normal color. Absent: rash Course Vital Signs 02/12/23 02/12/23 15:20 18:01 Temperature 98.7 F 97.4 F L Pulse Rate 91 78 Respiratory 18 18 Rate Blood Pressure 110/82 117/75 O2 Sat by Pulse 100 100 Oximetry Medical Decision Making - Medical Decision Making Was pt. sent in by a medical professional or institution ([facility], [employer], urgent care, hospital, or fpc...) When possible be specific @ -Primary care provider and equipment maintenance superintendent today Did you speak to anyone other than the patient for history (EMS, parent, family, police, friend...)? What history was obtained from this source @ -No Did you review nursing and triage notes (agree or disagree)? Why? @ -I reviewed and agree with nursing and triage notes Were old charts reviewed (outside hosp., previous admission, EMS record, old EKG, old radiological studies, urgent care reports/EKG's, fpc records)? Report findings @ -No old charts were reviewed Differential Diagnosis (chest pain, altered mental status, abdominal pain women, abdominal pain men, vaginal bleeding, weakness, fever, dyspnea, syncope, headache, dizziness, GI bleed, back pain, seizure, CVA, palpatations, mental health)? @ -Knee sprain, DVT, leg sprain. This list is not meant to be all-inclusive EKG interpreted by me (3pts min.). @ -As above X-rays interpreted by me (1pt min.). @ -None done CT interpreted by me (1pt min.). @ -None done U/S interpreted by me (1pt. min.). @ -No DVT of the right lower extremity What testing was considered but not performed or refused? (CT, X-rays, U/S, labs)? Why? @ -None What meds were considered but not given or refused? Why? @ - offer pain medication patient declined Did you discuss the management of the patient with other professionals (professionals i.e. [facility], [employer], lab, RT, psych nurse, social work administrator, equipment maintenance superintendent, teacher, giving officer, case packer and sealer)? Give summary @ -No Was smoking cessation discussed for >3mins.? @ -No Was critical care preformed (if so, how long)? @ -No Were there social determinants of health that impacted care today? How? (Homelessness, low income, unemployed, alcoholism, drug addiction, transportation, low edu. Level, literacy, decrease access to med. care, snf, rehab)? @ -No Was there de-escalation of care discussed even if they declined (Discuss DNR or withdrawal of care, Hospice)? DNR status @ -No What co-morbidities impacted this encounter? (DM, HTN, Smoking, COPD, CAD, Cancer, CVA, ARF, Chemo, Hep., AIDS, mental health diagnosis, sleep apnea, morbid obesity)? @ -None Was patient admitted / discharged? Hospital course, mention meds given and route, prescriptions, significant lab abnormalities, going to OR and other pertinent info. @ - patient presenting with chronic right lower extremity pain. Ultrasound interpreted by myself/radiology showing no evidence of DVT. Patient discharged Undiagnosed new problem with uncertain prognosis? @ -No Drug Therapy requiring intensive monitoring for toxicity (Heparin, Nitro, Insulin, Cardizem)? @ -No Were any procedures done? @ -No Diagnosis/symptom? @ right lower extremity pain Acute, or Chronic, or Acute on Chronic? @ -Chronic Uncomplicated (without systemic symptoms) or Complicated (systemic symptoms)? @ Uncomplicated Side effects of treatment? @ -No Exacerbation, Progression, or Severe Exacerbation? @ -No Poses a threat to life or bodily function? How? (Chest pain, [place], NC, pneumonia, PE, COPD, DKA, ARF, appy, cholecystitis, CVA, Diverticulitis, Homicidal, Suicidal, threat to staff... and all critical care pts) @ -No Dr. Hemphill is my attending Disposition Clinical Impression: Right leg pain Disposition: HOME SELF-CARE Condition: Good Instructions (If sedation given, give patient instructions): Leg Pain (ED) Additional Instructions: Please follow-up with your orthopedic technician in 1-2 days. Return to the emergency department if you experience new, concerning, or worsening symptoms. Is patient prescribed a controlled substance at d/c from ED?: No Referrals: None,Stated [Primary Care Provider] - 1-2 days
[2023-02-12 18:08] VITALS: BP 117/75; PULSE 78; TEMP 97.4
== END 2023-02-12 18:08 | disposition home or self-care (01) ==
LOC: EC 15:05
DX: M79.661 Pain in right lower leg (principal); J45.909 Unspecified asthma, uncomplicated; F17.290 Nicotine dependence, other tobacco product, uncomplicated; Z90.49 Acquired absence of other specified parts of digestive tract; Z88.1 Allergy status to other antibiotic agents; Z88.2 Allergy status to sulfonamides; Z88.8 Allergy status to other drugs, medicaments and biological substances; Z91.09 Other allergy status, other than to drugs and biological substances; Z91.040 Latex allergy status; Z91.013 Allergy to seafood
CPT/HCPCS: 99283

== ENCOUNTER → 2023-10-31 | Outpatient (CLI) | payer OTHER ==
--- NOTE | 2023-11-01 07:33 | XR ---
EXAMINATION TYPE: XR chest 2V DATE OF EXAM: 10/31/2023 COMPARISON: 07/30/2022 HISTORY: Chest pain TECHNIQUE: Frontal and lateral views of the chest are obtained. FINDINGS: There is no focal air space opacity. No evidence for pneumothorax. No pleural effusion. The cardiac silhouette size is within normal limits. The osseous structures are grossly intact. IMPRESSION: 1. No acute cardiopulmonary process.
== END | disposition home or self-care (01) ==
LOC: RADXRMAIN 12:16
PROVIDERS: ATTEND Family Medicine
DX: J18.9 Pneumonia, unspecified organism (principal); R07.9 Chest pain, unspecified
CPT/HCPCS: 71046

== ENCOUNTER 2023-11-18 08:43 | Emergency (ER) | payer OTHER ==
--- NOTE | 2023-11-18 09:18 | ED ---
Skin/Abscess/FB HPI - General Chief complaint: Skin/Abscess/Foreign Body Stated complaint: lump on buttock Time Seen by Provider: 11/18/23 08:50 Source: patient, RN notes reviewed Mode of arrival: ambulatory Limitations: no limitations - History of Present Illness Initial comments: This is a 28 year old female who presents to the emergency department for an abscess to the left buttocks. States that she first noticed this yesterday. This has become increasingly painful and grew much larger overnight. It is painful to both sit, walk, and stand. States that she may have had low-grade fevers at home, but is not currently sure. Denies any nausea/vomiting. These have been present in the past in the same area and required drainage. This was done at this facility several years ago. - Related Data Previous Rx's Medication Instructions Recorded Cephalexin [Keflex] 500 mg PO Q6HR 7 Days #28 cap 11/18/23 Doxycycline Hyclate 100 mg PO BID 7 Days #14 capsule 11/18/23 Allergies Allergy/AdvReac Type Severity Reaction Status Date / Time cat dander Allergy Swelling Verified 11/18/23 08:49 OF EYE , SOB clindamycin Allergy Anaphylaxis Verified 11/18/23 08:49 diphenhydramine HCl Allergy Anaphylaxis Verified 11/18/23 08:49 [From Benadryl] Latex, Natural Rubber Allergy Rash/Hives Verified 11/18/23 08:49 shellfish derived [Crab] Allergy Anaphylaxis Verified 11/18/23 08:49 Sulfa (Sulfonamide Allergy Anaphylaxis Verified 11/18/23 08:49 Antibiotics) Review of Systems ROS Statement: Those systems with pertinent positive or pertinent negative responses have been documented in the HPI. ROS Other: All systems not noted in ROS Statement are negative. Past Medical History Past Medical History: Asthma, Fibromyalgia, Neurologic Disorder Additional Past Medical History / Comment(s): "possible hole in heart" as a baby.; Migraines, POSSIBLE TIA 05-16-19 , migraines, tuberculosis Jul 2019. 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 History of Any Multi-Drug Resistant Organisms: MRSA Date of last positivie culture/infection: 2012 MDRO Source:: RIGHT LEG Past Surgical History: Cholecystectomy, Tubal Ligation Additional Past Surgical History / Comment(s): EXPLORATORY lap, I&D left buttocks lap choly 01-11-20 Past Anesthesia/Blood Transfusion Reactions: Motion Sickness, Postoperative Nausea & Vomiting (PONV) Past Psychological History: Depression, PTSD Smoking Status: Vaper Past Alcohol Use History: None Reported Past Drug Use History: None Reported - Past Family History Father Additional Family Medical History / Comment(s): She does not know any history on her father. Mother Family Medical History: Asthma, Neurologic Disorder, Rheumatoid Arthritis (RA) Additional Family Medical History / Comment(s): Mother at age 31 from malpractice issue, mom also had over active histamine. Sister(s) Family Medical History: Asthma Additional Family Medical History / Comment(s): Patient has 1 sister with no major medical problems. General Exam Limitations: no limitations General appearance: alert, in no apparent distress Head exam: Present: atraumatic, normocephalic, normal inspection Respiratory exam: Present: normal lung sounds bilaterally. Absent: respiratory distress, wheezes, rales, rhonchi, stridor Cardiovascular Exam: Present: regular rate, normal rhythm, normal heart sounds. Absent: systolic murmur, diastolic murmur, rubs, gallop, clicks Neurological exam: Present: alert, oriented X3, CN II-XII intact Psychiatric exam: Present: normal affect, normal mood Skin exam: Present: other (Erythematous abscess to the left gluteus. This is tender and fluctuant to palpation. No surrounding induration or erythema. No active drainage.) Course Vital Signs 11/18/23 11/18/23 11/18/23 08:46 10:15 11:20 Temperature 98.4 F 97.9 F Pulse Rate 98 73 76 Respiratory 18 18 18 Rate Blood Pressure 110/76 155/84 112/74 O2 Sat by Pulse 97 97 100 Oximetry Procedures - Incision & Drainage Consent Obtained: verbal consent Indication: Abscess Site: buttock Size (cm): 3 Anesthetic Used: lidocaine 1%, with epi Amount (mLs): 4 I&D Cleaning Method: Alcohol Wipe Sterile Field Used?: Yes Scalpel Used: #11 I&D Drainage Obtained: Pus, Blood Culture Obtained?: Yes Medical Decision Making - Medical Decision Making This is a 28 year old female who presents to the emergency department for an abscess to the buttocks. Was pt. sent in by a medical professional or institution? @ -No Did you speak to anyone other than the patient for history? @ -No Did you review nursing and triage notes? @ -Yes, and I agree, it is accurate with regards to the patient's symptoms. Were old charts reviewed? @ -No Differential Diagnosis? @ -Differential Abscess: Abscess, phlegmon, burn, cellulitis, bite wound, this is not meant to be an all- inclusive list. EKG interpreted by me (3pts min.)? @ -Not obtained X-rays interpreted by me (1pt min.)? @ -Not obtained CT interpreted by me (1pt min.)? @ -Not obtained U/S interpreted by me (1pt. min.)? @ -Not obtained What testing was considered but not performed? (CT, X-rays, U/S, labs)? Why? @ -None What meds were considered but not given? Why? @ -None Did you discuss the management of the patient with other professionals? @ -No Did you reconcile home meds? @ -No Was smoking cessation discussed for >3mins.? @ -No Was critical care preformed (if so, how long)? @ -No Were there social determinants of health that impacted care today? How? (Homelessness, low income, unemployed, alcoholism, drug addiction, transportation, low edu. Level, literacy, decrease access to med. care, longterm, rehab)? @ -No Was there de-escalation of care discussed even if they declined? (Discuss DNR or withdrawal of care, Hospice)? @ -No What co-morbidities impacted this encounter? (DM, HTN, Smoking, COPD, CAD, Cancer, CVA, Hep., AIDS, mental health diagnosis, sleep apnea, morbid obesity)? @ -None Was patient admitted / discharged? @ -Discharged. Physical examination demonstrates a gluteal abscess. Incision and drainage was performed. Aerobic and anaerobic cultures were obtained as well. Patient does have a history of MRSA and given the allergies to Bactrim and clindamycin, she was started on doxycycline along with Keflex. Advised continuing with warm compresses and alternating with Ibuprofen and Tylenol for pain relief. Information for follow-up with general surgery was provided as well for further evaluation and management. Undiagnosed new problem with uncertain prognosis? @ -None Drug Therapy requiring intensive monitoring for toxicity (Heparin, Nitro, Insulin, Cardizem)? @ -None Were any procedures done? @ -Incision and drainage of abscess Diagnosis/symptom? @ -Abscess Acute, or Chronic, or Acute on Chronic? @ -Acute Uncomplicated (without systemic symptoms) or Complicated (systemic symptoms)? @ -Uncomplicated Side effects of treatment? @ -None Exacerbation, Progression, or Severe Exacerbation] @ -Not applicable Poses a threat to life or bodily function? @ -No Return precautions reviewed in depth, the patient is instructed to return to the emergency department with any new, worsening, or concerning symptoms. Patient verbalized understanding. This case was discussed in detail with the attending ED physician, Dr. Allan. Presentation, findings, and treatment plan discussed in detail as well. Disposition Clinical Impression: Abscess of left buttock Disposition: HOME SELF-CARE Instructions (If sedation given, give patient instructions): Abscess Incision and Drainage (ED), Abscess (ED) Additional Instructions: Return to the emergency department with any new, worsening, or concerning symptoms. Take both antibiotics as prescribed for 7 days. Alternate with ibuprofen and Tylenol as needed for pain relief. Continue to apply warm com presses. Contact general surgery as listed below for a follow-up appointment. Follow up with your primary care provider in 1-2 days. Prescriptions: Doxycycline Hyclate 100 mg PO BID 7 Days #14 capsule Cephalexin [Keflex] 500 mg PO Q6HR 7 Days #28 cap Is patient prescribed a controlled substance at d/c from ED?: No Referrals: Sangeetha Orellana MD [Primary Care Provider] - 1-2 days Keshawn Mathias MD [STAFF PHYSICIAN] - 1-2 days Time of Disposition: 09:49
[2023-11-18] MEDS: KETOROLAC 15 MG/ML 1 ML VIAL IM STA (09:20)
[2023-11-18] MEDS: HYDROmorphone 1 MG/ML 1 ML SYRINGE IM STA (09:20)
[2023-11-18] MEDS: LIDOCAINE 1%-EPI 1:100,000 20 ML VIAL SQ STA (09:22)
[2023-11-18 09:29] VITALS: RESP 18
[2023-11-18] MEDS: ACET/COD 300 MG/30 MG STARTER PACK 6 TAB BTL PO STA (10:13)
[2023-11-18 11:55] VITALS: BP 112/74; PULSE 76; TEMP 97.9
== END 2023-11-18 11:21 | disposition home or self-care (01) ==
LOC: EC 08:43
DX: L02.31 Cutaneous abscess of buttock (principal); F17.290 Nicotine dependence, other tobacco product, uncomplicated; Z88.1 Allergy status to other antibiotic agents; Z88.2 Allergy status to sulfonamides; Z88.8 Allergy status to other drugs, medicaments and biological substances; Z91.013 Allergy to seafood; Z91.040 Latex allergy status; Z91.048 Other nonmedicinal substance allergy status
CPT/HCPCS: 99283; 96372 ×2; 10060; 87070; 87205; 87075; J1170; J1885

== ENCOUNTER 2023-12-23 07:06 | Day surgery (SDC) | payer OTHER ==
[2023-12-19 11:16] VITALS: BMI 39.0
[~2023-12-23 07:06] MED LIST changes: -ACETAMINOPHEN TAB 500 MG TAB PO STA; -DEXAMETHASONE SOD PHOSPHATE 10 MG/ML 1 ML VIAL IV ONE; -GABAPENTIN 300 MG CAP PO STA; -KETOROLAC 30 MG/ML 1 ML VIAL IVP PRN; -LACTATED RINGERS 1,000 ML IV SCH; -ONDANSETRON 4 MG/2 ML VIAL IVP ONE; -TAMSULOSIN 0.4 MG CAP.ER.24H PO STA; +metroNIDAZOLE-NS PMX 500 MG in SALINE 1 100ML.BAG IVPB PRN
[2023-12-23] MEDS ORDERED: fentaNYL (PF) 50 MCG/ML 2 ML AMP IV PRN (07:39)
[2023-12-23 08:06] LABS: Glucose,Whole Blood 103 mg/dL (70-110)
[2023-12-23] MEDS: IV FLUID CONTINUATION 1,000 ML IV ONE (08:15)
[2023-12-23] MEDS: LACTATED RINGERS 1,000 ML IV SCH (08:15)
[2023-12-23] MEDS: ONDANSETRON 4 MG/2 ML VIAL IVP ONE (08:18)
[2023-12-23] MEDS: DEXAMETHASONE SOD PHOSPHATE 4 MG/ML 1 ML VIAL IV ONE (08:18)
[2023-12-23] MEDS: ACETAMINOPHEN TAB 500 MG TAB PO PRN (08:19)
[2023-12-23] MEDS: SCOPOLAMINE 1 MG/72 HR PATCH TRANSDERM ONE (08:19)
[2023-12-23] MEDS: HEPARIN SODIUM,PORCINE 5,000 UNIT/ML 1 ML VIAL SQ PRN (08:19)
[2023-12-23] MEDS: MIDAZOLAM 2 MG/2 ML VIAL IV PRN (08:26)
[2023-12-23] MEDS: MELOXICAM 7.5 MG TAB PO STA (08:31)
[2023-12-23] MEDS ORDERED: fentaNYL (PF) 50 MCG/ML 2 ML AMP ONE (08:43)
[2023-12-23] MEDS ORDERED: HYDROmorphone (PF) 1 MG/ML ONE (08:43)
[2023-12-23] MEDS ORDERED: KETOROLAC 15 MG/ML 1 ML VIAL ONE (08:43)
[2023-12-23] MEDS ORDERED: MIDAZOLAM 2 MG/2 ML VIAL ONE (08:43)
[2023-12-23] MEDS ORDERED: LIDOCAINE 1% INJ 10MG/ML (20 ML MDV) ONE (08:43)
[2023-12-23] MEDS ORDERED: PROPOFOL 10 MG/ML 20 ML VIAL IV ONE (08:43)
[2023-12-23] MEDS ORDERED: SUCCINYLCHOLINE CHLORIDE 200 MG/10 ML VIAL IV ONE (08:43)
[2023-12-23] MEDS: LIDOCAINE 1%-EPI 1:100,000 20 ML VIAL SQ ONE (08:51)
--- NOTE | 2023-12-23 09:45 | P.OP ---
Date of Procedure: 12/23/23 Preoperative Diagnosis: pilonidal cyst Postoperative Diagnosis: pilonidal cyst Procedure(s) Performed: excision of pilonidal cyst Anesthesia: MAC Surgeon: Keshawn Mathias Estimated Blood Loss (ml): 10 Pathology: other (pilonidal cyst) Condition: stable Disposition: PACU Description of Procedure: the patient's placed on the operative table in the prone jackknife position after receiving general anesthesia. Her apilonidal cyst area was prepped and draped usual fashion. Using an elliptical skin incision the pilonidal cyst area was excised. The wound measured prostate 10 x 5 x 5 cm. some was sent to pathology. The wound was twas inspected for hemostasis. Several small bleeding points were quite well. Surgicel powder was placed the wound. The wound was then packed [id number] Kerlix. Patient tolerated the procedure well. She was sent to recovery in stable condition.
[2023-12-23 09:50] VITALS: TEMP 97.2
[2023-12-23 11:44] VITALS: BP 117/65; PULSE 62; RESP 18
== END 2023-12-23 11:57 | disposition home health service (06) ==
LOC: OR 07:06
PROVIDERS: ATTEND Surgery
DX: L05.91 Pilonidal cyst without abscess (principal); F32.A Depression, unspecified; F43.10 Post-traumatic stress disorder, unspecified; G43.909 Migraine, unspecified, not intractable, without status migrainosus; Z88.2 Allergy status to sulfonamides; Z91.040 Latex allergy status; Z88.8 Allergy status to other drugs, medicaments and biological substances; Z79.899 Other long term (current) drug therapy
CPT/HCPCS: 81025; 11770; J2250; J0330; J1644; J1100; J0690; J2405; J2001; J3010; J1170; J1885; J2704; 88304

== ENCOUNTER 2023-12-24 20:08 | Emergency (ER) | payer OTHER ==
[2023-12-24 20:24] VITALS: TEMP 98.3
[2023-12-24 22:22] LABS: Basophils # (A) 0.1 k/uL (0-0.2); Basophils % (A) 1 %; Eosinophils # (A) 0.8 k/uL (0-0.7); Eosinophils % (A) 7 %; HCT 34.4 % (34.0-46.0); HGB 11.1 gm/dL (11.4-16.0); Lymphocytes # (A) 3.8 k/uL (1.0-4.8); Lymphocytes % (A) 34 %; MCH 28.1 pg (25.0-35.0); MCHC 32.4 g/dL (31.0-37.0); MCV 86.7 fL (80.0-100.0); Mean Platelet Volume 8.5; Monocytes # (A) 0.5 k/uL (0-1.0); Monocytes % (A) 5 %; Neutrophils # (A) 5.9 k/uL (1.3-7.7); Neutrophils % (A) 53 %; Platelet Count 254 k/uL (150-450); RBC 3.97 m/uL (3.80-5.40); RDW 13.9 % (11.5-15.5); WBC 11.2 k/uL (3.8-10.6)
[2023-12-24 22:31] LABS: ALT 31 U/L (4-34); AST 25 U/L (14-36); African American GFR (CKD) >90 (>60 ml/min/1.73 sqM); Albumin 3.4 g/dL (3.5-5.0); Alkaline Phosphatase 57 U/L (38-126); Anion Gap 5 mmol/L; Blood Urea Nitrogen 9 mg/dL (7-17); Calcium 8.2 mg/dL (8.4-10.2); Carbon Dioxide 23 mmol/L (22-30); Chloride 112 mmol/L (98-107); Glucose 102 mg/dL (74-99); Non-African American GFR(CKD) >90 (>60 ml/min/1.73 sqM); Potassium 3.8 mmol/L (3.5-5.1); Sodium 140 mmol/L (137-145); Total Bilirubin 0.2 mg/dL (0.2-1.3); Total Protein 5.9 g/dL (6.3-8.2)
[2023-12-24 22:51] LABS: Appearance,Urine Cloudy (Clear); Bacteria,Urine Rare /hpf; Bilirubin,Urine Negative (Negative); Blood,Urine Negative (Negative); Color,Urine Yellow; Glucose,Urine (UA) Negative (Negative); Ketones,Urine Negative (Negative); Leukocyte Esterase,Urine Large (Negative); Mucus,Urine Many /hpf; Nitrite,Urine Negative (Negative); PH, Urine 5.5 (5.0-8.0); Protein,Urine Trace (Negative); RBC,Urine 6 /hpf (0-5); Specific Gravity,Urine 1.029 (1.001-1.035); Squamous Epithelial Cell,Urine 115 /hpf (0-4); Urobilinogen,Urine <2.0 mg/dL (<2.0); WBC,Urine 107 /hpf (0-5)
--- NOTE | 2023-12-24 23:11 | ED ---
General Adult HPI - General Chief complaint: Recheck/Abnormal Lab/Rx Stated complaint: post-op wound, leaking fluid Time Seen by Provider: 12/24/23 20:26 Source: patient Mode of arrival: ambulatory Limitations: no limitations - History of Present Illness Initial comments: 28-year-old female presenting to the ED with a chief complaint of wound. Patient had pilonidal cyst excision by Dr. Mathias yesterday. States today noticed some brown drainage and became concerned about possible infection prompting presentation to the ED for further evaluation. No fever or chills. No other complaints at this time. - Related Data Home Medications Medication Instructions Recorded Confirmed Ashwaganda (Unknown Dose) 1 tab PO HS 12/19/23 12/23/23 Biotin With Collagen 1 tab PO HS 12/19/23 12/23/23 Control Implant (Unknown 1 applicate .ROUTE ONCE 12/19/23 12/23/23 Name) Cholecalciferol (Vitamin D3) 10,000 units PO HS 12/19/23 12/23/23 [Vitamin D3 (125 MCG = 5,000 IU)] [place] Multivitamin 2 tab PO HS 12/19/23 12/23/23 Levocetirizine Dihydrochloride 10 mg PO HS 12/19/23 12/23/23 [Xyzal] Psyllium Husk [Fiber Capsule] 0.4 gm PO HS 12/19/23 12/23/23 Vitamin B Complex 1 each PO HS 12/19/23 12/23/23 Previous Rx's Medication Instructions Recorded Acetaminophen Tab [Tylenol] 650 mg PO Q6H #30 tab 12/23/23 Docusate [Colace] 100 mg PO BID #20 capsule 12/23/23 Ibuprofen [Motrin] 600 mg PO Q6HR PRN #40 tab 12/23/23 oxyCODONE HCL [OxyIR] 5 mg PO Q6H PRN 3 Days #10 tab 12/23/23 Cephalexin [Keflex] 500 mg PO Q6HR 7 Days #28 cap 12/24/23 Cephalexin [Keflex] 500 mg PO Q6HR 7 Days #28 cap 12/24/23 metroNIDAZOLE [Flagyl] 500 mg PO TID 7 Days #21 tab 12/24/23 Allergies Allergy/AdvReac Type Severity Reaction Status Date / Time cat dander Allergy Swelling Verified 12/24/23 20:25 OF EYE , SOB clindamycin Allergy Anaphylaxis Verified 12/24/23 20:25 diphenhydramine HCl Allergy Anaphylaxis Verified 12/24/23 20:25 [From Benadryl] Latex, Natural Rubber Allergy Rash/Hives Verified 12/24/23 20:25 oxycodone [From OxyContin] Allergy Severe Verified 12/24/23 20:25 twitching shellfish derived [Crab] Allergy Anaphylaxis Verified 12/24/23 20:25 Sulfa (Sulfonamide Allergy Anaphylaxis Verified 12/24/23 20:25 Antibiotics) Review of Systems ROS Statement: Those systems with pertinent positive or pertinent negative responses have been documented in the HPI. ROS Other: All systems not noted in ROS Statement are negative. Past Medical History Past Medical History: Pneumonia, Skin Disorder Additional Past Medical History / Comment(s): See Dr Mathias's H&P. Hx frequent pneumonia, last Aug 2023. Hx "possible hole in heart as a baby". Migraines. Hx possible TIA 03/26. Hx Tuberculosis with treatment Jul 2019. Hx right knee injury and hip and back injury from work. Chronic right knee pain/problems. Hydradentis Suppurativa(HS). History of Any Multi-Drug Resistant Organisms: MRSA Date of last positivie culture/infection: 2012 MDRO Source:: RIGHT LEG Past Surgical History: Cholecystectomy, Orthopedic Surgery, Tubal Ligation Additional Past Surgical History / Comment(s): Exploratory laproscopy, I&D left buttock, right knee surgery. 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 Past Psychological History: Depression, PTSD Smoking Status: Vaper Past Alcohol Use History: None Reported Past Drug Use History: None Reported - Past Family History Father Additional Family Medical History / Comment(s): She does not know any history on her father. Mother Family Medical History: Asthma, Neurologic Disorder, Rheumatoid Arthritis (RA) Additional Family Medical History / Comment(s): Mother at age 31 from malpractice issue, mom also had over active histamine. Sister(s) Family Medical History: Asthma Additional Family Medical History / Comment(s): Patient has 1 sister with no major medical problems. General Exam Limitations: no limitations General appearance: alert, in no apparent distress Eye exam: Present: normal appearance Neck exam: Present: normal inspection Respiratory exam: Present: normal lung sounds bilaterally Cardiovascular Exam: Present: regular rate GI/Abdominal exam: Present: soft, normal bowel sounds. Absent: distended, tenderness, guarding, rebound, rigid Back exam: Present: other (Open wound above the gluteal cleft. No surrounding warmth erythema tenderness to palpation.) Neurological exam: Present: alert, oriented X3 Skin exam: Present: warm, dry Course Vital Signs 12/24/23 12/24/23 20:19 22:28 Temperature 98.3 F Pulse Rate 94 Respiratory 18 Rate Blood Pressure 83/60 109/60 O2 Sat by Pulse 99 Oximetry Medical Decision Making - Medical Decision Making Was pt. sent in by a medical professional or institution (, [facility], SPRAY RIG OPERATOR, urgent care, hospital, or alf...) When possible be specific @ -No Did you speak to anyone other than the patient for history (EMS, parent, family, police, friend...)? What history was obtained from this source @ -No Did you review nursing and triage notes (agree or disagree)? Why? @ -I reviewed and agree with nursing and triage notes Were old charts reviewed (outside hosp., previous admission, EMS record, old EKG, old radiological studies, urgent care reports/EKG's, alf records)? Report findings @ -Tolerating reviewed prior visit. For further details please see HPI. Differential Diagnosis (chest pain, altered mental status, abdominal pain women, abdominal pain men, vaginal bleeding, weakness, fever, dyspnea, syncope, headache, dizziness, GI bleed, back pain, seizure, CVA, palpatations, mental health, musculoskeletal)? @ -Differential Musculoskeletal Muscular strain, contusion, ligament sprain, fracture, arthritis, septic arthritis, bursitis, cellulitis, muscle spasm, nerve compression, DVT, arterial occlusion, herpes zoster, electrolyte abnormality, tumor.... This is not meant to be in all inclusive list EKG interpreted by me (3pts min.). @ -None yesterday with no X-rays interpreted by me (1pt min.). @ -None done CT interpreted by me (1pt min.). @ -None done U/S interpreted by me (1pt. min.). @ -None done What testing was considered but not performed or refused? (CT, X-rays, U/S, labs)? Why? @ -None What meds were considered but not given or refused? Why? @ -Patient was to be provided IV fluids however at this time patient would not like to have any fluid and would like to go home. Did you discuss the management of the patient with other professionals (professionals i.e. , PA, SPRAY RIG OPERATOR, lab, RT, psych nurse, medical social consultant, counseling case manager, teacher, public safety officer, piano case and bench assembler)? Give summary @ -No Was smoking cessation discussed for >3mins.? @ -No Was critical care preformed (if so, how long)? @ -No Were there social determinants of health that impacted care today? How? (Homelessness, low income, unemployed, alcoholism, drug addiction, transportation, low edu. Level, literacy, decrease access to med. care, alf, rehab)? @ -No Was there de-escalation of care discussed even if they declined (Discuss DNR or withdrawal of care, Hospice)? DNR status @ -No What co-morbidities impacted this encounter? (DM, HTN, Smoking, COPD, CAD, Cancer, CVA, ARF, Chemo, Hep., AIDS, mental health diagnosis, sleep apnea, morbid obesity)? @ -None Was patient admitted / discharged? Hospital course, mention meds given and route, prescriptions, significant lab abnormalities, going to OR and other pertinent info. @ -Discharge 28-year-old female presenting to the ED with complaints of discharge from her wound concerning for infection. On examination she has dry brown discharge on her ABD pad. Upon evaluation of the wound there is no active purulent drainage. No surrounding warmth erythema. No significant concerning evidence of infection at this time. Laboratory studies reviewed. Labs including CBC CMP UA largely unremarkable. Discharged home in stable condition with prescriptions for Flagyl and Keflex. Initially was supposed to have Bactrim and Keflex however she notes anaphylactic allergies to both Bactrim and clindamycin. Advise close follow-up with her surgeon. Discussed return precautions with patient verbalized agreement. Undiagnosed new problem with uncertain prognosis? @ -No Drug Therapy requiring intensive monitoring for toxicity (Heparin, Nitro, Insulin, Cardizem)? @ -No Were any procedures done? @ -No Diagnosis/symptom? @ -Reevaluation of pilonidal cyst status post excision Acute, or Chronic, or Acute on Chronic? @ -Acute Uncomplicated (without systemic symptoms) or Complicated (systemic symptoms)? @ -Uncomplicated Side effects of treatment? @ -No Exacerbation, Progression, or Severe Exacerbation? @ -No Poses a threat to life or bodily function? How? (Chest pain, [place], [place], pneumonia, PE, COPD, DKA, ARF, appy, cholecystitis, CVA, Diverticulitis, Homicidal, Suicidal, threat to staff... and all critical care pts) @ -No - Lab Data Result diagrams: 12/24/23 22:09 12/24/23 22:09 Lab Results 12/24/23 12/24/23 12/24/23 Range/Units 22:09 22:09 22:09 WBC 11.2 H (3.8-10.6) k/uL RBC 3.97 (3.80-5.40) m/uL Hgb 11.1 L (11.4-16.0) gm/dL Hct 34.4 (34.0-46.0) % MCV 86.7 (80.0-100.0) fL MCH 28.1 (25.0-35.0) pg MCHC 32.4 (31.0-37.0) g/dL RDW 13.9 (11.5-15.5) % Plt Count 254 (150-450) k/uL MPV 8.5 Neutrophils % 53 % Lymphocytes % 34 % Monocytes % 5 % Eosinophils % 7 % Basophils % 1 % Neutrophils # 5.9 (1.3-7.7) k/uL Lymphocytes # 3.8 (1.0-4.8) k/uL Monocytes # 0.5 (0-1.0) k/uL Eosinophils # 0.8 H (0-0.7) k/uL Basophils # 0.1 (0-0.2) k/uL Sodium (137-145) mmol/L Potassium (3.5-5.1) mmol/L Chloride (98-107) mmol/L Carbon Dioxide (22-30) mmol/L Anion Gap mmol/L BUN (7-17) mg/dL Creatinine (0.52-1.04) mg/dL Est GFR (CKD-EPI)AfAm (>60 ml/min/1.73 sqM) Est GFR (CKD-EPI)NonAf (>60 ml/min/1.73 sqM) Glucose (74-99) mg/dL Calcium (8.4-10.2) mg/dL Total Bilirubin (0.2-1.3) mg/dL AST (14-36) U/L ALT (4-34) U/L Alkaline Phosphatase (38-126) U/L Total Protein (6.3-8.2) g/dL Albumin (3.5-5.0) g/dL Urine Color Yellow Urine Appearance Cloudy H (Clear) Urine pH 5.5 (5.0-8.0) Ur Specific [place] 1.029 (1.001-1.035) Urine Protein Trace H (Negative) Urine Glucose (UA) Negative (Negative) Urine Ketones Negative (Negative) Urine Blood Negative (Negative) Urine Nitrite Negative (Negative) Urine Bilirubin Negative (Negative) Urine Urobilinogen <2.0 (<2.0) mg/dL Ur Leukocyte Esterase Large H (Negative) Urine RBC 6 H (0-5) /hpf Urine WBC 107 H (0-5) /hpf Ur Squamous Epith Cells 115 H (0-4) /hpf Urine Bacteria Rare H (None) /hpf Urine Mucus Many H (None) /hpf Urine HCG, Qual Not Detected (Not Detectd) 12/24/23 Range/Units 22:09 WBC (3.8-10.6) k/uL RBC (3.80-5.40) m/uL Hgb (11.4-16.0) gm/dL Hct (34.0-46.0) % MCV (80.0-100.0) fL MCH (25.0-35.0) pg MCHC (31.0-37.0) g/dL RDW (11.5-15.5) % Plt Count (150-450) k/uL MPV Neutrophils % % Lymphocytes % % Monocytes % % Eosinophils % % Basophils % % Neutrophils # (1.3-7.7) k/uL Lymphocytes # (1.0-4.8) k/uL Monocytes # (0-1.0) k/uL Eosinophils # (0-0.7) k/uL Basophils # (0-0.2) k/uL Sodium 140 (137-145) mmol/L Potassium 3.8 (3.5-5.1) mmol/L Chloride 112 H (98-107) mmol/L Carbon Dioxide 23 (22-30) mmol/L Anion Gap 5 mmol/L BUN 9 (7-17) mg/dL Creatinine 0.59 (0.52-1.04) mg/dL Est GFR (CKD-EPI)AfAm >90 (>60 ml/min/1.73 sqM) Est GFR (CKD-EPI)NonAf >90 (>60 ml/min/1.73 sqM) Glucose 102 H (74-99) mg/dL Calcium 8.2 L (8.4-10.2) mg/dL Total Bilirubin 0.2 (0.2-1.3) mg/dL AST 25 (14-36) U/L ALT 31 (4-34) U/L Alkaline Phosphatase 57 (38-126) U/L Total Protein 5.9 L (6.3-8.2) g/dL Albumin 3.4 L (3.5-5.0) g/dL Urine Color Urine Appearance (Clear) Urine pH (5.0-8.0) Ur Specific [place] (1.001-1.035) Urine Protein (Negative) Urine Glucose (UA) (Negative) Urine Ketones (Negative) Urine Blood (Negative) Urine Nitrite (Negative) Urine Bilirubin (Negative) Urine Urobilinogen (<2.0) mg/dL Ur Leukocyte Esterase (Negative) Urine RBC (0-5) /hpf Urine WBC (0-5) /hpf Ur Squamous Epith Cells (0-4) /hpf Urine Bacteria (None) /hpf Urine Mucus (None) /hpf Urine HCG, Qual (Not Detectd) Disposition Clinical Impression: Visit for wound check Disposition: HOME SELF-CARE Condition: Good Additional Instructions: Please return to the Emergency Department if symptoms worsen or any other concerns. Please follow-up with your surgeon. Prescriptions: metroNIDAZOLE [Flagyl] 500 mg PO TID 7 Days #21 tab Cephalexin [Keflex] 500 mg PO Q6HR 7 Days #28 cap Cephalexin [Keflex] 500 mg PO Q6HR 7 Days #28 cap Is patient prescribed a controlled substance at d/c from ED?: No Referrals: Sangeetha Orellana MD [Primary Care Provider] - 1-2 days Time of Disposition: 23:00
[2023-12-24] MEDS: HYDROmorphone 0.5 MG/0.5 ML SYRINGE IVP STA (23:25)
[2023-12-24] MEDS: SODIUM CHLORIDE 0.9% 1,000 ML IV STA (23:25)
[2023-12-24] MEDS: KETOROLAC 15 MG/ML 1 ML VIAL IVP STA (23:26)
[2023-12-24 23:33] VITALS: BP 120/71; PULSE 81; RESP 16
== END 2023-12-24 23:31 | disposition home or self-care (01) ==
LOC: EC 20:08
DX: Z48.01 Encounter for change or removal of surgical wound dressing (principal); F17.290 Nicotine dependence, other tobacco product, uncomplicated; Z91.09 Other allergy status, other than to drugs and biological substances; Z88.1 Allergy status to other antibiotic agents; Z88.5 Allergy status to narcotic agent; Z91.040 Latex allergy status; Z88.8 Allergy status to other drugs, medicaments and biological substances; Z88.2 Allergy status to sulfonamides; Z91.013 Allergy to seafood
CPT/HCPCS: 36415; 80053; 81001; 81025; 85025; 99283

== ENCOUNTER 2024-01-11 19:02 | Emergency (ER) | payer OTHER ==
--- NOTE | 2024-01-11 19:25 | ED ---
Weakness HPI - General Stated complaint: post op bleeding, weakness Time Seen by Provider: 01/11/24 19:24 - History of Present Illness Initial comments: 28-year-old female presenting with weakness worsening over the past few days. States last month she had a surgical pilonidal cyst removal by Dr. Mathias. She states that the wound is open and continues to heavily bleed through the packing. She states this began 4 days ago and has been worsening since. She is also endorsing fatigue, vision changes, and chest tightness that began today. Denies shortness of breath or palpitations. States she vapes occasionally. Denies leg swelling or pain. Denies recent travel but states she had a 2-hour car ride last week. Denies history of DVT. She states she has a home nurse who recommended she come to the ER for evaluation. - Related Data Home Medications Medication Instructions Recorded Confirmed Ashwaganda (Unknown Dose) 1 tab PO HS 12/19/23 12/23/23 Biotin With Collagen 1 tab PO HS 12/19/23 12/23/23 Control Implant (Unknown 1 applicate .ROUTE ONCE 12/19/23 12/23/23 Name) Cholecalciferol (Vitamin D3) 10,000 units PO HS 12/19/23 12/23/23 [Vitamin D3 (125 MCG = 5,000 IU)] Flinestone Multivitamin 2 tab PO HS 12/19/23 12/23/23 Levocetirizine Dihydrochloride 10 mg PO HS 12/19/23 12/23/23 [Xyzal] Psyllium Husk [Fiber Capsule] 0.4 gm PO HS 12/19/23 12/23/23 Vitamin B Complex 1 each PO HS 12/19/23 12/23/23 Previous Rx's Medication Instructions Recorded Acetaminophen Tab [Tylenol] 650 mg PO Q6H #30 tab 12/23/23 Docusate [Colace] 100 mg PO BID #20 capsule 12/23/23 Ibuprofen [Motrin] 600 mg PO Q6HR PRN #40 tab 12/23/23 oxyCODONE HCL [OxyIR] 5 mg PO Q6H PRN 3 Days #10 tab 12/23/23 Cephalexin [Keflex] 500 mg PO Q6HR 7 Days #28 cap 12/24/23 Cephalexin [Keflex] 500 mg PO Q6HR 7 Days #28 cap 12/24/23 metroNIDAZOLE [Flagyl] 500 mg PO TID 7 Days #21 tab 12/24/23 HYDROcodone/APAP 5-325MG [Baldwin 1 tab PO Q6HR PRN #20 tab 12/31/23 5-325] Allergies Allergy/AdvReac Type Severity Reaction Status Date / Time cat dander Allergy Swelling Verified 01/11/24 19:38 OF EYE , SOB clindamycin Allergy Anaphylaxis Verified 01/11/24 19:38 diphenhydramine HCl Allergy Anaphylaxis Verified 01/11/24 19:38 [From Benadryl] Latex, Natural Rubber Allergy Rash/Hives Verified 01/11/24 19:38 oxycodone [From OxyContin] Allergy Severe Verified 01/11/24 19:38 twitching shellfish derived [Crab] Allergy Anaphylaxis Verified 01/11/24 19:38 Sulfa (Sulfonamide Allergy Anaphylaxis Verified 01/11/24 19:38 Antibiotics) Review of Systems ROS Statement: Those systems with pertinent positive or pertinent negative responses have been documented in the HPI. ROS Other: All systems not noted in ROS Statement are negative. Past Medical History Past Medical History: Pneumonia, Skin Disorder Additional Past Medical History / Comment(s): See Dr Mathias's H&P. Hx frequent pneumonia, last Aug 2023. Hx "possible hole in heart as a baby". Migraines. Hx possible TIA 03/26. Hx Tuberculosis with treatment Jul 2019. Hx right knee injury and hip and back injury from work. Chronic right knee pain/problems. Hydradentis Suppurativa(HS). History of Any Multi-Drug Resistant Organisms: MRSA Date of last positivie culture/infection: 2012 MDRO Source:: RIGHT LEG Past Surgical History: Cholecystectomy, Orthopedic Surgery, Tubal Ligation Additional Past Surgical History / Comment(s): Exploratory laproscopy, I&D left buttock, right knee surgery. 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 Past Psychological History: Depression, PTSD Smoking Status: Vaper Past Alcohol Use History: None Reported Past Drug Use History: None Reported - Past Family History Father Additional Family Medical History / Comment(s): She does not know any history on her father. Mother Family Medical History: Asthma, Neurologic Disorder, Rheumatoid Arthritis (RA) Additional Family Medical History / Comment(s): Mother at age 31 from malpractice issue, mom also had over active histamine. Sister(s) Family Medical History: Asthma Additional Family Medical History / Comment(s): Patient has 1 sister with no major medical problems. General Exam - General Exam Comments Initial Comments: Visual Physical Exam General: Well-appearing, nontoxic, no acute distress. Head: Normocephalic, atraumatic Eyes: PERRLA, EOMI ENT: Airway patent Chest: Nonlabored breathing Skin: No visual rash, normal skin tone Neuro: Alert and oriented 3 Musculoskeletal: No gross abnormalities General appearance: alert, in no apparent distress Head exam: Present: atraumatic, normocephalic, normal inspection Eye exam: Present: normal appearance, PERRL, EOMI. Absent: scleral icterus, conjunctival injection, periorbital swelling ENT exam: Present: normal exam, mucous membranes moist Neck exam: Present: normal inspection. Absent: tenderness, meningismus, lymphadenopathy Respiratory exam: Present: normal lung sounds bilaterally. Absent: respiratory distress, wheezes, rales, rhonchi, stridor Cardiovascular Exam: Present: regular rate, normal rhythm, normal heart sounds. Absent: systolic murmur, diastolic murmur, rubs, gallop, clicks GI/Abdominal exam: Present: soft, normal bowel sounds. Absent: distended, tenderness, guarding, rebound, rigid Extremities exam: Present: normal inspection, full ROM, normal capillary refill. Absent: tenderness, pedal edema, joint swelling, calf tenderness Neurological exam: Present: alert, oriented X3 Psychiatric exam: Present: normal affect, normal mood Skin exam: Present: warm (Open surgical incision present over sacral area. Wound is packed. No surrounding erythema or drainage from wound.), dry, intact, normal color. Absent: rash Course Vital Signs 01/11/24 19:35 Temperature 97.6 F Pulse Rate 99 Respiratory 18 Rate Blood Pressure 147/109 O2 Sat by Pulse 96 Oximetry EKG Findings - EKG Results: EKG: interpreted by ERMD (Normal sinus rhythm with no ST changes. Ventricular rate 76 bpm, NE interval 139, QRS duration 92, QT/QTc 378/409) Medical Decision Making - Medical Decision Making I completed the quick note portion of this chart signed Puja David PA-C Was pt. sent in by a medical professional or institution (, [facility], LAUNCH OPERATOR, urgent care, hospital, or fpc...) When possible be specific @ -Sent by home nurse for postop bleeding Did you speak to anyone other than the patient for history (EMS, parent, family, police, friend...)? What history was obtained from this source @ -No Did you review nursing and triage notes (agree or disagree)? Why? @ -I reviewed and agree with nursing and triage notes Were old charts reviewed (outside hosp., previous admission, EMS record, old EKG, old radiological studies, urgent care reports/EKG's, fpc records)? Report findings @ -No old charts were reviewed Differential Diagnosis (chest pain, altered mental status, abdominal pain women, abdominal pain men, vaginal bleeding, weakness, fever, dyspnea, syncope, headache, dizziness, GI bleed, back pain, seizure, CVA, palpatations, mental health, musculoskeletal)? @ -Differential Weakness: Hypoglycemia, shock, sepsis, hyponatremia, anemia, infection, NH, ETOH, adverse medicine reaction, overdose, stroke, this is not meant to be an all-inclusive list. EKG interpreted by me (3pts min.). @ -As above X-rays interpreted by me (1pt min.). @ -Chest x-ray reveals no acute process CT interpreted by me (1pt min.). @ -None done U/S interpreted by me (1pt. min.). @ -None done What testing was considered but not performed or refused? (CT, X-rays, U/S, labs)? Why? @ -None What meds were considered but not given or refused? Why? @ -None Did you discuss the management of the patient with other professionals (car mehta i.e. , [facility], LAUNCH OPERATOR, lab, RT, psych nurse, social work specialist, recruiting specialist, teacher, assistant chief nursing officer, housing case manager)? Give summary @ -No Was smoking cessation discussed for >3mins.? @ -No Was critical care preformed (if so, how long)? @ -No Were there social determinants of health that impacted care today? How? (Homelessness, low income, unemployed, alcoholism, drug addiction, transportation, low edu. Level, literacy, decrease access to med. care, detention, rehab)? @ -No Was there de-escalation of care discussed even if they declined (Discuss DNR or withdrawal of care, Hospice)? DNR status @ -No What co-morbidities impacted this encounter? (DM, HTN, Smoking, COPD, CAD, Cancer, CVA, ARF, Chemo, Hep., AIDS, mental health diagnosis, sleep apnea, morbid obesity)? @ -None Was patient admitted / discharged? Hospital course, mention meds given and route, prescriptions, significant lab abnormalities, going to OR and other pertinent info. @ -Patient was discharged. Patient was seen and evaluated for postop bleeding status post pilonidal cyst removal 3 weeks ago. Patient reports she has been feeling generalized weakness and fatigue with chest pain that began today. Vital signs are unremarkable. No sign of bacterial infection of incision site and there is no active bleeding. Lab work including CBC, CMP, coags, troponin, and D-dimer were largely unremarkable. Hemoglobin was 13.1. White blood cell count is 10.1. EKG reveals normal sinus rhythm with no ST changes. Chest x-ray reveals no acute process. Discussed with patient that there are no signs of life-threatening etiology such as anemia or infection upon evaluation today. Discussed it is reasonable at this time to discharge patient with close follow- up with Dr. Mathias. Patient is agreeable to plan. Strict return parameters discussed and patient shows understanding and agrees. Case discussed with my attending Dr. Bright. Patient discharged in stable condition. Undiagnosed new problem with uncertain prognosis? @ -No Drug Therapy requiring intensive monitoring for toxicity (Heparin, Nitro, Insulin, Cardizem)? @ -No Were any procedures done? @ -No Diagnosis/symptom? @ -Postop bleeding Acute, or Chronic, or Acute on Chronic? @ -Acute Uncomplicated (without systemic symptoms) or Complicated (systemic symptoms)? @ -Uncomplicated Side effects of treatment? @ -No Exacerbation, Progression, or Severe Exacerbation? @ -No Poses a threat to life or bodily function? How? (Chest pain, USA, NH, pneumonia, PE, COPD, DKA, ARF, appy, cholecystitis, CVA, Diverticulitis, Homicidal, Suicidal, threat to staff... and all critical care pts) @ -Low likelihood - Lab Data Result diagrams: 01/11/24 21:22 01/11/24 21:22 Lab Results 01/11/24 01/11/24 01/11/24 Range/Units 21:22 21:22 21:22 WBC 10.1 (3.8-10.6) k/uL RBC 4.72 (3.80-5.40) m/uL Hgb 13.1 (11.4-16.0) gm/dL Hct 39.6 (34.0-46.0) % MCV 83.9 (80.0-100.0) fL MCH 27.7 (25.0-35.0) pg MCHC 33.0 (31.0-37.0) g/dL RDW 13.3 (11.5-15.5) % Plt Count 414 (150-450) k/uL MPV 7.5 Neutrophils % 56 % Lymphocytes % 30 % Monocytes % 5 % Eosinophils % 7 % Basophils % 1 % Neutrophils # 5.7 (1.3-7.7) k/uL Lymphocytes # 3.0 (1.0-4.8) k/uL Monocytes # 0.5 (0-1.0) k/uL Eosinophils # 0.7 (0-0.7) k/uL Basophils # 0.1 (0-0.2) k/uL PT 10.5 (10.0-12.5) sec INR 1.0 (<1.2) APTT 19.6 L (22.0-30.0) sec D-Dimer 0.35 (<0.60) mg/L FEU Sodium 140 (137-145) mmol/L Potassium 4.0 (3.5-5.1) mmol/L Chloride 106 (98-107) mmol/L Carbon Dioxide 24 (22-30) mmol/L Anion Gap 10 mmol/L BUN 7 (7-17) mg/dL Creatinine 0.58 (0.52-1.04) mg/dL Est GFR (CKD-EPI)AfAm >90 (>60 ml/min/1.73 sqM) Est GFR (CKD-EPI)NonAf >90 (>60 ml/min/1.73 sqM) Glucose 87 (74-99) mg/dL Calcium 9.3 (8.4-10.2) mg/dL Total Bilirubin 0.3 (0.2-1.3) mg/dL AST 18 (14-36) U/L ALT 17 (4-34) U/L Alkaline Phosphatase 71 (38-126) U/L Troponin I (0.000-0.034) ng/mL Total Protein 7.1 (6.3-8.2) g/dL Albumin 4.2 (3.5-5.0) g/dL Blood Type Blood Type Recheck Bld Type Recheck Status 01/11/24 01/11/24 Range/Units 21:22 21:22 WBC (3.8-10.6) k/uL RBC (3.80-5.40) m/uL Hgb (11.4-16.0) gm/dL Hct (34.0-46.0) % MCV (80.0-100.0) fL MCH (25.0-35.0) pg MCHC (31.0-37.0) g/dL RDW (11.5-15.5) % Plt Count (150-450) k/uL MPV Neutrophils % % Lymphocytes % % Monocytes % % Eosinophils % % Basophils % % Neutrophils # (1.3-7.7) k/uL Lymphocytes # (1.0-4.8) k/uL Monocytes # (0-1.0) k/uL Eosinophils # (0-0.7) k/uL Basophils # (0-0.2) k/uL PT (10.0-12.5) sec INR (<1.2) APTT (22.0-30.0) sec D-Dimer (<0.60) mg/L FEU Sodium (137-145) mmol/L Potassium (3.5-5.1) mmol/L Chloride (98-107) mmol/L Carbon Dioxide (22-30) mmol/L Anion Gap mmol/L BUN (7-17) mg/dL Creatinine (0.52-1.04) mg/dL Est GFR (CKD-EPI)AfAm (>60 ml/min/1.73 sqM) Est GFR (CKD-EPI)NonAf (>60 ml/min/1.73 sqM) Glucose (74-99) mg/dL Calcium (8.4-10.2) mg/dL Total Bilirubin (0.2-1.3) mg/dL AST (14-36) U/L ALT (4-34) U/L Alkaline Phosphatase (38-126) U/L Troponin I <0.012 (0.000-0.034) ng/mL Total Protein (6.3-8.2) g/dL Albumin (3.5-5.0) g/dL Blood Type A Positive Blood Type Recheck A Pos Bld Type Recheck Status No Disposition Clinical Impression: Post-op bleeding Disposition: HOME SELF-CARE Condition: Stable Additional Instructions: Please follow-up for appointment with Dr. Mathias on Saturday. Please return to the Emergency Department if symptoms worsen or any other concerns. Is patient prescribed a controlled substance at d/c from ED?: No Referrals: Sangeetha Orellana MD [Primary Care Provider] - 1-2 days Time of Disposition: 23:12
[2024-01-11 19:41] VITALS: RESP 18
--- NOTE | 2024-01-11 21:41 | XR ---
EXAMINATION TYPE: XR chest 2V DATE OF EXAM: 01/11/2024 9:26 PM CLINICAL INDICATION:Female, 28 years old with history of chest pain; COMPARISON: Chest radiographs from 10/31/2023 TECHNIQUE: XR chest 2V Frontal view of the chest. FINDINGS: Lungs/Pleura: There is no evidence of pleural effusion, focal consolidation, or pneumothorax. Pulmonary vascularity: Unremarkable. Heart/mediastinum: Cardiomediastinal silhouette is unremarkable. Musculoskeletal: No acute osseous pathology. IMPRESSION: No acute cardiopulmonary disease/process.
[2024-01-11 21:44] LABS: ALT 17 U/L (4-34); AST 18 U/L (14-36); African American GFR (CKD) >90 (>60 ml/min/1.73 sqM); Albumin 4.2 g/dL (3.5-5.0); Alkaline Phosphatase 71 U/L (38-126); Blood Urea Nitrogen 7 mg/dL (7-17); Calcium 9.3 mg/dL (8.4-10.2); Carbon Dioxide 24 mmol/L (22-30); Glucose 87 mg/dL (74-99); Non-African American GFR(CKD) >90 (>60 ml/min/1.73 sqM); Sodium 140 mmol/L (137-145); Total Bilirubin 0.3 mg/dL (0.2-1.3); Total Protein 7.1 g/dL (6.3-8.2)
[2024-01-11 21:56] LABS: Prothrombin Time 10.5 sec (10.0-12.5)
[2024-01-11 22:04] LABS: Anion Gap 10 mmol/L; Chloride 106 mmol/L (98-107)
[2024-01-11 22:23] LABS: Partial Thromboplastin Time 19.6 sec (22.0-30.0)
[2024-01-11 22:24] LABS: Basophils # (A) 0.1 k/uL (0-0.2); Basophils % (A) 1 %; Eosinophils # (A) 0.7 k/uL (0-0.7); Eosinophils % (A) 7 %; HCT 39.6 % (34.0-46.0); HGB 13.1 gm/dL (11.4-16.0); Lymphocytes % (A) 30 %; MCH 27.7 pg (25.0-35.0); MCV 83.9 fL (80.0-100.0); Mean Platelet Volume 7.5; Monocytes # (A) 0.5 k/uL (0-1.0); Monocytes % (A) 5 %; Neutrophils # (A) 5.7 k/uL (1.3-7.7); Neutrophils % (A) 56 %; Platelet Count 414 k/uL (150-450); RBC 4.72 m/uL (3.80-5.40); RDW 13.3 % (11.5-15.5); WBC 10.1 k/uL (3.8-10.6)
[2024-01-11 23:32] VITALS: BP 113/68; PULSE 89; TEMP 98.4
== END 2024-01-11 23:32 | disposition home or self-care (01) ==
LOC: EC 19:02
DX: L76.22 Postprocedural hemorrhage of skin and subcutaneous tissue following other procedure (principal); F17.290 Nicotine dependence, other tobacco product, uncomplicated; Z91.040 Latex allergy status; Z91.013 Allergy to seafood; Z88.2 Allergy status to sulfonamides; Z88.1 Allergy status to other antibiotic agents; Z88.5 Allergy status to narcotic agent; Z88.8 Allergy status to other drugs, medicaments and biological substances
CPT/HCPCS: 36415; 71046; 80053; 84484; 85025; 85379; 85610; 85730; 86900; 86901; 93005; 99284